=== PATIENT | female | born 1960 | race Caucasian/White ===

== ENCOUNTER 2017-03-22 09:00 | Outpatient (RCR) | payer OTHER, SELFPAY | END 2017-04-04 23:59 | LOC: NS 09:00 | DX: E66.9 Obesity, unspecified (principal); Z68.42 Body mass index [BMI] 45.0-49.9, adult; Z71.3 Dietary counseling and surveillance | CPT/HCPCS: 97802; 97803 ==

== ENCOUNTER → 2017-04-09 18:36 | Outpatient (CLI) | payer OTHER, SELFPAY ==
[2017-04-09 12:25] VITALS: BMI 48.2
[2017-04-09 12:28] VITALS: BP 122/79
[2017-04-09 18:39] LABS: Bacteria 0 SEEN /hpf (None Seen); Mucous, Urine 0 SEEN /hpf (<or=2+); Squamous Epithelial Cells - UA 0 SEEN /hpf (5-10)
[2017-04-09 18:51] LABS: Color, Urine Yellow (Yellow); Glucose, Dipstick Normal (Normal); Ketone-Dipstick Negative (Negative); Leukocyte Esterase-Dipstick 500 /ul (Negative); Nitrite-Dipstick Negative (Negative); Occult Blood-Urine 150 /ul (Negative); Protein-Dipstick 15 mg/dl (Negative); Urine Bilirubin Dipstick Negative (Negative); Urine Clarity Sl. Cloudy (Clear); Urine Urobilinogen Normal (Normal)
[2017-04-09 18:58] LABS: Red Blood Cells-Urine 5-10 SEEN /hpf (0-5); White Blood Cells 10-25 SEEN /hpf (0-5)
== END ==
PROVIDERS: Visit Provider Physician Assistant Surgical
DX: R30.0 Dysuria (principal)
CPT/HCPCS: 81001; 87086; 87088; 87186

== ENCOUNTER 2017-04-19 09:00 | Outpatient (RCR) | payer OTHER, SELFPAY ==
[2017-04-05 08:39] VITALS: BP 122/79
== END 2017-05-02 23:59 ==
LOC: NS 09:00
PROVIDERS: Family Provider Internal Medicine; PCP Internal Medicine; Visit Provider Internal Medicine
DX: E66.9 Obesity, unspecified (principal); Z68.42 Body mass index [BMI] 45.0-49.9, adult; Z71.3 Dietary counseling and surveillance
CPT/HCPCS: 97803

== ENCOUNTER 2017-04-23 13:50 | Outpatient (RCR) | payer OTHER, SELFPAY ==
[2017-04-23 14:16] VITALS: BP 156/81; PULSE 78; RESP 18; TEMP 37.2; BMI 48.2
== END 2017-05-02 23:59 ==
LOC: WC 13:50
PROVIDERS: Visit Provider Surgery
DX: Z09 Encounter for follow-up examination after completed treatment for conditions other than malignant neoplasm (principal)

== ENCOUNTER 2017-05-03 09:09 | Outpatient (RCR) | payer OTHER, SELFPAY ==
[2017-05-03 00:21] VITALS: BP 122/79
== END 2017-06-02 23:59 ==
LOC: NS 09:09
DX: E66.9 Obesity, unspecified (principal); Z68.42 Body mass index [BMI] 45.0-49.9, adult; Z71.3 Dietary counseling and surveillance
CPT/HCPCS: 97803

== ENCOUNTER 2017-06-27 09:00 | Outpatient (RCR) | payer OTHER, SELFPAY ==
[2017-06-03 00:24] VITALS: BP 122/79
== END 2017-07-02 23:59 ==
LOC: NS 09:00
PROVIDERS: Family Provider Internal Medicine; PCP Internal Medicine; Visit Provider Internal Medicine
DX: E66.9 Obesity, unspecified (principal); Z68.42 Body mass index [BMI] 45.0-49.9, adult; Z71.3 Dietary counseling and surveillance
CPT/HCPCS: 97803

== ENCOUNTER 2017-07-26 13:00 | Outpatient (RCR) | payer OTHER, SELFPAY ==
[2017-07-03 00:24] VITALS: BP 122/79
== END 2017-08-02 23:59 ==
LOC: NS 13:00
DX: E66.9 Obesity, unspecified (principal); Z68.42 Body mass index [BMI] 45.0-49.9, adult; Z71.3 Dietary counseling and surveillance
CPT/HCPCS: 97803

== ENCOUNTER 2017-08-22 09:30 | Outpatient (RCR) | payer OTHER, SELFPAY ==
[2017-08-03 00:26] VITALS: BP 122/79
== END 2017-08-22 09:31 ==
LOC: NS 09:30
DX: E66.9 Obesity, unspecified (principal); Z68.42 Body mass index [BMI] 45.0-49.9, adult; Z71.3 Dietary counseling and surveillance
CPT/HCPCS: 97803

== ENCOUNTER → 2017-09-21 17:43 | Outpatient (CLI) | payer OTHER, SELFPAY ==
[2017-09-21 17:44] LABS: Mucous, Urine 0 SEEN /hpf (<or=2+)
[2017-09-21 18:06] LABS: Color, Urine Yellow (Yellow); Glucose, Dipstick Normal (Normal); Ketone-Dipstick Negative (Negative); Leukocyte Esterase-Dipstick 500 /ul (Negative); Nitrite-Dipstick Negative (Negative); Occult Blood-Urine 150 /ul (Negative); Protein-Dipstick 15 mg/dl (Negative); Specific Gravity, Urine 1.015 (1.002-1.030); Urine Bilirubin Dipstick Negative (Negative); Urine Clarity Cloudy (Clear); Urine Urobilinogen Normal (Normal); Urine pH 6.5 (5.0 - 8.0)
[2017-09-21 18:19] LABS: White Blood Cells >100 SEEN /hpf (0-5)
[2017-09-21 18:20] LABS: Red Blood Cells-Urine 5-10 SEEN /hpf (0-5)
[2017-09-21 18:21] LABS: Bacteria 2+ /hpf (None Seen); Squamous Epithelial Cells - UA 0-5 SEEN /hpf (5-10)
== END ==
PROVIDERS: Visit Provider Physician Assistant Surgical
DX: N39.0 Urinary tract infection, site not specified (principal)
CPT/HCPCS: 81001; 87077; 87086; 87088; 87186

== ENCOUNTER → 2017-11-07 15:34 | Outpatient (CLI) | payer OTHER, SELFPAY | PROVIDERS: Family Provider Internal Medicine; PCP Internal Medicine; Visit Provider Internal Medicine | DX: M79.641 Pain in right hand (principal) | CPT/HCPCS: 73130 ==

== ENCOUNTER 2018-01-16 08:15 | Outpatient (RCR) | payer OTHER, SELFPAY ==
--- NOTE | 2017-12-04 10:50 | MASS.EVAL ---
Massage Therapy Evaluation: Initial Evaluation Date: 12/03/2017 SUBJECTIVE: Cristina is a 57 year old female who was referred to the [facility] for a massotherapy evaluation by Dr. Warren with the diagnosis of muscle pain. Cristina presents today with the symptoms of tension and pain in her neck and shoulder area, primarily her left side. She currently states she has moderate pain daily. She does pool exercising and it seems to help. OBJECTIVE: Upon observation Cristina has poor posture in sitting and standing. After examination and palpation I found Cristina to have very high muscle tension with tenderness and myofascial restrictions in her sub occipitals, levator scapulae, trapezius, rhomboids, scalenes, and thoracic paraspinals. Her QL?s, hips all were very tight with fascial restrictions, tender points and trigger points. The first treatment consisted of a one hour massage to her full body with myofascial release, muscle stripping, trigger point compression techniques, and cervical manual traction. ASSESSMENT: I feel that Cristina is a good candidate for massotherapy at this time. She had a favorable response to the first treatment with reduction in her muscle aches, pain and tension. PLAN: The plan of care was reviewed with the patient. The patient is to be seen on as needed basis for a total of ten sessions with the recommendation of once every two weeks for a one hour treatment. Jenny Moore LMT
--- NOTE | 2018-02-22 15:32 | MASS.DISCH ---
Massage Therapy Discharge Summary: Discharge Date: 02/22/2018 Cristina was seen for a massotherapy evaluation on 12/03/2017 with the diagnosis of muscle spasms. She was treated with three sessions of massage therapy consisting of moderate pressure soft tissue techniques, myofascial release and trigger point compression to her cervical, thoracic, lower back, upper extremities and lower extremities. Cristina responded well to the therapy by reporting decreased tension and pain throughout her neck, shoulders, and back. Her goals for therapy were not met as she was unable to schedule more appointments. At this time this patient is being discharged from our care at [facility] facility.
== END 2018-01-16 19:00 | disposition home or self-care (01) ==
LOC: MASS 08:15
PROVIDERS: Family Provider Internal Medicine; PCP Internal Medicine; Visit Provider Internal Medicine
DX: M62.838 Other muscle spasm (principal)
CPT/HCPCS: 97124

== ENCOUNTER → 2018-03-08 13:34 | Outpatient (CLI) | payer BC, SELFPAY ==
[2018-03-08 10:44] VITALS: BMI 48.2
--- NOTE | 2018-03-08 13:38 | RAD_ITS ---
STUDY: X-RAY - LEFT SHOULDER REASON FOR EXAM: Female, 58 years old. Left shoulder pain TECHNIQUE: 4 view(s) of the shoulder. COMPARISON: None. FINDINGS: There is mild degenerative arthrosis of the glenohumeral articulation. There is degenerative arthrosis of the acromioclavicular joint without inferior osseous spur formation. Normal acromion. Normal humeral head and visualized proximal humerus. The soft tissue structures are unremarkable. Normal visualized pulmonary apex. RAD/Shoulder min 2 Views IMPRESSION: Mild osteoarthrosis of the glenoid and acromioclavicular joints. Electronically Signed: Butch Doherty MD at 8:08 EST , Service support ,
== END ==
PROVIDERS: Family Provider Internal Medicine; PCP Internal Medicine; Referring Provider Internal Medicine; Visit Provider Internal Medicine
DX: M25.512 Pain in left shoulder (principal)
CPT/HCPCS: 73030

== ENCOUNTER → 2018-04-23 10:55 | Outpatient (REF) | payer BC, SELFPAY ==
[2018-03-08 10:44] VITALS: BMI 48.2
== END ==
LOC: CVS 10:55
PROVIDERS: Family Provider Internal Medicine; PCP Internal Medicine; Referring Provider Internal Medicine; Visit Provider Internal Medicine
DX: R00.2 Palpitations (principal)
CPT/HCPCS: 93270

== ENCOUNTER 2018-05-23 10:00 | Outpatient (RCR) | payer BC, SELFPAY ==
[2018-03-08 10:44] VITALS: BMI 48.2
--- NOTE | 2018-04-17 13:31 | HP.PTEVAL_ITS ---
Patient's Visit Information KIZZY NASH is a 58 year old F referred to Physical Therapy by Randall Warren MD with a diagnosis of L shoulder pain. Date of Evaluation: 04/17/18 Physical Therapist: Davis Cummins PT, ATC - Visit Plan Frequency: 3x /Week Duration: 4 Weeks Plan: L shoulder strengthening (rot cuff), scap stab ex's, UBE, and HEP - Subjective Findings: Pt reports her L shoulder has been sore for a couple of years. Pt reports she has been dealing with the pain, but the pain just never feels like it will go away. Pt reports she has difficulty with picking up her grandson secondary to the pain. Pt reports she doesnt have pain when she doesnt use her L UE. Pt is L hand dominant. Pt reports she exercises here in the pool, and that increases her pain as well. Pt has had an xray recently but has not heard the results at this time. Pt reports most of her pain is located on the anterior portion of her L shoulder. Pt reports she gets tingling and numbness in B UE's, but that is coming from her neck. Pt reports no sleep difficulty at this time. 0/10 pain at rest, 6/10 pain at worst - Pain L shoulder Pain Intensity (Out of 10): 0 Pain Intensity Range: 6 - Objective Neuro: B UE sensation is WNL to light touch. B becepital reflex 2/3. Palpation: Pt is tender along the distrivbution of the LHB tendon and supraspinatus tendon. ROM: R shoulder flex= 155, abd= 155, ER= 60, IR WNL; L shoulder flex= 140, abd= 130, ER= 65, IR WNL. MMT: R shoulder is grossly 5/5 throughout while L UE is 4+/5 throughout. Special testing: No positive finding this date - Goals Goal 1:: Decrease L shoulder pain x 50% to aid with IADL's Goal Time Frame: 4-6 Weeks Goal 2:: Increase L shoulder flex and abd ROM x 20 degrees to aid with overhead activity Goal Time Frame: 4-6 Weeks Goal 3:: Increase L shoulder strength x 1 grade to aid with return to exercise class without limitation Goal Time Frame: 4-6 Weeks Goal 4:: I with HEP Goal Time Frame: 4-6 Weeks - Rehabilitation Potential Physical Therapy Diagnosis: L shoulder pain, weakness, and limited ROM secondary to impingement syndrome of L shoulder Rehabilitation Potential: Good - Anticipated Interventions Patient/Client Instruction: Educate patient on: Condition, Plan of Care For the Purpose of:: To improve self management Therapeutic Exercise to Include: Strength training, Endurance training, Postural training, Active ROM, Scapular Strength/Stabilization For the Purpose of:: To decrease pain, To increase ROM, To improve muscle performance and motor function Cryotherapy (ice pack, ice massage): Yes For the Purpose of:: To decrease pain Thank you for the opportunity to evaluate your patient. For Medicare and Medicare HMO plans, please review the plan of care and approve it. It will need to be FAXED BACK to us at [phone] for Medicare purposes. For Medicare only, by signing this I certify the plan of care. Please let me know if there are questions or concerns regarding this plan of care. Physician Signature: Date:
--- NOTE | 2018-05-23 11:09 | HP.PTDCSUM ---
HP - PT D/C Summary It has been my pleasure to treat KIZZY NASH under orders from Randlal Warren MD, for the diagnosis of L shoulder pain for a total of 7 visit(s). Discharge Date: Please see the following information for a summary of their discharge status. - Subjective Subjective: Increased pain today from working at home - Pain L shoulder Pain Intensity (Out of 10): 2 - Overall Improvement % Improvement: 60 - Objective Objective/Function: L shoulder Pain ranges 2/10 to 4/10. L shoulder ROM: flex= 160, abd= 140, ER= 45, IR WNL. L shoulder MMT: 5/5 throughout. I with HEP. Rx goals achieved - Goals Goal 1:: Decrease L shoulder pain x 50% to aid with IADL's Goal Progress: Goal Met Goal 2:: Increase L shoulder flex and abd ROM x 20 degrees to aid with overhead activity Goal Progress: Goal Met Goal 3:: Increase L shoulder strength x 1 grade to aid with return to exercise class without limitation Goal Progress: Goal Met Goal 4:: I with HEP Goal Progress: Goal Met - Plan Plan: discharge - D/C Information If there are questions or concerns regarding this patient's physical therapy, please feel free to call me at [phone]. Thank you for the referral of this patient. Sincerely, Davis Cummins, PT, ATC
== END 2018-05-23 19:00 | disposition home or self-care (01) ==
LOC: PT 10:00
PROVIDERS: Family Provider Internal Medicine; PCP Internal Medicine; Referring Provider Internal Medicine; Visit Provider Internal Medicine
DX: M25.512 Pain in left shoulder (principal)
CPT/HCPCS: 97110; 97161; 97530

== ENCOUNTER → 2018-08-14 09:17 | Outpatient (CLI) | payer BC, SELFPAY ==
[2018-08-13 12:54] VITALS: BMI 48.2
--- NOTE | 2018-08-26 12:54 | CPS ---
Instruction done and explained purpose of device. Pt. understands how to use and will continue usage at home per order.
== END ==
PROVIDERS: Family Provider Internal Medicine; PCP Internal Medicine; Referring Provider Nurse Practitioner Acute Care; Visit Provider Nurse Practitioner Acute Care
DX: J01.90 Acute sinusitis, unspecified (principal)
CPT/HCPCS: 87070; 87077; 87106; 87186; 87205

== ENCOUNTER → 2018-08-26 12:30 | Outpatient (CLI) | payer BC, SELFPAY ==
[2018-08-26 11:37] VITALS: BMI 48.2
== END ==
PROVIDERS: Family Provider Internal Medicine; PCP Internal Medicine; Referring Provider Nurse Practitioner Acute Care; Visit Provider Nurse Practitioner Acute Care
DX: J47.1 Bronchiectasis with (acute) exacerbation (principal); J45.21 Mild intermittent asthma with (acute) exacerbation; G47.33 Obstructive sleep apnea (adult) (pediatric); I10 Essential (primary) hypertension; E78.5 Hyperlipidemia, unspecified; I87.2 Venous insufficiency (chronic) (peripheral); Z87.891 Personal history of nicotine dependence
CPT/HCPCS: 94667

== ENCOUNTER → 2018-09-12 08:31 | Outpatient (CLI) | payer BC, SELFPAY ==
[2018-09-11 08:25] VITALS: BMI 48.2
== END ==
PROVIDERS: Family Provider Internal Medicine; PCP Internal Medicine; Referring Provider Nurse Practitioner Acute Care; Visit Provider Nurse Practitioner Acute Care
DX: J47.9 Bronchiectasis, uncomplicated (principal)
CPT/HCPCS: 87070; 87205

== ENCOUNTER → 2018-12-04 11:50 | Outpatient (CLI) | payer BC, SELFPAY ==
[2018-10-15 06:13] VITALS: BMI 54.0
--- NOTE | 2018-12-04 11:54 | RAD_ITS ---
HISTORY:bronchiectasis without complication bronchiectasis without complication EXAM: XR Chest 2 Views: COMPARISON: None FINDINGS: # of images incl. paperwork: 2 LINES/DEVICES: None. LUNGS: Radiographically clear. No consolidation, edema or effusion. No pneumothorax. MEDIASTINUM AND CARDIOVASCULAR STRUCTURES: Cardiac silhouette not enlarged. BONES AND SOFT TISSUES: Unremarkable. RAD/Chest PA and Lateral IMPRESSION: No radiographic evidence of acute cardiopulmonary disease. at 2157 Reported and signed by: Ileana Gutierrez DO Electronically Signed: Ileana Gutierrez DO at 21:56 EDT Tel , Service support ,
== END ==
PROVIDERS: Family Provider Internal Medicine; PCP Internal Medicine; Referring Provider Internal Medicine; Visit Provider Internal Medicine
DX: J47.9 Bronchiectasis, uncomplicated (principal)
CPT/HCPCS: 71046

== ENCOUNTER → 2019-05-05 09:19 | Outpatient (CLI) | payer BC, SELFPAY ==
[2018-10-15 06:13] VITALS: BMI 54.0
== END ==
PROVIDERS: PCP Internal Medicine; Referring Provider Nurse Practitioner Acute Care; Visit Provider Nurse Practitioner Acute Care
DX: R05 Cough (principal)
CPT/HCPCS: 87070; 87205

== ENCOUNTER → 2019-05-08 10:25 | Outpatient (REF) | payer BC, SELFPAY ==
[2018-10-15 06:13] VITALS: BMI 54.0
== END ==
LOC: HPRAD 10:25
PROVIDERS: PCP Internal Medicine; Referring Provider Chiropractor; Visit Provider Chiropractor
DX: M99.03 Segmental and somatic dysfunction of lumbar region (principal)
CPT/HCPCS: 72110

== ENCOUNTER → 2019-10-08 13:48 | Outpatient (CLI) | payer BC, SELFPAY ==
[2019-10-08 13:05] VITALS: BMI 54.2
[2019-10-08 14:09] LABS: Absolute Neutrophil Count 5.7 X10^3/uL (2.0-7.7); Basophil# 0.03 X10^3/uL; Basophil% 0.4 % (0-1); Eosinophils% 1.2 % (0-5); Hematocrit 40.6 % (37-47); Hemoglobin 12.9 g/dL (12.0-15.0); Lymphocyte % 19.8 % (19-41); Mean Corp Hgb Conc 31.8 g/dL (32-36); Mean Corpuscular Hgb 27.5 pg (27.0-32.0); Mean Corpuscular Volume 86.6 fL (81-99); Mean Platelet Vol. 9.5 fl (6.2-12.0); Monocyte# 0.61 X10^3/uL; Monocyte% 7.6 % (0-10); NRBC Flagged by Analyzer 0 % (0-5); Neutrophil # 5.69 X10^3/uL (2.7-7.7); Neutrophil % 70.5 % (47-70); Platelet Count 229 K/mm3 (150-450); RBC Distribution Width CV 15.6 % (11.6-14.6); RBC Distribution Width SD 49.1 fl (35.1-43.9); Red Blood Count 4.69 M/mm3 (4.2-5.4); White Blood Count 8.1 K/mm3 (4.4-11.0)
[2019-10-11 03:06] LABS: Alternaria alternata <0.10 kU/L (Class 0); Bermuda Grass 0.13 kU/L (Class 0/I); Bluegrass, Kentucky 0.15 kU/L (Class 0/I); Cat Hair/Dander, Standard <0.10 kU/L (Class 0); D farinae Mite <0.10 kU/L (Class 0); D pteronyssinus <0.10 kU/L (Class 0); Dog Epithelia <0.10 kU/L (Class 0); Elm, American White 0.11 kU/L (Class 0/I); Oak, White 0.14 kU/L (Class 0/I); Plantain, English 0.12 kU/L (Class 0/I); Ragweed, Short/Common 0.11 kU/L (Class 0/I)
[2019-10-11 17:31] LABS: Mouse Urine <0.10 kU/L (Class 0)
[2019-10-11 20:07] LABS: Aspirgillus flavus Negative (Neg:<1:1); Aspirgillus fumigatus Negative (Neg:<1:1); Aspirgillus niger Negative (Neg:<1:1)
[2019-10-11 21:01] LABS: Immunoglobulin E 29 IU/mL (6-495)
== END ==
PROVIDERS: PCP Internal Medicine; Referring Provider Nurse Practitioner Acute Care; Visit Provider Nurse Practitioner Acute Care
DX: J45.909 Unspecified asthma, uncomplicated (principal)
CPT/HCPCS: 36415; 82785; 85025; 86003; 86606

== ENCOUNTER → 2019-10-10 09:12 | Outpatient (CLI) | payer BC, SELFPAY ==
[2019-10-08 13:05] VITALS: BMI 54.2
== END ==
PROVIDERS: PCP Internal Medicine; Referring Provider Nurse Practitioner Acute Care; Visit Provider Nurse Practitioner Acute Care
DX: J45.909 Unspecified asthma, uncomplicated (principal)
CPT/HCPCS: 87070; 87077; 87186; 87205

== ENCOUNTER → 2019-11-13 06:48 | Outpatient (CLI) | payer BC, SELFPAY ==
[2019-10-08 13:05] VITALS: BMI 54.2
[2019-10-29 05:43] VITALS: BMI 55.4
--- NOTE | 2019-11-13 13:08 | PFT ---
INTRODUCTION: The patient is a 59-year-old female that presents for pulmonary function studies secondary to a diagnosis of asthma. Respiratory therapy reports good patient effort. Bronchodilators were used during testing. INTERPRETATION: Forced expiration spirometry demonstrates the presence of a moderate large airways obstructive ventilatory defect. There was a significant response to aerosolized bronchodilators noted. Spirograms are of good quality and plateau gradually. Body plethysmography was performed and reveals lung volumes to be within normal limits. Diffusing capacity by single breath CO was mildly reduced at 70% of predicted. IMPRESSION: Fully reversible moderate large airways obstructive ventilatory defect with preserved lung volumes and mild reduction in diffusing capacity.
== END ==
PROVIDERS: PCP Internal Medicine; Referring Provider Nurse Practitioner Acute Care; Visit Provider Nurse Practitioner Acute Care
DX: J45.909 Unspecified asthma, uncomplicated (principal)
CPT/HCPCS: 94060; 94726; 94729

== ENCOUNTER → 2019-12-29 11:34 | Outpatient (CLI) | payer BC, SELFPAY ==
[2019-12-29 10:03] VITALS: BMI 56.3
== END ==
PROVIDERS: PCP Internal Medicine; Visit Provider Nurse Practitioner Acute Care
DX: J45.901 Unspecified asthma with (acute) exacerbation (principal)
CPT/HCPCS: 87070; 87205

== ENCOUNTER → 2020-06-25 06:59 | Outpatient (CLI) | payer BC, SELFPAY ==
[2020-06-22 10:07] VITALS: BMI 54.9
--- NOTE | 2020-06-25 07:05 | CT_ITS ---
STUDY: CT CHEST WITHOUT CONTRAST REASON FOR EXAM: Female, 60 years old. bronchiectasis -- please use HRCT RADIATION DOSAGE (If Supplied By Facility): CTDIvol = ( 20.15 ) mGy, DLP = ( 662.05 ) mGycm TECHNIQUE: Transaxial imaging was performed without the administration of intravenous contrast material. Multiplanar coronal and sagittal images were reformatted. Individualized dose optimization techniques were used for this CT. COMPARISON: Comparison is made with prior chest radiograph dated 12/04/2018 FINDINGS: The lungs are normal. There is no demonstrated pleural abnormality. There are calcifications of the coronary arteries. There are multiple small lymph nodes within the mediastinum, which are normal in size and morphology most compatible with reactive lymph hyperplasia. Normal hilar regions. Normal unenhanced pulmonary arteries. Normal aorta arch and descending thoracic aorta. There are multi-level degenerative changes of the thoracic spine. There is no demonstrated abnormality of the visualized upper abdomen. CT/Chest without Contrast IMPRESSION: No acute abnormalities seen. Electronically Signed: Mikal Amin MD at 8:38 EDT , Service support ,
== END ==
PROVIDERS: PCP Internal Medicine; Referring Provider Internal Medicine Critical Care Medicine; Visit Provider Internal Medicine Critical Care Medicine
DX: J47.9 Bronchiectasis, uncomplicated (principal)
CPT/HCPCS: 71250

== ENCOUNTER → 2020-09-08 06:04 | Outpatient (CLI) | payer BC, SELFPAY ==
[2020-08-26 11:17] VITALS: BMI 53.9
--- NOTE | 2020-09-08 06:06 | ECHOCS_ITS ---
Reason For Study: SOB/SPEARS Procedure This was a 2D Doppler, Color Flow transthoracic echocardiogram. The study was technically difficult. Contrast injection was performed. Exam performed in department. Left Ventricle Normal LV size. Left ventricular systolic function is normal. The estimated ejection fraction is 65 %. No evidence for diastolic dysfunction. No regional wall motion abnormalities noted. Right Ventricle Normal RV size. Normal systolic function. Atria Normal left atrium. Normal right atrium. No doppler evidence for ASD. Mitral Valve There is mild mitral annular calcification. Normal mitral valve. Trivial mitral valve insufficiency. Tricuspid Valve Normal tricuspid valve. Trivial tricuspid valve insufficiency. Right ventricular systolic pressure estimated to be 29 mmHg. Aortic Valve The aortic valve is not well visualized. Pulmonic Valve The pulmonic valve is not well visualized. Trivial pulmonic valve insufficiency. Great Vessels The aortic root is not well visualized. Pericardium/Pleural No pericardial effusion. Medication 22 gauge I.V. with prn adaptor inserted into right arm. Diluted definity 6ml given slow IV push to enhance endocardial definition. MMode/2D Measurements & Calculations LVIDd: 4.7 cm IVSd: 1.1 cm LA dimension: 3.8 cm LVIDs: 2.7 cm LVPWd: 1.3 cm FS: 41.8 % LAV(MOD-bp): 40.1 ml LA A4 area: 16.5 cm2 RA A4 area: 17.2 cm2 LAV(MOD-bp) Indexed: 17.2 ml/m2 LAV(MOD-sp2): 33.9 ml LAV(MOD-sp4): 43.7 ml Time Measurements MV dec time: 0.22 sec Doppler Measurements & Calculations MV E max bruce: 128.3 cm/sec Lat Peak E' Bruce: 9.6 cm/sec Med Peak E' Bruce: 9.7 cm/sec MV A max bruce: 93.2 cm/sec E/E' lat: 13.3 E/E' med: 13.2 MV E/A: 1.4 MV V2 max: 120.8 cm/sec MV P1/2t max bruce: 121.2 cm/sec Ao V2 max: 155.3 cm/sec MV max P.8 mmHg MV P1/2t: 90.1 msec Ao max P.6 mmHg MV V2 mean: 66.5 cm/sec MV dec slope: 393.9 cm/sec2 MV mean P.1 mmHg MV V2 VTI: 36.9 cm MVA(P1/2t): 2.4 cm2 LV V1 max: 138.1 cm/sec PA V2 max: 81.9 cm/sec TR max bruce: 254.3 cm/sec LV V1 max P.6 mmHg TR max P.9 mmHg ECHO/Echo Complete W/ Contrast Interpretation Summary The study was technically difficult. Contrast injection was performed. Left ventricular systolic function is normal. The estimated ejection fraction is 65 %. There is mild mitral annular calcification. Trivial mitral valve insufficiency. Trivial tricuspid valve insufficiency. Trivial pulmonic valve insufficiency. Right ventricular systolic pressure estimated to be 29 mmHg. No evidence for diastolic dysfunction. Ordering Physician: Judd Estrada Referring Physician: Randall Warren Performed By: Joel An RCS
--- NOTE | 2020-09-08 09:04 | STRESSREP_ITS ---
Stress Test Report Date: 09-08-2020 Procedure: Exercise tolerance test/imaging study Indications: Shortness of breath/dyspnea on exertion; coronary artery calcific ation Consent: Per the patient Procedure: The patient exercised on a Jan protocol for 3 minutes completing Stage I achieving a peak heart rate of 155 bpm (98% predicted maximal heart rate) with a peak blood pressure 210/70 mmHg and a peak MET capacity of 4 METs. The baseline ECG demonstrated normal sinus rhythm. The peak exercise ECG demonstrated no obvious ECG changes. There was a rare PVC during exercise and an occasional PVC during recovery and an isolated ventricular couplet during recovery. The functional capacity was considered decreased. There was no complaint of chest discomfort during exercise or recovery. The examination was discontinued secondary to dyspnea. Impression: 1. Technically adequate (percent predicted maximal heart rate greater than 85%) exercise tolerance test 2. Peak exercise ECG with no obvious ECG changes 3. There was a rare PVC during exercise and an occasional PVC during recovery and an isolated ventricular couplet during recovery 4. The resting blood pressure was considered elevated with a hypertensive response to exercise. 5. Nuclear images pending Myocardial perfusion imaging study: Technique: The patient was injected with 14.7 mCi of technetium 99m Cardiolite and subsequently rest SPECT Cardiolite nuclear imaging was obtained in the horizontal long, vertical long, and short axis views. The patient exercised on a Jan protocol for 3 minutes completing Stage I achieving a peak heart rate of 155 bpm (98% predicted maximal heart rate) with a peak blood pressure 210/70 mmHg and a peak MET capacity of 4 METs. The patient was injected with 44.8 mCi of technetium 99m Cardiolite and subsequently stress SPECT Cardiolite nuclear imaging was obtained in the horizontal long, vertical long, and short axis views. A gated Cardiolite study at peak stress was obtained. Interpretation: Rest and stress SPECT Cardiolite nuclear imaging status post realignment, normalization, and attenuation correction, demonstrates the appearance of relative uniform tracer uptake and myocardial perfusion appearing within normal limits. There were no myocardial perfusion deficits reported on the stress polar map images. There is end systolic thickening and brightening. The gated Cardiolite study demonstrates myocardial thickening and inward wall motion. The reported LVEF is 73%. Impression: 1. Rest and stress SPECT Cardiolite nuclear imaging demonstrate relative uniform tracer uptake and myocardial perfusion appearing within normal limits. 2. The gated Cardiolite study reports an LVEF of 73%. This note was generated with [employer] dictation software. It may contain incorrect words, spelling, and punctuation that were not noted in checking the note before signing.
== END ==
PROVIDERS: PCP Internal Medicine; Referring Provider Internal Medicine Cardiovascular Disease; Visit Provider Internal Medicine Cardiovascular Disease
DX: R06.02 Shortness of breath (principal); E78.00 Pure hypercholesterolemia, unspecified; I10 Essential (primary) hypertension; I25.10 Atherosclerotic heart disease of native coronary artery without angina pectoris; I25.84 Coronary atherosclerosis due to calcified coronary lesion
CPT/HCPCS: 78452; 93017; 93306; A9500; Q9957; A4216; C8929; J3490

== ENCOUNTER → 2020-11-26 10:22 | Outpatient (CLI) | payer BC, SELFPAY ==
--- NOTE | 2020-11-26 10:27 | RAD_ITS ---
STUDY: X-RAY - LUMBAR SPINE REASON FOR EXAM: Female, 60 years old. LUMBAR RAD TECHNIQUE: 5 view(s) of the lumbar spine were obtained. COMPARISON: 05/08/2019 FINDINGS: Normal lumbar lordosis. Mild levoscoliosis centered at L4. 2 mm of anterolisthesis of L4 on L5 which is unchanged. There is multilevel endplate spondylosis of the lumbar vertebrae. There is multi-level degenerative disc disease with multi-level disc space narrowing. Facet hypertrophy in the lower lumbar spine consistent with degenerative disc disease. The soft tissue structures are unremarkable. RAD/L/S Spine Min 4 Views IMPRESSION: Mild levoscoliosis with diffuse degenerative disc disease and 2 mm of anterolisthesis of L4 on L5, similar to the prior study. Electronically Signed: Jimbo Rios MD at 17:17 EDT Tel , Service support ,
[2020-11-26 12:33] LABS: AST(SGOT) 23 U/L (15-37); Alanine Aminotransfer ALT/SGPT 29 U/L (13-56); Alkaline Phosphatase 69 U/L (45-117); Anion Gap 4 (5-15); BUN 15 mg/dL (7-18); BUN/Creat Ratio 16.9 RATIO (10-20); Calcium,Total 9.4 mg/dL (8.5-10.1); Chloride 104 mmol/L (98-107); Cholesterol 166 mg/dL (200); Creatinine, Serum 0.89 mg/dL (0.55-1.02); EST Glomerular Filtration Rate 68 mL/min (>60); Est Glom Filt Rate - Afr Amer 83 mL/min (>60); Globulin 4.4 g/dL (2.2-4.2); Glucose 86 mg/dL (74-106); High Density Lipoprotein 67 mg/dL; Potassium 3.6 mmol/L (3.5-5.1); Protein, Total 8.4 g/dL (6.4-8.2); Sodium Level 137 mmol/L (136-145); Triglycerides 97 mg/dL; Very Low Density Lipoprotein 19 mg/dL (5-40)
[2020-11-26 12:35] LABS: Vitamin D,25 Hydroxy 53.2 ng/mL
== END ==
PROVIDERS: PCP Internal Medicine
DX: I10 Essential (primary) hypertension (principal); E78.00 Pure hypercholesterolemia, unspecified; E55.9 Vitamin D deficiency, unspecified; M54.16 Radiculopathy, lumbar region
CPT/HCPCS: 36415; 72110; 80048; 80061; 80076; 82306

== ENCOUNTER → 2020-12-27 08:01 | Outpatient (CLI) | payer BC, SELFPAY ==
--- NOTE | 2020-12-27 08:02 | MRI_ITS ---
STUDY: MRI LUMBAR SPINE WITHOUT CONTRAST REASON FOR EXAM: Female, 60 years old. Low back pain/parasthesia, right TECHNIQUE: Standardized fat and water weighted pulse sequences were obtained in the sagittal and axial planes. COMPARISON: X-ray 11/26/2020 FINDINGS: T12-L1: Normal endplates. Normal disc height, hydration and morphology. Normal bilateral facet joints. Normal central canal and bilateral lateral recesses. Normal bilateral intervertebral neural foramina. Normal lumbar lordosis. Mild levoscoliosis of the lower lumbar spine centered at L4. Normal conus medullaris that terminates at the L1. L1-2: Normal endplates. Normal disc height, hydration and morphology. Normal bilateral facet joints. Normal central canal and bilateral lateral recesses. Normal bilateral intervertebral neural foramina. L2-3: Mild bilateral facet hypertrophy and moderate ligament flavum hypertrophy. Moderate broad disc protrusion asymmetric to left produces moderate spinal stenosis with mild right lateral recess stenosis, moderate left lateral recess stenosis with abutment of the left L3 nerve root and mild bilateral neural foraminal stenosis. L3-4: Mild bilateral facet hypertrophy and moderate ligament flavum hypertrophy. Moderate broad disc protrusion produces moderate spinal stenosis with moderate bilateral lateral recess stenosis with abutment of the L4 nerve roots bilaterally and moderate bilateral neural foraminal stenosis with abutment of the exiting L3 nerve roots bilaterally. L4-5: Severe bilateral facet hypertrophy and ligament flavum hypertrophy. Large broad disc protrusion produces severe spinal stenosis with severe bilateral lateral recess stenosis with effacement of the L5 nerve roots bilaterally and moderate bilateral neural foraminal stenosis with abutment of the exiting L4 nerve roots bilaterally. L5-S1: Moderate amount of facet hypertrophy and ligament flavum hypertrophy. Mild broad disc protrusion produces moderate spinal stenosis with moderate bilateral lateral recess stenosis with abutment S1 nerve roots bilaterally and moderate lateral neural foraminal stenosis with abutment of the exiting L5 nerve roots bilaterally. Normal visualized sacral ala. Normal visualized paraspinous soft tissue structures. MRI/Spine Lumbar (Routine) IMPRESSION: Mild levoscoliosis with degenerative disc disease as described above Electronically Signed: Jimbo Rios MD at 10:15 EDT Tel , Service support ,
== END ==
PROVIDERS: PCP Internal Medicine; Referring Provider Chiropractor; Visit Provider Chiropractor
DX: M51.36 Other intervertebral disc degeneration, lumbar region (principal); M99.03 Segmental and somatic dysfunction of lumbar region
CPT/HCPCS: 72148

== ENCOUNTER 2020-12-31 10:00 | Outpatient (RCR) | payer BC, SELFPAY ==
--- NOTE | 2020-12-15 09:53 | HP.PTEVAL_ITS ---
Patient's Visit Information KIZZY NASH is a 60 year old F referred to Physical Therapy by Dr. Randall Warren MD with a diagnosis of LUMBAR RADICULOPATHY. Date of Evaluation: 12/15/20 Physical Therapist: Andreina Murphy PT, Cert MDT - Visit Plan Frequency: 2-3x /Week Duration: 4-6 Weeks Plan: AQUATIC THERAPY FOR PAIN RELIEF, POSTURE CORRECTION/STRENGTHENING, INSTRUCTION IN APPROPRIATE BODY MECHANICS AND ACTIVITY MODIFICATIONS. DLS STARTING WITH A NEUTRAL SPINE PROGRESSING ROM TOLERATED. THAO LE ROM, STRETCHING AND STRENGTHENING. HEP INSTRUCTION. 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 Disability: NO. Present symptoms: THAO LOW BACK PAIN. RIGHT > LEFT. RIGHT CALF PAIN. RIGHT FOOT TINGLING - THE WHOLE FOOT. LEFT BIG TOE TINGLING. LEFT LATERAL CALF TINGLING. Present since: YEARS AGO - FLARE UP AUGUST 2020. Pain Scale: WORST 6/10, LEAST 1/10. Currently: 3/10. Commenced as a result of: NO APPARENT REASON. Symptoms at onset: RIGHT LE TINGLING. Worse: SITTING IN A CHAIR, LYING DOWN AT FIRST - TINGLING, WAKING UP IN THE MORNING - TINGLING, LIFTING, WALKING - HIP PAIN, STANDING, GOING UP AND DOWN THE STEPS, DRIVING. Better: PUTTING FIST IN RIGHT LOW BACK MUSCLE, STRETCHING IT LIKE THE CHIROPRACTOR DOES, CHANGING POSITION. Disturbed sleep: NO. Previous history/Previous treatment: CHRONIC LBP FOR ABOUT 4-5 YEARS. CHIROPRACTIC TREATMENTS OFF AND ON NEEDED BUT NOT A LOT. NO BACK SURGERY. NO SUSAN'S. PRESCRIPTION MEDICATIONS AND CHIROPRACTOR PRIOR TO THIS EPISODE. APR 2019 WENT TO URGENT CARE AND HAD STEROIDS AND MUSCLE RELAXERS TOO - THAT EPISODE WAS WORSE THAN THIS ONE. NO PHYSICAL THERAPY. Treatment this episode: CHIROPRACTOR, STEROIDS A MONTH AGO, MUSCLE RELAXER. Coughing/sneezing/straining: POSITIVE. Gait: PATIENT REPORTS HER BACK PAIN IS LIMITING HER WALKING FOR EXERCISE. SHORT DISTANCES GAIT IS NORMAL. Difficulty initiating urination: NO. Accidents: NO. Unexplained weight loss: NO. Imaging: NO MRI. RECENT LUMBAR X-RAY WITH COMPARISON TO MAY 2019. IM PRESSION: Mild levoscoliosis with diffuse degenerative disc disease and 2 mm of. anterolisthesis of L4 on L5, similar to the prior study. PMH: ASTHMA. USES A MACHINE VEST TO RATTLE LUNGS AND STARTED THAT IN AUGUST AROUND THE SAME TIME THIS STARTED. USES THE VEST 30 MINUTES 2 TIMES A DAY. HTN. HIGH CHOLESTEROL. H/O COVID FEB 2020/MAR 2020. LYMPHADEMEA LE'S. Recent major surgery: THAO TKR. *CTR OCT 2020. EXERCISE: INDEP POOL EX 3-4 TIMES A WEEK DURING COVID BUT STARTING BACK TO CLASSES. OTHER: LEAVING FOR [place] JAN 04 2021. - Objective Sitting/Standing Posture: POOR. Relevant shift: NO. Active Correction of posture in standing: PRODUCES LEFT BIG TOE AND CALF TINGLING WHICH PATIENT HAS NOT NOTICED BEFORE. Active correction of posture in sitting: PRODUCES RIGHT CALF TINGLING. Other Observations: INDEP TRANSFERS. Motor deficit: THAO LE'S 5/5 WITH MMT'ING EXCEPT HIPS GRADED 4-/5. GENTLE THAO HIP STRENGTH TESTING PROVOKES LBP. Sensory deficit: THAO LE LIGHT TOUCH SENSATION IS GROSSLY INTACT AND SYMMETRICAL. ROM deficit: TIGHT THAO HS'S. Dural Signs: NEGATIVE THAO LE'S. Lumbar mvmt loss: flex - MIN TO MOD. ext - MOD TO MAISHA - PRODUCES LLE CALF AND FOREFOOT TINGLING.. R SG - MAISHA - PRODUCES RIGHT LBP. L SG - MAISHA - PRODUCES THAO LBP. Core strength: POOR. Palpation: TENDERNESS L45S1 REGION AND RIGHT LOW BACK MUSCLULATURE. TREATMENT: NEUROMUSCULAR REEDUCATION - RETRAINING OF MVMT AND POSTURE FOR SITTING, LYING AND STANDING ACTIVITIES. - Balance/Special Test Scores Oswestry Low Back Score: 16 - Goals Goal 1:: DECREASE C/O LOW BACK AND THAO LE SX'S. Goal Time Frame: 4-6 Weeks Goal 2:: IMPROVE PERSONAL CARE, LIFTING, WALKING, STANDING, SOCIAL LIFE, TRAVEL AND WORK/HOMEMAKING FUNCTION. Goal Time Frame: 4-6 Weeks Goal 3:: INSTRUCT IN PROPHYLAXIS Goal Time Frame: 4-6 Weeks - Anticipated Interventions Patient/Client Instruction: Educate patient on: Condition, Plan of Care, Risk Factors For the Purpose of:: To improve self management Therapeutic Exercise to Include: Strength training, Body mechanics, Postural training, Flexibilty training, Gait and locomotor training, Neuromotor development, In an aquatic setting, Dynamic Lumbar Stabilization For the Purpose of:: To decrease pain, To improve muscle performance and motor function, To increase tolerance to activity/condition/position, To improve ability of physical actions for home/community/work/leisure, To improve gait and locomotor functions Thank you for the opportunity to evaluate your patient. For Medicare and Medicare HMO plans, please review the plan of care and approve it. It will need to be FAXED BACK to us at [phone] for Medicare purposes. For Medicare only, by signing this I certify the plan of care. Please let me know if there are questions or concerns regarding this plan of care. Physician Sig nature: Date:
--- NOTE | 2020-12-31 10:51 | HP.PTDCSUM ---
It has been my pleasure to treat KIZZY NASH referred by Dr. Randall Warren MD, with the diagnosis of LUMBAR RADICULOPATHY for a total of 7 visit(s). Discharge Date: Please see the following information for a summary of their discharge status. Subjective: THE LOW BACK PAIN HAS DEFINATELY EASED UP BUT I STILL HAVE THE TINGLING IN MY LEGS WHEN I DO THINGS PATIENT REPORTS SHE KNOWS HER POOL EX'S NOW AND SHE PLANS TO CONTINUE THEM IN A POOL IN [place]. PATIENT REPROTS IT STILL FEELS LIKE SOMEONE HAS A FIST IN HER RIGHT BUTTOCK. HAS BEEN REFERRED TO DR. DIAS AT THE [facility]. LB Pain Intensity (Out of 10): 1 RLE Pain Intensity (Out of 10): 0 % Improvement: 75 Objective/Function: PATIENT WAS SEEN TODAY FOR RE-ASSESSMENT OF PROGRESS TOWARD THE SET PT GOALS AND THE NEED FOR FURTHER PHYSICAL THERAPY VS READINESS FOR DISCHARGE. PATIENT IS REPORTING LBP IMPROVEMENT BUT SHE STILL HAS SIGNIFICANT LE SX'S AND SIGNIFICANT MRI FINDINGS. SHE IS QUESTIONING WHAT SHE SHOULD DO ABOUT HER TRIP TO [place]. THIS PT DEFERRED TO DR. WARREN AND DR. DIAS TO ADVISE HER. AFTER DISCUSSION, SHE PLANS TO CALL THEM TODAY. DURING THIS EPISODE OF CARE WITH PT HER C/O BACK PAIN HAS DECREASED, HER LE FLEXABILITY HAS IMPROVED AND HER BACK AND LEG SX'S WITH LUMBAR ROM HAVE DECREASED BUT HER LUMBAR FLEXION ROM HAS ALSO DECREASED. LEFT HIP STRENGTH HAS IMPROVED BUT RIGHT HIP STRENGTH HAS NOT. SHE IS INDEP WITH A POOL EX PROGRAM THAT SHE CAN CONTINUE INDEP'LY TOLERATED. SHE HAS BEEN INSTRUCTED IN AVOIDANCE OF PERIPHERALIZATION OF SX'S WHEN POSSIBLE. UPON EXAM TODAY: Motor deficit: THAO LE'S 5/5 WITH MMT'ING EXCEPT RIGHT HIP 4-/5, LEFT HIP 4/5. GENTLE THAO HIP STRENGTH TESTING PROVOKES LBP. Sensory deficit: THAO LE LIGHT TOUCH SENSATION IS GROSSLY INTACT AND SYMMETRICAL. ROM deficit: LE'S WFL. Dural Signs: NEGATIVE THAO LE'S. Lumbar mvmt loss: flex - MOD. ext - MOD TO MAISHA - PRODUCES LEFT HIP PAIN. R SG - MAISHA. L SG - MAISHA - PRODUCES RIGHT LBP. Core strength: POOR. Palpation: TENDERNESS [id number] REGIONS AND RIGHT LOW BACK MUSCLULATURE BUT LESS TENDER THAN AT INITIAL EVAL. Goal 1:: DECREASE C/O LOW BACK AND THAO LE SX'S. Goal Progress: Not Progressing Goal 2:: IMPROVE PERSONAL CARE, LIFTING, WALKING, STANDING, SOCIAL LIFE, TRAVEL AND WORK/HOMEMAKING FUNCTION. Goal Progress: Not Progressing Goal 3:: INSTRUCT IN PROPHYLAXIS Goal Progress: Not Progressing Plan: AQUATIC THERAPY FOR PAIN RELIEF, POSTURE CORRECTION/STRENGTHENING, INSTRUCTION IN APPROPRIATE BODY MECHANICS AND ACTIVITY MODIFICATIONS. DLS STARTING WITH A NEUTRAL SPINE PROGRESSING ROM TOLERATED. THAO LE ROM, STRETCHING AND STRENGTHENING. HEP INSTRUCTION. If there are questions or concerns regarding this patient's physical therapy, please feel free to call me at [phone]. Thank you for the referral of this patient. Sincerely, Andreina Murphy, PT, Cert MDT Balance/Gait/Functional tests - Balance/Special Test Scores Oswestry Low Back Score: 16
== END 2020-12-31 19:00 | disposition home or self-care (01) ==
LOC: PT 10:00
PROVIDERS: PCP Internal Medicine; Referring Provider Internal Medicine; Visit Provider Internal Medicine
DX: M54.16 Radiculopathy, lumbar region (principal)
CPT/HCPCS: 87070; 87205; 97113; 97162; 97164

== ENCOUNTER → 2021-06-16 11:39 | Outpatient (CLI) | payer BC, SELFPAY ==
--- NOTE | 2021-06-16 11:42 | RAD_ITS ---
STUDY: X-RAY - LEFT ANKLE REASON FOR EXAM: Female, 61 years old. Pain. TECHNIQUE: 3 view(s) of the ankle. COMPARISON: None. FINDINGS: Osteopenia. Mild arthrosis of the tibiotalar joint. Mild arthrosis of the subtalar joint. Small inferior calcaneal spur. Moderate arthrosis of the midfoot most marked at the talonavicular joint. Diffuse soft tissue swelling. RAD/Ankle min 3 Views IMPRESSION: Osteopenia with osteoarthritic changes as described. Diffuse soft tissue swelling. No acute abnormality. Electronically Signed: Jamshid Alicea MD at 14:02 EDT ,
== END ==
PROVIDERS: PCP Internal Medicine
DX: M25.572 Pain in left ankle and joints of left foot (principal)
CPT/HCPCS: 73610

== ENCOUNTER 2021-07-19 06:46 | Day surgery (SDC) | payer BC, SELFPAY ==
[2021-07-19] VITALS (7 sets, daily range): BP systolic 113–136; BP diastolic 52–72; PULSE 64–77; RESP 16–18; TEMP 36.4–37.1; O2SAT 94–100; BMI 49.9
--- NOTE | 2021-07-19 | COLBX_PTH ---
PATIENT: KIZZY NASH LOC: EN U#:[id number] AGE/SX: 61/F ROOM: RE07/19/[address]: Dr. Tutu Moser MD : 1960 BED: DIS: 07/19/2021 SPEC #: [id number] RECD: 07/19/21 13:10 STATUS: NAZARIO JAMES #: [id number] WEI: 07/19/21 00:[address]: Tutu Moser DEPT: SURGICAL PATHOLOGY RECD BY: Ignacio Morales ENTERED: 07/19/21 13:10 SP TYPE: COLON BX OTHR DR: Dr. Randall Warren MD Tissues: Rectum, NOS Procedures: Surgery Specimen Level IV HEADER OPERATION: Colonoscopy (MAC) PRE-OP DIAGNOSIS: Rectal bleeding TISSUE SUBMITTED: Rectal polyp MICROSCOPIC DIAGNOSIS Rectal polyp, biopsy: Fragments of tubular adenoma. SJ:robson 07/20/2021 MICROSCOPIC DESCRIPTION Slides are reviewed. GROSS DESCRIPTION Received in fixative is one container labeled with the patient's name and designated rectal polyp. The specimen consists of multiple irregular fragments of light coulter soft tissue mixed with focal material that in aggregate measure 1.2 x 0.3 x 0.1 cm. The specimen is totally submitted in one cassette. / SJ:rg 07/19/2021 TC:4 CPT: 07299
--- NOTE | 2021-07-19 | COLBX_PTH ---
PATIENT: KIZZY NASH LOC: EN U#:[id number] AGE/SX: 61/F ROOM: RE07/19/[address]: Dr. Tutu Moser MD : 1960 BED: DIS: 07/19/2021 SPEC #: [id number] RECD: 07/19/21 13:10 STATUS: NAZARIO JAMES #: [id number] WEI: 07/19/21 00:[address]: Tutu Moser DEPT: SURGICAL PATHOLOGY RECD BY: Ignacio Morales ENTERED: 07/19/21 13:10 SP TYPE: COLON BX OTHR DR: Dr. Randall Warren MD Tissues: Rectum, NOS Procedures: Surgery Specimen Level IV HEADER OPERATION: Colonoscopy (MAC) PRE-OP DIAGNOSIS: Rectal bleeding TISSUE SUBMITTED: Rectal polyp MICROSCOPIC DIAGNOSIS Rectal polyp, biopsy: A fragment of colonic mucosa, no pathologic diagnosis. SJ:robson 07/20/2021 MICROSCOPIC DESCRIPTION Slides are reviewed. GROSS DESCRIPTION Received in fixative is one container labeled with the patient's name and designated rectal polyp. The specimen consists of multiple irregular fragments of light coulter soft tissue mixed with focal material that in aggregate measure 1.2 x 0.3 x 0.1 cm. The specimen is totally submitted in one cassette. / SJ:rg 07/19/2021 TC:4 CPT: 22940
--- NOTE | 2021-07-19 07:02 | PCM.HP.BLA ---
History and Physical Date of Admission: 07/19/21 Intake Visit Reasons: HERNIA & DISCUSS LOWER SCOPE Chief Complaint: hernia and c-scope [employer] Required: No Is patient in pain?: No Allergies lisinopril Allergy (Unknown, Verified 07/12/21 09:16) unknown clarithromycin [From Biaxin] Allergy (Verified 07/12/21 09:16) Other codeine Allergy (Verified 07/12/21 09:16) Other doxycycline Allergy (Verified 07/12/21 09:16) Upset Stomach erythromycin base Allergy (Verified 07/12/21 09:16) Other latex Adverse Reaction (Verified 07/12/21 09:16) Anaphylaxis Medications Lactobacillus acidophilus 1 ea PO DAILY 06/19/16 [History Confirmed 07/12/21] amlodipine 10 mg PO DAILY 06/19/16 [History Confirmed 07/12/21] ascorbic acid (vitamin C) 1,000 mg PO DAILY 06/19/16 [History Confirmed 07/12/21] evening primrose oil 500 mg PO DAILY 06/19/16 [History Confirmed 07/12/21] hydrochlorothiazide 25 mg PO DAILY 06/19/16 [History Confirmed 07/12/21] naproxen 500 mg PO DAILY 06/19/16 [History Confirmed 07/12/21] omeprazole 20 mg PO DAILY 06/19/16 [History Confirmed 07/12/21] PEP device #1 ea 08/26/18 [Rx Confirmed 07/12/21] benzonatate 200 mg capsule 200 mg PO TID PRN #90 cap 09/03/18 [Rx Confirmed 07/12/21] vitamin B complex 1 tab PO DAILY 10/15/18 [History Confirmed 07/12/21] albuterol sulfate 90 mcg/actuation aerosol inhaler 2 puff INHALATION Q4H PRN #8.5 g 06/22/20 [Rx Confirmed 07/12/21] fluticasone furoate 200 mcg-vilanterol 25 mcg/dose inhalation powder 1 inh INHALATION DAILY 06/22/20 [History Confirmed 07/12/21] cholecalciferol (vitamin D3) 50 mcg (2,000 unit) capsule 50 mcg PO DAILY 08/26/20 [History Confirmed 07/12/21] citalopram 10 mg tablet 10 mg PO DAILY 08/26/20 [History Confirmed 07/12/21] loratadine 10 mg tablet 10 mg PO DAILY 08/26/20 [History Confirmed 07/12/21] rosuvastatin 20 mg tablet 10 mg PO QHS tab 08/26/20 [History Confirmed 07/12/21] tolterodine 4 mg capsule,extended release 24 hr 4 mg PO DAILY 08/26/20 [History Confirmed 07/12/21] vitamin A 2,400 mcg capsule 2,400 mcg PO DAILY 08/26/20 [History Confirmed 07/12/21] losartan 50 mg tablet 50 mg PO DAILY 11/26/20 [History Confirmed 07/12/21] guaifenesin 1,200 mg tablet, extended release 12 hr 1,200 mg PO DAILY tab 06/23/21 [History Confirmed 07/12/21] sodium chloride 7 % for nebulization 4 ml INHALATION BID #240 ml 06/24/21 [Rx Confirmed 07/12/21] PFS Medical History Acute conjunctivitis Acute sinusitis Asthma, moderate persistent Chronic venous insufficiency Coronary artery calcification COVID-19 Edema of leg Essential hypertension GERD (gastroesophageal reflux disease) Hyperlipidemia Hypertension Leg swelling Obesity MALACHI (obstructive sleep apnea) MALACHI on CPAP Premature atrial contraction Preoperative cardiovascular examination Pure hypercholesterolemia Urinary tract infection Urine incontinence Surgical History History of bladder repair surgery History of carpal tunnel surgery History of carpal tunnel surgery History of cholecystectomy History of partial hysterectomy History of tonsillectomy History of total knee arthroplasty Status post trigger finger release Family History Father Hypertension CAD (coronary artery disease) History of coronary artery bypass surgery Myocardial infarction, Onset Age: 50 Mother Heart disease Social History Smoking Status: Former smoker pack-years: 16 second hand exposure: No alcohol intake: current alcohol intake frequency: a few times a week Alcohol type: wine substance use type: does not use caffeine: No what type of physical activity do you participate in: walking and swimming HPI HPI HPI: KIZZY NASH, is a 61 F who presents to the office today for surgical consultation regarding screening colonoscopy and umbilical hernia. The patient is referred by Garima Marie CNP from [facility] internal medicine [facility].A written copy of my surgical consult a written copy of my surgical consult recommendations will return to her. It is of note that she does have obstructive sleep apnea and uses CPAP nightly. She has had a previous cholecystectomy. She has had a previous bladder repair and a hysterectomy exclusive of ovaries and cervix apparently secondary to adhesions. This was performed December 21, 2016. BMI is noted to be 50.43 with a body weight of 287 pounds She notes that couple weeks ago her umbilical area was very tender. She noticed a mass there and some discoloration. Fortunately the discomfort improved. She also notes that at least for the past year or greater she has had intermittent rectal bleeding with defecation. Perhaps a couple times per month. Her previous colonoscopy was 8 months ago. She did have COVID-19 in March 2020. Significant pulmonary problems at that time was significant amount of coughing. She is not sure whether she has had previous polyps. She has had 3 previous colonoscopies. Family history is negative for colon cancer. When she had COVID-19 she was evaluated by Dr. Judd Estrada because of dyspnea on exertion. She had a stress echo which was negative for acute ischemia. The patient was recently seen by cardiology without acute finding. Because of her asthma she does utilize on a daily basis a chest percussion device. She also does routine saline irrigation. This does cause significant coughing. ROS General General: Yes weight change; No appetite, fatigue, colon cancer, breast cancer or weakness HEENT HEENT: No difficulty swallowing, eye injury, eye surgery, swollen glands or hoarseness Endo Endocrine: No thyroid disease, diabetes mellitus, thyroid cancer, Hair loss, heat intolerance or cold intolerance Skin Skin: No rash or changing moles Breast Breast: No left breast lump, right breast lump, nipple discharge, breast pain, abnormal mammogram, abnormal US or breast enlargement Musc Musculoskeletal: Yes back problems and arthritis; No rheumatoid arthritis, gout or joint pain Cardio Cardiovascular: Yes heart disease and high blood pressure; No murmur, pacemaker, atrial fibrillation, heart attack, heart stent, palpitations, shortness of breat with exertion or chest pain Psych Psychiatric: Yes anxiety; No depression or hearing voices Resp Respiratory: Yes shortness of breath, Yes sleep apnea, No cough, No COPD, Yes asthma, No emphysema and No wheezing Gastro Gastrointestinal: Yes abdominal pain, No nausea or vomiting, No diarrhea, Yes constipation, No blood in stool, Yes acid reflux, Yes hemorrhoids, No ulcers, No gallbladder problem and No black,tarry stools Raymundo Hematologic: No blood thinners, No blood disorders, No bleeding, No anemia and No blood clots Neuro Neurologic: No system reviewed and no additional complaints, except as documented, No as per HPI, No abnormal gait, No abnormal hearing, No abnormal movements, No abnormal speech, No behavioral changes, No burning sensations, No confusion, No convulsions, No disequilibrium, No dizziness, No localized weakness, No frequent falls, No headache(s), No lack of coordination, No loss of vision, No memory loss, Yes numbness, No other visual disturbances, No radicular pain, No restless legs, No sensory deficit, No syncope, Yes tingling, No tremor(s), No weakness and No other Exam Const General: cooperative, comfortable and no acute distress Nutritional Appearance: obese Orientation: alert and awake HENMT Head: normal to inspection Eyes General: appearance normal, both eyes and all related structures Neck Neck: normal visual inspection Resp Effort & Inspection: normal respiratory effort Auscultation: clear to auscultation bilaterally Cardio Rate: regular rate Rhythm: regular rhythm GI Other: Soft, nontender, healed incision at the umbilicus however with fixed fibrofatty tissue, thinning of the skin, no ulceration, not reducible. Minimal tenderness to deep palpation Musc Cervical Spine: normal cervical lordosis Skin Other: Hyperpigmentation bilateral lower extremities Neuro General: patient alert and patient awake Extrem Other: Nonpitting bilateral lower extremity enlargement. Nontender. No ulcerations. Psych Appearance: grossly normal Assessment and Plan Assessment and Plan (1) Rectal bleeding: Status: Acute (2) Ventral incisional hernia without obstruction or gangrene: Status: Acute Plan - Dr. Tutu Moser MD: Incarcerated ventral incisional hernia at at the umbilicus likely related to previous cholecystectomy and complicated by hysterectomy. Clinical findings consistent with incarcerated omentum. Thinning of the skin noted. Repair is recommended. I have discussed treatment options and would propose a curvilinear incision at that site with inspection of the fascial defect. Possibly a retrorectus Ventralex mesh 8 cm might be utilized perhaps with assistance from a partial laparoscopic approach. The patient has asthma and aggressive pulmonary percussion and saline irrigation techniques. It may require conversion to a full laparoscopic approach to allow for larger mesh placement. Prior to that I would recommend a colonoscopy with possible biopsy or polypectomy as indicated with careful inspection for potential source of rectal bleeding. Her clinical symptoms sound suspicious for internal hemorrhoids. She has had an opportunity to ask and have questions answered. We will schedule and proceed at her discretion. I appreciate the opportunity of assisting with her surgical care. Copy:Garima Marie, HAZEL Moser M.D., F.A.C.S I have re-examined the patient. There are no clinical changes since date of exam.
[2021-07-19] MEDS: Lactated Ringers 1,000 ML 15 ML IV (07:32)
--- NOTE | 2021-07-19 08:54 | OP.CCLET_ITS ---
07/19/2021 Randall Warren Re : Colonoscopy procedure for Cristina Ritter Dear Kelvin This procedure was performed on Monday, July 19, 2021. My impressions and recommendations are as follows: Impressions : - Non-thrombosed external hemorrhoids, non-thrombosed internal hemorrhoids and internal hemorrhoids that prolapse with straining, but require manual replacement into the anal canal (Grade III) found on digital rectal exam. - One 9 mm polyp in the rectum, removed with a cold biopsy forceps. Resected and retrieved. - The examination was otherwise normal. Recommendations : - Discharge patient to home. - Resume previous diet. - Continue present medications. - Repeat colonoscopy in 5 years for surveillance based on pathology results. - Telephone my office for pathology results in 1 week. No active bleeding. Suspect hemorrhoidal bleeding. My findings are described in the full procedure note, which is enclosed. If I can be of further assistance, please feel free to contact me at Doctor phone number(s): Work: . Sincerely, Tutu Moser MD 07/19/2021 8:54:02 AM This report has been signed electronically.
--- NOTE | 2021-07-19 08:54 | OP.COLON_ITS ---
Patient Name: Cristina Ritter Procedure Date: 07/19/2021 8:21 AM Date of : 1960 Age: 61 Procedure: Colonoscopy Indications: Rectal bleeding Providers: Tutu Moser MD Medicines: See the Anesthesia note for documentation of the administered medications Patient Profile: Last Colonoscopy: none. The patient's first colonoscopy is today. Complications: No immediate complications. Procedure: Pre-Anesthesia Assessment: - Prior to the procedure, a History and Physical was performed, and patient medications and allergies were reviewed. The patient's tolerance of previous anesthesia was also reviewed. The risks and benefits of the procedure and the sedation options and risks were discussed with the patient. All questions were answered, and informed consent was obtained. Prior Anticoagulants: The patient has taken no previous anticoagulant or antiplatelet agents. ASA Grade Assessment: II - A patient with mild systemic disease. After reviewing the risks and benefits, the patient was deemed in satisfactory condition to undergo the procedure. After I obtained informed consent, the scope was passed under direct vision. Throughout the procedure, the patient's blood pressure, pulse, and oxygen saturations were monitored continuously. The adult colonoscope was introduced through the anus and advanced to the cecum, identified by appendiceal orifice and ileocecal valve. The colonoscopy was performed without difficulty. The patient tolerated the procedure well. The quality of the bowel preparation was good. The ileocecal valve and the appendiceal orifice were photographed. Scope In: 8:31:44 AM Scope Withdrawal Time 0 hours 10 minutes 30 seconds Scope Out: 8:46:31 AM Total Procedure Duration Time 0 hours 14 minutes 47 seconds Findings: The digital rectal exam findings include non-thrombosed external hemorrhoids, non-thrombosed internal hemorrhoids and internal hemorrhoids that prolapse with straining, but require manual replacement into the anal canal (Grade III). A 9 mm polyp was found in the rectum. The polyp was sessile. The polyp was removed with a cold biopsy forceps. Resection and retrieval were complete. The exam was otherwise without abnormality. Impression: - Non-thrombosed external hemorrhoids, non-thrombosed internal hemorrhoids and internal hemorrhoids that prolapse with straining, but require manual replacement into the anal canal (Grade III) found on digital rectal exam. - One 9 mm polyp in the rectum, removed with a cold biopsy forceps. Resected and retrieved. - The examination was otherwise normal. Recommendation: - Discharge patient to home. - Resume previous diet. - Continue present medications. - Repeat colonoscopy in 5 years for surveillance based on pathology results. - Telephone my office for pathology results in 1 week. No active bleeding. Suspect hemorrhoidal bleeding. Procedure Code(s): --- Professional --- 07451, Colonoscopy, flexible; with biopsy, single or multiple Diagnosis Code(s): --- Professional --- K64.2, Third degree hemorrhoids K64.4, Residual hemorrhoidal skin tags K62.1, Rectal polyp K62.5, Hemorrhage of anus and rectum CPT copyright 2017 [employer]. All rights reserved. The codes documented in this report are preliminary and upon locomotive boilermaker review may be revised to meet current compliance requirements. Tutu Moser MD 07/19/2021 8:54:02 AM This report has been signed electronically. Number of Addenda: 0 Note Initiated On: 07/19/2021 8:21 AM
== END 2021-07-19 09:28 | disposition home or self-care (01) ==
LOC: EN 06:52 → AC 06:53
PROVIDERS: PCP Internal Medicine; Referring Provider Internal Medicine; Visit Provider Surgery
PROC: 0DJD8ZZ Inspection of Lower Intestinal Tract, Via Natural or Artificial Opening Endoscopic (ICD-10-PCS; CPT 45378; principal; 2021-07-19 07:55)
DX: K62.1 Rectal polyp (principal); K62.5 Hemorrhage of anus and rectum; E78.00 Pure hypercholesterolemia, unspecified; I10 Essential (primary) hypertension; J45.909 Unspecified asthma, uncomplicated; K43.2 Incisional hernia without obstruction or gangrene; G47.33 Obstructive sleep apnea (adult) (pediatric); E78.5 Hyperlipidemia, unspecified; Z87.891 Personal history of nicotine dependence; K64.4 Residual hemorrhoidal skin tags; I25.10 Atherosclerotic heart disease of native coronary artery without angina pectoris; Z90.49 Acquired absence of other specified parts of digestive tract; K64.8 Other hemorrhoids; Z86.16 Personal history of COVID-19; K64.2 Third degree hemorrhoids; J45.40 Moderate persistent asthma, uncomplicated
CPT/HCPCS: 45380; 88305; J7120; J2405

== ENCOUNTER 2021-08-08 08:09 | Day surgery (SDC) | payer BC, SELFPAY ==
[2021-08-02 17:51] LABS: Hematocrit 38.3 % (37-47); Hemoglobin 12.5 g/dL (12.0-15.0); Mean Corp Hgb Conc 32.6 g/dL (32-36); Mean Corpuscular Hgb 28.2 pg (27.0-32.0); Mean Corpuscular Volume 86.3 fL (81-99); Mean Platelet Vol. 10.2 fl (6.2-12.0); Platelet Count 203 K/mm3 (150-450); RBC Distribution Width CV 15.2 % (11.6-14.6); RBC Distribution Width SD 48.3 fl (35.1-43.9); Red Blood Count 4.44 M/mm3 (4.2-5.4); White Blood Count 7.1 K/mm3 (4.4-11.0)
[2021-08-02 17:55] LABS: International Normalized Ratio 0.9; Partial Thromboplast Time 29.4 Seconds (24.1-36.2); Prothrombin Time (Protime)PT. 12.2 SECONDS (11.7-14.9)
[2021-08-02 17:59] LABS: Anion Gap 7 (5-15); BUN 19 mg/dL (7-18); BUN/Creat Ratio 22.1 RATIO (10-20); Chloride 104 mmol/L (98-107); Creatinine, Serum 0.86 mg/dL (0.55-1.02); EST Glomerular Filtration Rate 71 mL/min (>60); Est Glom Filt Rate - Afr Amer 86 mL/min (>60); Glucose 107 mg/dL (74-106); Potassium 3.4 mmol/L (3.5-5.1); Sodium Level 138 mmol/L (136-145)
[2021-08-02 18:09] LABS: AST(SGOT) 20 U/L (15-37); Alanine Aminotransfer ALT/SGPT 25 U/L (13-56); Albumin, Serum 3.9 g/dL (3.2-5.0); Alkaline Phosphatase 61 U/L (45-117); Bilirubin, Direct 0.12 mg/dL (0.00-0.30); Globulin 3.5 g/dL (2.2-4.2); Protein, Total 7.4 g/dL (6.4-8.2)
[2021-08-08] VITALS (7 sets, daily range): BP systolic 131–157; BP diastolic 62–79; PULSE 50–85; RESP 16–20; TEMP 36.2–36.9; O2SAT 94–99; BMI 51.1
[2021-08-08] MEDS: Lactated Ringers 1,000 ML 15 ML IV ×2 (08:38→12:15)
[2021-08-08] MEDS: Ipratropium/Albuterol Sulfate 3 ML AMPUL.NEB INHALATION (09:03)
--- NOTE | 2021-08-08 09:33 | HP.PCM_ITS ---
History and Physical Date of Admission: 08/08/21 Visit Reasons: HERNIA & DISCUSS LOWER SCOPE Chief Complaint: hernia and c-scope Research Programmer Required: No Is patient in pain?: No Allergies lisinopril Allergy (Unknown, Verified 07/12/21 09:16) unknown clarithromycin [From Biaxin] Allergy (Verified 07/12/21 09:16) Other codeine Allergy (Verified 07/12/21 09:16) Other doxycycline Allergy (Verified 07/12/21 09:16) Upset Stomach erythromycin base Allergy (Verified 07/12/21 09:16) Other latex Adverse Reaction (Verified 07/12/21 09:16) Anaphylaxis Medications Lactobacillus acidophilus 1 ea PO DAILY 06/19/16 [History Confirmed 07/12/21] amlodipine 10 mg PO DAILY 06/19/16 [History Confirmed 07/12/21] ascorbic acid (vitamin C) 1,000 mg PO DAILY 06/19/16 [History Confirmed 07/12/21] evening primrose oil 500 mg PO DAILY 06/19/16 [History Confirmed 07/12/21] hydrochlorothiazide 25 mg PO DAILY 06/19/16 [History Confirmed 07/12/21] naproxen 500 mg PO DAILY 06/19/16 [History Confirmed 07/12/21] omeprazole 20 mg PO DAILY 06/19/16 [History Confirmed 07/12/21] PEP device #1 ea 08/26/18 [Rx Confirmed 07/12/21] benzonatate 200 mg capsule 200 mg PO TID PRN #90 cap 09/03/18 [Rx Confirmed 07/12/21] vitamin B complex 1 tab PO DAILY 10/15/18 [History Confirmed 07/12/21] albuterol sulfate 90 mcg/actuation aerosol inhaler 2 puff INHALATION Q4H PRN #8.5 g 06/22/20 [Rx Confirmed 07/12/21] fluticasone furoate 200 mcg-vilanterol 25 mcg/dose inhalation powder 1 inh INHALATION DAILY 06/22/20 [History Confirmed 07/12/21] cholecalciferol (vitamin D3) 50 mcg (2,000 unit) capsule 50 mcg PO DAILY 08/26/20 [History Confirmed 07/12/21] citalopram 10 mg tablet 10 mg PO DAILY 08/26/20 [History Confirmed 07/12/21] loratadine 10 mg tablet 10 mg PO DAILY 08/26/20 [History Confirmed 07/12/21] rosuvastatin 20 mg tablet 10 mg PO QHS tab 08/26/20 [History Confirmed 07/12/21] tolterodine 4 mg capsule,extended release 24 hr 4 mg PO DAILY 08/26/20 [History Confirmed 07/12/21] vitamin A 2,400 mcg capsule 2,400 mcg PO DAILY 08/26/20 [History Confirmed 07/12/21] losartan 50 mg tablet 50 mg PO DAILY 11/26/20 [History Confirmed 07/12/21] guaifenesin 1,200 mg tablet, extended release 12 hr 1,200 mg PO DAILY tab 06/23/21 [History Confirmed 07/12/21] sodium chloride 7 % for nebulization 4 ml INHALATION BID #240 ml 06/24/21 [Rx Confirmed 07/12/21] PFS Medical History Acute conjunctivitis Acute sinusitis Asthma, moderate persistent Chronic venous insufficiency Coronary artery calcification COVID-19 Edema of leg Essential hypertension GERD (gastroesophageal reflux disease) Hyperlipidemia Hypertension Leg swelling Obesity MALACHI (obstructive sleep apnea) MALACHI on CPAP Premature atrial contraction Preoperative cardiovascular examination Pure hypercholesterolemia Urinary tract infection Urine incontinence Surgical History History of bladder repair surgery History of carpal tunnel surgery History of carpal tunnel surgery History of cholecystectomy History of partial hysterectomy History of tonsillectomy History of total knee arthroplasty Status post trigger finger release Family History Father Hypertension CAD (coronary artery disease) History of coronary artery bypass surgery Myocardial infarction, Onset Age: 50 Mother Heart disease Social History Smoking Status: Former smoker pack-years: 16 second hand exposure: No alcohol intake: current alcohol intake frequency: a few times a week Alcohol type: wine substance use type: does not use caffeine: No what type of physical activity do you participate in: walking and swimming HPI HPI HPI: KIZZY NASH, is a 61 F who presents to the office today for surgical consultation regarding screening colonoscopy and umbilical hernia. The patient is referred by Garima Marie CNP from [facility] internal medicine [facility].A written copy of my surgical consult a written copy of my surgical consult recommendations will return to her. It is of note that she does have obstructive sleep apnea and uses CPAP nightly. She has had a previous cholecystectomy. She has had a previous bladder repair and a hysterectomy exclusive of ovaries and cervix apparently secondary to adhesions. This was performed December 21, 2016. BMI is noted to be 50.43 with a body weight of 287 pounds She notes that couple weeks ago her umbilical area was very tender. She noticed a mass there and some discoloration. Fortunately the discomfort improved. She also notes that at least for the past year or greater she has had intermittent rectal bleeding with defecation. Perhaps a couple times per month. Her previous colonoscopy was 8 months ago. She did have COVID-19 in March 2020. Significant pulmonary problems at that time was significant amount of coughing. She is not sure whether she has had previous polyps. She has had 3 previous colonoscopies. Family history is negative for colon cancer. When she had COVID-19 she was evaluated by Dr. Judd Estrada because of dyspnea on exertion. She had a stress echo which was negative for acute ischemia. The patient was recently seen by cardiology without acute finding. Because of her asthma she does utilize on a daily basis a chest percussion debbie ce. She also does routine saline irrigation. This does cause significant coughing. ROS General General: Yes weight change; No appetite, fatigue, colon cancer, breast cancer or weakness HEENT HEENT: No difficulty swallowing, eye injury, eye surgery, swollen glands or hoarseness Endo Endocrine: No thyroid disease, diabetes mellitus, thyroid cancer, Hair loss, heat intolerance or cold intolerance Skin Skin: No rash or changing moles Breast Breast: No left breast lump, right breast lump, nipple discharge, breast pain, abnormal mammogram, abnormal US or breast enlargement Musc Musculoskeletal: Yes back problems and arthritis; No rheumatoid arthritis, gout or joint pain Cardio Cardiovascular: Yes heart disease and high blood pressure; No murmur, pacemaker, atrial fibrillation, heart attack, heart stent, palpitations, shortness of breat with exertion or chest pain Psych Psychiatric: Yes anxiety; No depression or hearing voices Resp Respiratory: Yes shortness of breath, Yes sleep apnea, No cough, No COPD, Yes asthma, No emphysema and No wheezing Gastro Gastrointestinal: Yes abdominal pain, No nausea or vomiting, No diarrhea, Yes constipation, No blood in stool, Yes acid reflux, Yes hemorrhoids, No ulcers, No gallbladder problem and No black,tarry stools Raymundo Hematologic: No blood thinners, No blood disorders, No bleeding, No anemia and No blood clots Neuro Neurologic: No system reviewed and no additional complaints, except as documented, No as per HPI, No abnormal gait, No abnormal hearing, No abnormal movements, No abnormal speech, No behavioral changes, No burning sensations, No confusion, No convulsions, No disequilibrium, No dizziness, No localized weakness, No frequent falls, No headache(s), No lack of coordination, No loss of vision, No memory loss, Yes numbness, No other visual disturbances, No radicular pain, No restless legs, No sensory deficit, No syncope, Yes tingling, No tremor(s), No weakness and No other Exam Const General: cooperative, comfortable and no acute distress Nutritional Appearance: obese Orientation: alert and awake HENMT Head: normal to inspection Eyes General: appearance normal, both eyes and all related structures Neck Neck: normal visual inspection Resp Effort & Inspection: normal respiratory effort Auscultation: clear to auscultation bilaterally Cardio Rate: regular rate Rhythm: regular rhythm GI Other: Soft, nontender, healed incision at the umbilicus however with fixed fibrofatty tissue, thinning of the skin, no ulceration, not reducible. Minimal tenderness to deep palpation Musc Cervical Spine: normal cervical lordosis Skin Other: Hyperpigmentation bilateral lower extremities Neuro General: patient alert and patient awake Extrem Other: Nonpitting bilateral lower extremity enlargement. Nontender. No ulcerations. Psych Appearance: grossly normal Assessment and Plan Assessment and Plan (1) Rectal bleeding: Status: Acute (2) Ventral incisional hernia without obstruction or gangrene: Status: Acute Plan - Dr. Tutu Moser MD: Incarcerated ventral incisional hernia at at the umbilicus likely related to previous cholecystectomy and complicated by hysterectomy. Clinical findings consistent with incarcerated omentum. Thinning of the skin noted. Repair is recommended. I have discussed treatment options and would propose a curvilinear incision at that site with inspection of the fascial defect. Possibly a retrorectus Ventralex mesh 8 cm might be utilized perhaps with assistance from a partial laparoscopic approach. The patient has asthma and aggressive pulmonary percussion and saline irrigation techniques. It may require conversion to a full laparoscopic approach to allow for larger mesh placement. Prior to that I would recommend a colonoscopy with possible biopsy or polypectomy as indicated with careful inspection for potential source of rectal bleeding. Her clinical symptoms sound suspicious for internal hemorrhoids. She has had an opportunity to ask and have questions answered. We will schedule and proceed at her discretion. I appreciate the opportunity of assisting with her surgical care. Copy:Garima Marie, HAZEL Moser M.D., F.A.C.S. I have re-examined the patient. There are no clinical changes since date of exam.
--- NOTE | 2021-08-08 09:34 | EX.PCM.DISCH ---
Discharge Instructions Procedure General Surgery Diet Discharge Diet: Light diet - advance as tolerated (if you have questions about your diet instructions, please talk to you doctor.) Activity Discharge Activity: May Not Drive (for 3-5 days or while taking narcotic pain medicine.) May shower in (days): 1 Lifting Restrictions: 10 pounds Dressing / Incision Call your doctor if your incision/area has: Continuous Slow Oozing, Sudden Increased Bleeding, Increased Pain/ Swelling, Increased Redness and Foul Smelling Discharge Call your doctor if you observe: Fever of 101 or Higher Suture Line Care: Avoid Pulling/Pushing and Avoid Pinching/Bending Additional Dressing/Incision Instructions:: Change or remove dressing in 4 days. Leave steri-strips in place for 1 week. Follow Up Care Please Follow Up With: Tutu Moser MD When: Call [phone] to make an appointment to be seen in about 10 days. Test Results: Test results from this visit will be discussed in further detail at your follow-up appointment, if applicable. Discharge Plan Admission Attending Provider: Tutu Moser Primary Care Provider: Randall Warren Discharge Orders/Prescriptions Prescriptions: No Action vitamin B complex [B Complex-Vitamin B12] Tablet 1 tab PO DAILY RF: 0 (DME) PEP device 0 .ROUTE .MEDSUPPLY Qty: 1 RF: 0 Breo Ellipta 200-25 mcg/dose blister with device 1 inh INHALATION DAILY RF: 0 vitamin A 2,400 mcg capsule 2,400 mcg PO DAILY RF: 0 tolterodine [Detrol LA] 4 mg capsule,extended release 24hr 4 mg PO DAILY RF: 0 loratadine [Claritin] 10 mg tablet 10 mg PO DAILY RF: 0 cholecalciferol (vitamin D3) 50 mcg (2,000 unit) capsule 50 mcg PO DAILY RF: 0 citalopram 10 mg tablet 10 mg PO DAILY RF: 0 guaifenesin 1,200 mg tablet extended release 12hr 1,200 mg PO DAILY RF: 0 ascorbic acid (vitamin C) 1,000 MG tablet 1,000 mg PO DAILY RF: 0 evening primrose oil 500 MG capsule 500 mg PO DAILY RF: 0 amlodipine 10 MG tablet 10 mg PO QHS RF: 0 omeprazole 20 MG capsule 20 mg PO DAILY RF: 0 hydrochlorothiazide 25 MG tablet 25 mg PO DAILY RF: 0 Lactobacillus acidophilus 1 EACH capsule 1 ea PO DAILY RF: 0 naproxen 500 MG tablet 500 mg PO DAILY RF: 0 rosuvastatin 20 mg tablet 10 mg PO QHS RF: 0 albuterol sulfate [ProAir HFA] 90 mcg/actuation HFA aerosol inhaler 2 puff INHALATION Q4H PRN (Reason: shortness of breath or wheezing) RF: 0 benzonatate 200 mg capsule 200 mg PO TID PRN (Reason: cough) Qty: 90 RF: 0 losartan 50 mg tablet 50 mg PO QHS RF: 0 sodium chloride 7 % solution for nebulization 4 ml inhalation BID Qty: 240 RF: 11 Other Ambulatory Orders: 12 Lead EKG (Routine) Timeframe: [id number] Location: None Selected Ordered By: Dr. Tutu Moser
[2021-08-08] MEDS: Cefazolin 2 GM in 0.9% Normal Saline 100 ML IV (10:10)
--- NOTE | 2021-08-08 10:35 | HERN_PTH ---
PATIENT: KIZZY NASH [place] [facility] [id number] AGE/SX: 61/F ROOM: RE08/08/[address]: Dr. Tutu Moser MD : 1960 BED: DIS: 08/08/2021 SPEC #: [id number] RECD: 08/08/21 13:24 STATUS: NAZARIO RAMIREZ #: [id number] WEI: 08/08/21 10:[address]: Tutu Moser DEPT: SURGICAL PATHOLOGY RECD BY: Shelia Carrion ENTERED: 08/08/21 13:45 SP TYPE: Hernia OTHR DR: Dr. Randall Warren MD Tissues: HERNIA Procedures: Surgery Specimen Level II HEADER OPERATION: Lap ventral incisional hernia repair with mesh PRE-OP DIAGNOSIS: Ventral incisional hernia TISSUE SUBMITTED: Incarcerated omentum, umbilical hernia sac MICROSCOPIC DIAGNOSIS Omentum and hernia sac, herniorrhaphy: Mature adipose tissue with fibrosis consistent with hernia sac and contents. AM:robson 08/09/2021 MICROSCOPIC DESCRIPTION Slides are reviewed. GROSS DESCRIPTION Received in fixative is one container labeled with the patient's name and designated incarcerated omentum, umbilical hernia sac. The specimen consists of a piece of coulter-pink soft membranous tissue measuring 10 x 4.5 x 0.3 cm. Also present in the container is an attached piece of adipose tissue consistent with omentum measuring 12 x 8 x 2 cm. Sections do not reveal any mass lesion. Open Hearth Worker sections are submitted in one cassette. / SJ:robson 08/08/2021 TC:5 CPT: 02572
[2021-08-08] MEDS: 0.9% Normal Saline (Pres. free 10 ML Vial ×2 (11:00)
[2021-08-08] MEDS: Bupivacaine Mpf 0.5% 30 ML VIAL (11:00)
[2021-08-08] MEDS: BUPIVACAINE LIPOSOME/PF 20 ML VIAL OPERA.SITE (11:00)
--- NOTE | 2021-08-08 12:34 | PCM.OPRPT ---
Problems Associated Problem List Diagnoses (1) Ventral incisional hernia without obstruction or gangrene: Report of Operation Date of Procedure: 08/08/21 Pre-Operative Diagnosis: Incarcerated ventral umbilical incisional hernia Post-Operative Diagnosis: Same Surgery/Procedure Performed:: Hybrid open and laparoscopic ventral incisional herniorrhaphy with 17.8 x 22.[address] mesh. Reference [id number]. Expiry date 07/30/2022. Lot number [id number] Bilateral transabdominal plane block was performed Description of Surgical Findings:: Timeout informed consent was obtained. 61-year-old female was taken to the operating placed on table underwent general endotracheal intubation esthesia. 3 g of Ancef were given intravenously preoperatively the abdomen sterilely prepped and draped and Ioban draping was used at the umbilicus a curvilinear incision was made in the inferior portion of the umbilicus sharp dissection performed hernia sac was identified and opened there was a slight amount of noncloudy peritoneal fluid there was a significant amount of omentum densely incarcerated within the defect. I had a formal partial omentectomy using Tia clamps and 0 Vicryl suture ligature. The sac and the omental contents were submitted as specimen. The patient uses a vibratory pulmonary assist device. Her BMI is 51.2. I elected now to put in the son catheter and convert to a laparoscopic approach. I utilized a 17.8 x 22.[address] mesh. 4 corner sutures of 2-0 Prolene were secured the mesh was placed with the abdomen it was wetted 4 corner sutures were parachuted up to the abdominal wall and secured. Good positioning was achieved. Very slight portion of the falciform ligament was transected in order to get a flat lie. Then secure strap was used approximate 1 cm intervals completely around the periphery. Additional secure strap was used to help obliterate space with the mesh. Prior to placing the mesh I did a bilateral subcostal trance abdominal plane block. I used Exparel diluted with 0.25% Marcaine 200 cc. Under laparoscopic visualization bilateral block was performed. I now have the mesh in good position the tap block had been performed the greater omentum was placed overlying the small bowel. Hemostasis was nicely intact. Trochars were removed and the abdomen deflated the CO2. The final fascial defect at the umbilicus approximated with simple sutures of 0 Nurolon. Skin edges were approximated opted for Monocryl subdermal stitches. It is of note that two 5 mm ports were placed in the left and right lateral abdomen in order to perform a laparoscopic repair. Sponge and instrument and needle counts were reported to surgically correct. Specimen hernia sac and omental contents. Drains none. Blood loss minimal. The patient was taken to the recovery room in satisfactory addition without apparent complication Tutu Moser M.D., F.A.C.S. Surgeon: Tutu Moser Type of Anesthesia: General Special Medications: TATYANA Block
[2021-08-08] MEDS: oxyCODONE 5 MG Tablet PO (14:53)
--- NOTE | 2021-12-22 14:36 | CPS ---
Patient did not want instructions on pep or peak flow
== END 2021-08-08 16:39 | disposition home or self-care (01) ==
LOC: SDC 08:10 → AC 08:10
PROVIDERS: Anesthesiology; PCP Internal Medicine; Referring Provider Surgery; Visit Provider Surgery
PROC: 0WQF4ZZ Repair Abdominal Wall, Percutaneous Endoscopic Approach (ICD-10-PCS; CPT 49561; principal; 2021-08-08 10:15)
DX: K43.0 Incisional hernia with obstruction, without gangrene (principal); Z68.43 Body mass index [BMI] 50.0-59.9, adult; K62.5 Hemorrhage of anus and rectum; E78.00 Pure hypercholesterolemia, unspecified; I10 Essential (primary) hypertension; G47.33 Obstructive sleep apnea (adult) (pediatric); I25.10 Atherosclerotic heart disease of native coronary artery without angina pectoris; J45.40 Moderate persistent asthma, uncomplicated; K21.9 Gastro-esophageal reflux disease without esophagitis; Z79.899 Other long term (current) drug therapy; Z86.16 Personal history of COVID-19; Z87.891 Personal history of nicotine dependence; E66.9 Obesity, unspecified
CPT/HCPCS: 49561; 49568; 00832; 64488; 36415; 80048; 80076; 85027; 85610; 85730; 88302; 94640; J7120; C1781; J2405; J3490

== ENCOUNTER 2021-12-22 10:23 | Outpatient (CLI) | payer BC, SELFPAY | END 2021-12-22 23:59 | disposition home or self-care (01) | LOC: PSN 12-26 10:24 | PROVIDERS: PCP Internal Medicine; Referring Provider Internal Medicine Critical Care Medicine; Visit Provider Internal Medicine Critical Care Medicine | DX: J47.9 Bronchiectasis, uncomplicated (principal) | CPT/HCPCS: 94667 ==

== ENCOUNTER → 2022-02-23 | Outpatient (CLI) | payer BC, SELFPAY ==
--- NOTE | 2022-02-23 13:22 | RAD_ITS ---
INDICATION: COUGH/ ASTHMA EXAMINATION/TECHNIQUE: X-RAY - XR Chest 2 Views COMPARISON: None. FINDINGS: LINES/DEVICES: None. LUNGS: There is linear scarring or discoid atelectasis in left lower lobe. No focal consolidation, edema or effusion. No pneumothorax. MEDIASTINUM AND CARDIOVASCULAR STRUCTURES: Cardiac silhouette not enlarged. Central airways and mediastinal contour are unremarkable. BONES AND SOFT TISSUES: Dorsal spine and shoulders demonstrate degenerative change. RAD/Chest PA and Lateral IMPRESSION: Minor discoid atelectasis or linear scarring in the left lower lobe. No gross infiltration or pulmonary edema. Electronically Signed: Jose R Calabrese MD at 22:53 EST ,
== END | disposition home or self-care (01) ==
LOC: MTRAD 13:19
PROVIDERS: PCP Internal Medicine; Referring Provider Internal Medicine; Visit Provider Internal Medicine
DX: J45.41 Moderate persistent asthma with (acute) exacerbation (principal)
CPT/HCPCS: 71046

== ENCOUNTER → 2022-03-09 | Outpatient (CLI) | payer BC, SELFPAY ==
--- NOTE | 2022-03-09 09:24 | BD_ITS ---
STUDY: DUAL ENERGY X-RAY ABSORPTIOMETRY / DXA REASON FOR EXAM: Female, 62 years old. Z780 TECHNIQUE: Bone Mineral Density (BMD) measurements of lumbar spine and bilateral hips were obtained. COMPARISON: None. FINDINGS: Lumbar Spine (L1-L4): g/cm2 (1.246) / T-score (1.9) / Z-score (3.6) Findings are suggestive of normal bone density with a low fracture risk. Left Femur Total: g/cm2 (1.261) / T-score (2.6) / Z-score (3.8) Left Femoral Neck: g/cm2 (0.912) / T-score (0.6) / Z-score (2.0) Right Femur Total: g/cm2 (1.204) / T-score (2.1) / Z-score (3.3) Right Femoral Neck: g/cm2 (0.886) / T-score (0.3) / Z-score (1.8) BD/Dexa Bone Density Study IMPRESSION: The patient is considered normal as outlined below according to World Eugenio Organization (WHO) criteria with a low fracture risk. Reference Information: The T-score is the number of standard deviations above or below the standard which is normal for young adults at their peak bone mineral density. The World Health Organization (WHO) interprets the T-scores as follows: Above -1 Normal bone density Between -1 and -2.5 Osteopenia Equal to / or below -2.5 Osteoporosis As a practical clinical guideline, osteopenia may be graded as follows: Mild -1 through -1.5 Moderate -1.6 through -2.0 Severe -2.1 through -2.4 The Z-score is the number of standard deviations above or below age-matched controls. A Z-score of less than -1.5 would be considered abnormal. References: 1. NIH Osteoporosis and Related Bone Diseases www osteo.org 2. International Society for Clinical Densitometry www iscd.org 3. National Osteoporosis Foundation www nof.org Electronically Signed: Mikal Amin MD at 12:53 EST ,
== END | disposition home or self-care (01) ==
LOC: OPBD 09:18
PROVIDERS: PCP Internal Medicine
DX: M85.80 Other specified disorders of bone density and structure, unspecified site (principal); Z78.0 Asymptomatic menopausal state
CPT/HCPCS: 77080

== ENCOUNTER 2022-05-05 14:02 | Emergency (ER) | payer BC, SELFPAY ==
[2022-05-05 14:03] VITALS: BP 156/81; BP 185/83; PULSE 92; PULSE 97; RESP 18; RESP 21; TEMP 35.9; O2SAT 94; O2SAT 96; BMI 52.3
--- NOTE | 2022-05-05 14:09 | EKG12_ITS ---
Test Reason : PALP Blood Pressure : / mmHG Vent. Rate : 094 BPM Atrial Rate : 094 BPM P-R Int : 160 ms QRS Dur : 088 ms QT Int : 364 ms P-R-T Axes : 068 007 047 degrees QTc Int : 455 ms Sinus rhythm with Premature atrial complexes Low voltage QRS Cannot rule out Inferior infarct , age undetermined Abnormal ECG Confirmed by YELITZA BERMAN, RAJI ([id number]), editorial project manager BIANKA MORILLO ([id number]) on 05/08/2022 2:02:42 PM Referred By: JAVIER Confirmed By:RAJI TORRE MD
--- NOTE | 2022-05-05 14:45 | RAD_ITS ---
STUDY: X-RAY CHEST REASON FOR EXAM: Female, 62 years old. Chest pain TECHNIQUE: Single AP portable view of the chest. COMPARISON: Comparison is made with prior study dated February 23, 2022. FINDINGS: EKG electrodes are seen. The lungs are clear and expanded. There is no demonstrated pleural abnormality. Normal size heart. Normal mediastinum and james. Normal visualized pulmonary arteries. There is atherosclerotic tortuosity of the aortic arch and descending thoracic aorta. There are diffuse degenerative changes of the visualized thoracic spine. Normal visualized ribs, clavicles, and shoulders. There is no demonstrated abnormality of the visualized soft tissue structures of the upper abdomen. RAD/Chest 1 View (Portable) IMPRESSION: No acute abnormality is seen. Electronically Signed: Mikal Amin MD at 15:08 [facility] ,
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
[2022-05-05 14:50] LABS: Absolute Lymphocyte Count 1.71 X10^3/uL (0.83-4.51); Absolute Neutrophil Count 4.6 X10^3/uL (2.0-7.7); Basophil# 0.05 X10^3/uL; Basophil% 0.7 % (0-1); Eosinophil# 0.18 X10^3/uL; Eosinophils% 2.5 % (0-5); Lymphocyte # 1.71 X10^3/ul (0.83-4.51); Lymphocyte % 23.7 % (19-41); Mean Corp Hgb Conc 31.7 g/dL (32-36); Mean Corpuscular Hgb 28.2 pg (27.0-32.0); Mean Corpuscular Volume 88.9 fL (81-99); Mean Platelet Vol. 9.6 fl (6.2-12.0); Monocyte# 0.68 X10^3/uL; Monocyte% 9.4 % (0-10); NRBC Flagged by Analyzer 0 % (0-5); Neutrophil # 4.57 X10^3/uL (2.7-7.7); Neutrophil % 63.1 % (47-70); Platelet Count 226 K/mm3 (150-450); RBC Distribution Width CV 15.6 % (11.6-14.6); RBC Distribution Width SD 50.6 fl (35.1-43.9); Red Blood Count 4.61 M/mm3 (4.2-5.4); White Blood Count 7.2 K/mm3 (4.4-11.0)
[2022-05-05 15:04] LABS: Anion Gap 7 (5-15); BUN 19 mg/dL (7-18); BUN/Creat Ratio 21.4 RATIO (10-20); Calcium,Total 9.5 mg/dL (8.5-10.1); Chloride 103 mmol/L (98-107); Creatinine, Serum 0.89 mg/dL (0.55-1.02); EST Glomerular Filtration Rate 68 mL/min (>60); Est Glom Filt Rate - Afr Amer 83 mL/min (>60); Estimated Creatinine Clearance 55.14 ml/min; Glucose 114 mg/dL (74-106); Potassium 3.4 mmol/L (3.5-5.1); Sodium Level 140 mmol/L (136-145); Thyroid Stim Hormone (TSH) 1.49 uIU/mL (0.358-3.74); Troponin-I HS 5 pg/mL (3.0-54.0)
[2022-05-05 16:36] VITALS: BP 163/78; PULSE 87; RESP 18; O2SAT 94
[2022-05-05] MEDS: hydrOXYzine PAM 25 MG Capsule PO (16:36)
== END 2022-05-05 17:06 | disposition home or self-care (01) ==
PROVIDERS: Physician Assistant; Emergency Provider Emergency Medicine; PCP Internal Medicine; Visit Provider Emergency Medicine
DX: R00.2 Palpitations (principal); F41.9 Anxiety disorder, unspecified; I25.10 Atherosclerotic heart disease of native coronary artery without angina pectoris; E66.9 Obesity, unspecified; E78.00 Pure hypercholesterolemia, unspecified; I10 Essential (primary) hypertension; R07.89 Other chest pain; Z87.891 Personal history of nicotine dependence
CPT/HCPCS: 71045; 80048; 84443; 84484; 85025; 93005; 99283; A4216

== ENCOUNTER → 2022-06-09 | Outpatient (CLI) | payer BC, SELFPAY ==
[2022-06-09 16:09] LABS: Bacteria 0 SEEN /hpf (None Seen); Mucous, Urine 0 SEEN /hpf (<or=2+); Squamous Epithelial Cells - UA 0 SEEN /hpf (5-10)
[2022-06-09 16:34] LABS: Color, Urine Yellow (Yellow); Glucose, Dipstick Normal (Normal); Ketone-Dipstick Negative (Negative); Leukocyte Esterase-Dipstick 500 /ul (Negative); Nitrite-Dipstick Negative (Negative); Occult Blood-Urine 50 /ul (Negative); Protein-Dipstick Negative (Negative); Specific Gravity, Urine 1.005 (1.002-1.030); Urine Bilirubin Dipstick Negative (Negative); Urine Clarity Clear (Clear); Urine Urobilinogen Normal (Normal); Urine pH 6.5 (5.0 - 8.0)
[2022-06-09 16:51] LABS: Red Blood Cells-Urine 0-5 SEEN /hpf (0-5); White Blood Cells 10-25 SEEN /hpf (0-5)
== END | disposition home or self-care (01) ==
LOC: LABSPEC 15:32
PROVIDERS: PCP Internal Medicine; Referring Provider Physician Assistant; Visit Provider Physician Assistant
DX: N39.0 Urinary tract infection, site not specified (principal)
CPT/HCPCS: 81001; 87086

== ENCOUNTER → 2022-06-15 | Outpatient (CLI) | payer BC, SELFPAY ==
[2022-06-15 17:09] LABS: Anion Gap 4 (5-15); BUN 18 mg/dL (7-18); BUN/Creat Ratio 19.3 RATIO (10-20); Calcium,Total 9.2 mg/dL (8.5-10.1); Chloride 105 mmol/L (98-107); Creatinine, Serum 0.93 mg/dL (0.55-1.02); EST Glomerular Filtration Rate 64 mL/min (>60); Est Glom Filt Rate - Afr Amer 78 mL/min (>60); Glucose 96 mg/dL (74-106); Potassium 3.6 mmol/L (3.5-5.1); Sodium Level 139 mmol/L (136-145)
== END | disposition home or self-care (01) ==
LOC: LAB 16:33
PROVIDERS: PCP Internal Medicine; Referring Provider Nurse Practitioner Family; Visit Provider Nurse Practitioner Family
DX: E87.6 Hypokalemia (principal)
CPT/HCPCS: 36415; 80048

== ENCOUNTER → 2022-06-21 | Outpatient (CLI) | payer BC, SELFPAY | END | disposition home or self-care (01) | LOC: LABSPEC 09:33 | PROVIDERS: PCP Internal Medicine; Referring Provider Nurse Practitioner Acute Care; Visit Provider Nurse Practitioner Acute Care | DX: J45.40 Moderate persistent asthma, uncomplicated (principal) | CPT/HCPCS: 87070; 87205 ==

== ENCOUNTER → 2022-07-11 | Outpatient (CLI) | payer BC, SELFPAY | END | disposition home or self-care (01) | LOC: LABSPEC 12:18 | PROVIDERS: PCP Internal Medicine; Referring Provider Nurse Practitioner Acute Care; Visit Provider Nurse Practitioner Acute Care | DX: J47.9 Bronchiectasis, uncomplicated (principal) | CPT/HCPCS: 87070; 87205 ==

== ENCOUNTER → 2022-08-08 | Outpatient (CLI) | payer BC, SELFPAY ==
--- NOTE | 2022-08-10 13:28 | STRESSREP ---
Stress Test Report Date: 08/08/2022 Procedure: Pharmacologic stress nuclear imaging study Indications: Coronary artery disease Consent: Per the patient Procedure: The patient underwent pharmacologic (Regadenoson 0.4mg ) evaluation with a peak heart rate of 86 beats per minute (55%predicted maximal heart rate) and a peak blood pressure of 130/62 mmHg. The baseline ECG demonstrated normal sinus rhythm. The peak pharmacologic ECG demonstrated no ischemic changes. Frequent PVCs noted at baseline, with infusion and during recovery. There was no complaint of chest discomfort during pharmacologic infusion or recovery. The patient was injected with 14.5 millicuries of technetium 99m Cardiolite and subsequently rest SPECT Cardiolite nuclear imaging was obtained in the horizontal long, vertical long, and short axis views. The patient underwent pharmacologic (Regadenoson) evaluation. The patient was injected with 44.8 millicuries of technetium 99m Cardiolite and subsequently stress SPECT Cardiolite nuclear imaging was obtained in the horizontal long, vertical long, and short axis views. A gated Cardiolite study at peak stress was obtained. The examination was stopped secondary to completion of protocol. Rest and stress SPECT Cardiolite nuclear imaging status post realignment, normalization, and attenuation correction demonstrate no fixed or reversible perfusion defects. No gated images available. Impression: 1. Pharmacologic (Regadenoson) evaluation 2. Peak pharmacologic ECG with no ischemic changes. 3. Frequent PVCs pretest, during infusion and in recovery. 5. No fixed or reversible perfusion defects. 6. No gated images available. This note was generated with adsquareation software. It may contain incorrect words, spelling, and punctuation that were not noted in checking the note before signing.
== END | disposition home or self-care (01) ==
LOC: CVS 06:57
PROVIDERS: PCP Internal Medicine; Referring Provider Nurse Practitioner Family; Visit Provider Nurse Practitioner Family
DX: I25.10 Atherosclerotic heart disease of native coronary artery without angina pectoris (principal); I25.84 Coronary atherosclerosis due to calcified coronary lesion; R53.83 Other fatigue
CPT/HCPCS: 78452; 93017; A9500; A4216; J2785

== ENCOUNTER → 2022-12-22 | Outpatient (CLI) | payer BC, SELFPAY ==
--- NOTE | 2022-12-22 14:00 | RAD_ITS ---
EXAM: XR RIGHT HIP WITH PELVIS WHEN PERFORMED, 2 OR 3 VIEWS CLINICAL INDICATION: RIGHT HIP PAIN TECHNIQUE: Two or three views of the right hip with pelvis when performed. COMPARISON: No relevant prior studies available. FINDINGS: BONES/JOINTS: Unremarkable. No displaced fracture. No destructive or sclerotic lesions. Note that overlapping bowel shadows may however obscure fine detail. Sacroiliac joint is unremarkable. No widening of the pubic symphysis. The articular structures are unremarkable. SOFT TISSUES: Unremarkable. No soft tissue swelling or gas. RAD/HIP, UNI W/ Pelvis 2-3 Views IMPRESSION: No suspicious acute abnormality of the pelvis and right hip. Electronically Signed: Viktor aMyes MD at 14:51 EDT ,
--- NOTE | 2022-12-22 14:00 | RAD_ITS ---
INDICATION: LUMBAR PAIN EXAMINATION/TECHNIQUE: X-RAY - XR Spine Lumbar Min 4 Views COMPARISON: FINDINGS: Moderate spondylosis L1-L3, mild spondylosis L3-S1. Severe loss of disc space height L1-L5 moderate loss of disc space height L5-S1. Mild facet arthropathy bilaterally at L5-S1. INCLUDED ABDOMEN: There is a left lower pole calculus 1.7 cm transverse. Surgical clips right upper quadrant likely related to prior cholecystectomy. RAD/L/S Spine Min 4 Views IMPRESSION: Degenerative changes as above. Electronically Signed: Geovani Huang MD at 11:05 EDT ,
== END | disposition home or self-care (01) ==
LOC: MTRAD 13:57
PROVIDERS: PCP Internal Medicine
DX: M54.50 Low back pain, unspecified (principal)
CPT/HCPCS: 72110; 73502

== ENCOUNTER → 2022-12-25 | Outpatient (CLI) | payer BC, SELFPAY | END | disposition home or self-care (01) | LOC: SL 10:21 | PROVIDERS: PCP Internal Medicine; Visit Provider Internal Medicine Critical Care Medicine | DX: Z46.89 Encounter for fitting and adjustment of other specified devices (principal) ==

== ENCOUNTER 2023-01-02 08:15 | Outpatient (RCR) | payer BC, SELFPAY ==
[2022-12-26 08:08] VITALS: BP 181/69; PULSE 74; RESP 18; TEMP 36.3; BMI 51.5
[2022-12-26 09:54] VITALS: BP 142/80
--- NOTE | 2022-12-26 12:53 | HP.PCM_ITS ---
History of Present Illness Date of Service: 12/26/22 Chief Complaint: Non-healing, dehiscent laceration of the right medial calf History of Wound: This is a 62-year-old morbidly obese female who was in her normal state of health until December 09, 2022. On that date, she sustained a laceration to the right medial calf following impact with a car door. She is known to have chronic swelling and edema in her lower extremities, as well as chronic venous insufficiency. Upon sustaining the injury, patient presented to the emergency department at [facility], where suture repair of the laceration was performed. She was also treated with a prescription of Augmentin. Eight days later, her sutures were removed without incident. 2 days following suture removal, the patient re-traumatized the area, causing a dehiscence of the wound, prompting her to seek medical attention in the [facility] Emergency Department. According to the patient, a resident performed a suture closure, and the patient was discharged. However, the patient's traumatic wound has failed to heal. In fact, it appears to have become dehiscent, with evidence of nonviable and necrotic tissue present. The patient has chronic swelling and edema in her lower extremities. She sleeps on a flat mattress at night, and is active. She denies a history of thrombophlebitis. 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 [facility] Medical History Acute conjunctivitis Acute sinusitis Alcohol use Asthma Asthma, moderate persistent Back pain Bruising Cardiology follow-up encounter Chronic venous insufficiency Chronic venous insufficiency Coronary artery calcification COVID-19 CPAP (continuous positive airway pressure) dependence Dyspnea on exertion Easy bruising Edema of leg Essential hypertension Former smoker Gastric reflux GERD (gastroesophageal reflux disease) High cholesterol History of echocardiogram History of edema History of stress test History of trigger finger Hyperlipidemia Hypertension Left leg swelling Leg cramps Leg edema, left Leg edema, right Leg swelling Morbid obesity with BMI of 50.0-59.9, adult Obesity MALACHI (obstructive sleep apnea) MALACHI on CPAP PAC (premature atrial contraction) Premature atrial contraction Preoperative cardiovascular examination Pure hypercholesterolemia Right leg swelling Shortness of breath on exertion Surgical wound dehiscence Urinary incontinence Urinary tract infection Urine incontinence Ventral hernia Home Medications amlodipine 10 mg tablet 10 mg PO QHS 06/19/16 [History Last Taken Unknown] ascorbic acid (vitamin C) 1,000 mg tablet 1,000 mg PO DAILY 06/19/16 [History Last Taken Unknown] evening primrose oil 500 mg capsule 500 mg PO DAILY 06/19/16 [History Last Taken Unknown] hydrochlorothiazide 25 mg tablet 25 mg PO DAILY 06/19/16 [History Last Taken Unknown] omeprazole 20 mg capsule,delayed release 20 mg PO DAILY 06/19/16 [History Last Taken 08/08/21 06:30] PEP device #1 ea 08/26/18 [Rx Last Taken Unknown] benzonatate 200 mg capsule 200 mg PO TID PRN cough #90 caps 09/03/18 [Rx Last Taken Unknown] vitamin B complex (B Complex-Vitamin B12 tablet) 1 tab PO DAILY 10/15/18 [History Last Taken Unknown] cholecalciferol (vitamin D3) 50 mcg (2,000 unit) capsule 50 mcg PO DAILY 08/26/20 [History Last Taken Unknown] loratadine 10 mg tablet (Claritin) 10 mg PO DAILY 08/26/20 [History Last Taken Unknown] tolterodine 4 mg capsule,extended release 24 hr (Detrol LA) 4 mg PO DAILY 08/26/20 [History Last Taken Unknown] losartan 50 mg tablet 50 mg PO QHS 11/26/20 [History Last Taken Unknown] Acapella #1 ea 12/21/21 [Rx Last Taken Unknown] Peak Flow meter #1 ea 12/21/21 [Rx Last Taken Unknown] zinc sulfate 66 mg tablet 66 mg PO DAILY 12/22/21 [History Last Taken Unknown] naproxen 500 mg tablet 250 mg PO DAILY 05/29/22 [History Last Taken Unknown] phenazopyridine 100 mg tablet (Pyridium) 100 mg PO TID PRN pain 06/21/22 [History Last Taken Unknown] Lactobacillus acidophilus 1 cap PO DAILY 07/27/22 [History Last Taken Unknown] citalopram 20 mg tablet 20 mg PO DAILY 07/27/22 [History Last Taken Unknown] rosuvastatin 10 mg tablet 10 mg PO DAILY 07/27/22 [History Last Taken Unknown] carvedilol 6.25 mg tablet 6.25 mg PO BID #180 tabs 09/21/22 [Rx Last Taken Unknown] albuterol sulfate 90 mcg/actuation aerosol inhaler (ProAir HFA) 2 puff inhalation Q4H PRN shortness of breath or wheezing #8.5 grams 11/07/22 [Rx Last Taken Unknown] fluticasone furoate 200 mcg-vilanterol 25 mcg/dose inhalation powder (Breo Ellipta) 1 inh inhalation DAILY #60 ea 12/05/22 [Rx Last Taken Unknown] sodium chloride 7 % for nebulization 4 ml inhalation BID #240 mL 12/05/22 [Rx Last Taken Unknown] Allergy/AdvReac Type Severity Reaction Status Date / Time lisinopril Allergy Unknown Cough Verified 12/05/22 07:49 clarithromycin [From Biaxin] Allergy Other Verified 12/05/22 07:49 codeine Allergy Other Verified 12/05/22 07:49 doxycycline Allergy Upset Verified 12/05/22 07:49 Stomach erythromycin base Allergy Other Verified 12/05/22 07:49 latex AdvReac Anaphylaxis Verified 12/05/22 07:49 Family History Father Hypertension CAD (coronary artery disease) History of coronary artery bypass surgery Myocardial infarction, Onset Age: 50 Mother Heart disease Brother Melanoma Surgical History History of bladder repair surgery History of bladder repair surgery History of carpal tunnel release of both wrists History of carpal tunnel surgery History of carpal tunnel surgery History of cholecystectomy History of cholecystectomy History of partial hysterectomy History of partial hysterectomy History of tonsillectomy History of tonsillectomy History of total knee arthroplasty History of total knee replacement History of ventral hernia repair History of ventral hernia repair Status post trigger finger release Social History Smoking Status: Former smoker pack-years: 16 second hand exposure: No alcohol intake: current alcohol intake frequency: a few times a week Alcohol type: wine substance use type: does not use caffeine: No what type of physical activity do you participate in: walking and swimming Vital Signs Vital Signs Vital Signs: 12/26/22 08:08 12/26/22 09:54 Temperature 97.3 F L Temperature Source Temporal Pulse Rate 74 Respiratory Rate 18 Blood Pressure 181/69 H 142/80 H Blood Pressure Mean 106 100 Blood Pressure Source Monitor Manual Blood Pressure Position Supine Sitting Blood Pressure Location Right Forearm Right Arm Oxygen Delivery Method Room Air Weight Weight: 300 lb Body Mass Index (BMI) 51.5 Physical Exam Const alert, oriented x3, no apparent distress and well nourished Constitutional Narrative: The patient is morbidly obese. Her BMI is 51.5. General Appearance: cooperative, comfortable, well kempt and well developed Orientation / Consciousness: awake, oriented to person, oriented to place and oriented to time Exam Limitations: no limitations HEENT normocephalic, head/scalp atraumatic and hearing grossly normal bilaterally Head and Scalp: normal to inspection, normocephalic and atraumatic External Ear: external ears normal Eyes PERRL and EOMs intact bilaterally General Eye: normal appearance of both eyes Neck full ROM General: normal visual inspection Resp normal respiratory effort, normal air movement, no retractions and no use of accessory muscles Effort and Inspection: able to speak in complete sentences Extremity no calf tenderness General Extremity: Negative for clubbing or cyanosis Skin Wound Narrative: A traumatic wound is noted on the patient's right medial calf. This is the result of a laceration sustained after impacting a car door. The laceration was initially sutured, following which sutures were removed 8 days later. The patient re-traumatized the site, prompting dehiscence of her wound, at which time the laceration was re-sutured closed. The wound is now again dehisced, with a row of approximately 8-10 sutures remaining, but without any function of approximating the wound margins. The sutures appear to be nylon. There is a large amount of nonviable and necrotic tissue present. The wound is full- thickness, extending into the subcutaneous tissue. There is a moderate amount of surrounding erythema, suspected to be cellulitis. Wound dimensions are documented elsewhere. Neuro oriented x3, CN's II-XII intact bilaterally and moves all extremities Sensorium / Orientation: awake, alert, oriented to person, oriented to place and oriented to time Psych Appearance: grossly normal and appropriate Attitude: calm Activity / Motor Behavior: appropriate eye contact Speech: normal speech Mood & Affect: euthymic mood Thought Process: normal thought process Thought Content: normal thought content Attention / Concentration: attention grossly intact Debridement Note Debridement Note Wound debrided: Right medial calf laceration with dehiscence Laterality: Right Type of Debridement: Excisional debridement Anesthesia Used: 5% Lidocaine Gel and Cetacaine Depth: Down to and including healthy tissue and in the subcutaneous layer Percentage of wound debrided: 100 Instrument Used: 5mm curette, Forceps and - (Scissors) Tissue Removed: Bioburden, necrotic and nonviable tissue Severity: Fat Layer Exposed Amount of bleeding with debridement: Mild Bleeding Controlled with: Compression and gauze Patient tolerated procedure: Patient tolerated procedure well Debridement Free Text: Because of the surrounding erythema, suspected to be cellulitis, swab cultures were obtained of the wound, for both aerobic and anaerobic bacterial growth. Post-Debridement Measurements and Additional Note: Post-Debridement Measurements/Treatment WC - Nurse 1 - General Ulcer Assessment Start: 12/26/22 08:08 Freq: Status: Active Protocol: [email or web address] Activity Type Activity Date Activity User E-sign Co-sign Detail Recorded Client Recorded Date Recorded By Document 12/26/22 08:08 MW Desktop 12/26/22 08:32 MW 12/26/22 08:08 - Today's Visit Information Type of service Initial Visit Arrival Mode Ambulatory Transfer Assistance None Accompanied by self Patient Identification Verified (Name & Yes ) Patient Requires Transmission-Based No Precautions Height and Weight Height 5 ft 4 in Weight 300 lb Weight in Pounds 300.0 lbs Weight Measurement Method Stated by Patient Body Mass Index (BMI) 51.5 BMI Classification Obese BSA - Florencio 2.32 Vital Signs Temperature (97.8 F-99.1 F) 97.3 F L Temperature Source Temporal Pulse Rate (60-100) 74 Pulse Location Monitor Respiratory Rate (12-18) 18 Respiratory rate source Observation Oxygen Delivery Method Room Air Blood Pressure (90/60-120/80) 181/69 H Blood Pressure Mean 106 Source Monitor Position Supine Blood Pressure Location Right Forearm Pain Scale: 0-10 Numeric Is Patient Pain Free? Yes Lower Extremity Assessment/ Foot Assessment/ Toe Nail Assessment Right -Posterior Tibial Palpable No -Posterior Tibial Doppler Inaudible -Dorsalis Pedis Palpable Yes -Dorsalis Pedis Doppler Monophasic -Hair Growth on Legs Yes -Hair Growth on Toes Yes -Temperature of Extremity Warm -Capillary Refill Less than 3 Seconds -Dependent Rubor No -Lipodermatosclerosis No -Other Deformity No -Prior Foot Ulcer No -Charcot Joint No -Prior Amputation No -Thick No -Discolored No -Deformed No -Improper Length & Hygeine No Left -Posterior Tibial Palpable No -Posterior Tibial Doppler Inaudible -Dorsalis Pedis Palpable Yes -Dorsalis Pedis Doppler Multiphasic -Extremity Color Normal -Hair Growth on Legs Yes -Hair Growth on Toes Yes -Temperature of Extremity Warm -Capillary Refill Less than 3 Seconds -Dependent Rubor No -Lipodermatosclerosis No -Other Deformity No -Prior Foot Ulcer No -Charcot Joint No -Prior Amputation No -Thick No -Discolored No -Deformed No -Improper Length & Hygeine No Neuropathy Assessment Feet - Top Side and Bottom <Entered> (a) Communication Assessment Preferred language [employer] 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 [employer]elry Required No Able to Read Yes Able to Write Yes Communication Tools None Caregiver Communication Skills No Impairment Impairment Right Hearing Abillity Normal Left Hearing Abillity Normal Teaching Assessment Preferences Verbal,Written, Audio/Visual, Demonstration Barriers to Learning None Readiness To Learn Excellent Willingness to Engage in Self Management High Activies Readiness to Engage in Self Management High Activities Anxiety Level Calm Cooperation Cooperative Does Patient Smoke tobacco or other Yes substances Smoking Status Former smoker Is Patient Diabetic No Functional Assessment Recent Decline in Ability to Perform Denies Any Declines Assistive Device With Patient No Culture/Catholic/Counter Attendant Cultural/Catholic Needs that may affect No Treatment Plan Would you allow our hospital casing tester to No meet you for the purpose of spiritual/ emotional support? Counter Attendant to contact place of gnosticism No Teaching: Wound Center *Welcome to the Wound Center -Person Taught Patient -Response to teaching Verbalize understanding (a) 1 - + WC - Nurse 1 - General Ulcer Measurement Start: 12/26/22 08:08 Freq: Status: Active Protocol: Activity Type Activity Date Activity User E-sign Co-sign Detail Recorded Client Recorded Date Recorded By Document 12/26/22 08:08 MW Desktop 12/26/22 08:32 MW 12/26/22 08:08 Wound Center Nurse 1 #1 Right lateral LE -Combined with other wound No -Current Size (cm) - Length 2.0 -Current Size (cm) - Width 7.5 -Current Size (cm) - Depth 0.2 -Total Square Cm 15.00 -Date of Last Picture (Recall this 12/26/22 field) -Photo Taken Yes -Epithelialization None Present -Tunneling No -Undermining/Tunneling No -Circular Undermining No -Exudate Amt Medium -Exudate Type Serosanguineous -Wound Margin Flat & Intact -Granulation Amt Medium (34-66%) -Granulation Quality Mertens -Slough/Fibrin Yes -Necrosis Amt Medium (34-66%) -Necrotic Tissue Type Adherent Slough -Structure Exposed N/A -Texture ([place]-wound Skin Appearance) Assessed, Localized Edema -Moisture ([place]-wound Skin Appearance) Assessed,Dry/ Scaly -Color ([place]-wound Skin Appearance) Assessed -Temperature ([place]-wound Skin No Abnormality Appearance) (Pt Warm) -Tenderness on Palpation ([place]-wound No Skin Appearance) -Ulcer Cleansing Rinsed/ Irrigated with Saline -Foul Odor after Cleansing No -Anesthetic Used 5% Lidocaine Gel Lower Limb Edema Present Yes Right Calf (cm) 52.5 Right Ankle (cm) 31.5 Left Calf (cm) 54.5 Left Ankle (cm) 31.6 WC - Nurse 3 - General Ulcer D/C NN Start: 12/26/22 08:08 Freq: Status: Active Protocol: Activity Type Activity Date Activity User E-sign Co-sign Detail Recorded Client Recorded Date Recorded By Document 12/26/22 09:54 MW Desktop 12/26/22 09:55 MW 12/26/22 09:54 Wound Care Center Nurse 3 #1 Right lateral LE -Ulcer Cleansing Rinsed/ Irrigated with Saline -Foul Odor after Cleansing No -Negative Pressure Wound Therapy N/A -Primary Dressing Applied Hysept ($) -Primary Dressing Covered/Secured with Dry Gauze & Roll Gauze, Secured with Tape Right -Tubular Bandage Single Layer -Size of Tubigrip Used Size F -Size F ($) 1 -Other spandagrip Treatment Response Procedure Tolerated Well Vital Signs Blood Pressure (90/60-120/80) 142/80 H Blood Pressure Mean 100 Source Manual Position Sitting Blood Pressure Location Right Arm Pain Scale: 0-10 Numeric Is Patient Pain Free? Yes Teaching: Wound Center Dressing Your Wound -Person Taught Patient -Teaching Method Discussion, Demonstration -Response to teaching Verbalize understanding Compression Wraps & Stockings -Person Taught Patient -Teaching Method Discussion, Demonstration -Response to teaching Verbalize understanding WC - Visit Discharge Discharge Condition Stable Ambulatory Status Ambulatory Transportation Private Auto Accompanied by self Medication Reconcilliation completed & No provided to patient/care provider Clinical Summary of Care Provided Yes Assessment/Plan Assessment/Plan (1) Laceration of right leg excluding thigh: CODE(S): S81.811A - Laceration without foreign body, right lower leg, initial encounter QUALIFIERS: Encounter type: initial encounter Qualified Code(s): S81.811A - Laceration without foreign body, right lower leg, initial encounter (2) Surgical wound dehiscence: CODE(S): T81.31XA - Disruption of external operation (surgical) wound, not elsewhere classified, initial encounter QUALIFIERS: Encounter type: initial encounter Qualified Code(s): T81.31XA - Disruption of external operation (surgical) wound, not elsewhere classified, initial encounter (3) Right leg swelling: CODE(S): M79.89 - Other specified soft tissue disorders (4) Leg edema, right: CODE(S): R60.0 - Localized edema (5) DDD (degenerative disc disease), lumbar: CODE(S): M51.36 - Other intervertebral disc degeneration, lumbar region (6) Ventral incisional hernia without obstruction or gangrene: CODE(S): K43.2 - Incisional hernia without obstruction or gangrene (7) Coronary artery calcification: CODE(S): I25.10 - Atherosclerotic heart disease of [place] coronary artery without angina pectoris; I25.84 - Coronary atherosclerosis due to calcified coronary lesion (8) Chronic venous insufficiency: CODE(S): I87.2 - Venous insufficiency (chronic) (peripheral) (9) MALACHI on CPAP: CODE(S): G47.33 - Obstructive sleep apnea (adult) (pediatric); Z99.89 - Dependence on other enabling machines and devices (10) GERD (gastroesophageal reflux disease): CODE(S): K21.9 - Gastro-esophageal reflux disease without esophagitis (11) Pure hypercholesterolemia: CODE(S): E78.00 - Pure hypercholesterolemia, unspecified (12) Essential hypertension: CODE(S): I10 - Essential (primary) hypertension (13) MALACHI (obstructive sleep apnea): CODE(S): G47.33 - Obstructive sleep apnea (adult) (pediatric) (14) Asthma, moderate persistent: CODE(S): J45.40 - Moderate persistent asthma, uncomplicated QUALIFIERS: Asthma complication type: uncomplicated Qualified Code(s): J45.40 - Moderate persistent asthma, uncomplicated (15) Chronic venous insufficiency: (16) Morbid obesity with BMI of 50.0-59.9, adult: CODE(S): E66.01 - Morbid (severe) obesity due to excess calories; Z68.43 - Body mass index [BMI] 50.0-59.9, adult (17) Dyspnea on exertion: CODE(S): R06.09 - Other forms of dyspnea (18) PAC (premature atrial contraction): CODE(S): I49.1 - Atrial premature depolarization (19) Left leg swelling: CODE(S): M79.89 - Other specified soft tissue disorders (20) Leg edema, left: CODE(S): R60.0 - Localized edema (21) Urinary incontinence: CODE(S): R32 - Unspecified urinary incontinence (22) History of bladder repair surgery: CODE(S): Z98.890 - Other specified postprocedural states (23) History of carpal tunnel release of both wrists: CODE(S): Z98.890 - Other specified postprocedural states (24) History of cholecystectomy: CODE(S): Z90.49 - Acquired absence of other specified parts of digestive tract (25) History of tonsillectomy: CODE(S): Z90.89 - Acquired absence of other organs (26) History of partial hysterectomy: CODE(S): Z90.711 - Acquired absence of uterus with remaining cervical stump (27) History of total knee replacement: CODE(S): Z96.659 - Presence of unspecified artificial knee joint (28) History of ventral hernia repair: CODE(S): Z98.890 - Other specified postprocedural states; Z87.19 - Personal history of other diseases of the digestive system (29) History of trigger finger: CODE(S): Z87.39 - Personal history of other diseases of the musculoskeletal system and connective tissue PLAN: Plan This is a 62-year-old morbidly obese female with a traumatic injury to her right medial calf. Her recent medical history as documented above. The wound on the right medial calf is a dehiscent wound, following 2 recent attempts to suture closed. Nylon sutures have been removed today, and a standard excisional wound debridement has been performed. Wound cultures have been obtained for both aerobic and anaerobic bacterial growth. Results will be awaited. A lengthy discussion has been undertaken with the patient with regard to conservative treatment measures for control of the swelling and edema in her lower extremities. Leg elevation has been recommended. She has been encouraged to continue sleeping on a flat mattress at night. Leg elevation to heart level has been encouraged even during daytime hours. Prolonged idle sitting has been discouraged. Activity has been encouraged. Weight loss has also been recommended. We are to implement compression to the lower extremities by means of Spandagrips, in light of the patient's allergy to latex. We are to implement the use of Dakin's-moistened gauze as a [id number] dressing on a daily basis. The patient is to be allowed to shower daily. The patient is to return in 1 week for reassessment. Total time: 50 minutes
[2023-01-02 08:11] VITALS: BP 152/82; PULSE 82; RESP 18; TEMP 35.5; BMI 51.5
--- NOTE | 2023-01-02 11:10 | HP.PCM_ITS ---
History of Present Illness Date of Service: 01/02/23 Chief Complaint: Non-healing, dehiscent laceration of the right medial calf History of Wound: This is a 62-year-old morbidly obese female who was in her normal state of health until December 09, 2022. On that date, she sustained a laceration to the right medial calf following impact with a car door. She is known to have chronic swelling and edema in her lower extremities, as well as chronic venous insufficiency. Upon sustaining the injury, patient presented to the emergency department at [facility], where suture repair of the laceration was performed. She was also treated with a prescription of Augmentin. Eight days later, her sutures were removed without incident. 2 days following suture removal, the patient re-traumatized the area, causing a dehiscence of the wound, prompting her to seek medical attention in the [facility] Emergency Department. According to the patient, a resident performed a suture closure, and the patient was discharged. However, the patient's traumatic wound has failed to heal. In fact, it appears to have become dehiscent, with evidence of nonviable and necrotic tissue present. The patient has chronic swelling and edema in her lower extremities. She sleeps on a flat mattress at night, and is active. She denies a history of thrombophlebitis. 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 [facility] Medical History Acute conjunctivitis Acute sinusitis Alcohol use Asthma Asthma, moderate persistent Back pain Bruising Cardiology follow-up encounter Chronic venous insufficiency Chronic venous insufficiency Coronary artery calcification COVID-19 CPAP (continuous positive airway pressure) dependence Dyspnea on exertion Easy bruising Edema of leg Essential hypertension Former smoker Gastric reflux GERD (gastroesophageal reflux disease) High cholesterol History of echocardiogram History of edema History of stress test History of trigger finger Hyperlipidemia Hypertension Left leg swelling Leg cramps Leg edema, left Leg edema, right Leg swelling Morbid obesity with BMI of 50.0-59.9, adult Obesity MALACHI (obstructive sleep apnea) MALACHI on CPAP PAC (premature atrial contraction) Premature atrial contraction Preoperative cardiovascular examination Pure hypercholesterolemia Right leg swelling Shortness of breath on exertion Surgical wound dehiscence Urinary incontinence Urinary tract infection Urine incontinence Ventral hernia Home Medications amlodipine 10 mg tablet 10 mg PO QHS 06/19/16 [History Last Taken Unknown] ascorbic acid (vitamin C) 1,000 mg tablet 1,000 mg PO DAILY 06/19/16 [History Last Taken Unknown] evening primrose oil 500 mg capsule 500 mg PO DAILY 06/19/16 [History Last Taken Unknown] hydrochlorothiazide 25 mg tablet 25 mg PO DAILY 06/19/16 [History Last Taken Unknown] omeprazole 20 mg capsule,delayed release 20 mg PO DAILY 06/19/16 [History Last Taken 08/08/21 06:30] PEP device #1 ea 08/26/18 [Rx Last Taken Unknown] benzonatate 200 mg capsule 200 mg PO TID PRN cough #90 caps 09/03/18 [Rx Last Taken Unknown] vitamin B complex (B Complex-Vitamin B12 tablet) 1 tab PO DAILY 10/15/18 [History Last Taken Unknown] cholecalciferol (vitamin D3) 50 mcg (2,000 unit) capsule 50 mcg PO DAILY 08/26/20 [History Last Taken Unknown] loratadine 10 mg tablet (Claritin) 10 mg PO DAILY 08/26/20 [History Last Taken Unknown] tolterodine 4 mg capsule,extended release 24 hr (Detrol LA) 4 mg PO DAILY 08/26/20 [History Last Taken Unknown] losartan 50 mg tablet 50 mg PO QHS 11/26/20 [History Last Taken Unknown] Acapella #1 ea 12/21/21 [Rx Last Taken Unknown] Peak Flow meter #1 ea 12/21/21 [Rx Last Taken Unknown] zinc sulfate 66 mg tablet 66 mg PO DAILY 12/22/21 [History Last Taken Unknown] naproxen 500 mg tablet 250 mg PO DAILY 05/29/22 [History Last Taken Unknown] phenazopyridine 100 mg tablet (Pyridium) 100 mg PO TID PRN pain 06/21/22 [History Last Taken Unknown] Lactobacillus acidophilus 1 cap PO DAILY 07/27/22 [History Last Taken Unknown] citalopram 20 mg tablet 20 mg PO DAILY 07/27/22 [History Last Taken Unknown] rosuvastatin 10 mg tablet 10 mg PO DAILY 07/27/22 [History Last Taken Unknown] carvedilol 6.25 mg tablet 6.25 mg PO BID #180 tabs 09/21/22 [Rx Last Taken Unknown] albuterol sulfate 90 mcg/actuation aerosol inhaler (ProAir HFA) 2 puff inhalation Q4H PRN shortness of breath or wheezing #8.5 grams 11/07/22 [Rx Last Taken Unknown] fluticasone furoate 200 mcg-vilanterol 25 mcg/dose inhalation powder (Breo Ellipta) 1 inh inhalation DAILY #60 ea 12/05/22 [Rx Last Taken Unknown] sodium chloride 7 % for nebulization 4 ml inhalation BID #240 mL 12/05/22 [Rx Last Taken Unknown] amoxicillin 875 mg-potassium clavulanate 125 mg tablet 1 tab PO BID #20 tabs 12/29/22 [Rx Last Taken Unknown] prednisone 10 mg tablet 10 mg PO QDAY #30 tabs 12/29/22 [Rx Last Taken Unknown] Allergy/AdvReac Type Severity Reaction Status Date / Time lisinopril Allergy Unknown Cough Verified 12/05/22 07:49 clarithromycin [From Biaxin] Allergy Other Verified 12/05/22 07:49 codeine Allergy Other Verified 12/05/22 07:49 doxycycline Allergy Upset Verified 12/05/22 07:49 Stomach erythromycin base Allergy Other Verified 12/05/22 07:49 latex AdvReac Anaphylaxis Verified 12/05/22 07:49 Family History Father Hypertension CAD (coronary artery disease) History of coronary artery bypass surgery Myocardial infarction, Onset Age: 50 Mother Heart disease Brother Melanoma Surgical History History of bladder repair surgery History of bladder repair surgery History of carpal tunnel release of both wrists History of carpal tunnel surgery History of carpal tunnel surgery History of cholecystectomy History of cholecystectomy History of partial hysterectomy History of partial hysterectomy History of tonsillectomy History of tonsillectomy History of total knee arthroplasty History of total knee replacement History of ventral hernia repair History of ventral hernia repair Status post trigger finger release Social History Smoking Status: Former smoker pack-years: 16 second hand exposure: No alcohol intake: current alcohol intake frequency: a few times a week Alcohol type: wine substance use type: does not use caffeine: No what type of physical activity do you participate in: walking and swimming Vital Signs Vital Signs Vital Signs: 10/31/23 08:11 Temperature 95.9 F L Temperature Source Temporal Pulse Rate 82 Respiratory Rate 18 Blood Pressure 152/82 H Blood Pressure Mean 105 Blood Pressure Source Monitor Blood Pressure Position Semi-Fowlers Blood Pressure Location Left Arm Weight Weight: 300 lb Body Mass Index (BMI) 51.5 Physical Exam Const alert, oriented x3, no apparent distress and well nourished Constitutional Narrative: The patient is morbidly obese. Her BMI is 51.5. General Appearance: cooperative, comfortable, well kempt and well developed Orientation / Consciousness: awake, oriented to person, oriented to place and oriented to time Exam Limitations: no limitations HEENT normocephalic, head/scalp atraumatic and hearing grossly normal bilaterally Head and Scalp: normal to inspection, normocephalic and atraumatic External Ear: external ears normal Eyes PERRL and EOMs intact bilaterally General Eye: normal appearance of both eyes Neck full ROM General: normal visual inspection Resp normal respiratory effort, normal air movement, no retractions and no use of accessory muscles Effort and Inspection: able to speak in complete sentences Extremity no calf tenderness General Extremity: Negative for clubbing or cyanosis Skin Wound Narrative: A traumatic wound is noted on the patient's right medial calf. This is the result of a laceration sustained after impacting a car door. The laceration was initially sutured, following which sutures were removed 8 days later. The patient re-traumatized the site, prompting dehiscence of her wound, at which time the laceration was re-sutured closed. The wound again dehisced, with a row of approximately 8-10 sutures remaining, which were removed at the patient's initial visit at our facility, as they were providing no benefit to wound closure. A large traumatic wound persists. With the initiation of treatment at our facility, the amount of frankly necrotic and nonviable tissue has diminished significantly, and has now been diminished to a significant degree. The wound is full-thickness, extending into the subcutaneous tissue. It is generally pink and healthy in appearance, with a small amount of remaining nonviable tissue and bioburden. The cellulitis appears to have resolved. Wound dimensions are documented elsewhere. Neuro oriented x3, CN's II-XII intact bilaterally, moves all extremities and no focal motor deficits Sensorium / Orientation: awake, alert, oriented to person, oriented to place and oriented to time Psych Appearance: grossly normal and appropriate Attitude: calm Activity / Motor Behavior: appropriate eye contact Speech: normal speech Mood & Affect: euthymic mood Thought Process: normal thought process Thought Content: normal thought content Attention / Concentration: attention grossly intact Debridement Note Debridement Note Wound debrided: Right medial calf laceration with dehiscence Laterality: Right Type of Debridement: Excisional debridement Anesthesia Used: 5% Lidocaine Gel and Cetacaine Depth: Down to and including healthy tissue and in the subcutaneous layer Percentage of wound debrided: 100 Instrument Used: 5mm curette, Forceps and - (Scissors) Tissue Removed: Bioburden, necrotic and nonviable tissue Severity: Fat Layer Exposed Amount of bleeding with debridement: Mild Bleeding Controlled with: Compression and gauze Patient tolerated procedure: Patient tolerated procedure well Post-Debridement Measurements and Additional Note: Post-Debridement Measurements/Treatment - Nurse 1 - General Ulcer Assessment Start: 12/26/22 08:08 Freq: Status: Active Protocol: GERMEIAS Activity Type Activity Date Activity User E-sign Co-sign Detail Recorded Client Recorded Date Recorded By Document 12/26/22 08:08 MW [email or web address] 12/26/22 08:32 MW Document 01/02/23 08:11 RB Desktop 01/02/23 08:24 RB 12/26/22 01/02/23 08:08 08:11 - Today's Visit Information Type of service Initial Visit Follow-up Visit (Physician/TRANSMISSION SUPERINTENDENT ) Arrival Mode Ambulatory Ambulatory Transfer Assistance None None Accompanied by self Patient Identification Verified (Name & Yes Yes ) Patient Requires Transmission-Based No No Precautions Height and Weight Height 5 ft 4 in Weight 300 lb Weight in Pounds 300.0 lbs Weight Measurement Method Stated by Patient Body Mass Index (BMI) 51.5 51.5 BMI Classification Obese Obese BSA - [place] 2.32 Vital Signs Temperature (97.8 F-99.1 F) 97.3 F L 95.9 F L Temperature Source Temporal Temporal Pulse Rate (60-100) 74 82 Pulse Location Monitor Monitor Respiratory Rate (12-18) 18 18 Respiratory rate source Observation Observation Oxygen Delivery Method Room Air Blood Pressure (90/60-120/80) 181/69 H 152/82 H Blood Pressure Mean 106 105 Source Monitor Monitor Position Supine Semi-Fowlers Blood Pressure Location Right Forearm Left Arm History Since Last Visit- (Skip if this is Patient's initial visit) Have you changed medications since your No last visit? Any new allergies or adverse reactions No Had a fall/change in ADL's that may No increase risk of falls Signs or symptoms of abuse and/or No neglect since last visit Have you been in the hospital since your No last visit? Has dressing in place as prescribed Yes Has compression in place as prescribed Yes Has offloadiing in place as prescribed No Experienced any changes in pain level or No management Pain Scale: 0-10 Numeric Is Patient Pain Free? Yes Yes Lower Extremity Assessment/ Foot Assessment/ Toe Nail Assessment Right -Posterior Tibial Palpable No -Posterior Tibial Doppler Inaudible -Dorsalis Pedis Palpable Yes -Dorsalis Pedis Doppler Monophasic -Hair Growth on Legs Yes -Hair Growth on Toes Yes -Temperature of Extremity Warm -Capillary Refill Less than 3 Seconds -Dependent Rubor No -Lipodermatosclerosis No -Other Deformity No -Prior Foot Ulcer No -Charcot Joint No -Prior Amputation No -Thick No -Discolored No -Deformed No -Improper Length & Hygeine No Left -Posterior Tibial Palpable No -Posterior Tibial Doppler Inaudible -Dorsalis Pedis Palpable Yes -Dorsalis Pedis Doppler Multiphasic -Extremity Color Normal -Hair Growth on Legs Yes -Hair Growth on Toes Yes -Temperature of Extremity Warm -Capillary Refill Less than 3 Seconds -Dependent Rubor No -Lipodermatosclerosis No -Other Deformity No -Prior Foot Ulcer No -Charcot Joint No -Prior Amputation No -Thick No -Discolored No -Deformed No -Improper Length & Hygeine No Neuropathy Assessment Feet - Top Side and Bottom <Entered> (a) Communication Assessment Preferred language Korean Pulp Cooker Required No Able to Read Yes Able to Write Yes Communication Tools None Caregiver Communication Skills No Impairment Impairment Right Hearing Abillity Normal Left Hearing Abillity Normal Teaching Assessment Preferences Verbal,Written, Audio/Visual, Demonstration Barriers to Learning None Readiness To Learn Excellent Willingness to Engage in Self Management High Activies Readiness to Engage in Self Management High Activities Anxiety Level Calm Cooperation Cooperative Does Patient Smoke tobacco or other Yes substances Smoking Status Former smoker Is Patient Diabetic No Functional Assessment Recent Decline in Ability to Perform Denies Any Declines Assistive Device With Patient No Culture/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 Manager Retail Store to contact place of cheondoism No Teaching: Wound Center *Welcome to the Wound Center -Person Taught Patient -Response to teaching Verbalize understanding (a) 1 - + WC - Nurse 1 - General Ulcer Measurement Start: 12/26/22 08:08 Freq: Status: Active Protocol: Activity Type Activity Date Activity User E-sign Co-sign Detail Recorded Client Recorded Date Recorded By Document 12/26/22 08:08 MW Desktop 12/26/22 08:32 MW Document 01/02/23 08:11 RB Desktop 01/02/23 08:24 RB 12/26/22 01/02/23 08:08 08:11 Wound Center Nurse 1 #1 Right lateral LE -Combined with other wound No No -Current Size (cm) - Length 2.0 2.8 -Current Size (cm) - Width 7.5 7.3 -Current Size (cm) - Depth 0.2 0.5 -Total Square Cm 15.00 20.44 -Date of Last Picture (Recall this 12/26/22 field) -Photo Taken Yes -Epithelialization None Present -Tunneling No No -Undermining/Tunneling No No -Circular Undermining No No -Exudate Amt Medium Large -Exudate Type Serosanguineous Serosanguineous -Wound Margin Flat & Intact Distinct, Outline Attached -Granulation Amt Medium (34-66%) Medium (34-66%) -Granulation Quality [place] -Slough/Fibrin Yes Yes -Necrosis Amt Medium (34-66%) Medium (34-66%) -Necrotic Tissue Type Adherent Slough Adherent Slough -Structure Exposed N/A Fat Layer Exposed -Texture ([place]-wound Skin Appearance) Assessed, Assessed Localized Edema -Moisture ([place]-wound Skin Appearance) Assessed,Dry/ Assessed Scaly -Color ([place]-wound Skin Appearance) Assessed Assessed -Temperature ([place]-wound Skin No Abnormality No Abnormality Appearance) (Pt Warm) (Pt Warm) -Tenderness on Palpation ([place]-wound No No Skin Appearance) -Ulcer Cleansing Rinsed/ Wound Cleanser Irrigated with Saline -Foul Odor after Cleansing No No -Anesthetic Used 5% Lidocaine 5% Lidocaine Gel Gel Lower Limb Edema Present Yes Yes Right Calf (cm) 52.5 52.5 Right Ankle (cm) 31.5 29.2 Left Calf (cm) 54.5 Left Ankle (cm) 31.6 WC - Nurse 2 - General Ulcer CM Notes Start: 12/26/22 08:08 Freq: Status: Active Protocol: Activity Type Activity Date Activity User E-sign Co-sign Detail Recorded Client Recorded Date Recorded By Document 12/26/22 12:52 PL [id number] 12/26/22 12:55 PL 12/26/22 12:52 Wound Center Nurse 2 #1 Right lateral LE -Time 09:16 -Correct Patient Yes -Correct Side, Site, Position Yes -Correct Procedure Yes -Procedure Performed Yes -Type of Procedure Debridement -Clinical Debridement Subcutaneous -Tissue Removed Subcutaneous -Post Debridement (cm) - Length 2.0 -Post Debridement (cm) - Width 7.5 -Post Debridement (cm) - Depth 0.2 -Total Square (Post) (cm) 15.00 -Area of Debridement (cm) - Length 2.0 -Area of Debridement (cm) - Width 7.5 -Total Square (Area) (cm) 15.00 -Tunneling No -Undermining/Tunneling No -Circular Undermining No -Wound/Ulcer Outcome Not Healed -Ulcer Cleansing Rinsed/ Irrigated with Saline -Foul Odor after Cleansing No -Bioengineered Tissue No -Bleeding Controlled with Pressure -Treatment Response Procedure Tolerated Well -Debridement - Subq, 1st 20sq cm Yes Pain Scale: 0-10 Numeric Is Patient Pain Free? Yes - Nurse 3 - General Ulcer D/C NN Start: 12/26/22 08:08 Freq: Status: Active Protocol: Activity Type Activity Date Activity User E-sign Co-sign Detail Recorded Client Recorded Date Recorded By Document 12/26/22 09:54 MW Desktop 12/26/22 09:55 MW Document 01/02/23 09:12 RB Desktop 01/02/23 09:13 RB 12/26/22 01/02/23 09:54 09:12 Wound Care Center Nurse 3 #1 Right lateral LE -Ulcer Cleansing Rinsed/ Rinsed/ Irrigated with Irrigated with Saline Saline -Foul Odor after Cleansing No -Negative Pressure Wound Therapy N/A -Primary Dressing Applied Hysept ($) -Other Dressing dakins moisten gauze/ABD -Primary Dressing Covered/Secured with Dry Gauze & Dry Gauze & Roll Gauze, Roll Gauze, Secured with Secured with Tape Tape Right -Tubular Bandage Single Layer -Size of Tubigrip Used Size F -Size F ($) 1 -Other spandagrip spandagrip to RLE Treatment Response Procedure Procedure Tolerated Well Tolerated Well Vital Signs Blood Pressure (90/60-120/80) 142/80 H Blood Pressure Mean 100 Source Manual Position Sitting Blood Pressure Location Right Arm Pain Scale: 0-10 Numeric Is Patient Pain Free? Yes Yes Teaching: Wound Center Dressing Your Wound -Person Taught Patient Patient -Teaching Method Discussion, Discussion, Demonstration Demonstration -Response to teaching Verbalize Verbalize understanding understanding Compression Wraps & Stockings -Person Taught Patient -Teaching Method Discussion, Demonstration -Response to teaching Verbalize understanding WC - Visit Discharge Discharge Condition Stable Stable Ambulatory Status Ambulatory Ambulatory Transportation Private Auto Private Auto Accompanied by self Medication Reconcilliation completed & No No provided to patient/care provider Clinical Summary of Care Provided Yes Yes Assessment/Plan Assessment/Plan (1) Laceration of right leg excluding thigh: CODE(S): S81.811A - Laceration without foreign body, right lower leg, initial encounter QUALIFIERS: Encounter type: initial encounter Qualified Code(s): S81.811A - Laceration without foreign body, right lower leg, initial encounter (2) Surgical wound dehiscence: CODE(S): T81.31XA - Disruption of external operation (surgical) wound, not elsewhere classified, initial encounter QUALIFIERS: Encounter type: initial encounter Qualified Code(s): T81.31XA - Disruption of external operation (surgical) wound, not elsewhere classified, initial encounter (3) Right leg swelling: CODE(S): M79.89 - Other specified soft tissue disorders (4) Leg edema, right: CODE(S): R60.0 - Localized edema (5) DDD (degenerative disc disease), lumbar: CODE(S): M51.36 - Other intervertebral disc degeneration, lumbar region (6) Ventral incisional hernia without obstruction or gangrene: CODE(S): K43.2 - Incisional hernia without obstruction or gangrene (7) Coronary artery calcification: CODE(S): I25.10 - Atherosclerotic heart disease of [place] coronary artery without angina pectoris; I25.84 - Coronary atherosclerosis due to calcified coronary lesion (8) Chronic venous insufficiency: CODE(S): I87.2 - Venous insufficiency (chronic) (peripheral) (9) MALACHI on CPAP: CODE(S): G47.33 - Obstructive sleep apnea (adult) (pediatric); Z99.89 - Dependence on other enabling machines and devices (10) GERD (gastroesophageal reflux disease): CODE(S): K21.9 - Gastro-esophageal reflux disease without esophagitis (11) Pure hypercholesterolemia: CODE(S): E78.00 - Pure hypercholesterolemia, unspecified (12) Essential hypertension: CODE(S): I10 - Essential (primary) hypertension (13) MALACHI (obstructive sleep apnea): CODE(S): G47.33 - Obstructive sleep apnea (adult) (pediatric) (14) Asthma, moderate persistent: CODE(S): J45.40 - Moderate persistent asthma, uncomplicated QUALIFIERS: Asthma complication type: uncomplicated Qualified Code(s): J45.40 - Moderate persistent asthma, uncomplicated (15) Chronic venous insufficiency: (16) Morbid obesity with BMI of 50.0-59.9, adult: CODE(S): E66.01 - Morbid (severe) obesity due to excess calories; Z68.43 - Body mass index [BMI] 50.0-59.9, adult (17) Dyspnea on exertion: CODE(S): R06.09 - Other forms of dyspnea (18) PAC (premature atrial contraction): CODE(S): I49.1 - Atrial premature depolarization (19) Left leg swelling: CODE(S): M79.89 - Other specified soft tissue disorders (20) Leg edema, left: CODE(S): R60.0 - Localized edema (21) Urinary incontinence: CODE(S): R32 - Unspecified urinary incontinence (22) History of bladder repair surgery: CODE(S): Z98.890 - Other specified postprocedural states (23) History of carpal tunnel release of both wrists: CODE(S): Z98.890 - Other specified postprocedural states (24) History of cholecystectomy: CODE(S): Z90.49 - Acquired absence of other specified parts of digestive tract (25) History of tonsillectomy: CODE(S): Z90.89 - Acquired absence of other organs (26) History of partial hysterectomy: CODE(S): Z90.711 - Acquired absence of uterus with remaining cervical stump (27) History of total knee replacement: CODE(S): Z96.659 - Presence of unspecified artificial knee joint (28) History of ventral hernia repair: CODE(S): Z98.890 - Other specified postprocedural states; Z87.19 - Personal history of other diseases of the digestive system (29) History of trigger finger: CODE(S): Z87.39 - Personal history of other diseases of the musculoskeletal system and connective tissue PLAN: Plan This is a 62-year-old morbidly obese female with a traumatic injury to her right medial calf. Her recent medical history is as documented above. The wound on the right medial calf is a dehiscent wound, following 2 recent attempts to suture closed. A standard excisional debridement has been performed today. There has been significant improvement in the status of the patient's wound within the last week. Wound cultures were obtained for both aerobic and anaerobic bacterial growth. The results were positive for Escherichia coli and Pseudomonas aeruginosa. Based on sensitivity results, the patient was placed on Cipro 500 mg p.o. twice daily, which continues to the current time. A lengthy discussion has been undertaken with the patient with regard to conservative treatment measures for control of the swelling and edema in her lower extremities. Leg elevation has been recommended. She has been encouraged to continue sleeping on a flat mattress at night. Leg elevation to heart level has been encouraged even during daytime hours. Prolonged idle sitting has been discouraged. Activity has been encouraged. Weight loss has also been recommended. We are to continue compression to the lower extremities by means of Spandagrips, in light of the patient's allergy to latex. We are to continue the use of Dakin's-moistened gauze as a [id number] dressing on a daily basis. The patient is to be allowed to shower daily. The patient is to return in 1 week for reassessment. Total time: 25 minutes
== END 2023-01-02 23:59 | disposition home or self-care (01) ==
LOC: WC 08:15
PROVIDERS: PCP Internal Medicine; Referring Provider Physician Assistant; Visit Provider Surgery
DX: T81.31XA Disruption of external operation (surgical) wound, not elsewhere classified, initial encounter (principal); Z68.43 Body mass index [BMI] 50.0-59.9, adult; E66.01 Morbid (severe) obesity due to excess calories; G47.33 Obstructive sleep apnea (adult) (pediatric); G62.9 Polyneuropathy, unspecified; I10 Essential (primary) hypertension; Z87.891 Personal history of nicotine dependence; I49.1 Atrial premature depolarization; R32 Unspecified urinary incontinence; K21.9 Gastro-esophageal reflux disease without esophagitis; S81.811A Laceration without foreign body, right lower leg, initial encounter; K43.2 Incisional hernia without obstruction or gangrene; J45.40 Moderate persistent asthma, uncomplicated; E78.5 Hyperlipidemia, unspecified; Z79.2 Long term (current) use of antibiotics; R60.0 Localized edema; Z86.16 Personal history of COVID-19; Z90.710 Acquired absence of both cervix and uterus; I87.2 Venous insufficiency (chronic) (peripheral); I25.10 Atherosclerotic heart disease of native coronary artery without angina pectoris; M51.36 Other intervertebral disc degeneration, lumbar region; M79.89 Other specified soft tissue disorders; Z90.49 Acquired absence of other specified parts of digestive tract; Z96.659 Presence of unspecified artificial knee joint; Z90.89 Acquired absence of other organs; Z87.39 Personal history of other diseases of the musculoskeletal system and connective tissue
CPT/HCPCS: 11042; 11045; 87070; 87075; 87077; 87186; 87205; 99213; G0463

== ENCOUNTER 2023-01-30 09:30 | Outpatient (RCR) | payer BC, SELFPAY ==
[2023-01-03 00:26] VITALS: BP 152/82; PULSE 82; RESP 18; TEMP 35.5; BMI 51.5
[2023-01-09 10:50] VITALS: BP 125/60; PULSE 82; RESP 18; TEMP 35.5; BMI 51.5
--- NOTE | 2023-01-09 13:51 | PCM.WC.HP ---
History of Present Illness Date of Service: 01/09/23 Chief Complaint: Non-healing, dehiscent laceration of the right medial calf History of Wound: This is a 62-year-old morbidly obese female who was in her normal state of health until December 09, 2022. On that date, she sustained a laceration to the right medial calf following impact with a car door. She is known to have chronic swelling and edema in her lower extremities, as well as chronic venous insufficiency. Upon sustaining the injury, patient presented to the emergency department at [facility], where suture repair of the laceration was performed. She was also treated with a prescription of Augmentin. Eight days later, her sutures were removed without incident. 2 days following suture removal, the patient re-traumatized the area, causing a dehiscence of the wound, prompting her to seek medical attention in the [facility] Emergency Department. According to the patient, a resident performed a suture closure, and the patient was discharged. However, the patient's traumatic wound has failed to heal. In fact, it appears to have become dehiscent, with evidence of nonviable and necrotic tissue present. The patient has chronic swelling and edema in her lower extremities. She sleeps on a flat mattress at night, and is active. She denies a history of thrombophlebitis. 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 [facility] Medical History Acute conjunctivitis Acute sinusitis Alcohol use Asthma Asthma, moderate persistent Back pain Bruising Cardiology follow-up encounter Chronic venous insufficiency Chronic venous insufficiency Coronary artery calcification COVID-19 CPAP (continuous positive airway pressure) dependence Dyspnea on exertion Easy bruising Edema of leg Essential hypertension Former smoker Gastric reflux GERD (gastroesophageal reflux disease) High cholesterol History of echocardiogram History of edema History of stress test History of trigger finger Hyperlipidemia Hypertension Left leg swelling Leg cramps Leg edema, left Leg edema, right Leg swelling Morbid obesity with BMI of 50.0-59.9, adult Obesity MALACHI (obstructive sleep apnea) MALACHI on CPAP PAC (premature atrial contraction) Premature atrial contraction Preoperative cardiovascular examination Pure hypercholesterolemia Right leg swelling Shortness of breath on exertion Surgical wound dehiscence Urinary incontinence Urinary tract infection Urine incontinence Ventral hernia Home Medications amlodipine 10 mg tablet 10 mg PO QHS 06/19/16 [History Last Taken Unknown] ascorbic acid (vitamin C) 1,000 mg tablet 1,000 mg PO DAILY 06/19/16 [History Last Taken Unknown] evening primrose oil 500 mg capsule 500 mg PO DAILY 06/19/16 [History Last Taken Unknown] hydrochlorothiazide 25 mg tablet 25 mg PO DAILY 06/19/16 [History Last Taken Unknown] omeprazole 20 mg capsule,delayed release 20 mg PO DAILY 06/19/16 [History Last Taken 08/08/21 06:30] PEP device #1 ea 08/26/18 [Rx Last Taken Unknown] benzonatate 200 mg capsule 200 mg PO TID PRN cough #90 caps 09/03/18 [Rx Last Taken Unknown] vitamin B complex (B Complex-Vitamin B12 tablet) 1 tab PO DAILY 10/15/18 [History Last Taken Unknown] cholecalciferol (vitamin D3) 50 mcg (2,000 unit) capsule 50 mcg PO DAILY 08/26/20 [History Last Taken Unknown] loratadine 10 mg tablet (Claritin) 10 mg PO DAILY 08/26/20 [History Last Taken Unknown] tolterodine 4 mg capsule,extended release 24 hr (Detrol LA) 4 mg PO DAILY 08/26/20 [History Last Taken Unknown] losartan 50 mg tablet 50 mg PO QHS 11/26/20 [History Last Taken Unknown] Acapella #1 ea 12/21/21 [Rx Last Taken Unknown] Peak Flow meter #1 ea 12/21/21 [Rx Last Taken Unknown] zinc sulfate 66 mg tablet 66 mg PO DAILY 12/22/21 [History Last Taken Unknown] naproxen 500 mg tablet 250 mg PO DAILY 05/29/22 [History Last Taken Unknown] phenazopyridine 100 mg tablet (Pyridium) 100 mg PO TID PRN pain 06/21/22 [History Last Taken Unknown] Lactobacillus acidophilus 1 cap PO DAILY 07/27/22 [History Last Taken Unknown] citalopram 20 mg tablet 20 mg PO DAILY 07/27/22 [History Last Taken Unknown] rosuvastatin 10 mg tablet 10 mg PO DAILY 07/27/22 [History Last Taken Unknown] carvedilol 6.25 mg tablet 6.25 mg PO BID #180 tabs 09/21/22 [Rx Last Taken Unknown] albuterol sulfate 90 mcg/actuation aerosol inhaler (ProAir HFA) 2 puff inhalation Q4H PRN shortness of breath or wheezing #8.5 grams 11/07/22 [Rx Last Taken Unknown] fluticasone furoate 200 mcg-vilanterol 25 mcg/dose inhalation powder (Breo Ellipta) 1 inh inhalation DAILY #60 ea 12/05/22 [Rx Last Taken Unknown] sodium chloride 7 % for nebulization 4 ml inhalation BID #240 mL 12/05/22 [Rx Last Taken Unknown] amoxicillin 875 mg-potassium clavulanate 125 mg tablet 1 tab PO BID #20 tabs 12/29/22 [Rx Last Taken Unknown] prednisone 10 mg tablet 10 mg PO QDAY #30 tabs 12/29/22 [Rx Last Taken Unknown] Allergy/AdvReac Type Severity Reaction Status Date / Time lisinopril Allergy Unknown Cough Verified 12/05/22 07:49 clarithromycin [From Biaxin] Allergy Other Verified 12/05/22 07:49 codeine Allergy Other Verified 12/05/22 07:49 doxycycline Allergy Upset Verified 12/05/22 07:49 Stomach erythromycin base Allergy Other Verified 12/05/22 07:49 latex AdvReac Anaphylaxis Verified 12/05/22 07:49 Family History Father Hypertension CAD (coronary artery disease) History of coronary artery bypass surgery Myocardial infarction, Onset Age: 50 Mother Heart disease Brother Melanoma Surgical History History of bladder repair surgery History of bladder repair surgery History of carpal tunnel release of both wrists History of carpal tunnel surgery History of carpal tunnel surgery History of cholecystectomy History of cholecystectomy History of partial hysterectomy History of partial hysterectomy History of tonsillectomy History of tonsillectomy History of total knee arthroplasty History of total knee replacement History of ventral hernia repair History of ventral hernia repair Status post trigger finger release Social History Smoking Status: Former smoker pack-years: 16 second hand exposure: No alcohol intake: current alcohol intake frequency: a few times a week Alcohol type: wine substance use type: does not use caffeine: No what type of physical activity do you participate in: walking and swimming Vital Signs Vital Signs Vital Signs: 11/07/23 10:50 Temperature 95.9 F L Temperature Source Temporal Pulse Rate 82 Respiratory Rate 18 Blood Pressure 125/60 H Blood Pressure Mean 81 Blood Pressure Source Monitor Blood Pressure Position Semi-Fowlers Blood Pressure Location Left Arm Weight Weight: 300 lb Body Mass Index (BMI) 51.5 Physical Exam Const alert, oriented x3, no apparent distress and well nourished Constitutional Narrative: The patient is morbidly obese. Her BMI is 51.5. General Appearance: cooperative, comfortable, well kempt and well developed Orientation / Consciousness: awake, oriented to person, oriented to place and oriented to time Exam Limitations: no limitations HEENT normocephalic, head/scalp atraumatic and hearing grossly normal bilaterally Head and Scalp: normal to inspection, normocephalic and atraumatic External Ear: external ears normal Eyes PERRL and EOMs intact bilaterally General Eye: normal appearance of both eyes Neck full ROM General: normal visual inspection Resp normal respiratory effort, normal air movement, no retractions and no use of accessory muscles Effort and Inspection: able to speak in complete sentences Extremity no calf tenderness General Extremity: Negative for clubbing or cyanosis Skin Wound Narrative: A traumatic wound is noted on the patient's right medial calf. This is the result of a laceration sustained after impacting a car door. The laceration was initially sutured, following which sutures were removed 8 days later. The patient re-traumatized the site, prompting dehiscence of her wound, at which time the laceration was re-sutured closed. The wound again dehisced, with a row of approximately 8-10 sutures remaining, which were removed at the patient's initial visit at our facility, as they were providing no benefit to wound closure. A large traumatic wound persists. With the initiation of treatment at our facility, the amount of frankly necrotic and nonviable tissue has diminished significantly, and has now been diminished to a significant degree. Only a small amount of necrotic and nonviable tissue persists, primarily centrally. The wound is full-thickness, extending into the subcutaneous tissue. It is generally pink and healthy in appearance. The cellulitis appears to have resolved. Wound dimensions are documented elsewhere. Neuro oriented x3, CN's II-XII intact bilaterally, moves all extremities and no focal motor deficits Sensorium / Orientation: awake, alert, oriented to person, oriented to place and oriented to time Psych Appearance: grossly normal and appropriate Attitude: calm Activity / Motor Behavior: appropriate eye contact Speech: normal speech Mood & Affect: euthymic mood Thought Process: normal thought process Thought Content: normal thought content Attention / Concentration: attention grossly intact Debridement Note Debridement Note Wound debrided: Right medial calf laceration with dehiscence Laterality: Right Type of Debridement: Excisional debridement Anesthesia Used: 5% Lidocaine Gel and Cetacaine Depth: Down to and including healthy tissue and in the subcutaneous layer Percentage of wound debrided: 100 Instrument Used: 5mm curette, Forceps and - (Scissors) Tissue Removed: Bioburden, necrotic and nonviable tissue Severity: Fat Layer Exposed Amount of bleeding with debridement: Mild Bleeding Controlled with: Compression and gauze Patient tolerated procedure: Patient tolerated procedure well Post-Debridement Measurements and Additional Note: Post-Debridement Measurements/Treatment - Nurse 1 - General Ulcer Assessment Start: 01/09/23 10:50 Freq: Status: Active Protocol: .LOWRITIKA Activity Type Activity Date Activity User E-sign Co-sign Detail Recorded Client Recorded Date Recorded By Document 01/09/23 10:50 Desktop 01/09/23 10:55 01/09/23 10:50 - Today's Visit Information Type of service 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 ) Arrival Mode Ambulatory Transfer Assistance None Patient Identification Verified (Name & Yes ) Patient Requires Transmission-Based No Precautions Height and Weight Body Mass Index (BMI) 51.5 BMI Classification Obese Vital Signs Temperature (97.8 F-99.1 F) 95.9 F L Temperature Source Temporal Pulse Rate (60-100) 82 Pulse Location Monitor Respiratory Rate (12-18) 18 Respiratory rate source Observation Blood Pressure (90/60-120/80) 125/60 H Blood Pressure Mean 81 Source Monitor Position Semi-Fowlers Blood Pressure Location Left Arm History Since Last Visit- (Skip if this is Patient's initial visit) Have you changed medications since your No last visit? Any new allergies or adverse reactions No Had a fall/change in ADL's that may No increase risk of falls Signs or symptoms of abuse and/or No neglect since last visit Have you been in the hospital since your No last visit? Has dressing in place as prescribed Yes Has compression in place as prescribed Yes Has offloadiing in place as prescribed No Experienced any changes in pain level or No management Pain Scale: 0-10 Numeric Is Patient Pain Free? Yes WC - Nurse 1 - General Ulcer Measurement Start: 01/09/23 10:50 Freq: Status: Active Protocol: Activity Type Activity Date Activity User E-sign Co-sign Detail Recorded Client Recorded Date Recorded By Document 01/09/23 10:50 RB Desktop 01/09/23 10:55 RB 01/09/23 10:50 Wound Center Nurse 1 #1 Right lateral LE -Combined with other wound No -Current Size (cm) - Length 2.5 -Current Size (cm) - Width 5.8 -Current Size (cm) - Depth 1.1 -Total Square Cm 14.50 -Photo Taken Yes -Tunneling No -Undermining/Tunneling No -Circular Undermining No -Exudate Amt Large -Exudate Type Serosanguineous -Wound Margin Thickened & Rolled Under -Granulation Amt Large (67-100%) -Granulation Quality [place] -Slough/Fibrin Yes -Necrosis Amt Medium (34-66%) -Necrotic Tissue Type Adherent Slough -Structure Exposed N/A -Texture ([place]-wound Skin Appearance) Assessed -Moisture ([place]-wound Skin Appearance) Assessed -Color ([place]-wound Skin Appearance) Assessed, Erythema -Temperature ([place]-wound Skin No Abnormality Appearance) (Pt Warm) -Tenderness on Palpation ([place]-wound No Skin Appearance) -Ulcer Cleansing Wound Cleanser -Foul Odor after Cleansing No -Anesthetic Used 4% Lidocaine Solution Lower Limb Edema Present Yes Right Calf (cm) 53.2 Right Ankle (cm) 29.5 WC - Nurse 2 - General Ulcer CM Notes Start: 01/09/23 10:50 Freq: Status: Active Protocol: Activity Type Activity Date Activity User E-sign Co-sign Detail Recorded Client Recorded Date Recorded By Document 01/09/23 13:43 PL [id number] 01/09/23 13:44 PL 01/09/23 13:43 Wound Center Nurse 2 #1 Right lateral LE -Time 11:05 -Correct Patient Yes -Correct Side, Site, Position Yes -Correct Procedure Yes -Procedure Performed Yes -Type of Procedure Debridement -Clinical Debridement Subcutaneous -Tissue Removed Subcutaneous -Post Debridement (cm) - Length 2.5 -Post Debridement (cm) - Width 5.8 -Post Debridement (cm) - Depth 1.1 -Total Square (Post) (cm) 14.50 -Area of Debridement (cm) - Length 2.5 -Area of Debridement (cm) - Width 5.8 -Total Square (Area) (cm) 14.50 -Tunneling No -Undermining/Tunneling No -Circular Undermining No -Wound/Ulcer Outcome Not Healed -Ulcer Cleansing Rinsed/ Irrigated with Saline -Foul Odor after Cleansing No -Bioengineered Tissue No -Bleeding Controlled with Pressure -Treatment Response Procedure Tolerated Well -Debridement - Subq, 1st 20sq cm Yes Pain Scale: 0-10 Numeric Is Patient Pain Free? Yes - Nurse 3 - General Ulcer D/C NN Start: 01/09/23 10:50 Freq: Status: Active Protocol: Activity Type Activity Date Activity User E-sign Co-sign Detail Recorded Client Recorded Date Recorded By Document 01/09/23 11:14 Desktop 01/09/23 11:25 01/09/23 11:14 Wound Care Center Nurse 3 #1 Right lateral LE -Ulcer Cleansing Not Cleansed -Foul Odor after Cleansing No -Negative Pressure Wound Therapy N/A -Primary Dressing Covered/Secured with Dry Gauze & Roll Gauze Pain Scale: 0-10 Numeric Is Patient Pain Free? Yes Teaching: Wound Center Dressing Your Wound -Person Taught Patient -Teaching Method Discussion, Demonstration -Response to teaching Verbalize understanding WC - Visit Discharge Discharge Condition Stable Ambulatory Status Ambulatory Transportation Private Auto Medication Reconcilliation completed & Yes provided to patient/care provider Clinical Summary of Care Provided Yes Assessment/Plan Assessment/Plan (1) Laceration of right leg excluding thigh: CODE(S): S81.811A - Laceration without foreign body, right lower leg, initial encounter QUALIFIERS: Encounter type: initial encounter Qualified Code(s): S81.811A - Laceration without foreign body, right lower leg, initial encounter (2) Surgical wound dehiscence: CODE(S): T81.31XA - Disruption of external operation (surgical) wound, not elsewhere classified, initial encounter QUALIFIERS: Encounter type: initial encounter Qualified Code(s): T81.31XA - Disruption of external operation (surgical) wound, not elsewhere classified, initial encounter (3) Right leg swelling: CODE(S): M79.89 - Other specified soft tissue disorders (4) Leg edema, right: CODE(S): R60.0 - Localized edema (5) DDD (degenerative disc disease), lumbar: CODE(S): M51.36 - Other intervertebral disc degeneration, lumbar region (6) Ventral incisional hernia without obstruction or gangrene: CODE(S): K43.2 - Incisional hernia without obstruction or gangrene (7) Coronary artery calcification: CODE(S): I25.10 - Atherosclerotic heart disease of [place] coronary artery without angina pectoris; I25.84 - Coronary atherosclerosis due to calcified coronary lesion (8) Chronic venous insufficiency: CODE(S): I87.2 - Venous insufficiency (chronic) (peripheral) (9) MALACHI on CPAP: CODE(S): G47.33 - Obstructive sleep apnea (adult) (pediatric); Z99.89 - Dependence on other enabling machines and devices (10) GERD (gastroesophageal reflux disease): CODE(S): K21.9 - Gastro-esophageal reflux disease without esophagitis (11) Pure hypercholesterolemia: CODE(S): E78.00 - Pure hypercholesterolemia, unspecified (12) Essential hypertension: CODE(S): I10 - Essential (primary) hypertension (13) MALACHI (obstructive sleep apnea): CODE(S): G47.33 - Obstructive sleep apnea (adult) (pediatric) (14) Asthma, moderate persistent: CODE(S): J45.40 - Moderate persistent asthma, uncomplicated QUALIFIERS: Asthma complication type: uncomplicated Qualified Code(s): J45.40 - Moderate persistent asthma, uncomplicated (15) Chronic venous insufficiency: (16) Morbid obesity with BMI of 50.0-59.9, adult: CODE(S): E66.01 - Morbid (severe) obesity due to excess calories; Z68.43 - Body mass index [BMI] 50.0-59.9, adult (17) Dyspnea on exertion: CODE(S): R06.09 - Other forms of dyspnea (18) PAC (premature atrial contraction): CODE(S): I49.1 - Atrial premature depolarization (19) Left leg swelling: CODE(S): M79.89 - Other specified soft tissue disorders (20) Leg edema, left: CODE(S): R60.0 - Localized edema (21) Urinary incontinence: CODE(S): R32 - Unspecified urinary incontinence (22) History of bladder repair surgery: CODE(S): Z98.890 - Other specified postprocedural states (23) History of carpal tunnel release of both wrists: CODE(S): Z98.890 - Other specified postprocedural states (24) History of cholecystectomy: CODE(S): Z90.49 - Acquired absence of other specified parts of digestive tract (25) History of tonsillectomy: CODE(S): Z90.89 - Acquired absence of other organs (26) History of partial hysterectomy: CODE(S): Z90.711 - Acquired absence of uterus with remaining cervical stump (27) History of total knee replacement: CODE(S): Z96.659 - Presence of unspecified artificial knee joint (28) History of ventral hernia repair: CODE(S): Z98.890 - Other specified postprocedural states; Z87.19 - Personal history of other diseases of the digestive system (29) History of trigger finger: CODE(S): Z87.39 - Personal history of other diseases of the musculoskeletal system and connective tissue PLAN: Plan This is a 62-year-old morbidly obese female with a traumatic injury to her right medial calf. Her recent medical history is as documented above. The wound on the right medial calf is a dehiscent wound, following 2 recent attempts to suture closed. A standard excisional debridement has been performed today. There has been significant improvement in the status of the patient's wound within the last week. Wound cultures were obtained for both aerobic and anaerobic bacterial growth. The results were positive for Escherichia coli and Pseudomonas aeruginosa. Based on sensitivity results, the patient was placed on Cipro 500 mg p.o. twice daily, which has now been completed. A lengthy discussion has been undertaken with the patient with regard to conservative treatment measures for control of the swelling and edema in her lower extremities. Leg elevation has been recommended. She has been encouraged to continue sleeping on a flat mattress at night. Leg elevation to heart level has been encouraged even during daytime hours. Prolonged idle sitting has been discouraged. Activity has been encouraged. Weight loss has also been recommended. We are to continue compression to the lower extremities by means of Spandagrips, in light of the patient's allergy to latex. We are to continue the use of Dakin's-moistened gauze as a [id number] dressing on a daily basis. The patient is to be allowed to shower daily. We are to seek preauthorization for the use of negative pressure wound therapy, which is anticipated to be implemented at the patient's follow-up visit next week. The patient is to return in 1 week for reassessment. Total time: 24 minutes
[2023-01-16 08:22] VITALS: BP 152/60; PULSE 68; RESP 18; TEMP 35.7; BMI 51.5
--- NOTE | 2023-01-16 09:11 | HP.PCM_ITS ---
History of Present Illness Date of Service: 01/16/23 Chief Complaint: Non-healing, dehiscent laceration of the right medial calf History of Wound: This is a 62-year-old morbidly obese female who was in her normal state of health until December 09, 2022. On that date, she sustained a laceration to the right medial calf following impact with a car door. She is known to have chronic swelling and edema in her lower extremities, as well as chronic venous insufficiency. Upon sustaining the injury, patient presented to the emergency department at [facility], where suture repair of the laceration was performed. She was also treated with a prescription of Augmentin. Eight days later, her sutures were removed without incident. 2 days following suture removal, the patient re-traumatized the area, causing a dehiscence of the wound, prompting her to seek medical attention in the [facility] Emergency Department. According to the patient, a resident performed a suture closure, and the patient was discharged. However, the patient's traumatic wound has failed to heal. In fact, it appears to have become dehiscent, with evidence of nonviable and necrotic tissue present. The patient has chronic swelling and edema in her lower extremities. She sleeps on a flat mattress at night, and is active. She denies a history of thrombophlebitis. 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 [facility] Medical History (Updated 01/16/23 @ 09:[address] Terrell Mullins MD) Acute conjunctivitis Acute sinusitis Alcohol use Asthma Asthma, moderate persistent Back pain Bruising Cardiology follow-up encounter Chronic venous insufficiency Chronic venous insufficiency Coronary artery calcification COVID-19 CPAP (continuous positive airway pressure) dependence Dyspnea on exertion Easy bruising Edema of leg Essential hypertension Former smoker Gastric reflux GERD (gastroesophageal reflux disease) High cholesterol History of echocardiogram History of edema History of stress test History of trigger finger Hyperlipidemia Hypertension Left leg swelling Leg cramps Leg edema, left Leg edema, right Leg swelling Morbid obesity with BMI of 50.0-59.9, adult Non-pressure chronic ulcer of right calf with fat layer exposed Obesity MALACHI (obstructive sleep apnea) MALACHI on CPAP PAC (premature atrial contraction) Premature atrial contraction Preoperative cardiovascular examination Pure hypercholesterolemia Right leg swelling Shortness of breath on exertion Surgical wound dehiscence Urinary incontinence Urinary tract infection Urine incontinence Ventral hernia Home Medications amlodipine 10 mg tablet 10 mg PO QHS 06/19/16 [History Last Taken Unknown] ascorbic acid (vitamin C) 1,000 mg tablet 1,000 mg PO DAILY 06/19/16 [History Last Taken Unknown] evening primrose oil 500 mg capsule 500 mg PO DAILY 06/19/16 [History Last Taken Unknown] hydrochlorothiazide 25 mg tablet 25 mg PO DAILY 06/19/16 [History Last Taken Unknown] omeprazole 20 mg capsule,delayed release 20 mg PO DAILY 06/19/16 [History Last Taken 08/08/21 06:30] PEP device #1 ea 08/26/18 [Rx Last Taken Unknown] benzonatate 200 mg capsule 200 mg PO TID PRN cough #90 caps 09/03/18 [Rx Last Taken Unknown] vitamin B complex (B Complex-Vitamin B12 tablet) 1 tab PO DAILY 10/15/18 [History Last Taken Unknown] cholecalciferol (vitamin D3) 50 mcg (2,000 unit) capsule 50 mcg PO DAILY 08/26/20 [History Last Taken Unknown] loratadine 10 mg tablet (Claritin) 10 mg PO DAILY 08/26/20 [History Last Taken Unknown] tolterodine 4 mg capsule,extended release 24 hr (Detrol LA) 4 mg PO DAILY 08/26/20 [History Last Taken Unknown] losartan 50 mg tablet 50 mg PO QHS 11/26/20 [History Last Taken Unknown] Acapella #1 ea 12/21/21 [Rx Last Taken Unknown] Peak Flow meter #1 ea 12/21/21 [Rx Last Taken Unknown] zinc sulfate 66 mg tablet 66 mg PO DAILY 12/22/21 [History Last Taken Unknown] naproxen 500 mg tablet 250 mg PO DAILY 05/29/22 [History Last Taken Unknown] phenazopyridine 100 mg tablet (Pyridium) 100 mg PO TID PRN pain 06/21/22 [History Last Taken Unknown] Lactobacillus acidophilus 1 cap PO DAILY 07/27/22 [History Last Taken Unknown] citalopram 20 mg tablet 20 mg PO DAILY 07/27/22 [History Last Taken Unknown] rosuvastatin 10 mg tablet 10 mg PO DAILY 07/27/22 [History Last Taken Unknown] carvedilol 6.25 mg tablet 6.25 mg PO BID #180 tabs 09/21/22 [Rx Last Taken Unknown] albuterol sulfate 90 mcg/actuation aerosol inhaler (ProAir HFA) 2 puff inhalation Q4H PRN shortness of breath or wheezing #8.5 grams 11/07/22 [Rx Last Taken Unknown] fluticasone furoate 200 mcg-vilanterol 25 mcg/dose inhalation powder (Breo Ellipta) 1 inh inhalation DAILY #60 ea 12/05/22 [Rx Last Taken Unknown] sodium chloride 7 % for nebulization 4 ml inhalation BID #240 mL 12/05/22 [Rx Last Taken Unknown] amoxicillin 875 mg-potassium clavulanate 125 mg tablet 1 tab PO BID #20 tabs 12/29/22 [Rx Last Taken Unknown] prednisone 10 mg tablet 10 mg PO QDAY #30 tabs 12/29/22 [Rx Last Taken Unknown] Allergy/AdvReac Type Severity Reaction Status Date / Time lisinopril Allergy Unknown Cough Verified 12/05/22 07:49 clarithromycin [From Biaxin] Allergy Other Verified 12/05/22 07:49 codeine Allergy Other Verified 12/05/22 07:49 doxycycline Allergy Upset Verified 12/05/22 07:49 Stomach erythromycin base Allergy Other Verified 12/05/22 07:49 latex AdvReac Anaphylaxis Verified 12/05/22 07:49 Family History Father Hypertension CAD (coronary artery disease) History of coronary artery bypass surgery Myocardial infarction, Onset Age: 50 Mother Heart disease Brother Melanoma Surgical History History of bladder repair surgery History of bladder repair surgery History of carpal tunnel release of both wrists History of carpal tunnel surgery History of carpal tunnel surgery History of cholecystectomy History of cholecystectomy History of partial hysterectomy History of partial hysterectomy History of tonsillectomy History of tonsillectomy History of total knee arthroplasty History of total knee replacement History of ventral hernia repair History of ventral hernia repair Status post trigger finger release Social History Smoking Status: Former smoker pack-years: 16 second hand exposure: No alcohol intake: current alcohol intake frequency: a few times a week Alcohol type: wine substance use type: does not use caffeine: No what type of physical activity do you participate in: walking and swimming Vital Signs Vital Signs Vital Signs: 01/16/23 08:22 Temperature 96.2 F L Temperature Source Temporal Pulse Rate 68 Respiratory Rate 18 Blood Pressure 152/60 H Blood Pressure Mean 90 Blood Pressure Source Manual Blood Pressure Position Semi-Fowlers Blood Pressure Location Right Arm Weight Weight: 300 lb Body Mass Index (BMI) 51.5 Physical Exam Const alert, oriented x3, no apparent distress and well nourished Constitutional Narrative: The patient is morbidly obese. Her BMI is 51.5. General Appearance: cooperative, comfortable, well kempt and well developed Orientation / Consciousness: awake, oriented to person, oriented to place and oriented to time Exam Limitations: no limitations HEENT normocephalic, head/scalp atraumatic and hearing grossly normal bilaterally Head and Scalp: normal to inspection, normocephalic and atraumatic External Ear: external ears normal Eyes PERRL and EOMs intact bilaterally General Eye: normal appearance of both eyes Neck full ROM General: normal visual inspection Resp normal respiratory effort, normal air movement, no retractions and no use of accessory muscles Effort and Inspection: able to speak in complete sentences Extremity no calf tenderness General Extremity: Negative for clubbing or cyanosis Skin Wound Narrative: A traumatic wound is noted on the patient's right medial calf. This is the result of a laceration sustained after impacting a car door. The laceration was initially sutured, following which sutures were removed 8 days later. The toni ent re-traumatized the site, prompting dehiscence of her wound, at which time the laceration was re-sutured closed. The wound again dehisced, with a row of approximately 8-10 sutures remaining, which were removed at the patient's initial visit at our facility, as they were providing no benefit to wound closure. A large traumatic wound persists. With the initiation of treatment at our facility, the amount of frankly necrotic and nonviable tissue has diminished significantly, and has now been eliminated to a significant degree. Only a small amount of necrotic and nonviable tissue persists, primarily centrally. The wound is full-thickness, extending into the subcutaneous tissue. In fact, there is now a significant area of undermining and tunneling located centrally. This is a new finding as of today's visit. In general, however, the preponderance of the wound is pink and healthy in appearance. Cellulitis appears to have resolved. Wound dimensions are documented elsewhere. Neuro oriented x3, CN's II-XII intact bilaterally, moves all extremities and no focal motor deficits Sensorium / Orientation: awake, alert, oriented to person, oriented to place and oriented to time Psych Appearance: grossly normal and appropriate Attitude: calm Activity / Motor Behavior: appropriate eye contact Speech: normal speech Mood & Affect: euthymic mood Thought Process: normal thought process Thought Content: normal thought content Attention / Concentration: attention grossly intact Debridement Note Debridement Note Wound debrided: Right medial calf laceration with dehiscence Laterality: Right Type of Debridement: Excisional debridement Anesthesia Used: 5% Lidocaine Gel and Cetacaine Depth: Down to and including healthy tissue and in the subcutaneous layer Percentage of wound debrided: 100 Instrument Used: 5mm curette, Forceps and - (Scissors) Tissue Removed: Bioburden, necrotic and nonviable tissue Severity: Fat Layer Exposed Amount of bleeding with debridement: Mild Bleeding Controlled with: Compression and gauze Patient tolerated procedure: Patient tolerated procedure well Post-Debridement Measurements and Additional Note: Post-Debridement Measurements/Treatment - Nurse 1 - General Ulcer Assessment Start: 01/09/23 10:50 Freq: Status: Active Protocol: SOPHIA.LILIANA Activity Type Activity Date Activity User E-sign Co-sign Detail Recorded Client Recorded Date Recorded By Document 01/09/23 10:50 Desktop 01/09/23 10:55 RB Document 01/16/23 08:22 Laptop 01/16/23 08:24 01/09/23 01/16/23 10:50 08:22 - Today's Visit Information Type of service Follow-up Visit Follow-up Visit (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 (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 ) ) Arrival Mode Ambulatory Ambulatory Transfer Assistance None Patient Identification Verified (Name & Yes Yes ) Patient Requires Transmission-Based No No Precautions Height and Weight Body Mass Index (BMI) 51.5 51.5 BMI Classification Obese Obese Vital Signs Temperature (97.8 F-99.1 F) 95.9 F L 96.2 F L Temperature Source Temporal Temporal Pulse Rate (60-100) 82 68 Pulse Location Monitor Monitor Respiratory Rate (12-18) 18 18 Respiratory rate source Observation Observation Blood Pressure (90/60-120/80) 125/60 H 152/60 H Blood Pressure Mean 81 90 Source Monitor Manual Position Semi-Fowlers Semi-Fowlers Blood Pressure Location Left Arm Right Arm History Since Last Visit- (Skip if this is Patient's initial visit) Have you changed medications since your No No last visit? Any new allergies or adverse reactions No No Had a fall/change in ADL's that may No No increase risk of falls Signs or symptoms of abuse and/or No No neglect since last visit Have you been in the hospital since your No No last visit? Has dressing in place as prescribed Yes Yes Has compression in place as prescribed Yes Yes Has offloadiing in place as prescribed No N/A Experienced any changes in pain level or No No management Left Footwear Regular Shoe Right Footwear Regular Shoe Pain Scale: 0-10 Numeric Is Patient Pain Free? Yes Yes WC - Nurse 1 - General Ulcer Measurement Start: 01/09/23 10:50 Freq: Status: Active Protocol: Activity Type Activity Date Activity User E-sign Co-sign Detail Recorded Client Recorded Date Recorded By Document 01/09/23 10:50 RB Desktop 01/09/23 10:55 RB Document 01/16/23 08:22 Laptop 01/16/23 08:24 01/09/23 01/16/23 10:50 08:22 Wound Center Nurse 1 #1 Right lateral LE -Combined with other wound No No -Current Size (cm) - Length 2.5 2.2 -Current Size (cm) - Width 5.8 4.9 -Current Size (cm) - Depth 1.1 2.5 -Total Square Cm 14.50 10.78 -Photo Taken Yes Yes -Epithelialization Medium 34-66% -Tunneling No No -Undermining/Tunneling No No -Circular Undermining No No -Exudate Amt Large Medium -Exudate Type Serosanguineous Serosanguineous -Wound Margin Thickened & Flat & Intact Rolled Under -Granulation Amt Large (67-100%) Large (67-100%) -Granulation Quality [place] Red -Slough/Fibrin Yes Yes -Necrosis Amt Medium (34-66%) Small (1-33%) -Necrotic Tissue Type Adherent Slough Adherent Slough -Structure Exposed N/A N/A -Texture ([place]-wound Skin Appearance) Assessed Assessed, Localized Edema -Moisture ([place]-wound Skin Appearance) Assessed No Abnormality, Dry/Scaly -Color ([place]-wound Skin Appearance) Assessed, Assessed Erythema -Temperature ([place]-wound Skin No Abnormality No Abnormality Appearance) (Pt Warm) (Pt Warm) -Tenderness on Palpation ([place]-wound No No Skin Appearance) -Ulcer Cleansing Wound Cleanser Rinsed/ Irrigated with Saline -Foul Odor after Cleansing No No -Anesthetic Used 4% Lidocaine 5% Lidocaine Solution Gel Lower Limb Edema Present Yes Yes Right Calf (cm) 53.2 50.4 Right Ankle (cm) 29.5 28.5 WC - Nurse 2 - General Ulcer CM Notes Start: 01/09/23 10:50 Freq: Status: Active Protocol: Activity Type Activity Date Activity User E-sign Co-sign Detail Recorded Client Recorded Date Recorded By Document 01/09/23 13:43 PL [email or web address] 01/09/23 13:44 PL 01/09/23 13:43 Wound Center Nurse 2 #1 Right lateral LE -Time 11:05 -Correct Patient Yes -Correct Side, Site, Position Yes -Correct Procedure Yes -Procedure Performed Yes -Type of Procedure Debridement -Clinical Debridement Subcutaneous -Tissue Removed Subcutaneous -Post Debridement (cm) - Length 2.5 -Post Debridement (cm) - Width 5.8 -Post Debridement (cm) - Depth 1.1 -Total Square (Post) (cm) 14.50 -Area of Debridement (cm) - Length 2.5 -Area of Debridement (cm) - Width 5.8 -Total Square (Area) (cm) 14.50 -Tunneling No -Undermining/Tunneling No -Circular Undermining No -Wound/Ulcer Outcome Not Healed -Ulcer Cleansing Rinsed/ Irrigated with Saline -Foul Odor after Cleansing No -Bioengineered Tissue No -Bleeding Controlled with Pressure -Treatment Response Procedure Tolerated Well -Debridement - Subq, 1st 20sq cm Yes Pain Scale: 0-10 Numeric Is Patient Pain Free? Yes - Nurse 3 - General Ulcer D/C NN Start: 01/09/23 10:50 Freq: Status: Active Protocol: Activity Type Activity Date Activity User E-sign Co-sign Detail Recorded Client Recorded Date Recorded By Document 01/09/23 11:14 Desktop 01/09/23 11:25 Document 01/16/23 09:00 Laptop 01/16/23 09:01 01/09/23 01/16/23 11:14 09:00 Wound Care Center Nurse 3 #1 Right lateral LE -Ulcer Cleansing Not Cleansed Rinsed/ Irrigated with Saline -Foul Odor after Cleansing No No -Negative Pressure Wound Therapy N/A -Primary Dressing Applied Nugauze, Plain 1/2in -Other Dressing dadkin's -Primary Dressing Covered/Secured with Dry Gauze & Dry Gauze & Roll Gauze Roll Gauze, Secured with Tape -Nugauze, Plain 1/2in 1 Right -Other used own spandagrip Pain Scale: 0-10 Numeric Is Patient Pain Free? Yes Yes Teaching: Wound Center Dressing Your Wound -Person Taught Patient -Teaching Method Discussion, Demonstration -Response to teaching Verbalize understanding WC - Visit Discharge Discharge Condition Stable Stable Ambulatory Status Ambulatory Ambulatory Transportation Private Auto Private Auto Medication Reconcilliation completed & Yes Yes provided to patient/care provider Clinical Summary of Care Provided Yes Yes Assessment/Plan Assessment/Plan (1) Non-pressure chronic ulcer of right calf with fat layer exposed: CODE(S): L97.212 - Non-pressure chronic ulcer of right calf with fat layer exposed (2) Chronic venous insufficiency: (3) Laceration of right leg excluding thigh: CODE(S): S81.811A - Laceration without foreign body, right lower leg, initial encounter QUALIFIERS: Encounter type: subsequent encounter Qualified Code(s): S81.811D - Laceration without foreign body, right lower leg, subsequent encounter (4) Surgical wound dehiscence: CODE(S): T81.31XA - Disruption of external operation (surgical) wound, not elsewhere classified, initial encounter QUALIFIERS: Encounter type: subsequent encounter Qualified Code(s): T81.31XD - Disruption of external operation (surgical) wound, not elsewhere classified, subsequent encounter (5) Right leg swelling: CODE(S): M79.89 - Other specified soft tissue disorders (6) Leg edema, right: CODE(S): R60.0 - Localized edema (7) DDD (degenerative disc disease), lumbar: CODE(S): M51.36 - Other intervertebral disc degeneration, lumbar region (8) Ventral incisional hernia without obstruction or gangrene: CODE(S): K43.2 - Incisional hernia without obstruction or gangrene (9) Coronary artery calcification: CODE(S): I25.10 - Atherosclerotic heart disease of [place] coronary artery without angina pectoris; I25.84 - Coronary atherosclerosis due to calcified coronary lesion (10) Chronic venous insufficiency: CODE(S): I87.2 - Venous insufficiency (chronic) (peripheral) (11) MALACHI on CPAP: CODE(S): G47.33 - Obstructive sleep apnea (adult) (pediatric); Z99.89 - Dependence on other enabling machines and devices (12) GERD (gastroesophageal reflux disease): CODE(S): K21.9 - Gastro-esophageal reflux disease without esophagitis (13) Pure hypercholesterolemia: CODE(S): E78.00 - Pure hypercholesterolemia, unspecified (14) Essential hypertension: CODE(S): I10 - Essential (primary) hypertension (15) MALACHI (obstructive sleep apnea): CODE(S): G47.33 - Obstructive sleep apnea (adult) (pediatric) (16) Asthma, moderate persistent: CODE(S): J45.40 - Moderate persistent asthma, uncomplicated QUALIFIERS: Asthma complication type: uncomplicated Qualified Code(s): J45.40 - Moderate persistent asthma, uncomplicated (17) Morbid obesity with BMI of 50.0-59.9, adult: CODE(S): E66.01 - Morbid (severe) obesity due to excess calories; Z68.43 - Body mass index [BMI] 50.0-59.9, adult (18) Dyspnea on exertion: CODE(S): R06.09 - Other forms of dyspnea (19) PAC (premature atrial contraction): CODE(S): I49.1 - Atrial premature depolarization (20) Left leg swelling: CODE(S): M79.89 - Other specified soft tissue disorders (21) Leg edema, left: CODE(S): R60.0 - Localized edema (22) Urinary incontinence: CODE(S): R32 - Unspecified urinary incontinence (23) History of bladder repair surgery: CODE(S): Z98.890 - Other specified postprocedural states (24) History of carpal tunnel release of both wrists: CODE(S): Z98.890 - Other specified postprocedural states (25) History of cholecystectomy: CODE(S): Z90.49 - Acquired absence of other specified parts of digestive tract (26) History of tonsillectomy: CODE(S): Z90.89 - Acquired absence of other organs (27) History of partial hysterectomy: CODE(S): Z90.711 - Acquired absence of uterus with remaining cervical stump (28) History of total knee replacement: CODE(S): Z96.659 - Presence of unspecified artificial knee joint (29) History of ventral hernia repair: CODE(S): Z98.890 - Other specified postprocedural states; Z87.19 - Personal history of other diseases of the digestive system (30) History of trigger finger: CODE(S): Z87.39 - Personal history of other diseases of the musculoskeletal system and connective tissue PLAN: Plan This is a 62-year-old morbidly obese female with a traumatic injury to her right medial calf. Her recent medical history is as documented above. The wound on the right medial calf is a dehiscent wound, following 2 recent attempts to suture closed. A standard excisional debridement has been performed today. There has been significant deterioration in the status of the patient's wound within the last week. There is now a significant area of undermining and tunneling noted centrally, which had not been present in prior weeks. Recent culture results were positive for Escherichia coli and Pseudomonas aeruginosa. Based on sensitivity results, the patient was placed on Cipro 500 mg p.o. twice daily, which has now been completed. A lengthy discussion has been undertaken with the patient with regard to conservative treatment measures for control of the swelling, edema, and chronic venous insufficiency in her lower extremities. Leg elevation has been recommended. She has been encouraged to continue sleeping on a flat mattress at night. Leg elevation to heart level has been encouraged even during daytime hours. Prolonged idle sitting has been discouraged. Activity has been encouraged. Weight loss has also been recommended. We are to continue compression to the lower extremities by means of Spandagrips, in light of the patient's allergy to latex. We are to continue the use of Dakin's-moistened gauze as a [id number] dressing on a daily basis. Relative to the area of tunneling and undermining, we are to implement the use of Dakin's?moistened Nu Gauze, which is to be packed into the area of undermining on a daily basis. The patient has been instructed in the appropriate means of application. The patient is to be allowed to shower daily. We are to seek preauthorization for the use of negative pressure wound therapy. From a medical standpoint, it is anticipated that negative pressure wound therapy will be of significant benefit in enhancing the healing of the patient's wound. We are to request approval for the use of the Snap VAC, or other negative pressure device. Once approved, negative pressure wound therapy will be implemented and anticipated that wound healing will be augmented to a significant degree. Given the recent appearance of undermining and tunneling, have discussed with the patient the possible need for surgical unroofing and debridement of the site if conservative measures fail to result in improvement. The patient is to return in 1 week for reassessment. Total time: 28 minutes
[2023-01-23 09:23] VITALS: BP 135/62; TEMP 36; BMI 51.5
--- NOTE | 2023-01-23 13:04 | PCM.WC.HP ---
History of Present Illness Date of Service: 01/23/23 Chief Complaint: Non-healing, dehiscent laceration of the right medial calf History of Wound: This is a 62-year-old morbidly obese female who was in her normal state of health until December 09, 2022. On that date, she sustained a laceration to the right medial calf following impact with a car door. She is known to have chronic swelling and edema in her lower extremities, as well as chronic venous insufficiency. Upon sustaining the injury, patient presented to the emergency department at [facility], where suture repair of the laceration was performed. She was also treated with a prescription of Augmentin. Eight days later, her sutures were removed without incident. 2 days following suture removal, the patient re-traumatized the area, causing a dehiscence of the wound, prompting her to seek medical attention in the [facility] Emergency Department. According to the patient, a resident performed a suture closure, and the patient was discharged. However, the patient's traumatic wound has failed to heal. In fact, it appears to have become dehiscent, with evidence of nonviable and necrotic tissue present. The patient has chronic swelling and edema in her lower extremities. She sleeps on a flat mattress at night, and is active. She denies a history of thrombophlebitis. 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 [facility] Medical History Acute conjunctivitis Acute sinusitis Alcohol use Asthma Asthma, moderate persistent Back pain Bruising Cardiology follow-up encounter Chronic venous insufficiency Chronic venous insufficiency Coronary artery calcification COVID-19 CPAP (continuous positive airway pressure) dependence Dyspnea on exertion Easy bruising Edema of leg Essential hypertension Former smoker Gastric reflux GERD (gastroesophageal reflux disease) High cholesterol History of echocardiogram History of edema History of stress test History of trigger finger Hyperlipidemia Hypertension Left leg swelling Leg cramps Leg edema, left Leg edema, right Leg swelling Morbid obesity with BMI of 50.0-59.9, adult Non-pressure chronic ulcer of right calf with fat layer exposed Obesity MALACHI (obstructive sleep apnea) MALACHI on CPAP PAC (premature atrial contraction) Premature atrial contraction Preoperative cardiovascular examination Pure hypercholesterolemia Right leg swelling Shortness of breath on exertion Surgical wound dehiscence Urinary incontinence Urinary tract infection Urine incontinence Ventral hernia Home Medications amlodipine 10 mg tablet 10 mg PO QHS 06/19/16 [History Last Taken Unknown] ascorbic acid (vitamin C) 1,000 mg tablet 1,000 mg PO DAILY 06/19/16 [History Last Taken Unknown] evening primrose oil 500 mg capsule 500 mg PO DAILY 06/19/16 [History Last Taken Unknown] hydrochlorothiazide 25 mg tablet 25 mg PO DAILY 06/19/16 [History Last Taken Unknown] omeprazole 20 mg capsule,delayed release 20 mg PO DAILY 06/19/16 [History Last Taken 08/08/21 06:30] PEP device #1 ea 08/26/18 [Rx Last Taken Unknown] benzonatate 200 mg capsule 200 mg PO TID PRN cough #90 caps 09/03/18 [Rx Last Taken Unknown] vitamin B complex (B Complex-Vitamin B12 tablet) 1 tab PO DAILY 10/15/18 [History Last Taken Unknown] cholecalciferol (vitamin D3) 50 mcg (2,000 unit) capsule 50 mcg PO DAILY 08/26/20 [History Last Taken Unknown] loratadine 10 mg tablet (Claritin) 10 mg PO DAILY 08/26/20 [History Last Taken Unknown] tolterodine 4 mg capsule,extended release 24 hr (Detrol LA) 4 mg PO DAILY 08/26/20 [History Last Taken Unknown] losartan 50 mg tablet 50 mg PO QHS 11/26/20 [History Last Taken Unknown] Acapella #1 ea 12/21/21 [Rx Last Taken Unknown] Peak Flow meter #1 ea 12/21/21 [Rx Last Taken Unknown] zinc sulfate 66 mg tablet 66 mg PO DAILY 12/22/21 [History Last Taken Unknown] naproxen 500 mg tablet 250 mg PO DAILY 05/29/22 [History Last Taken Unknown] phenazopyridine 100 mg tablet (Pyridium) 100 mg PO TID PRN pain 06/21/22 [History Last Taken Unknown] Lactobacillus acidophilus 1 cap PO DAILY 07/27/22 [History Last Taken Unknown] citalopram 20 mg tablet 20 mg PO DAILY 07/27/22 [History Last Taken Unknown] rosuvastatin 10 mg tablet 10 mg PO DAILY 07/27/22 [History Last Taken Unknown] carvedilol 6.25 mg tablet 6.25 mg PO BID #180 tabs 09/21/22 [Rx Last Taken Unknown] albuterol sulfate 90 mcg/actuation aerosol inhaler (ProAir HFA) 2 puff inhalation Q4H PRN shortness of breath or wheezing #8.5 grams 11/07/22 [Rx Last Taken Unknown] fluticasone furoate 200 mcg-vilanterol 25 mcg/dose inhalation powder (Breo Ellipta) 1 inh inhalation DAILY #60 ea 12/05/22 [Rx Last Taken Unknown] sodium chloride 7 % for nebulization 4 ml inhalation BID #240 mL 12/05/22 [Rx Last Taken Unknown] amoxicillin 875 mg-potassium clavulanate 125 mg tablet 1 tab PO BID #20 tabs 12/29/22 [Rx Last Taken Unknown] prednisone 10 mg tablet 10 mg PO QDAY #30 tabs 12/29/22 [Rx Last Taken Unknown] Allergy/AdvReac Type Severity Reaction Status Date / Time lisinopril Allergy Unknown Cough Verified 12/05/22 07:49 clarithromycin [From Biaxin] Allergy Other Verified 12/05/22 07:49 codeine Allergy Other Verified 12/05/22 07:49 doxycycline Allergy Upset Verified 12/05/22 07:49 Stomach erythromycin base Allergy Other Verified 12/05/22 07:49 latex AdvReac Anaphylaxis Verified 12/05/22 07:49 Family History Father Hypertension CAD (coronary artery disease) History of coronary artery bypass surgery Myocardial infarction, Onset Age: 50 Mother Heart disease Brother Melanoma Surgical History History of bladder repair surgery History of bladder repair surgery History of carpal tunnel release of both wrists History of carpal tunnel surgery History of carpal tunnel surgery History of cholecystectomy History of cholecystectomy History of partial hysterectomy History of partial hysterectomy History of tonsillectomy History of tonsillectomy History of total knee arthroplasty History of total knee replacement History of ventral hernia repair History of ventral hernia repair Status post trigger finger release Social History Smoking Status: Former smoker pack-years: 16 second hand exposure: No alcohol intake: current alcohol intake frequency: a few times a week Alcohol type: wine substance use type: does not use caffeine: No what type of physical activity do you participate in: walking and swimming Vital Signs Vital Signs Vital Signs: 01/23/23 09:23 Temperature 96.8 F L Temperature Source Temporal Blood Pressure 135/62 H Blood Pressure Mean 86 Blood Pressure Source Manual Blood Pressure Position Sitting Blood Pressure Location Right Arm Oxygen Delivery Method Room Air Weight Weight: 300 lb Body Mass Index (BMI) 51.5 Physical Exam Const alert, oriented x3, no apparent distress and well nourished Constitutional Narrative: The patient is morbidly obese. Her BMI is 51.5. General Appearance: cooperative, comfortable, well kempt and well developed Orientation / Consciousness: awake, oriented to person, oriented to place and oriented to time Exam Limitations: no limitations HEENT normocephalic, head/scalp atraumatic and hearing grossly normal bilaterally Head and Scalp: normal to inspection, normocephalic and atraumatic External Ear: external ears normal Eyes PERRL and EOMs intact bilaterally General Eye: normal appearance of both eyes Neck full ROM General: normal visual inspection Resp normal respiratory effort, normal air movement, no retractions and no use of accessory muscles Effort and Inspection: able to speak in complete sentences Extremity no calf tenderness General Extremity: Negative for clubbing or cyanosis Skin Wound Narrative: A traumatic wound is noted on the patient's right medial calf. This is the result of a laceration sustained after impacting a car door. The laceration was initially sutured, following which sutures were removed 8 days later. The patient re-traumatized the site, prompting dehiscence of her wound, at which time the laceration was re-sutured closed. The wound again dehisced, with a row of approximately 8-10 sutures remaining, which were removed at the patient's initial visit at our facility, as they were providing no benefit to wound closure. A large traumatic wound persists. With the initiation of treatment at our facility, the amount of frankly necrotic and nonviable tissue has diminished significantly, and has now been eliminated. The wound is full-thickness, extending into the subcutaneous tissue. In fact, there is now a significant area of undermining and tunneling located centrally. This is a recent finding. In general, however, the wound is pink and healthy in appearance. Cellulitis has resolved. There is a moderate amount of bioburden. Wound dimensions are documented elsewhere. Neuro oriented x3, CN's II-XII intact bilaterally, moves all extremities and no focal motor deficits Sensorium / Orientation: awake, alert, oriented to person, oriented to place and oriented to time Psych Appearance: grossly normal and appropriate Attitude: calm Activity / Motor Behavior: appropriate eye contact Speech: normal speech Mood & Affect: euthymic mood Thought Process: normal thought process Thought Content: normal thought content Attention / Concentration: attention grossly intact Debridement Note Debridement Note Wound debrided: Right medial calf laceration with dehiscence Laterality: Right Type of Debridement: Excisional debridement Anesthesia Used: 5% Lidocaine Gel and Cetacaine Depth: Down to and including healthy tissue and in the subcutaneous layer Percentage of wound debrided: 100 Instrument Used: 5mm curette, Forceps and - (Scissors) Tissue Removed: Bioburden, necrotic and nonviable tissue Severity: Fat Layer Exposed Amount of bleeding with debridement: Mild Bleeding Controlled with: Compression and gauze Patient tolerated procedure: Patient tolerated procedure well Post-Debridement Measurements and Additional Note: Post-Debridement Measurements/Treatment - Nurse 1 - General Ulcer Assessment Start: 01/09/23 10:50 Freq: Status: Active Protocol: GEREMIAS Activity Type Activity Date Activity User E-sign Co-sign Detail Recorded Client Recorded Date Recorded By Document 01/09/23 10:50 Desktop 01/09/23 10:55 Document 01/16/23 08:22 Laptop 01/16/23 08:24 Document 01/23/23 09:23 Desktop 01/23/23 09:38 01/09/23 01/16/23 01/23/23 10:50 08:22 09:23 - Today's Visit Information Type of service Follow-up Visit Follow-up Visit Follow-up Visit (Physician/RISK CONTROL PRODUCT LIABILITY DIRECTOR (Physician/RISK CONTROL PRODUCT LIABILITY DIRECTOR (Physician/RISK CONTROL PRODUCT LIABILITY DIRECTOR ) ) ) Arrival Mode Ambulatory Ambulatory Ambulatory Transfer Assistance None None Patient Identification Verified (Name & Yes Yes Yes ) Patient Requires Transmission-Based No No No Precautions Safety Precautions NA Height and Weight Body Mass Index (BMI) 51.5 51.5 51.5 BMI Classification Obese Obese Obese Vital Signs Temperature (97.8 F-99.1 F) 95.9 F L 96.2 F L 96.8 F L Temperature Source Temporal Temporal Temporal Pulse Rate (60-100) 82 68 Pulse Location Monitor Monitor Monitor Respiratory Rate (12-18) 18 18 Respiratory rate source Observation Observation Observation Oxygen Delivery Method Room Air Blood Pressure (90/60-120/80) 125/60 H 152/60 H 135/62 H Blood Pressure Mean (mm Hg) 81 90 86 Source Monitor Manual Manual Position Semi-Fowlers Semi-Fowlers Sitting Blood Pressure Location Left Arm Right Arm Right Arm History Since Last Visit- (Skip if this is Patient's initial visit) Have you changed medications since your No No No last visit? Any new allergies or adverse reactions No No No Had a fall/change in ADL's that may No No No increase risk of falls Signs or symptoms of abuse and/or No No No neglect since last visit Have you been in the hospital since your No No No last visit? Has dressing in place as prescribed Yes Yes Yes Has compression in place as prescribed Yes Yes Yes Has offloadiing in place as prescribed No N/A No Experienced any changes in pain level or No No No management Left Footwear Regular Shoe Regular Shoe Right Footwear Regular Shoe Regular Shoe Pain Scale: 0-10 Numeric Is Patient Pain Free? Yes Yes Yes WC - Nurse 1 - General Ulcer Measurement Start: 01/09/23 10:50 Freq: Status: Active Protocol: Activity Type Activity Date Activity User E-sign Co-sign Detail Recorded Client Recorded Date Recorded By Document 01/09/23 10:50 RB Desktop 01/09/23 10:55 RB Document 01/16/23 08:22 Laptop 01/16/23 08:24 Document 01/23/23 09:23 Desktop 01/23/23 09:38 01/09/23 01/16/23 01/23/23 10:50 08:22 09:23 Wound Center Nurse 1 #1 Right lateral LE -Combined with other wound No No -Current Size (cm) - Length 2.5 2.2 1.4 -Current Size (cm) - Width 5.8 4.9 4.5 -Current Size (cm) - Depth 1.1 2.5 0.4 -Total Square Cm 14.50 10.78 6.30 -Photo Taken Yes Yes No -Epithelialization Medium 34-66% Medium 34-66% -Tunneling No No Yes -Tunneling Position (O'clock) 9 -Tunneling Distance (cm) 1.6 -Undermining/Tunneling No No No -Circular Undermining No No No -Exudate Amt Large Medium Medium -Exudate Type Serosanguineous Serosanguineous Yellow/Green -Wound Margin Thickened & Flat & Intact Distinct, Rolled Under Outline Attached -Granulation Amt Large (67-100%) Large (67-100%) Large (67-100%) -Granulation Quality [place] Red Red -Slough/Fibrin Yes Yes Yes -Necrosis Amt Medium (34-66%) Small (1-33%) Small (1-33%) -Necrotic Tissue Type Adherent Slough Adherent Slough -Structure Exposed N/A N/A N/A -Texture ([place]-wound Skin Appearance) Assessed Assessed, Assessed Localized Edema -Moisture ([place]-wound Skin Appearance) Assessed No Abnormality, Assessed Dry/Scaly -Color ([place]-wound Skin Appearance) Assessed, Assessed Assessed Erythema -Temperature ([place]-wound Skin No Abnormality No Abnormality No Abnormality Appearance) (Pt Warm) (Pt Warm) (Pt Warm) -Tenderness on Palpation ([place]-wound No No No Skin Appearance) -Ulcer Cleansing Wound Cleanser Rinsed/ Soap and Water Irrigated with Saline -Foul Odor after Cleansing No No -Anesthetic Used 4% Lidocaine 5% Lidocaine 5% Lidocaine Solution Gel Gel Lower Limb Edema Present Yes Yes Right Calf (cm) 53.2 50.4 51.9 Right Ankle (cm) 29.5 28.5 32.3 WC - Nurse 2 - General Ulcer CM Notes Start: 01/09/23 10:50 Freq: Status: Active Protocol: Activity Type Activity Date Activity User E-sign Co-sign Detail Recorded Client Recorded Date Recorded By Document 01/09/23 13:43 PL [id number] 01/09/23 13:44 PL Document 01/16/23 11:54 PL [id number] 01/16/23 11:55 PL Document 01/23/23 11:45 PL [id number] 01/23/23 11:47 PL 01/09/23 01/16/23 01/23/23 13:43 11:54 11:45 Wound Center Nurse 2 #1 Right lateral LE -Time 11:05 08:39 09:57 -Correct Patient Yes Yes Yes -Correct Side, Site, Position Yes Yes Yes -Correct Procedure Yes Yes Yes -Procedure Performed Yes Yes Yes -Type of Procedure Debridement Debridement Debridement -Clinical Debridement Subcutaneous Subcutaneous Muscle / Fascia -Tissue Removed Subcutaneous Subcutaneous Muscle -Post Debridement (cm) - Length 2.5 2.2 1.4 -Post Debridement (cm) - Width 5.8 4.9 4.5 -Post Debridement (cm) - Depth 1.1 2.5 2.5 -Total Square (Post) (cm) 14.50 10.78 6.30 -Area of Debridement (cm) - Length 2.5 2.2 1.4 -Area of Debridement (cm) - Width 5.8 4.9 4.5 -Total Square (Area) (cm) 14.50 10.78 6.30 -Tunneling No No No -Undermining/Tunneling No No No -Circular Undermining No No No -Wound/Ulcer Outcome Not Healed Not Healed Not Healed -Ulcer Cleansing Rinsed/ Rinsed/ Rinsed/ Irrigated with Irrigated with Irrigated with Saline Saline Saline -Foul Odor after Cleansing No No No -Bioengineered Tissue No No No -Bleeding Controlled with Pressure Pressure Pressure -Treatment Response Procedure Procedure Procedure Tolerated Well Tolerated Well Tolerated Well -Debridement - Subq, 1st 20sq cm Yes Yes -Debridement - Muscle / Fascia, 1st Yes 20sq cm Pain Scale: 0-10 Numeric Is Patient Pain Free? Yes Yes Yes - Nurse 3 - General Ulcer D/C NN Start: 01/09/23 10:50 Freq: Status: Active Protocol: Activity Type Activity Date Activity User E-sign Co-sign Detail Recorded Client Recorded Date Recorded By Document 01/09/23 11:14 Desktop 01/09/23 11:25 Document 01/16/23 09:00 Laptop 01/16/23 09:01 Document 01/23/23 10:20 Desktop 01/23/23 10:22 01/09/23 01/16/23 01/23/23 11:14 09:00 10:20 Wound Care Center Nurse 3 #1 Right lateral LE -Ulcer Cleansing Not Cleansed Rinsed/ Wound Cleanser Irrigated with Saline -Foul Odor after Cleansing No No -Negative Pressure Wound Therapy N/A -Primary Dressing Applied Nugauze, Plain Nugauze, 1/2in Iodoform 1/2in -Other Dressing dadkin's dakins moistened gauze & , nugauze -Primary Dressing Covered/Secured with Dry Gauze & Dry Gauze & Dry Gauze,Dry Roll Gauze Roll Gauze, Gauze & Roll Secured with Gauze,Secured Tape with Tape -Other Covering abd pad -Nugauze, Iodoform 1/2in 1 -Nugauze, Plain 1/2in 1 Right -Other used own spandigrip pt spandagrip own Treatment Response Procedure Tolerated Well Pain Scale: 0-10 Numeric Is Patient Pain Free? Yes Yes Yes Teaching: Wound Center Dressing Your Wound -Person Taught Patient -Teaching Method Discussion, Demonstration -Response to teaching Verbalize understanding WC - Visit Discharge Discharge Condition Stable Stable Stable Ambulatory Status Ambulatory Ambulatory Ambulatory Transportation Private Auto Private Auto Private Auto Medication Reconcilliation completed & Yes Yes No provided to patient/care provider Clinical Summary of Care Provided Yes Yes Yes Assessment/Plan Assessment/Plan (1) Non-pressure chronic ulcer of right calf with fat layer exposed: CODE(S): L97.212 - Non-pressure chronic ulcer of right calf with fat layer exposed (2) Chronic venous insufficiency: (3) Laceration of right leg excluding thigh: CODE(S): S81.811A - Laceration without foreign body, right lower leg, initial encounter QUALIFIERS: Encounter type: subsequent encounter Qualified Code(s): S81.811D - Laceration without foreign body, right lower leg, subsequent encounter (4) Surgical wound dehiscence: CODE(S): T81.31XA - Disruption of external operation (surgical) wound, not elsewhere classified, initial encounter QUALIFIERS: Encounter type: subsequent encounter Qualified Code(s): T81.31XD - Disruption of external operation (surgical) wound, not elsewhere classified, subsequent encounter (5) Right leg swelling: CODE(S): M79.89 - Other specified soft tissue disorders (6) Leg edema, right: CODE(S): R60.0 - Localized edema (7) DDD (degenerative disc disease), lumbar: CODE(S): M51.36 - Other intervertebral disc degeneration, lumbar region (8) Ventral incisional hernia without obstruction or gangrene: CODE(S): K43.2 - Incisional hernia without obstruction or gangrene (9) Coronary artery calcification: CODE(S): I25.10 - Atherosclerotic heart disease of [place] coronary artery without angina pectoris; I25.84 - Coronary atherosclerosis due to calcified coronary lesion (10) Chronic venous insufficiency: CODE(S): I87.2 - Venous insufficiency (chronic) (peripheral) (11) MALACHI on CPAP: CODE(S): G47.33 - Obstructive sleep apnea (adult) (pediatric); Z99.89 - Dependence on other enabling machines and devices (12) GERD (gastroesophageal reflux disease): CODE(S): K21.9 - Gastro-esophageal reflux disease without esophagitis (13) Pure hypercholesterolemia: CODE(S): E78.00 - Pure hypercholesterolemia, unspecified (14) Essential hypertension: CODE(S): I10 - Essential (primary) hypertension (15) MALACHI (obstructive sleep apnea): CODE(S): G47.33 - Obstructive sleep apnea (adult) (pediatric) (16) Asthma, moderate persistent: CODE(S): J45.40 - Moderate persistent asthma, uncomplicated QUALIFIERS: Asthma complication type: uncomplicated Qualified Code(s): J45.40 - Moderate persistent asthma, uncomplicated (17) Morbid obesity with BMI of 50.0-59.9, adult: CODE(S): E66.01 - Morbid (severe) obesity due to excess calories; Z68.43 - Body mass index [BMI] 50.0-59.9, adult (18) Dyspnea on exertion: CODE(S): R06.09 - Other forms of dyspnea (19) PAC (premature atrial contraction): CODE(S): I49.1 - Atrial premature depolarization (20) Left leg swelling: CODE(S): M79.89 - Other specified soft tissue disorders (21) Leg edema, left: CODE(S): R60.0 - Localized edema (22) Urinary incontinence: CODE(S): R32 - Unspecified urinary incontinence (23) History of bladder repair surgery: CODE(S): Z98.890 - Other specified postprocedural states (24) History of carpal tunnel release of both wrists: CODE(S): Z98.890 - Other specified postprocedural states (25) History of cholecystectomy: CODE(S): Z90.49 - Acquired absence of other specified parts of digestive tract (26) History of tonsillectomy: CODE(S): Z90.89 - Acquired absence of other organs (27) History of partial hysterectomy: CODE(S): Z90.711 - Acquired absence of uterus with remaining cervical stump (28) History of total knee replacement: CODE(S): Z96.659 - Presence of unspecified artificial knee joint (29) History of ventral hernia repair: CODE(S): Z98.890 - Other specified postprocedural states; Z87.19 - Personal history of other diseases of the digestive system (30) History of trigger finger: CODE(S): Z87.39 - Personal history of other diseases of the musculoskeletal system and connective tissue PLAN: Plan This is a 62-year-old morbidly obese female with a traumatic injury to her right medial calf. Her recent medical history is as documented above. The wound on the right medial calf is a dehiscent wound, following 2 recent attempts to suture closed. A standard excisional debridement has been performed today. There has been significant deterioration in the status of the patient's wound within the last week. There is now a significant area of undermining and tunneling noted centrally, which had not been present in prior weeks. Recent culture results were positive for Escherichia coli and Pseudomonas aeruginosa. Based on sensitivity results, the patient was placed on Cipro 500 mg p.o. twice daily, which has now been completed. A lengthy discussion has been undertaken with the patient with regard to conservative treatment measures for control of the swelling, edema, and chronic venous insufficiency in her lower extremities. Leg elevation has been recommended. She has been encouraged to continue sleeping on a flat mattress at night. Leg elevation to heart level has been encouraged even during daytime hours. Prolonged idle sitting has been discouraged. Activity has been encouraged. Weight loss has also been recommended. We are to continue compression to the lower extremities by means of Spandagrips, in light of the patient's allergy to latex. We are to continue the use of Dakin's-moistened gauze as a [id number] dressing on a daily basis. Relative to the area of tunneling and undermining, we are to implement the use of Dakin's?moistened Nu Gauze, which is to be packed into the area of undermining on a daily basis. The patient has been instructed in the appropriate means of application. The patient is to be allowed to shower daily. We are to seek preauthorization for the use of negative pressure wound therapy. From a medical standpoint, it is anticipated that negative pressure wound therapy will be of significant benefit in enhancing the healing of the patient's wound. We are to request approval for the use of the Snap VAC, or other negative pressure device. Once approved, negative pressure wound therapy will be implemented in anticipation that wound healing will be augmented to a significant degree. Given the recent appearance of undermining and tunneling, have discussed with the patient the possible need for surgical unroofing and debridement of the site if conservative measures fail to result in improvement. The patient is to return in 1 week for reassessment. Total time: 26 minutes
[2023-01-30 09:28] VITALS: BP 140/63; PULSE 70; RESP 18; TEMP 35.7; BMI 51.5
--- NOTE | 2023-01-30 09:57 | HP.PCM_ITS ---
History of Present Illness Date of Service: 01/30/23 Chief Complaint: Non-healing, dehiscent laceration of the right medial calf History of Wound: This is a 62-year-old morbidly obese female who was in her normal state of health until December 09, 2022. On that date, she sustained a laceration to the right medial calf following impact with a car door. She is known to have chronic swelling and edema in her lower extremities, as well as chronic venous insufficiency. Upon sustaining the injury, patient presented to the emergency department at [facility], where suture repair of the laceration was performed. She was also treated with a prescription of Augmentin. Eight days later, her sutures were removed without incident. 2 days following suture removal, the patient re-traumatized the area, causing a dehiscence of the wound, prompting her to seek medical attention in the [facility] Emergency Department. According to the patient, a resident performed a suture closure, and the patient was discharged. However, the patient's traumatic wound has failed to heal. In fact, it appears to have become dehiscent, with evidence of nonviable and necrotic tissue present. The patient has chronic swelling and edema in her lower extremities. She sleeps on a flat mattress at night, and is active. She denies a history of thrombophlebitis. 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 [facility] Medical History Acute conjunctivitis Acute sinusitis Alcohol use Asthma Asthma, moderate persistent Back pain Bruising Cardiology follow-up encounter Chronic venous insufficiency Chronic venous insufficiency Coronary artery calcification COVID-19 CPAP (continuous positive airway pressure) dependence Dyspnea on exertion Easy bruising Edema of leg Essential hypertension Former smoker Gastric reflux GERD (gastroesophageal reflux disease) High cholesterol History of echocardiogram History of edema History of stress test History of trigger finger Hyperlipidemia Hypertension Left leg swelling Leg cramps Leg edema, left Leg edema, right Leg swelling Morbid obesity with BMI of 50.0-59.9, adult Non-pressure chronic ulcer of right calf with fat layer exposed Obesity MALACHI (obstructive sleep apnea) MALACHI on CPAP PAC (premature atrial contraction) Premature atrial contraction Preoperative cardiovascular examination Pure hypercholesterolemia Right leg swelling Shortness of breath on exertion Surgical wound dehiscence Urinary incontinence Urinary tract infection Urine incontinence Ventral hernia Home Medications amlodipine 10 mg tablet 10 mg PO QHS 06/19/16 [History Last Taken Unknown] ascorbic acid (vitamin C) 1,000 mg tablet 1,000 mg PO DAILY 06/19/16 [History Last Taken Unknown] evening primrose oil 500 mg capsule 500 mg PO DAILY 06/19/16 [History Last Taken Unknown] hydrochlorothiazide 25 mg tablet 25 mg PO DAILY 06/19/16 [History Last Taken Unknown] omeprazole 20 mg capsule,delayed release 20 mg PO DAILY 06/19/16 [History Last Taken 08/08/21 06:30] PEP device #1 ea 08/26/18 [Rx Last Taken Unknown] benzonatate 200 mg capsule 200 mg PO TID PRN cough #90 caps 09/03/18 [Rx Last Taken Unknown] vitamin B complex (B Complex-Vitamin B12 tablet) 1 tab PO DAILY 10/15/18 [History Last Taken Unknown] cholecalciferol (vitamin D3) 50 mcg (2,000 unit) capsule 50 mcg PO DAILY 08/26/20 [History Last Taken Unknown] loratadine 10 mg tablet (Claritin) 10 mg PO DAILY 08/26/20 [History Last Taken Unknown] tolterodine 4 mg capsule,extended release 24 hr (Detrol LA) 4 mg PO DAILY 08/26/20 [History Last Taken Unknown] losartan 50 mg tablet 50 mg PO QHS 11/26/20 [History Last Taken Unknown] Acapella #1 ea 12/21/21 [Rx Last Taken Unknown] Peak Flow meter #1 ea 12/21/21 [Rx Last Taken Unknown] zinc sulfate 66 mg tablet 66 mg PO DAILY 12/22/21 [History Last Taken Unknown] naproxen 500 mg tablet 250 mg PO DAILY 05/29/22 [History Last Taken Unknown] phenazopyridine 100 mg tablet (Pyridium) 100 mg PO TID PRN pain 06/21/22 [History Last Taken Unknown] Lactobacillus acidophilus 1 cap PO DAILY 07/27/22 [History Last Taken Unknown] citalopram 20 mg tablet 20 mg PO DAILY 07/27/22 [History Last Taken Unknown] rosuvastatin 10 mg tablet 10 mg PO DAILY 07/27/22 [History Last Taken Unknown] carvedilol 6.25 mg tablet 6.25 mg PO BID #180 tabs 09/21/22 [Rx Last Taken Unknown] albuterol sulfate 90 mcg/actuation aerosol inhaler (ProAir HFA) 2 puff inhalation Q4H PRN shortness of breath or wheezing #8.5 grams 11/07/22 [Rx Last Taken Unknown] fluticasone furoate 200 mcg-vilanterol 25 mcg/dose inhalation powder (Breo Ellipta) 1 inh inhalation DAILY #60 ea 12/05/22 [Rx Last Taken Unknown] sodium chloride 7 % for nebulization 4 ml inhalation BID #240 mL 12/05/22 [Rx Last Taken Unknown] amoxicillin 875 mg-potassium clavulanate 125 mg tablet 1 tab PO BID #20 tabs 12/29/22 [Rx Last Taken Unknown] prednisone 10 mg tablet 10 mg PO QDAY #30 tabs 12/29/22 [Rx Last Taken Unknown] Allergy/AdvReac Type Severity Reaction Status Date / Time lisinopril Allergy Unknown Cough Verified 12/05/22 07:49 clarithromycin [From Biaxin] Allergy Other Verified 12/05/22 07:49 codeine Allergy Other Verified 12/05/22 07:49 doxycycline Allergy Upset Verified 12/05/22 07:49 Stomach erythromycin base Allergy Other Verified 12/05/22 07:49 latex AdvReac Anaphylaxis Verified 12/05/22 07:49 Family History Father Hypertension CAD (coronary artery disease) History of coronary artery bypass surgery Myocardial infarction, Onset Age: 50 Mother Heart disease Brother Melanoma Surgical History History of bladder repair surgery History of bladder repair surgery History of carpal tunnel release of both wrists History of carpal tunnel surgery History of carpal tunnel surgery History of cholecystectomy History of cholecystectomy History of partial hysterectomy History of partial hysterectomy History of tonsillectomy History of tonsillectomy History of total knee arthroplasty History of total knee replacement History of ventral hernia repair History of ventral hernia repair Status post trigger finger release Social History Smoking Status: Former smoker pack-years: 16 second hand exposure: No alcohol intake: current alcohol intake frequency: a few times a week Alcohol type: wine substance use type: does not use caffeine: No what type of physical activity do you participate in: walking and swimming Vital Signs Vital Signs Vital Signs: 01/30/23 09:28 Temperature 96.2 F L Temperature Source Temporal Pulse Rate 70 Respiratory Rate 18 Blood Pressure 140/63 H Blood Pressure Mean 88 Blood Pressure Source Manual Blood Pressure Position Sitting Blood Pressure Location Right Arm Weight Weight: 300 lb Body Mass Index (BMI) 51.5 Physical Exam Const alert, oriented x3, no apparent distress and well nourished Constitutional Narrative: The patient is morbidly obese. Her BMI is 51.5. General Appearance: cooperative, comfortable, well kempt and well developed Orientation / Consciousness: awake, oriented to person, oriented to place and oriented to time Exam Limitations: no limitations HEENT normocephalic, head/scalp atraumatic and hearing grossly normal bilaterally Head and Scalp: normal to inspection, normocephalic and atraumatic External Ear: external ears normal Eyes PERRL and EOMs intact bilaterally General Eye: normal appearance of both eyes Neck full ROM General: normal visual inspection Resp normal respiratory effort, normal air movement, no retractions and no use of accessory muscles Effort and Inspection: able to speak in complete sentences Extremity no calf tenderness General Extremity: Negative for clubbing or cyanosis Skin Wound Narrative: A traumatic wound is noted on the patient's right viviane-medial calf. This is the result of a laceration sustained after impacting a car door. The laceration was initially sutured, following which sutures were removed 8 days later. The p atient re-traumatized the site, prompting dehiscence of her wound, at which time the laceration was re-sutured closed. The wound again dehisced, with a row of approximately 8-10 sutures remaining, which were removed at the patient's initial visit at our facility, as they were providing no benefit to wound closure. A traumatic wound persists. With the initiation of treatment at our facility, the amount of frankly necrotic and nonviable tissue has now been eliminated. The wound is full-thickness, extending into the subcutaneous tissue. In fact, there remains a significant area of undermining and tunneling located centrally. This is a recent finding. In general, however, the wound is pink and healthy in appearance, and continues to diminish in size. Cellulitis has resolved. There is a moderate amount of bioburden. Wound dimensions are documented elsewhere. Neuro oriented x3, CN's II-XII intact bilaterally, moves all extremities and no focal motor deficits Sensorium / Orientation: awake, alert, oriented to person, oriented to place and oriented to time Psych Appearance: grossly normal and appropriate Attitude: calm Activity / Motor Behavior: appropriate eye contact Speech: normal speech Mood & Affect: euthymic mood Thought Process: normal thought process Thought Content: normal thought content Attention / Concentration: attention grossly intact Debridement Note Debridement Note Wound debrided: Right viviane-medial calf laceration with dehiscence Laterality: Right Type of Debridement: Excisional debridement Anesthesia Used: 5% Lidocaine Gel and Cetacaine Depth: Down to and including healthy tissue and in the subcutaneous layer Percentage of wound debrided: 100 Instrument Used: 3mm curette, Forceps and - (Scissors) Tissue Removed: Bioburden, necrotic and nonviable tissue Severity: Fat Layer Exposed Amount of bleeding with debridement: Mild Bleeding Controlled with: Compression and gauze Patient tolerated procedure: Patient tolerated procedure well Post-Debridement Measurements and Additional Note: Post-Debridement Measurements/Treatment - Nurse 1 - General Ulcer Assessment Start: 01/09/23 10:50 Freq: Status: Active Protocol: GEREMIAS Activity Type Activity Date Activity User E-sign Co-sign Detail Recorded Client Recorded Date Recorded By Document 01/09/23 10:50 Desktop 01/09/23 10:55 RB Document 01/16/23 08:22 Laptop 01/16/23 08:24 Document 01/23/23 09:23 Desktop 01/23/23 09:38 Document 01/30/23 09:28 MN Desktop 01/30/23 09:33 MN 01/09/23 01/16/23 01/23/23 10:50 08:22 09:23 - Today's Visit Information Type of service Follow-up Visit Follow-up Visit Follow-up Visit (Physician/PROCESS PUMPER (Physician/PROCESS PUMPER (Physician/PROCESS PUMPER ) ) ) Arrival Mode Ambulatory Ambulatory Ambulatory Transfer Assistance None None Accompanied by Patient Identification Verified (Name & Yes Yes Yes ) Patient Requires Transmission-Based No No No Precautions Safety Precautions NA Height and Weight Body Mass Index (BMI) 51.5 51.5 51.5 BMI Classification Obese Obese Obese Vital Signs Temperature (97.8 F-99.1 F) 95.9 F L 96.2 F L 96.8 F L Temperature Source Temporal Temporal Temporal Pulse Rate (60-100) 82 68 Pulse Location Monitor Monitor Monitor Respiratory Rate (12-18) 18 18 Respiratory rate source Observation Observation Observation Oxygen Delivery Method Room Air Blood Pressure (90/60-120/80) 125/60 H 152/60 H 135/62 H Blood Pressure Mean 81 90 86 Source Monitor Manual Manual Position Semi-Fowlers Semi-Fowlers Sitting Blood Pressure Location Left Arm Right Arm Right Arm History Since Last Visit- (Skip if this is Patient's initial visit) Have you changed medications since your No No No last visit? Any new allergies or adverse reactions No No No Had a fall/change in ADL's that may No No No increase risk of falls Signs or symptoms of abuse and/or No No No neglect since last visit Have you been in the hospital since your No No No last visit? Has dressing in place as prescribed Yes Yes Yes Has compression in place as prescribed Yes Yes Yes Has offloadiing in place as prescribed No N/A No Experienced any changes in pain level or No No No management Left Footwear Regular Shoe Regular Shoe Right Footwear Regular Shoe Regular Shoe Pain Scale: 0-10 Numeric Is Patient Pain Free? Yes Yes Yes 01/30/23 09:28 WC - Today's Visit Information Type of service Follow-up Visit (Physician/PROCESS PUMPER ) Arrival Mode Ambulatory Transfer Assistance Accompanied by self Patient Identification Verified (Name & Yes ) Patient Requires Transmission-Based Precautions Safety Precautions Fall Prevention Height and Weight Body Mass Index (BMI) 51.5 BMI Classification Obese Vital Signs Temperature (97.8 F-99.1 F) 96.2 F L Temperature Source Temporal Pulse Rate (60-100) 70 Pulse Location Monitor Respiratory Rate (12-18) 18 Respiratory rate source Observation Oxygen Delivery Method Blood Pressure (90/60-120/80) 140/63 H Blood Pressure Mean 88 Source Manual Position Sitting Blood Pressure Location Right Arm History Since Last Visit- (Skip if this is Patient's initial visit) Have you changed medications since your last visit? Any new allergies or adverse reactions Had a fall/change in ADL's that may increase risk of falls Signs or symptoms of abuse and/or neglect since last visit Have you been in the hospital since your last visit? Has dressing in place as prescribed Yes Has compression in place as prescribed Yes Has offloadiing in place as prescribed N/A Experienced any changes in pain level or No management Left Footwear Regular Shoe Right Footwear Regular Shoe Pain Scale: 0-10 Numeric Is Patient Pain Free? Yes WC - Nurse 1 - General Ulcer Measurement Start: 01/09/23 10:50 Freq: Status: Active Protocol: Activity Type Activity Date Activity User E-sign Co-sign Detail Recorded Client Recorded Date Recorded By Document 01/09/23 10:50 RB Desktop 01/09/23 10:55 RB Document 01/16/23 08:22 JF Laptop 01/16/23 08:24 JF Document 01/23/23 09:23 GM Desktop 01/23/23 09:38 GM Document 01/30/23 09:28 MT Desktop 01/30/23 09:33 MT 01/09/23 01/16/23 01/23/23 10:50 08:22 09:23 Wound Center Nurse 1 #1 Right lateral LE -Combined with other wound No No -Current Size (cm) - Length 2.5 2.2 1.4 -Current Size (cm) - Width 5.8 4.9 4.5 -Current Size (cm) - Depth 1.1 2.5 0.4 -Total Square Cm 14.50 10.78 6.30 -Photo Taken Yes Yes No -Epithelialization Medium 34-66% Medium 34-66% -Tunneling No No Yes -Tunneling Position (O'clock) 9 -Tunneling Distance (cm) 1.6 -Undermining/Tunneling No No No -Circular Undermining No No No -Exudate Amt Large Medium Medium -Exudate Type Serosanguineous Serosanguineous Yellow/Green -Wound Margin Thickened & Flat & Intact Distinct, Rolled Under Outline Attached -Granulation Amt Large (67-100%) Large (67-100%) Large (67-100%) -Granulation Quality [place] Red Red -Slough/Fibrin Yes Yes Yes -Necrosis Amt Medium (34-66%) Small (1-33%) Small (1-33%) -Necrotic Tissue Type Adherent Slough Adherent Slough -Structure Exposed N/A N/A N/A -Texture ([place]-wound Skin Appearance) Assessed Assessed, Assessed Localized Edema -Moisture ([place]-wound Skin Appearance) Assessed No Abnormality, Assessed Dry/Scaly -Color ([place]-wound Skin Appearance) Assessed, Assessed Assessed Erythema -Temperature ([place]-wound Skin No Abnormality No Abnormality No Abnormality Appearance) (Pt Warm) (Pt Warm) (Pt Warm) -Tenderness on Palpation ([place]-wound No No No Skin Appearance) -Ulcer Cleansing Wound Cleanser Rinsed/ Soap and Water Irrigated with Saline -Foul Odor after Cleansing No No -Anesthetic Used 4% Lidocaine 5% Lidocaine 5% Lidocaine Solution Gel Gel Lower Limb Edema Present Yes Yes Right Calf (cm) 53.2 50.4 51.9 Right Ankle (cm) 29.5 28.5 32.3 01/30/23 09:28 Wound Center Nurse 1 #1 Right lateral LE -Combined with other wound -Current Size (cm) - Length 1 -Current Size (cm) - Width 3.2 -Current Size (cm) - Depth 0.1 -Total Square Cm 3.2 -Photo Taken -Epithelialization -Tunneling Yes -Tunneling Position (O'clock) 9 -Tunneling Distance (cm) 2.8 -Undermining/Tunneling No -Circular Undermining No -Exudate Amt Medium -Exudate Type Serosanguineous -Wound Margin Flat & Intact -Granulation Amt Large (67-100%) -Granulation Quality Pale,[place] -Slough/Fibrin -Necrosis Amt -Necrotic Tissue Type -Structure Exposed -Texture ([place]-wound Skin Appearance) Assessed -Moisture ([place]-wound Skin Appearance) Assessed -Color ([place]-wound Skin Appearance) Assessed -Temperature ([place]-wound Skin No Abnormality Appearance) (Pt Warm) -Tenderness on Palpation ([place]-wound No Skin Appearance) -Ulcer Cleansing Rinsed/ Irrigated with Saline -Foul Odor after Cleansing No -Anesthetic Used 5% Lidocaine Gel Lower Limb Edema Present Right Calf (cm) 51 Right Ankle (cm) 29.5 WC - Nurse 2 - General Ulcer CM Notes Start: 01/09/23 10:50 Freq: Status: Active Protocol: Activity Type Activity Date Activity User E-sign Co-sign Detail Recorded Client Recorded Date Recorded By Document 01/09/23 13:43 PL [id number] 01/09/23 13:44 PL Document 01/16/23 11:54 PL [id number] 01/16/23 11:55 PL Document 01/23/23 11:45 PL [id number] 01/23/23 11:47 PL 11/07/23 11/14/23 11/21/23 13:43 11:54 11:45 Wound Center Nurse 2 #1 Right lateral LE -Time 11:05 08:39 09:57 -Correct Patient Yes Yes Yes -Correct Side, Site, Position Yes Yes Yes -Correct Procedure Yes Yes Yes -Procedure Performed Yes Yes Yes -Type of Procedure Debridement Debridement Debridement -Clinical Debridement Subcutaneous Subcutaneous Muscle / Fascia -Tissue Removed Subcutaneous Subcutaneous Muscle -Post Debridement (cm) - Length 2.5 2.2 1.4 -Post Debridement (cm) - Width 5.8 4.9 4.5 -Post Debridement (cm) - Depth 1.1 2.5 2.5 -Total Square (Post) (cm) 14.50 10.78 6.30 -Area of Debridement (cm) - Length 2.5 2.2 1.4 -Area of Debridement (cm) - Width 5.8 4.9 4.5 -Total Square (Area) (cm) 14.50 10.78 6.30 -Tunneling No No No -Undermining/Tunneling No No No -Circular Undermining No No No -Wound/Ulcer Outcome Not Healed Not Healed Not Healed -Ulcer Cleansing Rinsed/ Rinsed/ Rinsed/ Irrigated with Irrigated with Irrigated with Saline Saline Saline -Foul Odor after Cleansing No No No -Bioengineered Tissue No No No -Bleeding Controlled with Pressure Pressure Pressure -Treatment Response Procedure Procedure Procedure Tolerated Well Tolerated Well Tolerated Well -Debridement - Subq, 1st 20sq cm Yes Yes -Debridement - Muscle / Fascia, 1st Yes 20sq cm Pain Scale: 0-10 Numeric Is Patient Pain Free? Yes Yes Yes WC - Nurse 3 - General Ulcer D/C NN Start: 01/09/23 10:50 Freq: Status: Active Protocol: Activity Type Activity Date Activity User E-sign Co-sign Detail Recorded Client Recorded Date Recorded By Document 01/09/23 11:14 Desktop 01/09/23 11:25 Document 01/16/23 09:00 JF Laptop 01/16/23 09:01 JF Document 01/23/23 10:20 RB Desktop 01/23/23 10:22 RB 01/09/23 01/16/23 01/23/23 11:14 09:00 10:20 Wound Care Center Nurse 3 #1 Right lateral LE -Ulcer Cleansing Not Cleansed Rinsed/ Wound Cleanser Irrigated with Saline -Foul Odor after Cleansing No No -Negative Pressure Wound Therapy N/A -Primary Dressing Applied Nugauze, Plain Nugauze, 1/2in Iodoform 1/2in -Other Dressing dadkin's dakins moistened gauze & , nugauze -Primary Dressing Covered/Secured with Dry Gauze & Dry Gauze & Dry Gauze,Dry Roll Gauze Roll Gauze, Gauze & Roll Secured with Gauze,Secured Tape with Tape -Other Covering abd pad -Nugauze, Iodoform 1/2in 1 -Nugauze, Plain 1/2in 1 Right -Other used own spandigrip pt spandagrip own Treatment Response Procedure Tolerated Well Pain Scale: 0-10 Numeric Is Patient Pain Free? Yes Yes Yes Teaching: Wound Center Dressing Your Wound -Person Taught Patient -Teaching Method Discussion, Demonstration -Response to teaching Verbalize understanding WC - Visit Discharge Discharge Condition Stable Stable Stable Ambulatory Status Ambulatory Ambulatory Ambulatory Transportation Private Auto Private Auto Private Auto Medication Reconcilliation completed & Yes Yes No provided to patient/care provider Clinical Summary of Care Provided Yes Yes Yes Assessment/Plan Assessment/Plan (1) Non-pressure chronic ulcer of right calf with fat layer exposed: CODE(S): L97.212 - Non-pressure chronic ulcer of right calf with fat layer exposed (2) Chronic venous insufficiency: (3) Laceration of right leg excluding thigh: CODE(S): S81.811A - Laceration without foreign body, right lower leg, i nitial encounter QUALIFIERS: Encounter type: subsequent encounter Qualified Code(s): S81.811D - Laceration without foreign body, right lower leg, subsequent encounter (4) Surgical wound dehiscence: CODE(S): T81.31XA - Disruption of external operation (surgical) wound, not elsewhere classified, initial encounter QUALIFIERS: Encounter type: subsequent encounter Qualified Code(s): T81.31XD - Disruption of external operation (surgical) wound, not elsewhere classified, subsequent encounter (5) Right leg swelling: CODE(S): M79.89 - Other specified soft tissue disorders (6) Leg edema, right: CODE(S): R60.0 - Localized edema (7) DDD (degenerative disc disease), lumbar: CODE(S): M51.36 - Other intervertebral disc degeneration, lumbar region (8) Ventral incisional hernia without obstruction or gangrene: CODE(S): K43.2 - Incisional hernia without obstruction or gangrene (9) Coronary artery calcification: CODE(S): I25.10 - Atherosclerotic heart disease of [place] coronary artery without angina pectoris; I25.84 - Coronary atherosclerosis due to calcified coronary lesion (10) Chronic venous insufficiency: CODE(S): I87.2 - Venous insufficiency (chronic) (peripheral) (11) MALACHI on CPAP: CODE(S): G47.33 - Obstructive sleep apnea (adult) (pediatric); Z99.89 - Dependence on other enabling machines and devices (12) GERD (gastroesophageal reflux disease): CODE(S): K21.9 - Gastro-esophageal reflux disease without esophagitis (13) Pure hypercholesterolemia: CODE(S): E78.00 - Pure hypercholesterolemia, unspecified (14) Essential hypertension: CODE(S): I10 - Essential (primary) hypertension (15) MALACHI (obstructive sleep apnea): CODE(S): G47.33 - Obstructive sleep apnea (adult) (pediatric) (16) Asthma, moderate persistent: CODE(S): J45.40 - Moderate persistent asthma, uncomplicated QUALIFIERS: Asthma complication type: uncomplicated Qualified Code(s): J45.40 - Moderate persistent asthma, uncomplicated (17) Morbid obesity with BMI of 50.0-59.9, adult: CODE(S): E66.01 - Morbid (severe) obesity due to excess calories; Z68.43 - Body mass index [BMI] 50.0-59.9, adult (18) Dyspnea on exertion: CODE(S): R06.09 - Other forms of dyspnea (19) PAC (premature atrial contraction): CODE(S): I49.1 - Atrial premature depolarization (20) Left leg swelling: CODE(S): M79.89 - Other specified soft tissue disorders (21) Leg edema, left: CODE(S): R60.0 - Localized edema (22) Urinary incontinence: CODE(S): R32 - Unspecified urinary incontinence (23) History of bladder repair surgery: CODE(S): Z98.890 - Other specified postprocedural states (24) History of carpal tunnel release of both wrists: CODE(S): Z98.890 - Other specified postprocedural states (25) History of cholecystectomy: CODE(S): Z90.49 - Acquired absence of other specified parts of digestive tract (26) History of tonsillectomy: CODE(S): Z90.89 - Acquired absence of other organs (27) History of partial hysterectomy: CODE(S): Z90.711 - Acquired absence of uterus with remaining cervical stump (28) History of total knee replacement: CODE(S): Z96.659 - Presence of unspecified artificial knee joint (29) History of ventral hernia repair: CODE(S): Z98.890 - Other specified postprocedural states; Z87.19 - Personal history of other diseases of the digestive system (30) History of trigger finger: CODE(S): Z87.39 - Personal history of other diseases of the musculoskeletal system and connective tissue PLAN: Plan This is a 62-year-old morbidly obese female with a traumatic injury to her right viviane-medial calf. Her recent medical history is as documented above. The wound on the right medial calf is a dehiscent wound, following 2 recent attempts to suture closed. A standard excisional debridement has been performed today. There has been deterioration in the status of the patient's wound within the last several weeks. There is now a significant area of undermining and tunneling noted centrally, which had not been present in prior weeks. Recent culture results were positive for Escherichia coli and Pseudomonas aeruginosa. Based on sensitivity results, the patient was placed on Cipro 500 mg p.o. twice daily, which has now been completed. A lengthy discussion has been undertaken with the patient with regard to conservative treatment measures for control of the swelling, edema, and chronic venous insufficiency in her lower extremities. Leg elevation has been recommended. She has been encouraged to continue sleeping on a flat mattress at night. Leg elevation to heart level has been encouraged even during daytime hours. Prolonged idle sitting has been discouraged. Activity has been encouraged. Weight loss has also been recommended. We are to continue compression to the lower extremities by means of Spandagrips, in light of the patient's allergy to latex. We are to implement the use of Promogran topically, which we applied by the patient on a daily basis. This is to be applied both on the visible portion of the wound, as well as within the tunneled and undermined portion. The patient has been instructed in the appropriate means of application. The patient is to be allowed to shower daily. We have sought insurance preauthorization for the use of negative pressure wound therapy. Two such attempts have been made, and both efforts have been denied by the patient's insurance. Unfortunately, it is anticipated that negative pressure wound therapy will be of significant benefit in enhancing the healing of the patient's wound. Denial by the patient's insurance company is perceived as somewhat of a setback and impediment to the patient's potential healing process. Given the recent appearance of undermining and tunneling, we have discussed with the patient the possible need for surgical unroofing and debridement of the site if conservative measures fail to result in improvement. The patient is to return in 1 week for reassessment. Total time: 25 minutes
== END 2023-02-01 23:59 | disposition home or self-care (01) ==
LOC: WC 09:30
PROVIDERS: PCP Internal Medicine; Referring Provider Physician Assistant; Visit Provider Surgery
DX: L97.212 Non-pressure chronic ulcer of right calf with fat layer exposed (principal); E66.01 Morbid (severe) obesity due to excess calories; Z68.43 Body mass index [BMI] 50.0-59.9, adult; G47.33 Obstructive sleep apnea (adult) (pediatric); Z86.16 Personal history of COVID-19; K21.9 Gastro-esophageal reflux disease without esophagitis; Z87.891 Personal history of nicotine dependence; Z90.710 Acquired absence of both cervix and uterus; E78.00 Pure hypercholesterolemia, unspecified; I87.2 Venous insufficiency (chronic) (peripheral); I25.10 Atherosclerotic heart disease of native coronary artery without angina pectoris; J45.40 Moderate persistent asthma, uncomplicated; K43.2 Incisional hernia without obstruction or gangrene; R32 Unspecified urinary incontinence; I10 Essential (primary) hypertension; R60.0 Localized edema; M51.36 Other intervertebral disc degeneration, lumbar region; I49.1 Atrial premature depolarization; E78.5 Hyperlipidemia, unspecified; T81.31XA Disruption of external operation (surgical) wound, not elsewhere classified, initial encounter; M79.89 Other specified soft tissue disorders; Z90.49 Acquired absence of other specified parts of digestive tract; Z90.89 Acquired absence of other organs; Z96.659 Presence of unspecified artificial knee joint
CPT/HCPCS: 11042; 11043

== ENCOUNTER → 2023-01-30 | Outpatient (CLI) | payer BC, SELFPAY ==
--- NOTE | 2023-01-30 17:38 | PFTCOMP ---
COMPLETE PULMONARY FUNCTION TEST INTERPRETATION Brief HPI: Patient is a 62-year-old [female male], currently under the care of [myself Dr. Ritter], who presents to [facility] for complete pulmonary function tests secondary to diagnosis of bronchiectasis. Respiratory therapist reports good effort and reproducible results. Interpretation: Forced expiration spirometry shows [no a mild moderate moderately-severe severe very severe] large airways obstructive ventilatory defect with an FEV1 of 76% predicted. There is no significant bronchodilator response []by strict ATS criteria. Spirograms are of good quality and plateau [slowly, indicating slowly emptying areas of the lungs]. The respiratory flow volume loop shows [decreased expiratory flow rates at high lung volumes consistent with small airways obstruction]. Lung volumes by body plethysmography show [a normal an elevated, a decreased] total lung capacity at 4 L, 81% predicted. [All other lung volumes are within normal limits.] Diffusion capacity by carbon monoxide is [normal elevated,decreased] at 88% predicted. The airway resistance is elevated. [Compared to previous pulmonary function tests from] 11/13/2019, [there has been no significant change a significant change in]. Impression: Grossly normal pulmonary function test with no significant change compared to 2019
== END | disposition home or self-care (01) ==
PROVIDERS: PCP Internal Medicine; Referring Provider Internal Medicine Critical Care Medicine; Visit Provider Internal Medicine Critical Care Medicine
DX: J47.9 Bronchiectasis, uncomplicated (principal)
CPT/HCPCS: 94060; 94726; 94729

== ENCOUNTER → 2023-02-14 | Outpatient (CLI) | payer BC, SELFPAY ==
[2023-02-14 13:27] LABS: Anion Gap 7 (5-15); BUN 17 mg/dL (7-18); BUN/Creat Ratio 21.1 RATIO (10-20); Calcium,Total 9.2 mg/dL (8.5-10.1); Chloride 104 mmol/L (98-107); EST Glomerular Filtration Rate 76 mL/min (>60); Est Glom Filt Rate - Afr Amer 92 mL/min (>60); Glucose 103 mg/dL (74-106); Potassium 3.9 mmol/L (3.5-5.1); Sodium Level 138 mmol/L (136-145)
[2023-02-14 13:28] LABS: BNP,B-Type NATRIURETIC PEPTIDE 41.8 pg/mL (0-100)
== END | disposition home or self-care (01) ==
PROVIDERS: Nurse Practitioner Acute Care; PCP Internal Medicine; Referring Provider Internal Medicine Critical Care Medicine; Visit Provider Internal Medicine Critical Care Medicine
DX: R06.09 Other forms of dyspnea (principal)
CPT/HCPCS: 36415; 80048; 83880; 87070; 87077; 87205

== ENCOUNTER → 2023-02-21 | Outpatient (CLI) | payer BC, SELFPAY ==
[2023-02-21 12:30] VITALS: PULSE 100; PULSE 102; PULSE 65; PULSE 77; PULSE 91; PULSE 94; O2SAT 91; O2SAT 92; O2SAT 93; O2SAT 94; O2SAT 95
--- NOTE | 2023-02-21 12:53 | CPS ---
2 minutes into walk pt needed a 30 second rest for feeling S.O.B. Pt was feeling tired and C/O hip pain at 4 minutes and took another 30 second break.
--- NOTE | 2023-02-21 15:25 | WT_ITS ---
PSN 6 Minute Walk Test 6 Minute Walk Test 6 Minute Walk Test: 6 Minute Walk Test PSN:6-Minute Walk Test Start: 02/21/23 12:46 Freq: Status: Active Protocol: [id number] Document 02/21/23 12:30 AE (Rec: 02/21/23 12:[address] [facility] Desktop) 6 Minute Walk Test Date Performed 02/21/23 Time Performed 12:30 Height 5 ft 4 in Weight: 307 kg Weight in Pounds 676.[address]: Dr. Kaur Assistive device used: None Pre-test Oxygen Delivery Method Room Air Pulse Ox 95 Pulse Rate (60-100) 65 Dyspnea Kirby Scale (0-10) 0 Exertion Kirby Scale (6-20) 6 1st minute Oxygen Delivery Method Room Air Pulse Ox 93 Pulse Rate (60-100) 77 2nd minute Oxygen Delivery Method Room Air Pulse Rate (60-100) 91 Dyspnea Kirby Scale (0-10) 107 Number of Rests Taken 1 Reported Symptoms Increased Work of Breathing 3rd minute Oxygen Delivery Method Room Air Pulse Ox 91 Pulse Rate (60-100) 102 H 4th minute Oxygen Delivery Method Room Air Pulse Ox 92 Pulse Rate (60-100) 100 Number of Rests Taken 1 5th minute Pulse Ox 93 Pulse Rate (60-100) 91 6th minute Oxygen Delivery Method Venturi Mask Pulse Rate (60-100) 94 Dyspnea Kirby Scale (0-10) 90 Number of Rests Taken 1 Post-test Oxygen Delivery Method Room Air Pulse Ox 94 Pulse Rate (60-100) 77 Full Laps Walked 11 Partial Lap, Number of Tiles Walked 0 Total Distance Walked (ft) 649 02/21/23 12:53 Cardiopulmonary Services by Jeanna Hickey 2 minutes into walk pt needed a 30 second rest for feeling S.O.B. Pt was feeling tired and C/O hip pain at 4 minutes and took another 30 second break. Initialized on 02/21/23 12:53 - END OF NOTE Interpretation Interpretation: The patient was able to ambulate only 649 feet over the course of 6 minutes on room air with no assistive devices and 2 breaks. The patient did experience significant desaturation from a baseline of 95% to as low as 91%. Patient did have an element of reflexive tachycardia with a peak heart rate of 102 bpm. These findings are consistent with a respiratory limitation exercise tolerance. Recommendations Recommendations: The patient requires no supplemental oxygen at this time, but will need to be followed closely given desaturations and marginal distance traveled.
== END | disposition home or self-care (01) ==
PROVIDERS: PCP Internal Medicine; Referring Provider Internal Medicine Critical Care Medicine; Visit Provider Internal Medicine Critical Care Medicine
DX: J47.9 Bronchiectasis, uncomplicated (principal)
CPT/HCPCS: 94618

== ENCOUNTER 2023-02-24 20:19 | Emergency (ER) | payer BC, SELFPAY ==
[2023-02-24 20:20] VITALS: BP 182/68; PULSE 62; RESP 16; TEMP 36.6; O2SAT 97; BMI 53.4
--- NOTE | 2023-02-24 20:43 | EKG12_ITS ---
Test Reason : CP Blood Pressure : / mmHG Vent. Rate : 088 BPM Atrial Rate : 088 BPM P-R Int : 174 ms QRS Dur : 086 ms QT Int : 396 ms P-R-T Axes : 066 024 063 degrees QTc Int : 479 ms Sinus rhythm with Premature atrial complexes with Aberrant conduction Low voltage QRS Borderline ECG Confirmed by ELIOT BERMAN, JANNY ([id number]), editor & co founder JOLENE NICOLE ([id number]) on 03/06/2023 9:04:24 AM Referred By: DARYL Confirmed By:JANNY MCCABE MD
--- NOTE | 2023-02-24 21:00 | RAD_ITS ---
STUDY: X-RAY CHEST REASON FOR EXAM: Female, 63 years old. chest pain TECHNIQUE: AP COMPARISON: 05/05/2022 FINDINGS: The lungs are clear and expanded. There is no demonstrated pleural abnormality. Normal size heart. Normal mediastinum and james. Normal visualized pulmonary arteries. Normal visualized aortic arch and descending thoracic aorta. Normal visualized thoracic spine. Normal visualized ribs, clavicles, and shoulders. There is no demonstrated abnormality of the visualized soft tissue structures of the upper abdomen. RAD/Chest 1 View (Portable) IMPRESSION: Nonacute portable x-ray examination of the chest. Electronically Signed: Butch Doherty MD ([place]) at 21:24 EST ,
[2023-02-24 21:02] LABS: Absolute Lymphocyte Count 2.04 X10^3/uL (0.83-4.51); Absolute Neutrophil Count 6.5 X10^3/uL (2.0-7.7); Basophil# 0.07 X10^3/uL; Basophil% 0.7 % (0-1); Eosinophil# 0.18 X10^3/uL; Eosinophils% 1.8 % (0-5); Hematocrit 40.1 % (37-47); Hemoglobin 12.5 g/dL (12.0-15.0); Lymphocyte # 2.04 X10^3/ul (0.83-4.51); Lymphocyte % 20.9 % (19-41); Mean Corp Hgb Conc 31.2 g/dL (32-36); Mean Corpuscular Hgb 27.7 pg (27.0-32.0); Mean Corpuscular Volume 88.7 fL (81-99); Mean Platelet Vol. 9.3 fl (6.2-12.0); Monocyte# 0.91 X10^3/uL; Monocyte% 9.3 % (0-10); NRBC Flagged by Analyzer 0 % (0-5); Neutrophil # 6.49 X10^3/uL (2.7-7.7); Neutrophil % 66.6 % (47-70); Platelet Count 275 K/mm3 (150-450); RBC Distribution Width CV 15.8 % (11.6-14.6); RBC Distribution Width SD 50.8 fl (35.1-43.9); Red Blood Count 4.52 M/mm3 (4.2-5.4); White Blood Count 9.8 K/mm3 (4.4-11.0)
[2023-02-24 21:18] LABS: Anion Gap 4 (5-15); BUN 16 mg/dL (7-18); BUN/Creat Ratio 17.3 RATIO (10-20); Calcium,Total 9.7 mg/dL (8.5-10.1); Chloride 107 mmol/L (98-107); Creatinine, Serum 0.93 mg/dL (0.55-1.02); EST Glomerular Filtration Rate 65 mL/min (>60); Est Glom Filt Rate - Afr Amer 78 mL/min (>60); Estimated Creatinine Clearance 52.08 ml/min; Glucose 113 mg/dL (74-106); Potassium 3.6 mmol/L (3.5-5.1); Sodium Level 140 mmol/L (136-145); Troponin-I HS (w/2H Reflex) 5 pg/mL (3.0-54.0)
[2023-02-24 21:20] VITALS: RESP 16
[2023-02-24 22:20] VITALS: BP 136/55; PULSE 74; RESP 19; O2SAT 94
[2023-02-24] MEDS: Mag Hydrox/Al Hydrox/Simeth 30 ML UDC PO (22:32)
[2023-02-24 22:57] LABS: Reflex Troponin-HS? (from REC) Y
[2023-02-24 23:22] LABS: Troponin-I HS 5 pg/mL (3.0-54.0)
[2023-02-24 23:46] VITALS: BP 135/66; PULSE 74; RESP 20; O2SAT 94
--- NOTE | 2023-02-25 00:12 | EDS_ITS ---
HPI History of Present Illness Chief Complaint: Chest Pain Narrative Narrative: 63-year-old female presenting with chest pain. She states this feels like dyspepsia and she has had a lot of belching and is retrosternal. It does radiate up into her jaws she has a history of this which is believed to do due to acid reflux. She admits she does have some CAD but no cardiac stents, NE. She also states that she had COVID after Thanksgiving with the rest of her family and she has a history of bronchiectasis so after seeing her correctional agency director she was placed on Augmentin and has been on this for 20 days. She also states she has a new prescription for cefdinir which she just filled today to continue to take for her mild cough. Patient does not have any fevers. She is eating and drinking normal. She is making normal urine and stool. [facility] Medical History Acute conjunctivitis Acute sinusitis Alcohol use Asthma Asthma, moderate persistent Back pain Bruising Cardiology follow-up encounter Chronic venous insufficiency Chronic venous insufficiency Coronary artery calcification COVID-19 CPAP (continuous positive airway pressure) dependence Dyspnea on exertion Easy bruising Edema of leg Essential hypertension Former smoker Gastric reflux GERD (gastroesophageal reflux disease) High cholesterol History of echocardiogram History of edema History of stress test History of trigger finger Hyperlipidemia Hypertension Left leg swelling Leg cramps Leg edema, left Leg edema, right Leg swelling Morbid obesity with BMI of 50.0-59.9, adult Non-pressure chronic ulcer of right calf with fat layer exposed Obesity MALACHI (obstructive sleep apnea) MALACHI on CPAP PAC (premature atrial contraction) Premature atrial contraction Preoperative cardiovascular examination Pure hypercholesterolemia Right leg swelling Shortness of breath on exertion Surgical wound dehiscence Urinary incontinence Urinary tract infection Urine incontinence Ventral hernia Home Medications amlodipine 10 mg tablet 10 mg PO QHS 06/19/16 [History Last Taken Unknown] ascorbic acid (vitamin C) 1,000 mg tablet 1,000 mg PO DAILY 06/19/16 [History Last Taken Unknown] evening primrose oil 500 mg capsule 500 mg PO DAILY 06/19/16 [History Last Taken Unknown] hydrochlorothiazide 25 mg tablet 25 mg PO DAILY 06/19/16 [History Last Taken Un known] omeprazole 20 mg capsule,delayed release 20 mg PO DAILY 06/19/16 [History Last Taken 08/08/21 06:30] PEP device #1 ea 08/26/18 [Rx Last Taken Unknown] benzonatate 200 mg capsule 200 mg PO TID PRN cough #90 caps 09/03/18 [Rx Last Taken Unknown] vitamin B complex (B Complex-Vitamin B12 tablet) 1 tab PO DAILY 10/15/18 [History Last Taken Unknown] cholecalciferol (vitamin D3) 50 mcg (2,000 unit) capsule 50 mcg PO DAILY 08/26/20 [History Last Taken Unknown] loratadine 10 mg tablet (Claritin) 10 mg PO DAILY 08/26/20 [History Last Taken Unknown] tolterodine 4 mg capsule,extended release 24 hr (Detrol LA) 4 mg PO DAILY 08/26/20 [History Last Taken Unknown] losartan 50 mg tablet 50 mg PO QHS 11/26/20 [History Last Taken Unknown] Acapella #1 ea 12/21/21 [Rx Last Taken Unknown] Peak Flow meter #1 ea 12/21/21 [Rx Last Taken Unknown] zinc sulfate 66 mg tablet 66 mg PO DAILY 12/22/21 [History Last Taken Unknown] naproxen 500 mg tablet 250 mg PO DAILY 05/29/22 [History Last Taken Unknown] phenazopyridine 100 mg tablet (Pyridium) 100 mg PO TID PRN pain 06/21/22 [History Last Taken Unknown] Lactobacillus acidophilus 1 cap PO DAILY 07/27/22 [History Last Taken Unknown] citalopram 20 mg tablet 20 mg PO DAILY 07/27/22 [History Last Taken Unknown] rosuvastatin 10 mg tablet 10 mg PO DAILY 07/27/22 [History Last Taken Unknown] carvedilol 6.25 mg tablet 6.25 mg PO BID #180 tabs 09/21/22 [Rx Last Taken Unknown] albuterol sulfate 90 mcg/actuation aerosol inhaler (ProAir HFA) 2 puff inhalation Q4H PRN shortness of breath or wheezing #8.5 grams 11/07/22 [Rx Last Taken Unknown] sodium chloride 7 % for nebulization 4 ml inhalation BID #240 mL 12/05/22 [Rx Last Taken Unknown] fluticasone fur. 200 mcg-umeclid 62.5 mcg-vilant 25 mcg inhalat.powder (Trelegy Ellipta) 1 inh inhalation DAILY #60 ea 02/08/23 [Rx Last Taken Unknown] fluticasone furoate 200 mcg-vilanterol 25 mcg/dose inhalation powder (Breo Ellipta) 1 inh inhalation DAILY #60 ea 02/08/23 [Rx Last Taken Unknown] prednisone 10 mg tablet 10 mg PO QDAY #30 tabs 02/16/23 [Rx Last Taken Unknown] cefdinir 300 mg capsule 300 mg PO Q12H 14 days #28 caps 02/19/23 [Rx Last Taken Unknown] Allergy/AdvReac Type Severity Reaction Status Date / Time lisinopril Allergy Unknown Cough Verified 02/24/23 20:22 clarithromycin [From Biaxin] Allergy Other Verified 02/24/23 20:22 codeine Allergy Other Verified 02/24/23 20:22 doxycycline Allergy Upset Verified 02/24/23 20:22 Stomach erythromycin base Allergy Other Verified 02/24/23 20:22 latex AdvReac Anaphylaxis Verified 02/24/23 20:22 Family History Father Hypertension CAD (coronary artery disease) History of coronary artery bypass surgery Myocardial infarction, Onset Age: 50 Mother Heart disease Brother Melanoma Surgical History History of bladder repair surgery History of bladder repair surgery History of carpal tunnel release of both wrists History of carpal tunnel surgery History of carpal tunnel surgery History of cholecystectomy History of cholecystectomy History of partial hysterectomy History of partial hysterectomy History of tonsillectomy History of tonsillectomy History of total knee arthroplasty History of total knee replacement History of ventral hernia repair History of ventral hernia repair Status post trigger finger release Social History Smoking Status: Former smoker pack-years: 16 second hand exposure: No alcohol intake: current alcohol intake frequency: a few times a week Alcohol type: wine substance use type: does not use caffeine: No what type of physical activity do you participate in: walking and swimming ROS ROS ED Constitutional Constitutional ED: Denies chills, fever(s) or sweats Eyes Eyes: Denies blurry vision or change in vision ENT ENT ED: Denies ear pain or sore throat Cardiovascular Cardiovascular: Reports as per HPI and chest pain; Denies palpitations or racing heartbeat Respiratory/Chest Respiratory/Chest: Reports cough; Denies dyspnea or sputum Gastrointestinal Gastrointestinal: Denies abdominal pain, constipation, diarrhea, nausea or vomiting Genitourinary Genitourinary ED: Denies dysuria, hematuria or urinary frequency Musculoskeletal Musculoskeletal: Denies arthralgias, myalgias or neck pain Integumentary Denies abscess, Abrasions or rash Neurologic Neurologic: Denies headache(s), paresthesias or weakness Psychiatric Psychiatric: Denies anxiety, depression, suicidal ideation or suicidal thoughts Endocrine Endocrinology: Denies polydipsia or polyuria EXAM Physical Exam Const Vital Signs: 02/24/23 20:20 02/24/23 20:20 02/24/23 20:43 Temperature 97.8 F Temperature Source Temporal Pulse Rate 62 Respiratory Rate 16 Respiratory Effort Normal Non-Labored Blood Pressure 182/68 H Blood Pressure Mean 106 Pulse Ox 97 Oxygen Delivery Method Room Air Room Air 02/24/23 21:20 02/24/23 22:20 02/24/23 23:46 Temperature Temperature Source Pulse Rate 74 74 Respiratory Rate 16 19 H 20 H Respiratory Effort Blood Pressure 136/55 H 135/66 H Blood Pressure Mean 82 89 Pulse Ox 94 94 Oxygen Delivery Method Room Air Positive well nourished General Appearance ED: NAD; Negative for pallor HEENT Reports moist mucous membranes normocephalic and atraumatic Eyes PERRL Chest Wall inspection of chest normal Resp normal respiratory effort and clear to auscultation bilaterally Auscultation: Negative for rales, rhonchi or wheezes Cardio regular rate and regular rhythm Extremity normal to inspection Neuro oriented x3 and CN's II-XII intact bilaterally Sensorium / Orientation: awake and alert Motor Exam: strength 5/5 throughout Psych mental status grossly normal Skin no rashes or lesions noted General Skin Exam: Negative for jaundice or pallor Heart Score History: Slightly/Non-Suspicious ECG: Normal Age: >/= 65 years Risk Factors: >/= 3 Risk Factors or History of CAD Troponin: </= Normal Limit Score: 4 MDM MDM MDM Narrative Medical decision making narrative: 63-year-old female presenting with chest pain. It is retrosternal and she describes dyspepsia symptoms with this. No history of cardiac disease. HEART score 4. Differential includes ACS, pneumonia, CHF, asthma. CBC was obtained to assess white blood cell count, hemoglobin, platelets. BMP to assess renal function electrolytes. High-sensitivity troponin EKG to assess for ischemia/dysrhythmia. EKG on my interpretation shows sinus rhythm without ischemic changes. Chest x-ray my interpretation is no acute process. Radiologist services and agrees. Both high-sensitivity troponins are 5. Patient requested a GI cocktail which did help her symptoms and at this point with a negative workup I feel she stable for discharge home. Return precautions were discussed. Impression: 1. Chest pain 2. Dyspepsia Lab Data Attestation: I reviewed the patient's lab results. Labs: Laboratory Results - last 24 hr 02/24/23 02/24/23 20:50 22:53 WBC 9.8 RBC 4.52 Hgb 12.5 Hct 40.1 MCV 88.7 MCH 27.7 MCHC 31.2 L RDW Std Deviation 50.8 H RDW Coeff of Kathryn 15.8 H Plt Count 275 MPV 9.3 Immature Gran % (Auto) 0.700 Neut % (Auto) 66.6 Lymph % (Auto) 20.9 [place] % (Auto) 9.3 Eos % (Auto) 1.8 Baso % (Auto) 0.7 Absolute Neuts (auto) 6.5 Absolute Lymphs (auto) 2.04 Nucleated RBC % 0 Sodium 140 Potassium 3.6 Chloride 107 Carbon Dioxide 29.0 Anion Gap 4 L BUN 16 Creatinine 0.93 Estim Creat Clear Calc 52.08 Est GFR (MDRD) Af Amer 78 Est GFR (MDRD) Non-Af 65 BUN/Creatinine Ratio 17.3 Glucose 113 H Calcium 9.7 Troponin I High Sens 5 5 Radiography Diagnostic Testing: Clinical Impression(s) from Imaging Studies Chest X-Ray 02/24/23 21:00 IMPRESSION: Nonacute portable x-ray examination of the chest. Electronically Signed: Butch Doherty MD ([place]) at 21:24 EST , Discharge Plan Triage Chief Complaint: Chest Pain ED Provider: Akhil Prado Dx/Rx/DC Orders Instructions: ED Chest Pain, Uncertain Cause Prescriptions: No Action vitamin B complex [B Complex-Vitamin B12] Tablet 1 tab PO DAILY (DME) PEP device 0 .ROUTE .MEDSUPPLY Qty: 1 0RF Rx Instructions: with training tolterodine [Detrol LA] 4 mg capsule,extended release 24hr 4 mg PO DAILY loratadine [Claritin] 10 mg tablet 10 mg PO DAILY cholecalciferol (vitamin D3) 50 mcg (2,000 unit) capsule 50 mcg PO DAILY (DME) Peak Flow meter See Rx Instructions .ROUTE .MEDSUPPLY Qty: 1 0RF Rx Instructions: As directed (DME) Acapella See Rx Instructions .ROUTE .MEDSUPPLY Qty: 1 0RF Rx Instructions: As directed zinc sulfate 66 mg tablet 66 mg PO DAILY phenazopyridine [Pyridium] 100 mg tablet 100 mg PO TID PRN (Reason: pain) rosuvastatin 10 mg tablet 10 mg PO DAILY citalopram 20 mg tablet 20 mg PO DAILY Patient Comments: TAKE 1 TABLET BY MOUTH EVERY DAY FOR 90 DAYS carvedilol 6.25 mg tablet 6.25 mg PO BID Qty: 180 3RF Rx Instructions: must administer with a meal/food sodium chloride 7 % solution for nebulization 4 ml inhalation BID Qty: 240 11RF fluticasone furoate-vilanterol [Breo Ellipta] 200-25 mcg/dose blister with device 1 inh INHALATION DAILY Qty: 60 11RF Trelegy Ellipta 200-62.5-25 mcg blister with device 1 inh inhalation DAILY Qty: 60 6RF ascorbic acid (vitamin C) 1,000 MG tablet 1,000 mg PO DAILY evening primrose oil 500 MG capsule 500 mg PO DAILY amlodipine 10 MG tablet 10 mg PO QHS omeprazole 20 MG capsule 20 mg PO DAILY hydrochlorothiazide 25 MG tablet 25 mg PO DAILY naproxen 500 mg tablet 250 mg PO DAILY Lactobacillus acidophilus Capsule 1 cap PO DAILY benzonatate 200 mg capsule 200 mg PO TID PRN (Reason: cough) Qty: 90 0RF losartan 50 mg tablet 50 mg PO QHS albuterol sulfate [ProAir HFA] 90 mcg/actuation HFA aerosol inhaler 2 puff INHALATION Q4H PRN (Reason: shortness of breath or wheezing) Qty: 8.5 6RF Rx Instructions: administer with spacer prednisone 10 mg tablet 10 mg PO QDAY Qty: 30 0RF Rx Instructions: take 4 tabs for three days, then 3 tabs for three days, then 2 tabs for three days, then 1 tab for 3 days cefdinir 300 mg capsule 300 mg PO Q12H 14 Days Qty: 28 0RF Primary Care Provider: Randall Warren Referrals: Randall Warren MD [Primary Care Provider] - Disposition Disposition: Home, Self Care Discharge Date/Time: 02/24/23 23:47
== END 2023-02-24 23:47 | disposition home or self-care (01) ==
PROVIDERS: Emergency Provider Student in an Organized Health Care Education/Training Program; PCP Internal Medicine; Visit Provider Student in an Organized Health Care Education/Training Program
DX: R07.9 Chest pain, unspecified (principal); E78.5 Hyperlipidemia, unspecified; Z87.891 Personal history of nicotine dependence; I25.10 Atherosclerotic heart disease of native coronary artery without angina pectoris; I10 Essential (primary) hypertension; R10.13 Epigastric pain; Z86.16 Personal history of COVID-19
CPT/HCPCS: 71045; 80048; 84484; 85025; 93005; 99284; A4216

== ENCOUNTER 2023-02-27 08:00 | Outpatient (RCR) | payer BC, SELFPAY ==
[2023-02-02 00:14] VITALS: BP 140/63; PULSE 70; RESP 18; TEMP 35.7; BMI 51.5
[2023-02-06 08:05] VITALS: BP 142/80; RESP 20; TEMP 36.4; BMI 51.5
--- NOTE | 2023-02-06 08:49 | PCM.WC.HP ---
History of Present Illness Date of Service: 02/06/23 Chief Complaint: Non-healing, dehiscent laceration of the right medial calf History of Wound: This is a 62-year-old morbidly obese female who was in her normal state of health until December 09, 2022. On that date, she sustained a laceration to the right medial calf following impact with a car door. She is known to have chronic swelling and edema in her lower extremities, as well as chronic venous insufficiency. Upon sustaining the injury, patient presented to the emergency department at [facility], where suture repair of the laceration was performed. She was also treated with a prescription of Augmentin. Eight days later, her sutures were removed without incident. 2 days following suture removal, the patient re-traumatized the area, causing a dehiscence of the wound, prompting her to seek medical attention in the [facility] Emergency Department. According to the patient, a resident performed a suture closure, and the patient was discharged. However, the patient's traumatic wound has failed to heal. In fact, it appears to have become dehiscent, with evidence of nonviable and necrotic tissue present. The patient has chronic swelling and edema in her lower extremities. She sleeps on a flat mattress at night, and is active. She denies a history of thrombophlebitis. 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 FOR[facility], [facility] Medical History Acute conjunctivitis Acute sinusitis Alcohol use Asthma Asthma, moderate persistent Back pain Bruising Cardiology follow-up encounter Chronic venous insufficiency Chronic venous insufficiency Coronary artery calcification COVID-19 CPAP (continuous positive airway pressure) dependence Dyspnea on exertion Easy bruising Edema of leg Essential hypertension Former smoker Gastric reflux GERD (gastroesophageal reflux disease) High cholesterol History of echocardiogram History of edema History of stress test History of trigger finger Hyperlipidemia Hypertension Left leg swelling Leg cramps Leg edema, left Leg edema, right Leg swelling Morbid obesity with BMI of 50.0-59.9, adult Non-pressure chronic ulcer of right calf with fat layer exposed Obesity MALACHI (obstructive sleep apnea) MALACHI on CPAP PAC (premature atrial contraction) Premature atrial contraction Preoperative cardiovascular examination Pure hypercholesterolemia Right leg swelling Shortness of breath on exertion Surgical wound dehiscence Urinary incontinence Urinary tract infection Urine incontinence Ventral hernia Home Medications amlodipine 10 mg tablet 10 mg PO QHS 06/19/16 [History Last Taken Unknown] ascorbic acid (vitamin C) 1,000 mg tablet 1,000 mg PO DAILY 06/19/16 [History Last Taken Unknown] evening primrose oil 500 mg capsule 500 mg PO DAILY 06/19/16 [History Last Taken Unknown] hydrochlorothiazide 25 mg tablet 25 mg PO DAILY 06/19/16 [History Last Taken Unknown] omeprazole 20 mg capsule,delayed release 20 mg PO DAILY 06/19/16 [History Last Taken 08/08/21 06:30] PEP device #1 ea 08/26/18 [Rx Last Taken Unknown] benzonatate 200 mg capsule 200 mg PO TID PRN cough #90 caps 09/03/18 [Rx Last Taken Unknown] vitamin B complex (B Complex-Vitamin B12 tablet) 1 tab PO DAILY 10/15/18 [History Last Taken Unknown] cholecalciferol (vitamin D3) 50 mcg (2,000 unit) capsule 50 mcg PO DAILY 08/26/20 [History Last Taken Unknown] loratadine 10 mg tablet (Claritin) 10 mg PO DAILY 08/26/20 [History Last Taken Unknown] tolterodine 4 mg capsule,extended release 24 hr (Detrol LA) 4 mg PO DAILY 08/26/20 [History Last Taken Unknown] losartan 50 mg tablet 50 mg PO QHS 11/26/20 [History Last Taken Unknown] Acapella #1 ea 12/21/21 [Rx Last Taken Unknown] Peak Flow meter #1 ea 12/21/21 [Rx Last Taken Unknown] zinc sulfate 66 mg tablet 66 mg PO DAILY 12/22/21 [History Last Taken Unknown] naproxen 500 mg tablet 250 mg PO DAILY 05/29/22 [History Last Taken Unknown] phenazopyridine 100 mg tablet (Pyridium) 100 mg PO TID PRN pain 06/21/22 [History Last Taken Unknown] Lactobacillus acidophilus 1 cap PO DAILY 07/27/22 [History Last Taken Unknown] citalopram 20 mg tablet 20 mg PO DAILY 07/27/22 [History Last Taken Unknown] rosuvastatin 10 mg tablet 10 mg PO DAILY 07/27/22 [History Last Taken Unknown] carvedilol 6.25 mg tablet 6.25 mg PO BID #180 tabs 09/21/22 [Rx Last Taken Unknown] albuterol sulfate 90 mcg/actuation aerosol inhaler (ProAir HFA) 2 puff inhalation Q4H PRN shortness of breath or wheezing #8.5 grams 11/07/22 [Rx Last Taken Unknown] fluticasone furoate 200 mcg-vilanterol 25 mcg/dose inhalation powder (Breo Ellipta) 1 inh inhalation DAILY #60 ea 12/05/22 [Rx Last Taken Unknown] sodium chloride 7 % for nebulization 4 ml inhalation BID #240 mL 12/05/22 [Rx Last Taken Unknown] amoxicillin 875 mg-potassium clavulanate 125 mg tablet 1 tab PO BID #20 tabs 12/29/22 [Rx Last Taken Unknown] prednisone 10 mg tablet 10 mg PO QDAY #30 tabs 12/29/22 [Rx Last Taken Unknown] Allergy/AdvReac Type Severity Reaction Status Date / Time lisinopril Allergy Unknown Cough Verified 12/05/22 07:49 clarithromycin [From Biaxin] Allergy Other Verified 12/05/22 07:49 codeine Allergy Other Verified 12/05/22 07:49 doxycycline Allergy Upset Verified 12/05/22 07:49 Stomach erythromycin base Allergy Other Verified 12/05/22 07:49 latex AdvReac Anaphylaxis Verified 12/05/22 07:49 Family History Father Hypertension CAD (coronary artery disease) History of coronary artery bypass surgery Myocardial infarction, Onset Age: 50 Mother Heart disease Brother Melanoma Surgical History History of bladder repair surgery History of bladder repair surgery History of carpal tunnel release of both wrists History of carpal tunnel surgery History of carpal tunnel surgery History of cholecystectomy History of cholecystectomy History of partial hysterectomy History of partial hysterectomy History of tonsillectomy History of tonsillectomy History of total knee arthroplasty History of total knee replacement History of ventral hernia repair History of ventral hernia repair Status post trigger finger release Social History Smoking Status: Former smoker pack-years: 16 second hand exposure: No alcohol intake: current alcohol intake frequency: a few times a week Alcohol type: wine substance use type: does not use caffeine: No what type of physical activity do you participate in: walking and swimming Vital Signs Vital Signs Vital Signs: 02/06/23 08:05 Temperature 97.5 F L Temperature Source Temporal Respiratory Rate 20 H Blood Pressure 142/80 H Blood Pressure Mean 100 Blood Pressure Source Monitor Weight Weight: 300 lb Body Mass Index (BMI) 51.5 Physical Exam Const alert, oriented x3, no apparent distress and well nourished Constitutional Narrative: The patient is morbidly obese. Her BMI is 51.5. General Appearance: cooperative, comfortable, well kempt and well developed Orientation / Consciousness: awake, oriented to person, oriented to place and oriented to time Exam Limitations: no limitations HEENT normocephalic, head/scalp atraumatic and hearing grossly normal bilaterally Head and Scalp: normal to inspection, normocephalic and atraumatic External Ear: external ears normal Eyes PERRL and EOMs intact bilaterally General Eye: normal appearance of both eyes Neck full ROM General: normal visual inspection Resp normal respiratory effort, normal air movement, no retractions and no use of accessory muscles Effort and Inspection: able to speak in complete sentences Extremity no calf tenderness General Extremity: Negative for clubbing or cyanosis Skin Wound Narrative: A traumatic wound is noted on the patient's right viviane-lateral calf. This is the result of a laceration sustained after impacting a car door. The laceration was initially sutured, following which sutures were removed 8 days later. The patient re-traumatized the site, prompting dehiscence of her wound, at which time the laceration was re-sutured closed. The wound again dehisced, with a row of approximately 8-10 sutures remaining, which were removed at the patient's initial visit at our facility, as they were providing no benefit to wound closure. A traumatic wound persists. With the initiation of treatment at our facility, the amount of frankly necrotic and nonviable tissue has now been eliminated. The wound is full-thickness, extending into the subcutaneous tissue. In fact, there remains a significant area of undermining and tunneling located centrally. This is a recent finding. In general, however, the wound is pink and healthy in appearance, and the external portion continues to diminish in size. The undermined portion of the wound persists, however. Cellulitis has resolved. There is a moderate amount of bioburden. Wound dimensions are documented elsewhere. Neuro oriented x3, CN's II-XII intact bilaterally, moves all extremities and no focal motor deficits Sensorium / Orientation: awake, alert, oriented to person, oriented to place and oriented to time Psych Appearance: grossly normal and appropriate Attitude: calm Activity / Motor Behavior: appropriate eye contact Speech: normal speech Mood & Affect: euthymic mood Thought Process: normal thought process Thought Content: normal thought content Attention / Concentration: attention grossly intact Debridement Note Debridement Note Wound debrided: Right viviane-medial calf laceration with dehiscence Laterality: Right Type of Debridement: Excisional debridement Anesthesia Used: 5% Lidocaine Gel and Cetacaine Depth: Down to and including healthy tissue and in the subcutaneous layer Percentage of wound debrided: 100 Instrument Used: 3mm curette, Forceps and - (Scissors) Tissue Removed: Bioburden, necrotic and nonviable tissue Severity: Fat Layer Exposed Amount of bleeding with debridement: Mild Bleeding Controlled with: Compression and gauze Patient tolerated procedure: Patient tolerated procedure well Post-Debridement Measurements and Additional Note: Post-Debridement Measurements/Treatment SOPHIA - Nurse 1 - General Ulcer Assessment Start: 02/06/23 08:05 Freq: Status: Active Protocol: GEREMIAS Activity Type Activity Date Activity User E-sign Co-sign Detail Recorded Client Recorded Date Recorded By Document 02/06/23 08:05 DL Desktop 02/06/23 08:10 DL 02/06/23 08:05 - Today's Visit Information Type of service Follow-up Visit (Physician/CUTTING AND SPLICING SUPERVISOR ) Arrival Mode Ambulatory Transfer Assistance None Patient Identification Verified (Name & Yes ) Patient Requires Transmission-Based No Precautions Height and Weight Body Mass Index (BMI) 51.5 BMI Classification Obese Vital Signs Temperature (97.8 F-99.1 F) 97.5 F L Temperature Source Temporal Respiratory Rate (12-18) 20 H Respiratory rate source Observation Blood Pressure (90/60-120/80) 142/80 H Blood Pressure Mean 100 Source Monitor History Since Last Visit- (Skip if this is Patient's initial visit) Have you changed medications since your No last visit? Any new allergies or adverse reactions No Had a fall/change in ADL's that may No increase risk of falls Signs or symptoms of abuse and/or No neglect since last visit Have you been in the hospital since your No last visit? Has dressing in place as prescribed Yes Has compression in place as prescribed Yes Has offloadiing in place as prescribed N/A Experienced any changes in pain level or No management Pain Scale: 0-10 Numeric Is Patient Pain Free? Yes - Nurse 1 - General Ulcer Measurement Start: 02/06/23 08:05 Freq: Status: Active Protocol: Activity Type Activity Date Activity User E-sign Co-sign Detail Recorded Client Recorded Date Recorded By Document 02/06/23 08:05 DL Desktop 02/06/23 08:10 DL 02/06/23 08:05 Wound Center Nurse 1 #1 Right lateral LE -Current Size (cm) - Length 0.7 -Current Size (cm) - Width 2.3 -Current Size (cm) - Depth 1.5 -Total Square Cm 1.61 -Photo Taken No -Tunneling Position (O'clock) 3 -Tunneling Distance (cm) 1.7 -Exudate Amt Medium -Exudate Type Serosanguineous -Wound Margin Distinct, Outline Attached -Granulation Amt Large (67-100%) -Granulation Quality [place] -Necrosis Amt Medium (34-66%) -Necrotic Tissue Type Adherent Slough -Structure Exposed N/A -Texture ([place]-wound Skin Appearance) Scarring -Moisture ([place]-wound Skin Appearance) No Abnormality -Color ([place]-wound Skin Appearance) No Abnormality -Temperature ([place]-wound Skin No Abnormality Appearance) (Pt Warm) -Tenderness on Palpation ([place]-wound No Skin Appearance) -Ulcer Cleansing Soap and Water -Foul Odor after Cleansing No -Anesthetic Used 5% Lidocaine Gel Right Calf (cm) 51.2 Right Ankle (cm) 30 - Nurse 3 - General Ulcer D/C NN Start: 02/06/23 08:05 Freq: Status: Active Protocol: Activity Type Activity Date Activity User E-sign Co-sign Detail Recorded Client Recorded Date Recorded By Document 02/06/23 08:38 MW Desktop 02/06/23 08:38 MW 02/06/23 08:38 Wound Care Center Nurse 3 #1 Right lateral LE -Ulcer Cleansing Rinsed/ Irrigated with Saline -Foul Odor after Cleansing No -Negative Pressure Wound Therapy N/A -Primary Dressing Applied Mepilex Border, Promogran -Primary Dressing Covered/Secured with Dry Gauze, Secured with Tape -Mepilex Border 1 -Promogran 3 Treatment Response Procedure Tolerated Well Pain Scale: 0-10 Numeric Is Patient Pain Free? Yes Teaching: Wound Center Dressing Your Wound -Person Taught Patient -Teaching Method Discussion, Demonstration -Response to teaching Verbalize understanding WC - Visit Discharge Discharge Condition Stable Ambulatory Status Ambulatory Transportation Private Auto Accompanied by self Medication Reconcilliation completed & No provided to patient/care provider Clinical Summary of Care Provided Yes Assessment/Plan Assessment/Plan (1) Non-pressure chronic ulcer of right calf with fat layer exposed: CODE(S): L97.212 - Non-pressure chronic ulcer of right calf with fat layer exposed (2) Chronic venous insufficiency: (3) Laceration of right leg excluding thigh: CODE(S): S81.811A - Laceration without foreign body, right lower leg, initial encounter QUALIFIERS: Encounter type: subsequent encounter Qualified Code(s): S81.811D - Laceration without foreign body, right lower leg, subsequent encounter (4) Surgical wound dehiscence: CODE(S): T81.31XA - Disruption of external operation (surgical) wound, not elsewhere classified, initial encounter QUALIFIERS: Encounter type: subsequent encounter Qualified Code(s): T81.31XD - Disruption of external operation (surgical) wound, not elsewhere classified, subsequent encounter (5) Right leg swelling: CODE(S): M79.89 - Other specified soft tissue disorders (6) Leg edema, right: CODE(S): R60.0 - Localized edema (7) DDD (degenerative disc disease), lumbar: CODE(S): M51.36 - Other intervertebral disc degeneration, lumbar region (8) Ventral incisional hernia without obstruction or gangrene: CODE(S): K43.2 - Incisional hernia without obstruction or gangrene (9) Coronary artery calcification: CODE(S): I25.10 - Atherosclerotic heart disease of [place] coronary artery without angina pectoris; I25.84 - Coronary atherosclerosis due to calcified coronary lesion (10) Chronic venous insufficiency: CODE(S): I87.2 - Venous insufficiency (chronic) (peripheral) (11) MALACHI on CPAP: CODE(S): G47.33 - Obstructive sleep apnea (adult) (pediatric); Z99.89 - Dependence on other enabling machines and devices (12) GERD (gastroesophageal reflux disease): CODE(S): K21.9 - Gastro-esophageal reflux disease without esophagitis (13) Pure hypercholesterolemia: CODE(S): E78.00 - Pure hypercholesterolemia, unspecified (14) Essential hypertension: CODE(S): I10 - Essential (primary) hypertension (15) MALACHI (obstructive sleep apnea): CODE(S): G47.33 - Obstructive sleep apnea (adult) (pediatric) (16) Asthma, moderate persistent: CODE(S): J45.40 - Moderate persistent asthma, uncomplicated QUALIFIERS: Asthma complication type: uncomplicated Qualified Code(s): J45.40 - Moderate persistent asthma, uncomplicated (17) Morbid obesity with BMI of 50.0-59.9, adult: CODE(S): E66.01 - Morbid (severe) obesity due to excess calories; Z68.43 - Body mass index [BMI] 50.0-59.9, adult (18) Dyspnea on exertion: CODE(S): R06.09 - Other forms of dyspnea (19) PAC (premature atrial contraction): CODE(S): I49.1 - Atrial premature depolarization (20) Left leg swelling: CODE(S): M79.89 - Other specified soft tissue disorders (21) Leg edema, left: CODE(S): R60.0 - Localized edema (22) Urinary incontinence: CODE(S): R32 - Unspecified urinary incontinence (23) History of bladder repair surgery: CODE(S): Z98.890 - Other specified postprocedural states (24) History of carpal tunnel release of both wrists: CODE(S): Z98.890 - Other specified postprocedural states (25) History of cholecystectomy: CODE(S): Z90.49 - Acquired absence of other specified parts of digestive tract (26) History of tonsillectomy: CODE(S): Z90.89 - Acquired absence of other organs (27) History of partial hysterectomy: CODE(S): Z90.711 - Acquired absence of uterus with remaining cervical stump (28) History of total knee replacement: CODE(S): Z96.659 - Presence of unspecified artificial knee joint (29) History of ventral hernia repair: CODE(S): Z98.890 - Other specified postprocedural states; Z87.19 - Personal history of other diseases of the digestive system (30) History of trigger finger: CODE(S): Z87.39 - Personal history of other diseases of the musculoskeletal system and connective tissue PLAN: Plan This is a 62-year-old morbidly obese female with a traumatic injury to her right viviane-medial calf. Her recent medical history is as documented above. The wound on the right medial calf is a dehiscent wound, following 2 recent attempts to suture closed. A standard excisional debridement has been performed today. There has been deterioration in the status of the patient's wound within the last several weeks. There is now a significant area of undermining and tunneling noted centrally, which had not been present in prior weeks. Recent culture results were positive for Escherichia coli and Pseudomonas aeruginosa. Based on sensitivity results, the patient was placed on Cipro 500 mg p.o. twice daily, which has now been completed. A lengthy discussion has been undertaken with the patient with regard to conservative treatment measures for control of the swelling, edema, and chronic venous insufficiency in her lower extremities. Leg elevation has been recommended. She has been encouraged to continue sleeping on a flat mattress at night. Leg elevation to heart level has been encouraged even during daytime hours. Prolonged idle sitting has been discouraged. Activity has been encouraged. Weight loss has also been recommended. We are to continue compression to the lower extremities by means of Spandagrips, in light of the patient's allergy to latex. We are to continue the use of Promogran topically, which we applied by the patient on a daily basis. This is to be applied both on the external and visible portion of the wound, as well as within the tunneled and undermined portion. The patient has been instructed in the appropriate means of application. The patient is to be allowed to shower daily. We have sought insurance preauthorization for the use of negative pressure wound therapy. Two such attempts have been made, and both efforts have been denied by the patient's insurance. Unfortunately, it is felt that negative pressure wound therapy will be of significant benefit in enhancing the healing of the patient's wound. Denial by the patient's insurance company is perceived as somewhat of a setback and impediment to the patient's potential healing process. Given the recent appearance of undermining and tunneling, we have discussed with the patient the possible need for surgical unroofing and debridement of the site if conservative measures fail to result in improvement. We will plan to continue current therapy using Promogran, and continue to appeal to the patient's insurance company for the use of negative pressure wound therapy. It appears as though the external portion of the wound continues to heal in progressive fashion, with persistence of the tunneled and undermined portion of the wound. Within the next several weeks, if the undermined area fails to improve, surgical intervention will be required for the purpose of surgical unroofing and debridement. The patient is to return in 1 week for reassessment. Total time: 26 minutes
[2023-02-13 10:03] VITALS: BP 134/82; PULSE 82; RESP 18; TEMP 36.1; BMI 51.5
--- NOTE | 2023-02-13 11:11 | PCM.WC.HP ---
History of Present Illness Date of Service: 02/13/23 Chief Complaint: Non-healing, dehiscent laceration of the right medial calf History of Wound: This is a 62-year-old morbidly obese female who was in her normal state of health until December 09, 2022. On that date, she sustained a laceration to the right medial calf following impact with a car door. She is known to have chronic swelling and edema in her lower extremities, as well as chronic venous insufficiency. Upon sustaining the injury, patient presented to the emergency department at [facility], where suture repair of the laceration was performed. She was also treated with a prescription of Augmentin. Eight days later, her sutures were removed without incident. 2 days following suture removal, the patient re-traumatized the area, causing a dehiscence of the wound, prompting her to seek medical attention in the [facility] Emergency Department. According to the patient, a resident performed a suture closure, and the patient was discharged. However, the patient's traumatic wound has failed to heal. In fact, it appears to have become dehiscent, with evidence of nonviable and necrotic tissue present. The patient has chronic swelling and edema in her lower extremities. She sleeps on a flat mattress at night, and is active. She denies a history of thrombophlebitis. 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 [facility] Medical History Acute conjunctivitis Acute sinusitis Alcohol use Asthma Asthma, moderate persistent Back pain Bruising Cardiology follow-up encounter Chronic venous insufficiency Chronic venous insufficiency Coronary artery calcification COVID-19 CPAP (continuous positive airway pressure) dependence Dyspnea on exertion Easy bruising Edema of leg Essential hypertension Former smoker Gastric reflux GERD (gastroesophageal reflux disease) High cholesterol History of echocardiogram History of edema History of stress test History of trigger finger Hyperlipidemia Hypertension Left leg swelling Leg cramps Leg edema, left Leg edema, right Leg swelling Morbid obesity with BMI of 50.0-59.9, adult Non-pressure chronic ulcer of right calf with fat layer exposed Obesity MALACHI (obstructive sleep apnea) MALACHI on CPAP PAC (premature atrial contraction) Premature atrial contraction Preoperative cardiovascular examination Pure hypercholesterolemia Right leg swelling Shortness of breath on exertion Surgical wound dehiscence Urinary incontinence Urinary tract infection Urine incontinence Ventral hernia Home Medications amlodipine 10 mg tablet 10 mg PO QHS 06/19/16 [History Last Taken Unknown] ascorbic acid (vitamin C) 1,000 mg tablet 1,000 mg PO DAILY 06/19/16 [History Last Taken Unknown] evening primrose oil 500 mg capsule 500 mg PO DAILY 06/19/16 [History Last Taken Unknown] hydrochlorothiazide 25 mg tablet 25 mg PO DAILY 06/19/16 [History Last Taken Unknown] omeprazole 20 mg capsule,delayed release 20 mg PO DAILY 06/19/16 [History Last Taken 08/08/21 06:30] PEP device #1 ea 08/26/18 [Rx Last Taken Unknown] benzonatate 200 mg capsule 200 mg PO TID PRN cough #90 caps 09/03/18 [Rx Last Taken Unknown] vitamin B complex (B Complex-Vitamin B12 tablet) 1 tab PO DAILY 10/15/18 [History Last Taken Unknown] cholecalciferol (vitamin D3) 50 mcg (2,000 unit) capsule 50 mcg PO DAILY 08/26/20 [History Last Taken Unknown] loratadine 10 mg tablet (Claritin) 10 mg PO DAILY 08/26/20 [History Last Taken Unknown] tolterodine 4 mg capsule,extended release 24 hr (Detrol LA) 4 mg PO DAILY 08/26/20 [History Last Taken Unknown] losartan 50 mg tablet 50 mg PO QHS 11/26/20 [History Last Taken Unknown] Acapella #1 ea 12/21/21 [Rx Last Taken Unknown] Peak Flow meter #1 ea 12/21/21 [Rx Last Taken Unknown] zinc sulfate 66 mg tablet 66 mg PO DAILY 12/22/21 [History Last Taken Unknown] naproxen 500 mg tablet 250 mg PO DAILY 05/29/22 [History Last Taken Unknown] phenazopyridine 100 mg tablet (Pyridium) 100 mg PO TID PRN pain 06/21/22 [History Last Taken Unknown] Lactobacillus acidophilus 1 cap PO DAILY 07/27/22 [History Last Taken Unknown] citalopram 20 mg tablet 20 mg PO DAILY 07/27/22 [History Last Taken Unknown] rosuvastatin 10 mg tablet 10 mg PO DAILY 07/27/22 [History Last Taken Unknown] carvedilol 6.25 mg tablet 6.25 mg PO BID #180 tabs 09/21/22 [Rx Last Taken Unknown] albuterol sulfate 90 mcg/actuation aerosol inhaler (ProAir HFA) 2 puff inhalation Q4H PRN shortness of breath or wheezing #8.5 grams 11/07/22 [Rx Last Taken Unknown] sodium chloride 7 % for nebulization 4 ml inhalation BID #240 mL 12/05/22 [Rx Last Taken Unknown] amoxicillin 875 mg-potassium clavulanate 125 mg tablet 1 tab PO BID #20 tabs 02/08/23 [Rx Last Taken Unknown] fluticasone fur. 200 mcg-umeclid 62.5 mcg-vilant 25 mcg inhalat.powder (Trelegy Ellipta) 1 inh inhalation DAILY #60 ea 02/08/23 [Rx Last Taken Unknown] fluticasone furoate 200 mcg-vilanterol 25 mcg/dose inhalation powder (Breo Ellipta) 1 inh inhalation DAILY #60 ea 02/08/23 [Rx Last Taken Unknown] Allergy/AdvReac Type Severity Reaction Status Date / Time lisinopril Allergy Unknown Cough Verified 02/08/23 12:36 clarithromycin [From Biaxin] Allergy Other Verified 02/08/23 12:36 codeine Allergy Other Verified 02/08/23 12:36 doxycycline Allergy Upset Verified 02/08/23 12:36 Stomach erythromycin base Allergy Other Verified 02/08/23 12:36 latex AdvReac Anaphylaxis Verified 02/08/23 12:36 Family History Father Hypertension CAD (coronary artery disease) History of coronary artery bypass surgery Myocardial infarction, Onset Age: 50 Mother Heart disease Brother Melanoma Surgical History History of bladder repair surgery History of bladder repair surgery History of carpal tunnel release of both wrists History of carpal tunnel surgery History of carpal tunnel surgery History of cholecystectomy History of cholecystectomy History of partial hysterectomy History of partial hysterectomy History of tonsillectomy History of tonsillectomy History of total knee arthroplasty History of total knee replacement History of ventral hernia repair History of ventral hernia repair Status post trigger finger release Social History Smoking Status: Former smoker pack-years: 16 second hand exposure: No alcohol intake: current alcohol intake frequency: a few times a week Alcohol type: wine substance use type: does not use caffeine: No what type of physical activity do you participate in: walking and swimming Vital Signs Vital Signs Vital Signs: 02/13/23 10:03 Temperature 97 F L Temperature Source Temporal Pulse Rate 82 Respiratory Rate 18 Blood Pressure 134/82 H Blood Pressure Mean 99 Blood Pressure Source Monitor Blood Pressure Position Semi-Fowlers Blood Pressure Location Left Arm Weight Weight: 300 lb Body Mass Index (BMI) 51.5 Physical Exam Const alert, oriented x3, no apparent distress and well nourished Constitutional Narrative: The patient is morbidly obese. Her BMI is 51.5. General Appearance: cooperative, comfortable, well kempt and well developed Orientation / Consciousness: awake, oriented to person, oriented to place and oriented to time Exam Limitations: no limitations HEENT normocephalic, head/scalp atraumatic and hearing grossly normal bilaterally Head and Scalp: normal to inspection, normocephalic and atraumatic External Ear: external ears normal Eyes PERRL and EOMs intact bilaterally General Eye: normal appearance of both eyes Neck full ROM General: normal visual inspection Resp normal respiratory effort, normal air movement, no retractions and no use of accessory muscles Effort and Inspection: able to speak in complete sentences Extremity no calf tenderness General Extremity: Negative for clubbing or cyanosis Skin Wound Narrative: A traumatic wound is noted on the patient's right anterior calf. This is the result of a laceration sustained after impacting a car door. The laceration was initially sutured, following which sutures were removed 8 days later. The patient re-traumatized the site, prompting dehiscence of her wound, at which time the laceration was re-sutured closed. The wound again dehisced, with a row of approximately 8-10 sutures remaining, which were removed at the patient's initial visit at our facility, as they were providing no benefit to wound closure. A traumatic wound persists. With the initiation of treatment at our facility, the amount of frankly necrotic and nonviable tissue has now been eliminated. The external portion of the wound is now nearly completely healed. There has been significant improvement just within the last week. However, there persists an area of undermining and tunneling extending into the subcutaneous tissue. The depth of the undermined area appears to be approximately 1.8 cm. Although the undermined portion of the wound persists, it does appear to be diminishing in size. In general, the external wound is pink and healthy in appearance. There is no visible evidence of infection or cellulitis. Wound dimensions are documented elsewhere. Neuro oriented x3, CN's II-XII intact bilaterally, moves all extremities and no focal motor deficits Sensorium / Orientation: awake, alert, oriented to person, oriented to place and oriented to time Psych Appearance: grossly normal and appropriate Attitude: calm Activity / Motor Behavior: appropriate eye contact Speech: normal speech Mood & Affect: euthymic mood Thought Process: normal thought process Thought Content: normal thought content Attention / Concentration: attention grossly intact Debridement Note Debridement Note No debridement was completed: No debridement was completed today Post-Debridement Measurements and Additional Note: Post-Debridement Measurements/Treatment WC - Nurse 1 - General Ulcer Assessment Start: 02/06/23 08:05 Freq: Status: Active Protocol: GEREMIAS Activity Type Activity Date Activity User E-sign Co-sign Detail Recorded Client Recorded Date Recorded By Document 02/06/23 08:05 DL Desktop 02/06/23 08:10 DL Document 02/13/23 10:03 RB Desktop 02/13/23 10:06 RB 02/06/23 02/13/23 08:05 10:03 - Today's Visit Information Type of service Follow-up Visit Follow-up Visit (Physician/[employer] (Physician/[employer]CE [employer]ER ) ) Arrival Mode Ambulatory Ambulatory Transfer Assistance None None Patient Identification Verified (Name & Yes Yes ) Patient Requires Transmission-Based No No Precautions Height and Weight Body Mass Index (BMI) 51.5 51.5 BMI Classification Obese Obese Vital Signs Temperature (97.8 F-99.1 F) 97.5 F L 97 F L Temperature Source Temporal Temporal Pulse Rate (60-100) 82 Pulse Location Monitor Respiratory Rate (12-18) 20 H 18 Respiratory rate source Observation Observation Blood Pressure (90/60-120/80) 142/80 H 134/82 H Blood Pressure Mean 100 99 Source Monitor Monitor Position Semi-Fowlers Blood Pressure Location Left Arm History Since Last Visit- (Skip if this is Patient's initial visit) Have you changed medications since your No No last visit? Any new allergies or adverse reactions No No Had a fall/change in ADL's that may No No increase risk of falls Signs or symptoms of abuse and/or No No neglect since last visit Have you been in the hospital since your No No last visit? Has dressing in place as prescribed Yes Yes Has compression in place as prescribed Yes Yes Has offloadiing in place as prescribed N/A No Experienced any changes in pain level or No No management Pain Scale: 0-10 Numeric Is Patient Pain Free? Yes Yes SOPHIA - Nurse 1 - General Ulcer Measurement Start: 02/06/23 08:05 Freq: Status: Active Protocol: Activity Type Activity Date Activity User E-sign Co-sign Detail Recorded Client Recorded Date Recorded By Document 02/06/23 08:05 DL Desktop 02/06/23 08:10 DL Document 02/13/23 10:03 RB Desktop 02/13/23 10:06 RB 02/06/23 02/13/23 08:05 10:03 Wound Center Nurse 1 #1 Right lateral LE -Combined with other wound No -Current Size (cm) - Length 0.7 0.3 -Current Size (cm) - Width 2.3 1 -Current Size (cm) - Depth 1.5 0.4 -Total Square Cm 1.61 0.3 -Photo Taken No -Tunneling No -Tunneling Position (O'clock) 3 -Tunneling Distance (cm) 1.7 -Undermining/Tunneling No -Circular Undermining No -Exudate Amt Medium Medium -Exudate Type Serosanguineous Serosanguineous -Wound Margin Distinct, Distinct, Outline Outline Attached Attached -Granulation Amt Large (67-100%) Medium (34-66%) -Granulation Quality [place] -Slough/Fibrin Yes -Necrosis Amt Medium (34-66%) Medium (34-66%) -Necrotic Tissue Type Adherent Slough Adherent Slough -Structure Exposed N/A N/A -Texture ([place]-wound Skin Appearance) Scarring Assessed, Scarring -Moisture ([place]-wound Skin Appearance) No Abnormality Assessed -Color ([place]-wound Skin Appearance) No Abnormality Assessed -Temperature ([place]-wound Skin No Abnormality No Abnormality Appearance) (Pt Warm) (Pt Warm) -Tenderness on Palpation ([place]-wound No No Skin Appearance) -Ulcer Cleansing Soap and Water Wound Cleanser -Foul Odor after Cleansing No No -Anesthetic Used 5% Lidocaine 5% Lidocaine Gel Gel Lower Limb Edema Present Yes Right Calf (cm) 51.2 51.5 Right Ankle (cm) 30 27.5 WC - Nurse 2 - General Ulcer CM Notes Start: 02/06/23 08:05 Freq: Status: Active Protocol: Activity Type Activity Date Activity User E-sign Co-sign Detail Recorded Client Recorded Date Recorded By Document 02/06/23 12:39 PL [id number] 02/06/23 12:40 PL 02/06/23 12:39 Wound Center Nurse 2 #1 Right lateral LE -Time 08:18 -Correct Patient Yes -Correct Side, Site, Position Yes -Correct Procedure Yes -Procedure Performed Yes -Type of Procedure Debridement -Clinical Debridement Subcutaneous -Tissue Removed Subcutaneous -Post Debridement (cm) - Length 0.7 -Post Debridement (cm) - Width 2.3 -Post Debridement (cm) - Depth 1.5 -Total Square (Post) (cm) 1.61 -Area of Debridement (cm) - Length 0.7 -Area of Debridement (cm) - Width 2.3 -Total Square (Area) (cm) 1.61 -Tunneling No -Undermining/Tunneling No -Circular Undermining No -Wound/Ulcer Outcome Not Healed -Ulcer Cleansing Rinsed/ Irrigated with Saline -Foul Odor after Cleansing No -Bioengineered Tissue No -Bleeding Controlled with Pressure -Treatment Response Procedure Tolerated Well -Debridement - Subq, 1st 20sq cm Yes Pain Scale: 0-10 Numeric Is Patient Pain Free? Yes - Nurse 3 - General Ulcer D/C NN Start: 02/06/23 08:05 Freq: Status: Active Protocol: Activity Type Activity Date Activity User E-sign Co-sign Detail Recorded Client Recorded Date Recorded By Document 02/06/23 08:38 MW Desktop 02/06/23 08:38 MW Document 02/13/23 10:37 RB Desktop 02/13/23 10:38 RB 02/06/23 02/13/23 08:38 10:37 Wound Care Center Nurse 3 #1 Right lateral LE -Ulcer Cleansing Rinsed/ Rinsed/ Irrigated with Irrigated with Saline Saline -Foul Odor after Cleansing No -Negative Pressure Wound Therapy N/A -Primary Dressing Applied Mepilex Border, Mepilex Border, Promogran Promogran -Primary Dressing Covered/Secured with Dry Gauze, Secured with Tape -Mepilex Border 1 1 -Promogran 3 1 Right -Other pt own single layer tubigrip Treatment Response Procedure Procedure Tolerated Well Tolerated Well Pain Scale: 0-10 Numeric Is Patient Pain Free? Yes Yes Teaching: Wound Center Dressing Your Wound -Person Taught Patient Patient -Teaching Method Discussion, Discussion, Demonstration Demonstration -Response to teaching Verbalize Verbalize understanding understanding WC - Visit Discharge Discharge Condition Stable Stable Ambulatory Status Ambulatory Ambulatory Transportation Private Auto Private Auto Accompanied by self Medication Reconcilliation completed & No No provided to patient/care provider Clinical Summary of Care Provided Yes Yes Assessment/Plan Assessment/Plan (1) Non-pressure chronic ulcer of right calf with fat layer exposed: CODE(S): L97.212 - Non-pressure chronic ulcer of right calf with fat layer exposed (2) Chronic venous insufficiency: (3) Laceration of right leg excluding thigh: CODE(S): S81.811A - Laceration without foreign body, right lower leg, initial encounter QUALIFIERS: Encounter type: subsequent encounter Qualified Code(s): S81.811D - Laceration without foreign body, right lower leg, subsequent encounter (4) Surgical wound dehiscence: CODE(S): T81.31XA - Disruption of external operation (surgical) wound, not elsewhere classified, initial encounter QUALIFIERS: Encounter type: subsequent encounter Qualified Code(s): T81.31XD - Disruption of external operation (surgical) wound, not elsewhere classified, subsequent encounter (5) Right leg swelling: CODE(S): M79.89 - Other specified soft tissue disorders (6) Leg edema, right: CODE(S): R60.0 - Localized edema (7) DDD (degenerative disc disease), lumbar: CODE(S): M51.36 - Other intervertebral disc degeneration, lumbar region (8) Ventral incisional hernia without obstruction or gangrene: CODE(S): K43.2 - Incisional hernia without obstruction or gangrene (9) Coronary artery calcification: CODE(S): I25.10 - Atherosclerotic heart disease of [place] coronary artery without angina pectoris; I25.84 - Coronary atherosclerosis due to calcified coronary lesion (10) Chronic venous insufficiency: CODE(S): I87.2 - Venous insufficiency (chronic) (peripheral) (11) MALACHI on CPAP: CODE(S): G47.33 - Obstructive sleep apnea (adult) (pediatric); Z99.89 - Dependence on other enabling machines and devices (12) GERD (gastroesophageal reflux disease): CODE(S): K21.9 - Gastro-esophageal reflux disease without esophagitis (13) Pure hypercholesterolemia: CODE(S): E78.00 - Pure hypercholesterolemia, unspecified (14) Essential hypertension: CODE(S): I10 - Essential (primary) hypertension (15) MALACHI (obstructive sleep apnea): CODE(S): G47.33 - Obstructive sleep apnea (adult) (pediatric) (16) Asthma, moderate persistent: CODE(S): J45.40 - Moderate persistent asthma, uncomplicated QUALIFIERS: Asthma complication type: uncomplicated Qualified Code(s): J45.40 - Moderate persistent asthma, uncomplicated (17) Morbid obesity with BMI of 50.0-59.9, adult: CODE(S): E66.01 - Morbid (severe) obesity due to excess calories; Z68.43 - Body mass index [BMI] 50.0-59.9, adult (18) Dyspnea on exertion: CODE(S): R06.09 - Other forms of dyspnea (19) PAC (premature atrial contraction): CODE(S): I49.1 - Atrial premature depolarization (20) Left leg swelling: CODE(S): M79.89 - Other specified soft tissue disorders (21) Leg edema, left: CODE(S): R60.0 - Localized edema (22) Urinary incontinence: CODE(S): R32 - Unspecified urinary incontinence (23) History of bladder repair surgery: CODE(S): Z98.890 - Other specified postprocedural states (24) History of carpal tunnel release of both wrists: CODE(S): Z98.890 - Other specified postprocedural states (25) History of cholecystectomy: CODE(S): Z90.49 - Acquired absence of other specified parts of digestive tract (26) History of tonsillectomy: CODE(S): Z90.89 - Acquired absence of other organs (27) History of partial hysterectomy: CODE(S): Z90.711 - Acquired absence of uterus with remaining cervical stump (28) History of total knee replacement: CODE(S): Z96.659 - Presence of unspecified artificial knee joint (29) History of ventral hernia repair: CODE(S): Z98.890 - Other specified postprocedural states; Z87.19 - Personal history of other diseases of the digestive system (30) History of trigger finger: CODE(S): Z87.39 - Personal history of other diseases of the musculoskeletal system and connective tissue PLAN: Plan This is a 62-year-old morbidly obese female with a traumatic injury to her right viviane-medial calf. Her recent medical history is as documented above. The wound on the right viviane-medial calf is a dehiscent wound, following 2 recent attempts to suture closed. There is now an area of undermining and tunneling noted centrally, which had not been present in prior weeks. The external portion of the wound has healed well, and is now nearly completely healed. Recent culture results were positive for Escherichia coli and Pseudomonas aeruginosa. Based on sensitivity results, the patient was placed on Cipro 500 mg p.o. twice daily, which has now been completed. The patient is currently on a course of Augmentin orally for a respiratory infection. A lengthy discussion has been undertaken with the patient with regard to conservative treatment measures for control of the swelling, edema, and chronic venous insufficiency in her lower extremities. Leg elevation has been recommended. She has been encouraged to continue sleeping on a flat mattress at night. Leg elevation to heart level has been encouraged even during daytime hours. Prolonged idle sitting has been discouraged. Activity has been encouraged. Weight loss has also been recommended. We are to continue compression to the lower extremities by means of Spandagrips, in light of the patient's allergy to latex. We are to continue the use of Promogran topically, which we applied by the patient on a daily basis. This is to be applied both on the external and visible portion of the wound, as well as within the tunneled and undermined portion. The patient has been instructed in the appropriate means of application. The patient is to be allowed to shower daily. We have sought insurance preauthorization for the use of negative pressure wound therapy. Two such attempts have been made, and both efforts have been denied by the patient's insurance. Unfortunately, it is felt that negative pressure wound therapy will be of significant benefit in enhancing the healing of the patient's wound. Denial by the patient's insurance company is perceived as somewhat of a setback and impediment to the patient's potential healing process. However, the use of negative pressure wound therapy at this juncture may be a moot point, as the external portion of the wound is now nearly healed. Given the recent appearance of undermining and tunneling, we have discussed with the patient the possible need for surgical unroofing and debridement of the site if conservative measures fail to result in improvement. We will plan to continue current therapy using Promogran. It appears as though the external portion of the wound continues to heal in progressive fashion, with persistence of the tunneled and undermined portion of the wound. Within the next several weeks, if the undermined area fails to improve, surgical intervention will be required for the purpose of surgical unroofing and debridement. The patient is to return in 1 week for reassessment. Total time: 25 minutes
[2023-02-20 08:11] VITALS: BP 146/78; PULSE 82; RESP 18; TEMP 36.1; BMI 51.5
--- NOTE | 2023-02-20 08:53 | PCM.WC.HP ---
History of Present Illness Date of Service: 02/20/23 Chief Complaint: Non-healing, dehiscent laceration of the right medial calf History of Wound: This is a 62-year-old morbidly obese female who was in her normal state of health until December 09, 2022. On that date, she sustained a laceration to the right medial calf following impact with a car door. She is known to have chronic swelling and edema in her lower extremities, as well as chronic venous insufficiency. Upon sustaining the injury, patient presented to the emergency department at [facility], where suture repair of the laceration was performed. She was also treated with a prescription of Augmentin. Eight days later, her sutures were removed without incident. 2 days following suture removal, the patient re-traumatized the area, causing a dehiscence of the wound, prompting her to seek medical attention in the [facility] Emergency Department. According to the patient, a resident performed a suture closure, and the patient was discharged. However, the patient's traumatic wound has failed to heal. In fact, it appears to have become dehiscent, with evidence of nonviable and necrotic tissue present. The patient has chronic swelling and edema in her lower extremities. She sleeps on a flat mattress at night, and is active. She denies a history of thrombophlebitis. 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 FORMERLY [facility], [facility] Medical History Acute conjunctivitis Acute sinusitis Alcohol use Asthma Asthma, moderate persistent Back pain Bruising Cardiology follow-up encounter Chronic venous insufficiency Chronic venous insufficiency Coronary artery calcification COVID-19 CPAP (continuous positive airway pressure) dependence Dyspnea on exertion Easy bruising Edema of leg Essential hypertension Former smoker Gastric reflux GERD (gastroesophageal reflux disease) High cholesterol History of echocardiogram History of edema History of stress test History of trigger finger Hyperlipidemia Hypertension Left leg swelling Leg cramps Leg edema, left Leg edema, right Leg swelling Morbid obesity with BMI of 50.0-59.9, adult Non-pressure chronic ulcer of right calf with fat layer exposed Obesity MALACHI (obstructive sleep apnea) MALACHI on CPAP PAC (premature atrial contraction) Premature atrial contraction Preoperative cardiovascular examination Pure hypercholesterolemia Right leg swelling Shortness of breath on exertion Surgical wound dehiscence Urinary incontinence Urinary tract infection Urine incontinence Ventral hernia Home Medications amlodipine 10 mg tablet 10 mg PO QHS 06/19/16 [History Last Taken Unknown] ascorbic acid (vitamin C) 1,000 mg tablet 1,000 mg PO DAILY 06/19/16 [History Last Taken Unknown] evening primrose oil 500 mg capsule 500 mg PO DAILY 06/19/16 [History Last Taken Unknown] hydrochlorothiazide 25 mg tablet 25 mg PO DAILY 06/19/16 [History Last Taken Unknown] omeprazole 20 mg capsule,delayed release 20 mg PO DAILY 06/19/16 [History Last Taken 08/08/21 06:30] PEP device #1 ea 08/26/18 [Rx Last Taken Unknown] benzonatate 200 mg capsule 200 mg PO TID PRN cough #90 caps 09/03/18 [Rx Last Taken Unknown] vitamin B complex (B Complex-Vitamin B12 tablet) 1 tab PO DAILY 10/15/18 [History Last Taken Unknown] cholecalciferol (vitamin D3) 50 mcg (2,000 unit) capsule 50 mcg PO DAILY 08/26/20 [History Last Taken Unknown] loratadine 10 mg tablet (Claritin) 10 mg PO DAILY 08/26/20 [History Last Taken Unknown] tolterodine 4 mg capsule,extended release 24 hr (Detrol LA) 4 mg PO DAILY 08/26/20 [History Last Taken Unknown] losartan 50 mg tablet 50 mg PO QHS 11/26/20 [History Last Taken Unknown] Acapella #1 ea 12/21/21 [Rx Last Taken Unknown] Peak Flow meter #1 ea 12/21/21 [Rx Last Taken Unknown] zinc sulfate 66 mg tablet 66 mg PO DAILY 12/22/21 [History Last Taken Unknown] naproxen 500 mg tablet 250 mg PO DAILY 05/29/22 [History Last Taken Unknown] phenazopyridine 100 mg tablet (Pyridium) 100 mg PO TID PRN pain 06/21/22 [History Last Taken Unknown] Lactobacillus acidophilus 1 cap PO DAILY 07/27/22 [History Last Taken Unknown] citalopram 20 mg tablet 20 mg PO DAILY 07/27/22 [History Last Taken Unknown] rosuvastatin 10 mg tablet 10 mg PO DAILY 07/27/22 [History Last Taken Unknown] carvedilol 6.25 mg tablet 6.25 mg PO BID #180 tabs 09/21/22 [Rx Last Taken Unknown] albuterol sulfate 90 mcg/actuation aerosol inhaler (ProAir HFA) 2 puff inhalation Q4H PRN shortness of breath or wheezing #8.5 grams 11/07/22 [Rx Last Taken Unknown] sodium chloride 7 % for nebulization 4 ml inhalation BID #240 mL 12/05/22 [Rx Last Taken Unknown] fluticasone fur. 200 mcg-umeclid 62.5 mcg-vilant 25 mcg inhalat.powder (Trelegy Ellipta) 1 inh inhalation DAILY #60 ea 02/08/23 [Rx Last Taken Unknown] fluticasone furoate 200 mcg-vilanterol 25 mcg/dose inhalation powder (Breo Ellipta) 1 inh inhalation DAILY #60 ea 02/08/23 [Rx Last Taken Unknown] prednisone 10 mg tablet 10 mg PO QDAY #30 tabs 02/16/23 [Rx Last Taken Unknown] cefdinir 300 mg capsule 300 mg PO Q12H 14 days #28 caps 02/19/23 [Rx Last Taken Unknown] Allergy/AdvReac Type Severity Reaction Status Date / Time lisinopril Allergy Unknown Cough Verified 02/08/23 12:36 clarithromycin [From Biaxin] Allergy Other Verified 02/08/23 12:36 codeine Allergy Other Verified 02/08/23 12:36 doxycycline Allergy Upset Verified 02/08/23 12:36 Stomach erythromycin base Allergy Other Verified 02/08/23 12:36 latex AdvReac Anaphylaxis Verified 02/08/23 12:36 Family History Father Hypertension CAD (coronary artery disease) History of coronary artery bypass surgery Myocardial infarction, Onset Age: 50 Mother Heart disease Brother Melanoma Surgical History History of bladder repair surgery History of bladder repair surgery History of carpal tunnel release of both wrists History of carpal tunnel surgery History of carpal tunnel surgery History of cholecystectomy History of cholecystectomy History of partial hysterectomy History of partial hysterectomy History of tonsillectomy History of tonsillectomy History of total knee arthroplasty History of total knee replacement History of ventral hernia repair History of ventral hernia repair Status post trigger finger release Social History Smoking Status: Former smoker pack-years: 16 second hand exposure: No alcohol intake: current alcohol intake frequency: a few times a week Alcohol type: wine substance use type: does not use caffeine: No what type of physical activity do you participate in: walking and swimming Vital Signs Vital Signs Vital Signs: 02/20/23 08:11 Temperature 97 F L Temperature Source Temporal Pulse Rate 82 Respiratory Rate 18 Blood Pressure 146/78 H Blood Pressure Mean 100 Blood Pressure Source Monitor Blood Pressure Position Semi-Fowlers Blood Pressure Location Left Arm Weight Weight: 300 lb Body Mass Index (BMI) 51.5 Physical Exam Const alert, oriented x3, no apparent distress and well nourished Constitutional Narrative: The patient is morbidly obese. Her BMI is 51.5. General Appearance: cooperative, comfortable, well kempt and well developed Orientation / Consciousness: awake, oriented to person, oriented to place and oriented to time Exam Limitations: no limitations HEENT normocephalic, head/scalp atraumatic and hearing grossly normal bilaterally Head and Scalp: normal to inspection, normocephalic and atraumatic External Ear: external ears normal Eyes PERRL and EOMs intact bilaterally General Eye: normal appearance of both eyes Neck full ROM General: normal visual inspection Resp normal respiratory effort, normal air movement, no retractions and no use of accessory muscles Effort and Inspection: able to speak in complete sentences Extremity no calf tenderness General Extremity: Negative for clubbing or cyanosis Skin Wound Narrative: A traumatic wound is noted on the patient's right anterior calf. This is the result of a laceration sustained after impacting a car door. The laceration was initially sutured, following which sutures were removed 8 days later. The patient re-traumatized the site, prompting dehiscence of her wound, at which time the laceration was re-sutured closed. The wound again dehisced, with a row of approximately 8-10 sutures remaining, which were removed at the patient's initial visit at our facility, as they were providing no benefit to wound closure. A traumatic wound persists. With the initiation of treatment at our facility, the amount of frankly necrotic and nonviable tissue has now been eliminated. The external portion of the wound is now nearly completely healed. There has been additional improvement just within the last week. A small area of undermining and tunneling persists extending into the subcutaneous tissue. The depth of the undermined area appears to be approximately 0.4 cm. Although the undermined portion of the wound persists, it does appear to be diminishing in size. In general, the external wound is pink and healthy in appearance. There is no visible evidence of infection or cellulitis. Wound dimensions are documented elsewhere. Both the external and internal portions of the wound appear to be diminishing in size progressively. Neuro oriented x3, CN's II-XII intact bilaterally, moves all extremities and no focal motor deficits Sensorium / Orientation: awake, alert, oriented to person, oriented to place and oriented to time Psych Appearance: grossly normal and appropriate Attitude: calm Activity / Motor Behavior: appropriate eye contact Speech: normal speech Mood & Affect: euthymic mood Thought Process: normal thought process Thought Content: normal thought content Attention / Concentration: attention grossly intact Debridement Note Debridement Note Wound debrided: Right pretibial surface wound Laterality: Right Type of Debridement: Excisional debridement Anesthesia Used: 5% Lidocaine Gel Depth: Down to and including healthy tissue and in the subcutaneous layer Percentage of wound debrided: 100 Instrument Used: 3mm curette Tissue Removed: Bioburden and nonviable tissue Severity: Fat Layer Exposed Amount of bleeding with debridement: Mild Bleeding Controlled with: Compression and gauze Patient tolerated procedure: Patient tolerated procedure well Debridement Free Text: A probe was used to determine the depth of the persisting undermined portion of the wound. The undermined area continues to decrease in size, and now appears to have a depth of only 0.4 cm, which represents an improvement over the depth noted previously. Post-Debridement Measurements and Additional Note: Post-Debridement Measurements/Treatment SOPHIA - Nurse 1 - General Ulcer Assessment Start: 02/06/23 08:05 Freq: Status: Active Protocol: GEREMIAS Activity Type Activity Date Activity User E-sign Co-sign Detail Recorded Client Recorded Date Recorded By Document 02/06/23 08:05 DL Desktop 02/06/23 08:10 DL Document 02/13/23 10:03 RB Desktop 02/13/23 10:06 RB Document 02/20/23 08:11 RB Desktop 02/20/23 08:13 RB 02/06/23 02/13/23 02/20/23 08:05 10:03 08:11 - Today's Visit Information Type of service Follow-up Visit Follow-up Visit Follow-up Visit (Physician/LOW VISION THERAPIST (Physician/LOW VISION THERAPIST (Physician/LOW VISION THERAPIST ) ) ) Arrival Mode Ambulatory Ambulatory Ambulatory Transfer Assistance None None None Patient Identification Verified (Name & Yes Yes Yes ) Patient Requires Transmission-Based No No No Precautions Height and Weight Body Mass Index (BMI) 51.5 51.5 51.5 BMI Classification Obese Obese Obese Vital Signs Temperature (97.8 F-99.1 F) 97.5 F L 97 F L 97 F L Temperature Source Temporal Temporal Temporal Pulse Rate (60-100) 82 82 Pulse Location Monitor Monitor Respiratory Rate (12-18) 20 H 18 18 Respiratory rate source Observation Observation Observation Blood Pressure (90/60-120/80) 142/80 H 134/82 H 146/78 H Blood Pressure Mean 100 99 100 Source Monitor Monitor Monitor Position Semi-Fowlers Semi-Fowlers Blood Pressure Location Left Arm Left Arm History Since Last Visit- (Skip if this is Patient's initial visit) Have you changed medications since your No No No last visit? Any new allergies or adverse reactions No No No Had a fall/change in ADL's that may No No No increase risk of falls Signs or symptoms of abuse and/or No No No neglect since last visit Have you been in the hospital since your No No No last visit? Has dressing in place as prescribed Yes Yes Yes Has compression in place as prescribed Yes Yes Yes Has offloadiing in place as prescribed N/A No No Experienced any changes in pain level or No No No management Pain Scale: 0-10 Numeric Is Patient Pain Free? Yes Yes Yes WC - Nurse 1 - General Ulcer Measurement Start: 02/06/23 08:05 Freq: Status: Active Protocol: Activity Type Activity Date Activity User E-sign Co-sign Detail Recorded Client Recorded Date Recorded By Document 02/06/23 08:05 DL Desktop 02/06/23 08:10 DL Document 02/13/23 10:03 RB Desktop 02/13/23 10:06 RB Document 02/20/23 08:11 RB Desktop 02/20/23 08:13 RB 02/06/23 02/13/23 02/20/23 08:05 10:03 08:11 Wound Center Nurse 1 #1 Right lateral LE -Combined with other wound No No -Current Size (cm) - Length 0.7 0.3 0.3 -Current Size (cm) - Width 2.3 1 2 -Current Size (cm) - Depth 1.5 0.4 0.4 -Total Square Cm 1.61 0.3 0.6 -Photo Taken No -Tunneling No No -Tunneling Position (O'clock) 3 -Tunneling Distance (cm) 1.7 -Undermining/Tunneling No Yes -Undermining/Tunneling Starts (O'clock 3 ) -Undermining/Tunneling Ends (O'clock) 3 -Maximum Distance (cm) 0.4 -Circular Undermining No No -Exudate Amt Medium Medium Medium -Exudate Type Serosanguineous Serosanguineous Serosanguineous -Wound Margin Distinct, Distinct, Distinct, Outline Outline Outline Attached Attached Attached -Granulation Amt Large (67-100%) Medium (34-66%) Medium (34-66%) -Granulation Quality [place] -Slough/Fibrin Yes Yes -Necrosis Amt Medium (34-66%) Medium (34-66%) Medium (34-66%) -Necrotic Tissue Type Adherent Slough Adherent Slough Adherent Slough -Structure Exposed N/A N/A N/A -Texture ([place]-wound Skin Appearance) Scarring Assessed, Assessed Scarring -Moisture ([place]-wound Skin Appearance) No Abnormality Assessed Assessed -Color ([place]-wound Skin Appearance) No Abnormality Assessed Assessed -Temperature ([place]-wound Skin No Abnormality No Abnormality No Abnormality Appearance) (Pt Warm) (Pt Warm) (Pt Warm) -Tenderness on Palpation ([place]-wound No No No Skin Appearance) -Ulcer Cleansing Soap and Water Wound Cleanser Wound Cleanser -Foul Odor after Cleansing No No No -Anesthetic Used 5% Lidocaine 5% Lidocaine 5% Lidocaine Gel Gel Gel Lower Limb Edema Present Yes Yes Right Calf (cm) 51.2 51.5 51 Right Ankle (cm) 30 27.5 29.2 WC - Nurse 2 - General Ulcer CM Notes Start: 02/06/23 08:05 Freq: Status: Active Protocol: Activity Type Activity Date Activity User E-sign Co-sign Detail Recorded Client Recorded Date Recorded By Document 02/06/23 12:39 PL [id number] 02/06/23 12:40 PL Document 02/13/23 12:15 PL [id number] 02/13/23 12:16 PL 02/06/23 02/13/23 12:39 12:15 Wound Center Nurse 2 #1 Right lateral LE -Time 08:18 10:17 -Correct Patient Yes Yes -Correct Side, Site, Position Yes Yes -Correct Procedure Yes Yes -Procedure Performed Yes No -Type of Procedure Debridement -Clinical Debridement Subcutaneous -Tissue Removed Subcutaneous -Post Debridement (cm) - Length 0.7 0.3 -Post Debridement (cm) - Width 2.3 2.0 -Post Debridement (cm) - Depth 1.5 1.8 -Total Square (Post) (cm) 1.61 0.60 -Area of Debridement (cm) - Length 0.7 -Area of Debridement (cm) - Width 2.3 -Total Square (Area) (cm) 1.61 -Tunneling No Yes -Tunneling Position (O'clock) 9 -Tunneling Distance (cm) 1.8 -Undermining/Tunneling No -Circular Undermining No -Wound/Ulcer Outcome Not Healed Not Healed -Ulcer Cleansing Rinsed/ Rinsed/ Irrigated with Irrigated with Saline Saline -Foul Odor after Cleansing No No -Bioengineered Tissue No No -Bleeding Controlled with Pressure Pressure -Treatment Response Procedure Procedure Tolerated Well Tolerated Well -Debridement - Subq, 1st 20sq cm Yes Pain Scale: 0-10 Numeric Is Patient Pain Free? Yes Yes WC - Nurse 3 - General Ulcer D/C NN Start: 02/06/23 08:05 Freq: Status: Active Protocol: Activity Type Activity Date Activity User E-sign Co-sign Detail Recorded Client Recorded Date Recorded By Document 02/06/23 08:38 MW Desktop 02/06/23 08:38 MW Document 02/13/23 10:37 RB Desktop 02/13/23 10:38 RB Document 02/20/23 08:36 KW Desktop 02/20/23 08:41 KW 02/06/23 02/13/23 02/20/23 08:38 10:37 08:36 Wound Care Center Nurse 3 #1 Right lateral LE -Ulcer Cleansing Rinsed/ Rinsed/ Rinsed/ Irrigated with Irrigated with Irrigated with Saline Saline Saline -Foul Odor after Cleansing No -Negative Pressure Wound Therapy N/A -Primary Dressing Applied Mepilex Border, Mepilex Border, Promogran Promogran -Primary Dressing Covered/Secured with Dry Gauze, Secured with Tape -Mepilex Border 1 1 -Promogran 3 1 Right -Other pt own single layer tubigrip Treatment Response Procedure Procedure Tolerated Well Tolerated Well Pain Scale: 0-10 Numeric Is Patient Pain Free? Yes Yes Yes Teaching: Wound Center Dressing Your Wound -Person Taught Patient Patient -Teaching Method Discussion, Discussion, Demonstration Demonstration -Response to teaching Verbalize Verbalize understanding understanding WC - Visit Discharge Discharge Condition Stable Stable Stable Ambulatory Status Ambulatory Ambulatory Ambulatory Transportation Private Auto Private Auto Private Auto Accompanied by self Medication Reconcilliation completed & No No No provided to patient/care provider Clinical Summary of Care Provided Yes Yes Yes Assessment/Plan Assessment/Plan (1) Non-pressure chronic ulcer of right calf with fat layer exposed: CODE(S): L97.212 - Non-pressure chronic ulcer of right calf with fat layer exposed (2) Chronic venous insufficiency: (3) Laceration of right leg excluding thigh: CODE(S): S81.811A - Laceration without foreign body, right lower leg, initial encounter QUALIFIERS: Encounter type: subsequent encounter Qualified Code(s): S81.811D - Laceration without foreign body, right lower leg, subsequent encounter (4) Surgical wound dehiscence: CODE(S): T81.31XA - Disruption of external operation (surgical) wound, not elsewhere classified, initial encounter QUALIFIERS: Encounter type: subsequent encounter Qualified Code(s): T81.31XD - Disruption of external operation (surgical) wound, not elsewhere classified, subsequent encounter (5) Right leg swelling: CODE(S): M79.89 - Other specified soft tissue disorders (6) Leg edema, right: CODE(S): R60.0 - Localized edema (7) DDD (degenerative disc disease), lumbar: CODE(S): M51.36 - Other intervertebral disc degeneration, lumbar region (8) Ventral incisional hernia without obstruction or gangrene: CODE(S): K43.2 - Incisional hernia without obstruction or gangrene (9) Coronary artery calcification: CODE(S): I25.10 - Atherosclerotic heart disease of [place] coronary artery without angina pectoris; I25.84 - Coronary atherosclerosis due to calcified coronary lesion (10) Chronic venous insufficiency: CODE(S): I87.2 - Venous insufficiency (chronic) (peripheral) (11) MALACHI on CPAP: CODE(S): G47.33 - Obstructive sleep apnea (adult) (pediatric); Z99.89 - Dependence on other enabling machines and devices (12) GERD (gastroesophageal reflux disease): CODE(S): K21.9 - Gastro-esophageal reflux disease without esophagitis (13) Pure hypercholesterolemia: CODE(S): E78.00 - Pure hypercholesterolemia, unspecified (14) Essential hypertension: CODE(S): I10 - Essential (primary) hypertension (15) MALACHI (obstructive sleep apnea): CODE(S): G47.33 - Obstructive sleep apnea (adult) (pediatric) (16) Asthma, moderate persistent: CODE(S): J45.40 - Moderate persistent asthma, uncomplicated QUALIFIERS: Asthma complication type: uncomplicated Qualified Code(s): J45.40 - Moderate persistent asthma, uncomplicated (17) Morbid obesity with BMI of 50.0-59.9, adult: CODE(S): E66.01 - Morbid (severe) obesity due to excess calories; Z68.43 - Body mass index [BMI] 50.0-59.9, adult (18) Dyspnea on exertion: CODE(S): R06.09 - Other forms of dyspnea (19) PAC (premature atrial contraction): CODE(S): I49.1 - Atrial premature depolarization (20) Left leg swelling: CODE(S): M79.89 - Other specified soft tissue disorders (21) Leg edema, left: CODE(S): R60.0 - Localized edema (22) Urinary incontinence: CODE(S): R32 - Unspecified urinary incontinence (23) History of bladder repair surgery: CODE(S): Z98.890 - Other specified postprocedural states (24) History of carpal tunnel release of both wrists: CODE(S): Z98.890 - Other specified postprocedural states (25) History of cholecystectomy: CODE(S): Z90.49 - Acquired absence of other specified parts of digestive tract (26) History of tonsillectomy: CODE(S): Z90.89 - Acquired absence of other organs (27) History of partial hysterectomy: CODE(S): Z90.711 - Acquired absence of uterus with remaining cervical stump (28) History of total knee replacement: CODE(S): Z96.659 - Presence of unspecified artificial knee joint (29) History of ventral hernia repair: CODE(S): Z98.890 - Other specified postprocedural states; Z87.19 - Personal history of other diseases of the digestive system (30) History of trigger finger: CODE(S): Z87.39 - Personal history of other diseases of the musculoskeletal system and connective tissue PLAN: Plan This is a 62-year-old morbidly obese female with a traumatic injury to her right viviane-medial calf. Her recent medical history is as documented above. The wound on the right viviane-medial calf is a dehiscent wound, following 2 recent attempts to suture closed. There is now an area of undermining and tunneling noted centrally, which had not been present in prior weeks. The external portion of the wound has healed well, and is now nearly completely healed. Recent culture results were positive for Escherichia coli and Pseudomonas aeruginosa. Based on sensitivity results, the patient was placed on Cipro 500 mg p.o. twice daily, which has now been completed. The patient was recently on a course of Augmentin orally for a respiratory infection. A lengthy discussion has been undertaken with the patient with regard to conservative treatment measures for control of the swelling, edema, and chronic venous insufficiency in her lower extremities. Leg elevation has been recommended. She has been encouraged to continue sleeping on a flat mattress at night. Leg elevation to heart level has been encouraged even during daytime hours. Prolonged idle sitting has been discouraged. Activity has been encouraged. Weight loss has also been recommended. We are to continue compression to the lower extremities by means of Spandagrips, in light of the patient's allergy to latex. We are to continue the use of Promogran topically, which we applied by the patient on a daily basis. This is to be applied both on the external and visible portion of the wound, as well as within the tunneled and undermined portion. The patient has been instructed in the appropriate means of application. The patient is to be allowed to shower daily. We have sought insurance preauthorization for the use of negative pressure wound therapy. Two such attempts have been made, and both efforts have been denied by the patient's insurance. Unfortunately, it is felt that negative pressure wound therapy would have been of significant benefit in enhancing the healing of the patient's wound. Denial by the patient's insurance company was perceived as somewhat of a setback and impediment to the patient's potential healing process. However, the use of negative pressure wound therapy at this juncture may be a moot point, as the external portion of the wound is now nearly healed. Given the recent appearance of undermining and tunneling, we have discussed with the patient the possible need for surgical unroofing and debridement of the site if conservative measures fail to result in improvement and satisfactory healing. We will plan to continue current therapy using Promogran. It appears as though the external portion of the wound continues to heal in progressive fashion, with persistence of the tunneled and undermined portion of the wound. Within the next several weeks, if the undermined area fails to improve, surgical intervention may be considered for the purpose of surgical unroofing and debridement. The patient is to return in 1 week for reassessment. Total time: 24 minutes
[2023-02-27 07:57] VITALS: BP 158/86; PULSE 62; RESP 20; TEMP 36; BMI 51.5
--- NOTE | 2023-02-27 08:35 | PCM.WC.HP ---
History of Present Illness Date of Service: 02/27/23 Chief Complaint: Non-healing, dehiscent laceration of the right anterior calf History of Wound: This is a 62-year-old morbidly obese female who was in her normal state of health until December 09, 2022. On that date, she sustained a laceration to the right anterior calf following impact with a car door. She is known to have chronic swelling and edema in her lower extremities, as well as chronic venous insufficiency. Upon sustaining the injury, patient presented to the emergency department at [facility], where suture repair of the laceration was performed. She was also treated with a prescription of Augmentin. Eight days later, her sutures were removed without incident. 2 days following suture removal, the patient re-traumatized the area, causing a dehiscence of the wound, prompting her to seek medical attention in the [facility] Emergency Department. According to the patient, a resident performed a suture closure, and the patient was discharged. However, the patient's traumatic wound has failed to heal. In fact, it appears to have become dehiscent, with evidence of nonviable and necrotic tissue present. The patient has chronic swelling and edema in her lower extremities. She sleeps on a flat mattress at night, and is active. She denies a history of thrombophlebitis. 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 [facility] Medical History Acute conjunctivitis Acute sinusitis Alcohol use Asthma Asthma, moderate persistent Back pain Bruising Cardiology follow-up encounter Chronic venous insufficiency Chronic venous insufficiency Coronary artery calcification COVID-19 CPAP (continuous positive airway pressure) dependence Dyspnea on exertion Easy bruising Edema of leg Essential hypertension Former smoker Gastric reflux GERD (gastroesophageal reflux disease) High cholesterol History of echocardiogram History of edema History of stress test History of trigger finger Hyperlipidemia Hypertension Left leg swelling Leg cramps Leg edema, left Leg edema, right Leg swelling Morbid obesity with BMI of 50.0-59.9, adult Non-pressure chronic ulcer of right calf with fat layer exposed Obesity MALACHI (obstructive sleep apnea) MALACHI on CPAP PAC (premature atrial contraction) Premature atrial contraction Preoperative cardiovascular examination Pure hypercholesterolemia Right leg swelling Shortness of breath on exertion Surgical wound dehiscence Urinary incontinence Urinary tract infection Urine incontinence Ventral hernia Home Medications amlodipine 10 mg tablet 10 mg PO QHS 06/19/16 [History Last Taken Unknown] ascorbic acid (vitamin C) 1,000 mg tablet 1,000 mg PO DAILY 06/19/16 [History Last Taken Unknown] evening primrose oil 500 mg capsule 500 mg PO DAILY 06/19/16 [History Last Taken Unknown] hydrochlorothiazide 25 mg tablet 25 mg PO DAILY 06/19/16 [History Last Taken Unknown] omeprazole 20 mg capsule,delayed release 20 mg PO DAILY 06/19/16 [History Last Taken 08/08/21 06:30] PEP device #1 ea 08/26/18 [Rx Last Taken Unknown] benzonatate 200 mg capsule 200 mg PO TID PRN cough #90 caps 09/03/18 [Rx Last Taken Unknown] vitamin B complex (B Complex-Vitamin B12 tablet) 1 tab PO DAILY 10/15/18 [History Last Taken Unknown] cholecalciferol (vitamin D3) 50 mcg (2,000 unit) capsule 50 mcg PO DAILY 08/26/20 [History Last Taken Unknown] loratadine 10 mg tablet (Claritin) 10 mg PO DAILY 08/26/20 [History Last Taken Unknown] tolterodine 4 mg capsule,extended release 24 hr (Detrol LA) 4 mg PO DAILY 08/26/20 [History Last Taken Unknown] losartan 50 mg tablet 50 mg PO QHS 11/26/20 [History Last Taken Unknown] Acapella #1 ea 12/21/21 [Rx Last Taken Unknown] Peak Flow meter #1 ea 12/21/21 [Rx Last Taken Unknown] zinc sulfate 66 mg tablet 66 mg PO DAILY 12/22/21 [History Last Taken Unknown] naproxen 500 mg tablet 250 mg PO DAILY 05/29/22 [History Last Taken Unknown] phenazopyridine 100 mg tablet (Pyridium) 100 mg PO TID PRN pain 06/21/22 [History Last Taken Unknown] Lactobacillus acidophilus 1 cap PO DAILY 07/27/22 [History Last Taken Unknown] citalopram 20 mg tablet 20 mg PO DAILY 07/27/22 [History Last Taken Unknown] rosuvastatin 10 mg tablet 10 mg PO DAILY 07/27/22 [History Last Taken Unknown] carvedilol 6.25 mg tablet 6.25 mg PO BID #180 tabs 09/21/22 [Rx Last Taken Unknown] albuterol sulfate 90 mcg/actuation aerosol inhaler (ProAir HFA) 2 puff inhalation Q4H PRN shortness of breath or wheezing #8.5 grams 11/07/22 [Rx Last Taken Unknown] sodium chloride 7 % for nebulization 4 ml inhalation BID #240 mL 12/05/22 [Rx Last Taken Unknown] fluticasone fur. 200 mcg-umeclid 62.5 mcg-vilant 25 mcg inhalat.powder (Trelegy Ellipta) 1 inh inhalation DAILY #60 ea 02/08/23 [Rx Last Taken Unknown] fluticasone furoate 200 mcg-vilanterol 25 mcg/dose inhalation powder (Breo Ellipta) 1 inh inhalation DAILY #60 ea 02/08/23 [Rx Last Taken Unknown] prednisone 10 mg tablet 10 mg PO QDAY #30 tabs 02/16/23 [Rx Last Taken Unknown] cefdinir 300 mg capsule 300 mg PO Q12H 14 days #28 caps 02/19/23 [Rx Last Taken Unknown] Allergy/AdvReac Type Severity Reaction Status Date / Time lisinopril Allergy Unknown Cough Verified 02/24/23 20:22 clarithromycin [From Biaxin] Allergy Other Verified 02/24/23 20:22 codeine Allergy Other Verified 02/24/23 20:22 doxycycline Allergy Upset Verified 02/24/23 20:22 Stomach erythromycin base Allergy Other Verified 02/24/23 20:22 latex AdvReac Anaphylaxis Verified 02/24/23 20:22 Family History Father Hypertension CAD (coronary artery disease) History of coronary artery bypass surgery Myocardial infarction, Onset Age: 50 Mother Heart disease Brother Melanoma Surgical History History of bladder repair surgery History of bladder repair surgery History of carpal tunnel release of both wrists History of carpal tunnel surgery History of carpal tunnel surgery History of cholecystectomy History of cholecystectomy History of partial hysterectomy History of partial hysterectomy History of tonsillectomy History of tonsillectomy History of total knee arthroplasty History of total knee replacement History of ventral hernia repair History of ventral hernia repair Status post trigger finger release Social History Smoking Status: Former smoker pack-years: 16 second hand exposure: No alcohol intake: current alcohol intake frequency: a few times a week Alcohol type: wine substance use type: does not use caffeine: No what type of physical activity do you participate in: walking and swimming Vital Signs Vital Signs Vital Signs: 02/27/23 07:57 Temperature 96.8 F L Temperature Source Temporal Pulse Rate 62 Respiratory Rate 20 H Blood Pressure 158/86 H Blood Pressure Mean 110 Blood Pressure Source Manual Blood Pressure Position Sitting Blood Pressure Location Right Arm Oxygen Delivery Method Room Air Weight Weight: 300 lb Body Mass Index (BMI) 51.5 Physical Exam Const alert, oriented x3, no apparent distress and well nourished Constitutional Narrative: The patient is morbidly obese. Her BMI is 51.5. General Appearance: cooperative, comfortable, well kempt and well developed Orientation / Consciousness: awake, oriented to person, oriented to place and oriented to time Exam Limitations: no limitations HEENT normocephalic, head/scalp atraumatic and hearing grossly normal bilaterally Head and Scalp: normal to inspection, normocephalic and atraumatic External Ear: external ears normal Eyes PERRL and EOMs intact bilaterally General Eye: normal appearance of both eyes Neck full ROM General: normal visual inspection Resp normal respiratory effort, normal air movement, no retractions and no use of accessory muscles Effort and Inspection: able to speak in complete sentences Extremity no calf tenderness General Extremity: Negative for clubbing or cyanosis Skin Wound Narrative: A traumatic wound is noted on the patient's right anterior calf. This is the result of a laceration sustained after impacting a car door. The laceration was initially sutured, following which sutures were removed 8 days later. The patient re-traumatized the site, prompting dehiscence of her wound, at which time the laceration was re-sutured closed. The wound again dehisced, with a row of approximately 8-10 sutures remaining, which were removed at the patient's initial visit at our facility, as they were providing no benefit to wound closure. A traumatic wound persists. With the initiation of treatment at our facility, the amount of frankly necrotic and nonviable tissue has been eliminated. The external portion of the wound is now nearly completely healed. There has been additional improvement just within the last week. A very small area of undermining and tunneling persists extending into the subcutaneous tissue, but extending only several millimeters. Both the external and subcutaneous portions of the wound are now minimal in size. The external wound is pink and healthy in appearance. There is no visible evidence of infection or cellulitis. Wound dimensions are documented elsewhere. Both the external and internal portions of the wound have diminished in size progressively, and the prognosis for total healing now appears to be relatively promising. Neuro oriented x3, CN's II-XII intact bilaterally, moves all extremities and no focal motor deficits Sensorium / Orientation: awake, alert, oriented to person, oriented to place and oriented to time Psych Appearance: grossly normal and appropriate Attitude: calm Activity / Motor Behavior: appropriate eye contact Speech: normal speech Mood & Affect: euthymic mood Thought Process: normal thought process Thought Content: normal thought content Attention / Concentration: attention grossly intact Debridement Note Debridement Note Debridement Free Text: No debridement was performed today, as the wound is now nearly completely healed, both the external and subcutaneous portion. The external portion of the wound is extremely small, only several millimeters in diameter. The tract has been gently probed, and also appears to be only about 2 mm in depth. Continued healing of both the external and subcutaneous portions of the wound are anticipated. No debridement was completed: No debridement was completed today Post-Debridement Measurements and Additional Note: Post-Debridement Measurements/Treatment - Nurse 1 - General Ulcer Assessment Start: 02/06/23 08:05 Freq: Status: Active Protocol: GEREMIAS Activity Type Activity Date Activity User E-sign Co-sign Detail Recorded Client Recorded Date Recorded By Document 02/06/23 08:05 DL Desktop 02/06/23 08:10 DL Document 02/13/23 10:03 RB Desktop 02/13/23 10:06 RB Document 02/20/23 08:11 RB Desktop 02/20/23 08:13 RB Document 02/27/23 07:57 GM Desktop 02/27/23 08:14 02/06/23 02/13/23 02/20/23 08:05 10:03 08:11 - Today's Visit Information Type of service Follow-up Visit Follow-up Visit Follow-up Visit (Physician/SUPERVISOR WRAPPING ROOM (Physician/SUPERVISOR WRAPPING ROOM (Physician/SUPERVISOR WRAPPING ROOM ) ) ) Arrival Mode Ambulatory Ambulatory Ambulatory Transfer Assistance None None None Patient Identification Verified (Name & Yes Yes Yes ) Patient Requires Transmission-Based No No No Precautions Height and Weight Body Mass Index (BMI) 51.5 51.5 51.5 BMI Classification Obese Obese Obese Vital Signs Temperature (97.8 F-99.1 F) 97.5 F L 97 F L 97 F L Temperature Source Temporal Temporal Temporal Pulse Rate (60-100) 82 82 Pulse Location Monitor Monitor Respiratory Rate (12-18) 20 H 18 18 Respiratory rate source Observation Observation Observation Oxygen Delivery Method Blood Pressure (90/60-120/80) 142/80 H 134/82 H 146/78 H Blood Pressure Mean 100 99 100 Source Monitor Monitor Monitor Position Semi-Fowlers Semi-Fowlers Blood Pressure Location Left Arm Left Arm History Since Last Visit- (Skip if this is Patient's initial visit) Have you changed medications since your No No No last visit? Any new allergies or adverse reactions No No No Had a fall/change in ADL's that may No No No increase risk of falls Signs or symptoms of abuse and/or No No No neglect since last visit Have you been in the hospital since your No No No last visit? Has dressing in place as prescribed Yes Yes Yes Has compression in place as prescribed Yes Yes Yes Has offloadiing in place as prescribed N/A No No Experienced any changes in pain level or No No No management Pain Scale: 0-10 Numeric Is Patient Pain Free? Yes Yes Yes 02/27/23 07:57 WC - Today's Visit Information Type of service Follow-up Visit (Physician/SUPERVISOR WRAPPING ROOM ) Arrival Mode Ambulatory Transfer Assistance Patient Identification Verified (Name & Yes ) Patient Requires Transmission-Based No Precautions Height and Weight Body Mass Index (BMI) 51.5 BMI Classification Obese Vital Signs Temperature (97.8 F-99.1 F) 96.8 F L Temperature Source Temporal Pulse Rate (60-100) 62 Pulse Location Monitor Respiratory Rate (12-18) 20 H Respiratory rate source Observation Oxygen Delivery Method Room Air Blood Pressure (90/60-120/80) 158/86 H Blood Pressure Mean 110 Source Manual Position Sitting Blood Pressure Location Right Arm History Since Last Visit- (Skip if this is Patient's initial visit) Have you changed medications since your Yes last visit? Any new allergies or adverse reactions No Had a fall/change in ADL's that may No increase risk of falls Signs or symptoms of abuse and/or No neglect since last visit Have you been in the hospital since your No last visit? Has dressing in place as prescribed Yes Has compression in place as prescribed Yes Has offloadiing in place as prescribed No Experienced any changes in pain level or No management Pain Scale: 0-10 Numeric Is Patient Pain Free? Yes WC - Nurse 1 - General Ulcer Measurement Start: 02/06/23 08:05 Freq: Status: Active Protocol: Activity Type Activity Date Activity User E-sign Co-sign Detail Recorded Client Recorded Date Recorded By Document 02/06/23 08:05 DL Desktop 02/06/23 08:10 DL Document 02/13/23 10:03 RB Desktop 02/13/23 10:06 RB Document 02/20/23 08:11 RB Desktop 02/20/23 08:13 RB Document 02/27/23 07:57 GM Desktop 02/27/23 08:14 GM 02/06/23 02/13/23 02/20/23 08:05 10:03 08:11 Wound Center Nurse 1 #1 Right lateral LE -Combined with other wound No No -Current Size (cm) - Length 0.7 0.3 0.3 -Current Size (cm) - Width 2.3 1 2 -Current Size (cm) - Depth 1.5 0.4 0.4 -Total Square Cm 1.61 0.3 0.6 -Date of Last Picture (Recall this field) -Photo Taken No -Tunneling No No -Tunneling Position (O'clock) 3 -Tunneling Distance (cm) 1.7 -Undermining/Tunneling No Yes -Undermining/Tunneling Starts (O'clock 3 ) -Undermining/Tunneling Ends (O'clock) 3 -Maximum Distance (cm) 0.4 -Circular Undermining No No -Exudate Amt Medium Medium Medium -Exudate Type Serosanguineous Serosanguineous Serosanguineous -Wound Margin Distinct, Distinct, Distinct, Outline Outline Outline Attached Attached Attached -Granulation Amt Large (67-100%) Medium (34-66%) Medium (34-66%) -Granulation Quality Sayre Sayre Sayre -Slough/Fibrin Yes Yes -Necrosis Amt Medium (34-66%) Medium (34-66%) Medium (34-66%) -Necrotic Tissue Type Adherent Slough Adherent Slough Adherent Slough -Structure Exposed N/A N/A N/A -Texture ([place]-wound Skin Appearance) Scarring Assessed, Assessed Scarring -Moisture ([place]-wound Skin Appearance) No Abnormality Assessed Assessed -Color ([place]-wound Skin Appearance) No Abnormality Assessed Assessed -Temperature ([place]-wound Skin No Abnormality No Abnormality No Abnormality Appearance) (Pt Warm) (Pt Warm) (Pt Warm) -Tenderness on Palpation ([place]-wound No No No Skin Appearance) -Ulcer Cleansing Soap and Water Wound Cleanser Wound Cleanser -Foul Odor after Cleansing No No No -Anesthetic Used 5% Lidocaine 5% Lidocaine 5% Lidocaine Gel Gel Gel Lower Limb Edema Present Yes Yes Right Calf (cm) 51.2 51.5 51 Right Ankle (cm) 30 27.5 29.2 02/27/23 07:57 Wound Center Nurse 1 #1 Right lateral LE -Combined with other wound No -Current Size (cm) - Length 0 -Current Size (cm) - Width 0 -Current Size (cm) - Depth 0 -Total Square Cm 0 -Date of Last Picture (Recall this 02/27/23 field) -Photo Taken Yes -Tunneling -Tunneling Position (O'clock) -Tunneling Distance (cm) -Undermining/Tunneling -Undermining/Tunneling Starts (O'clock ) -Undermining/Tunneling Ends (O'clock) -Maximum Distance (cm) -Circular Undermining -Exudate Amt -Exudate Type -Wound Margin -Granulation Amt -Granulation Quality -Slough/Fibrin -Necrosis Amt -Necrotic Tissue Type -Structure Exposed -Texture ([place]-wound Skin Appearance) -Moisture ([place]-wound Skin Appearance) -Color ([place]-wound Skin Appearance) -Temperature ([place]-wound Skin Appearance) -Tenderness on Palpation ([place]-wound Skin Appearance) -Ulcer Cleansing -Foul Odor after Cleansing -Anesthetic Used Lower Limb Edema Present Right Calf (cm) 54 Right Ankle (cm) 29.5 WC - Nurse 2 - General Ulcer CM Notes Start: 02/06/23 08:05 Freq: Status: Active Protocol: Activity Type Activity Date Activity User E-sign Co-sign Detail Recorded Client Recorded Date Recorded By Document 02/06/23 12:39 PL [id number] 02/06/23 12:40 PL Document 02/13/23 12:15 PL [id number] 02/13/23 12:16 PL Document 02/20/23 08:54 PL [id number] 02/20/23 08:55 PL 02/06/23 02/13/23 02/20/23 12:39 12:15 08:54 Wound Center Nurse 2 #1 Right lateral LE -Time 08:18 10:17 08:17 -Correct Patient Yes Yes Yes -Correct Side, Site, Position Yes Yes Yes -Correct Procedure Yes Yes Yes -Procedure Performed Yes No Yes -Type of Procedure Debridement Debridement -Clinical Debridement Subcutaneous Subcutaneous -Tissue Removed Subcutaneous Subcutaneous -Post Debridement (cm) - Length 0.7 0.3 0.3 -Post Debridement (cm) - Width 2.3 2.0 2.0 -Post Debridement (cm) - Depth 1.5 1.8 0.4 -Total Square (Post) (cm) 1.61 0.60 0.60 -Area of Debridement (cm) - Length 0.7 0.3 -Area of Debridement (cm) - Width 2.3 2.0 -Total Square (Area) (cm) 1.61 0.60 -Tunneling No Yes No -Tunneling Position (O'clock) 9 -Tunneling Distance (cm) 1.8 -Undermining/Tunneling No No -Circular Undermining No No -Wound/Ulcer Outcome Not Healed Not Healed Not Healed -Ulcer Cleansing Rinsed/ Rinsed/ Rinsed/ Irrigated with Irrigated with Irrigated with Saline Saline Saline -Foul Odor after Cleansing No No No -Bioengineered Tissue No No No -Bleeding Controlled with Pressure Pressure NA -Treatment Response Procedure Procedure Procedure Tolerated Well Tolerated Well Tolerated Well -Debridement - Subq, 1st 20sq cm Yes Yes Pain Scale: 0-10 Numeric Is Patient Pain Free? Yes Yes Yes WC - Nurse 3 - General Ulcer D/C NN Start: 02/06/23 08:05 Freq: Status: Active Protocol: Activity Type Activity Date Activity User E-sign Co-sign Detail Recorded Client Recorded Date Recorded By Document 02/06/23 08:38 MW Desktop 02/06/23 08:38 MW Document 02/13/23 10:37 RB Desktop 02/13/23 10:38 RB Document 02/20/23 08:36 KW Desktop 02/20/23 08:41 KW 02/06/23 02/13/23 02/20/23 08:38 10:37 08:36 Wound Care Center Nurse 3 #1 Right lateral LE -Ulcer Cleansing Rinsed/ Rinsed/ Rinsed/ Irrigated with Irrigated with Irrigated with Saline Saline Saline -Foul Odor after Cleansing No -Negative Pressure Wound Therapy N/A -Primary Dressing Applied Mepilex Border, Mepilex Border, Promogran Promogran -Primary Dressing Covered/Secured with Dry Gauze, Secured with Tape -Mepilex Border 1 1 -Promogran 3 1 Right -Other pt own single layer tubigrip Treatment Response Procedure Procedure Tolerated Well Tolerated Well Pain Scale: 0-10 Numeric Is Patient Pain Free? Yes Yes Yes Teaching: Wound Center Dressing Your Wound -Person Taught Patient Patient -Teaching Method Discussion, Discussion, Demonstration Demonstration -Response to teaching Verbalize Verbalize understanding understanding WC - Visit Discharge Discharge Condition Stable Stable Stable Ambulatory Status Ambulatory Ambulatory Ambulatory Transportation Private Auto Private Auto Private Auto Accompanied by self Medication Reconcilliation completed & No No No provided to patient/care provider Clinical Summary of Care Provided Yes Yes Yes Assessment/Plan Assessment/Plan (1) Non-pressure chronic ulcer of right calf with fat layer exposed: CODE(S): L97.212 - Non-pressure chronic ulcer of right calf with fat layer exposed (2) Chronic venous insufficiency: (3) Laceration of right leg excluding thigh: CODE(S): S81.811A - Laceration without foreign body, right lower leg, initial encounter QUALIFIERS: Encounter type: subsequent encounter Qualified Code(s): S81.811D - Laceration without foreign body, right lower leg, subsequent encounter (4) Surgical wound dehiscence: CODE(S): T81.31XA - Disruption of external operation (surgical) wound, not elsewhere classified, initial encounter QUALIFIERS: Encounter type: subsequent encounter Qualified Code(s): T81.31XD - Disruption of external operation (surgical) wound, not elsewhere classified, subsequent encounter (5) Right leg swelling: CODE(S): M79.89 - Other specified soft tissue disorders (6) Leg edema, right: CODE(S): R60.0 - Localized edema (7) DDD (degenerative disc disease), lumbar: CODE(S): M51.36 - Other intervertebral disc degeneration, lumbar region (8) Ventral incisional hernia without obstruction or gangrene: CODE(S): K43.2 - Incisional hernia without obstruction or gangrene (9) Coronary artery calcification: CODE(S): I25.10 - Atherosclerotic heart disease of [place] coronary artery without angina pectoris; I25.84 - Coronary atherosclerosis due to calcified coronary lesion (10) Chronic venous insufficiency: CODE(S): I87.2 - Venous insufficiency (chronic) (peripheral) (11) MALACHI on CPAP: CODE(S): G47.33 - Obstructive sleep apnea (adult) (pediatric); Z99.89 - Dependence on other enabling machines and devices (12) GERD (gastroesophageal reflux disease): CODE(S): K21.9 - Gastro-esophageal reflux disease without esophagitis (13) Pure hypercholesterolemia: CODE(S): E78.00 - Pure hypercholesterolemia, unspecified (14) Essential hypertension: CODE(S): I10 - Essential (primary) hypertension (15) MALACHI (obstructive sleep apnea): CODE(S): G47.33 - Obstructive sleep apnea (adult) (pediatric) (16) Asthma, moderate persistent: CODE(S): J45.40 - Moderate persistent asthma, uncomplicated QUALIFIERS: Asthma complication type: uncomplicated Qualified Code(s): J45.40 - Moderate persistent asthma, uncomplicated (17) Morbid obesity with BMI of 50.0-59.9, adult: CODE(S): E66.01 - Morbid (severe) obesity due to excess calories; Z68.43 - Body mass index [BMI] 50.0-59.9, adult (18) Dyspnea on exertion: CODE(S): R06.09 - Other forms of dyspnea (19) PAC (premature atrial contraction): CODE(S): I49.1 - Atrial premature depolarization (20) Left leg swelling: CODE(S): M79.89 - Other specified soft tissue disorders (21) Leg edema, left: CODE(S): R60.0 - Localized edema (22) Urinary incontinence: CODE(S): R32 - Unspecified urinary incontinence (23) History of bladder repair surgery: CODE(S): Z98.890 - Other specified postprocedural states (24) History of carpal tunnel release of both wrists: CODE(S): Z98.890 - Other specified postprocedural states (25) History of cholecystectomy: CODE(S): Z90.49 - Acquired absence of other specified parts of digestive tract (26) History of tonsillectomy: CODE(S): Z90.89 - Acquired absence of other organs (27) History of partial hysterectomy: CODE(S): Z90.711 - Acquired absence of uterus with remaining cervical stump (28) History of total knee replacement: CODE(S): Z96.659 - Presence of unspecified artificial knee joint (29) History of ventral hernia repair: CODE(S): Z98.890 - Other specified postprocedural states; Z87.19 - Personal history of other diseases of the digestive system (30) History of trigger finger: CODE(S): Z87.39 - Personal history of other diseases of the musculoskeletal system and connective tissue PLAN: Plan This is a 62-year-old morbidly obese female with a traumatic injury to her right viviane-medial calf. Her recent medical history is as documented above. The wound on the right viviane-medial calf is a dehiscent wound, following 2 recent attempts to suture closed. There is now an area of undermining and tunneling noted centrally, which had not been present in prior weeks. The external portion of the wound has healed well, and is now nearly completely healed. A very small tract persists subcutaneously, which is quite small in size, measuring only approximately 2 mm in depth. A lengthy discussion has been undertaken with the patient with regard to conservative treatment measures for control of the swelling, edema, and chronic venous insufficiency in her lower extremities. Leg elevation has been recommended. She has been encouraged to continue sleeping on a flat mattress at night. Leg elevation to heart level has been encouraged even during daytime hours. Prolonged idle sitting has been discouraged. Activity has been encouraged. Weight loss has also been recommended. We are to continue compression to the lower extremities by means of Spandagrips, in light of the patient's allergy to latex. We are to continue the use of Promogran topically, which we applied by the patient on a daily basis. This is to be applied both on the external and visible portion of the wound, as well as within the small subcutaneous tract. The patient has been instructed in the appropriate means of application. The patient is to be allowed to shower daily. We have sought insurance preauthorization for the use of negative pressure wound therapy. Two such attempts have been made, and both efforts have been denied by the patient's insurance. Unfortunately, it is felt that negative pressure wound therapy would have been of significant benefit in enhancing the healing of the patient's wound. Denial by the patient's insurance company was perceived as somewhat of a setback and impediment to the patient's potential healing process. However, the use of negative pressure wound therapy at this juncture may be a moot point, as the wound is now nearly healed. Given the recent appearance of undermining and tunneling, we have discussed with the patient the possible need for surgical unroofing and debridement of the site if conservative measures fail to result in improvement and satisfactory healing. We will plan to continue current therapy using Promogran. To date, current measures have been quite effective in diminishing the external and subcutaneous portions of the patient's wound. The patient is to return in 1 week for reassessment. Total time: 22 minutes
== END 2023-03-04 23:59 | disposition home or self-care (01) ==
LOC: WC 08:00
PROVIDERS: PCP Internal Medicine; Referring Provider Physician Assistant; Visit Provider Surgery
DX: L97.212 Non-pressure chronic ulcer of right calf with fat layer exposed (principal); E66.01 Morbid (severe) obesity due to excess calories; Z68.43 Body mass index [BMI] 50.0-59.9, adult; G47.33 Obstructive sleep apnea (adult) (pediatric); I25.10 Atherosclerotic heart disease of native coronary artery without angina pectoris; R32 Unspecified urinary incontinence; Z87.891 Personal history of nicotine dependence; J45.40 Moderate persistent asthma, uncomplicated; I10 Essential (primary) hypertension; I49.1 Atrial premature depolarization; K21.9 Gastro-esophageal reflux disease without esophagitis; K43.2 Incisional hernia without obstruction or gangrene; R60.0 Localized edema; Z90.711 Acquired absence of uterus with remaining cervical stump; Z86.16 Personal history of COVID-19; Z79.51 Long term (current) use of inhaled steroids; E78.5 Hyperlipidemia, unspecified; M51.36 Other intervertebral disc degeneration, lumbar region; I87.2 Venous insufficiency (chronic) (peripheral); S81.811D Laceration without foreign body, right lower leg, subsequent encounter; T81.31XD Disruption of external operation (surgical) wound, not elsewhere classified, subsequent encounter; Z87.39 Personal history of other diseases of the musculoskeletal system and connective tissue; Z96.659 Presence of unspecified artificial knee joint; Z90.49 Acquired absence of other specified parts of digestive tract
CPT/HCPCS: 11042; 99213; G0463

== ENCOUNTER 2023-03-01 10:30 | Outpatient (RCR) | payer BC, SELFPAY ==
--- NOTE | 2023-01-11 13:16 | HP.PTEVAL ---
Patient's Visit Information Visit Information Visit Information: KIZZY NASH is a 62 year old F referred to Physical Therapy by Dr. Randall Warren MD with a diagnosis of BACK PAIN ,RIGHT HIP PAIN. Date of Evaluation: 01/11/23 Physical Therapist: Yfn Mendenhall PT, Cert MDT, OCS Visit Plan Frequency: 2x /Week Duration: 4 Weeks Plan: PRECUATION: LATEX ALLERGEY PT INTERVTIONS DLS ,PSOTURALE X'S ,ACTIVITY MODIFICATION ,LUMBAR ROM AND MODALITEIS Subjective Subjective: This 62 y/o female presents to physical therapy with back pain and right hip pain. Patient fell Sept on slippery floor ,and most recently fell `3weeks on steps .Patient had car door slam on lower leg causing laceration ,which patient is under care of wound patient. Patient developed infection which is cleared which was on antibiotics. Patient seen family DR and recommended PT . Patient had x-rays back and hip showed mod/sever DDD . Patient was described muscle relaxer. Patient location of pain described as constant ache . Aggravating factors walking ,standing extended periods ,supine ,bending /lifting. Alleviating factors pain cream ,rest. Denies paresthesia/tingling -.Bowel /bladder-. Coughing/sneezing+ . Patient sleeping okay at night. Patient and MRI ~ 2 years ago. Patient pain affects QOL and function . Patient goals to decrease pain. SOCIAL: VOCATION: retired Pain Right Back: Pain Intensity (Out of 10): 2 Pain Intensity Range: 10 Objective Objective: POSTURE: mild forward posture GAIT: reciprocal pattern mild forward posture SYMMTRIES: align PALAPTION: tender SI/LS right side LUMBAR ROM: flexion min loss ,extension min loss ,side glides min loss MMT: quads/hams 4/5 ,hip flexion/abduction 4-/5,ankle 5/5 FLEXABLITY: hamstrings min loss Special Tests L/S Slump test left side: Negative L/S Slump test right side: Negative L/S Left Straight Leg Raise: Negative L/S Right Straight Leg Raise: Negative Lumbar Standing: Flexion - Mechanical Response: No effect Lumbar Standing: Flexion - Symptoms During Testing: Increases Lumbar Standing: Flexion - Symptoms After Testing: No worse Lumbar Standing: Extension - Mechanical Response: No effect Lumbar Standing: Extension - Symptoms During Testing: Increases Lumbar Standing: Extension - Symptoms After Testing: No worse Lumbar Standing: Right Side Glides - Mechanical Response: No effect Lumbar Standing: Right Side [place] - Symptoms During Testing: No effect Lumbar Standing: Right Side [place] - Symptoms After Testing: No effect Lumbar Standing: Left Side [place] - Mechanical Response: No effect Lumbar Standing: Left Side [place] - Symptoms During Testing: No effect Lumbar Standing: Left Side [place] - Symptoms After Testing: No effect Balance/Special Test Scores Oswestry Low Back Score: 25 Goals Goal 1:: Patient to be I with HEP Goal Time Frame: 4-6 Weeks Goal 2:: Patient to improve lumbar ROM for function of recovery to tie shoes Goal Time Frame: 4-6 Weeks Goal 3:: Patient to improve back oswestry score by 5 points to improve QOL and function Goal Time Frame: 4-6 Weeks Goal 4:: Patient to demonstrate 50% improvement with less pain and improved function Goal Time Frame: 4-6 Weeks Rehabilitation Potential Physical Therapy Diagnosis: This patient has right foraminal stenosis and h/o protruding discs with pain right side with pain with motion testing and positioning affects ADLS and housework tasks thus benefit from skilled PT Rehabilitation Potential: Good Anticipated Interventions Patient/Client Instruction: Educate patient on: Condition and Plan of Care For the Purpose of:: To decrease pain, To increase ROM, To improve muscle performance and motor function, To improve ability to perform ADL's, To increase tolerance to activity/condition/position, To improve ability of physical actions for home/community/work/leisure, To improve gait and locomotor functions, To improve health of tissue, To decrease soft tissue restriction and To increase flexibility/ROM Therapeutic Exercise to Include: Strength training, Balance training, Body mechanics, Postural training, Flexibilty training and Dynamic Lumbar Stabilization For the Purpose of:: To decrease pain, To increase ROM, To improve ability to perform ADL's, To increase tolerance to activity/condition/position, To improve ability of physical actions for home/community/work/leisure, To improve gait and locomotor functions, To improve health of tissue, To decrease soft tissue restriction, To increase flexibility/ROM and To improve tolerance to ADL's TENS: Yes IF ES: Yes Cryotherapy (ice pack, ice massage): Yes Thermo therapy (hot pack): Yes Ultrasound (thermal/non thermal): Yes For the Purpose of:: To decrease pain, To increase ROM, To improve nutrient delivery to tissue, To increase oxygenation perfusion, To improve health of tissue and To decrease soft tissue restriction Text: Thank you for the opportunity to evaluate your patient. For Medicare and Medicare HMO plans, please review the plan of care and approve it. It will need to be FAXED BACK to us at [phone] for Medicare purposes. For Medicare only, by signing this I certify the plan of care. Please let me know if there are questions or concerns regarding this plan of care. Physician Signature: Date:
--- NOTE | 2023-06-15 12:58 | HP.PT.NRP ---
Patient Information Patient Information: KIZZY NASH was seen in my office for initial evaluation on 01/11/23. The following Plan of Care was established for this patient: POC Established Initial Frequency: 2x /Week Initial Duration: 4 Weeks Anticipated Interventions Patient/Client Instruction: Educate patient on: Condition and Plan of Care For the Purpose of:: To decrease pain, To increase ROM, To improve muscle performance and motor function, To improve ability to perform ADL's, To increase tolerance to activity/condition/position, To improve ability of physical actions for home/community/work/leisure, To improve gait and locomotor functions, To improve health of tissue, To decrease soft tissue restriction and To increase flexibility/ROM Therapeutic Exercise to Include: Strength training, Balance training, Body mechanics, Postural training, Flexibilty training and Dynamic Lumbar Stabilization For the Purpose of:: To decrease pain, To increase ROM, To improve ability to perform ADL's, To increase tolerance to activity/condition/position, To improve ability of physical actions for home/community/work/leisure, To improve gait and locomotor functions, To improve health of tissue, To decrease soft tissue restriction, To increase flexibility/ROM and To improve tolerance to ADL's TENS: Yes IF ES: Yes Cryotherapy (ice pack, ice massage): Yes Thermo therapy (hot pack): Yes Ultrasound (thermal/non thermal): Yes For the Purpose of:: To decrease pain, To increase ROM, To improve nutrient delivery to tissue, To increase oxygenation perfusion, To improve health of tissue and To decrease soft tissue restriction Last Seen Last Seen: This patient was last seen in our office . Pertinent comments regarding their Physical therapy will appear below: Patient was seen for PT for Back pain .Doing better with exercises and HEP At this point I will be discontinuing this patient from physical therapy. I would be happy to see this patient again in the future if found appropriate by the physician. Thank you! Yfn Mendenhall, PT, Cert MDT, OCS Balance/Gait/Functional tests Balance/Special Test Scores Oswestry Low Back Score: 25
== END 2023-03-01 19:00 | disposition home or self-care (01) ==
LOC: PT 10:30
PROVIDERS: PCP Internal Medicine; Referring Provider Internal Medicine; Visit Provider Internal Medicine
DX: M25.551 Pain in right hip (principal); M54.9 Dorsalgia, unspecified
CPT/HCPCS: 97110; 97162

== ENCOUNTER 2023-04-03 08:00 | Outpatient (RCR) | payer BC, SELFPAY ==
[2023-03-05 00:12] VITALS: BP 158/86; PULSE 62; RESP 20; TEMP 36; BMI 51.5
[2023-03-06 08:10] VITALS: BP 128/70; PULSE 82; RESP 18; TEMP 35.8; BMI 51.5
--- NOTE | 2023-03-06 08:32 | PCM.WC.HP ---
History of Present Illness Date of Service: 03/06/23 Chief Complaint: Non-healing, dehiscent laceration of the right anterior calf History of Wound: This is a 62-year-old morbidly obese female who was in her normal state of health until December 09, 2022. On that date, she sustained a laceration to the right anterior calf following impact with a car door. She is known to have chronic swelling and edema in her lower extremities, as well as chronic venous insufficiency. Upon sustaining the injury, patient presented to the emergency department at [facility], where suture repair of the laceration was performed. She was also treated with a prescription of Augmentin. Eight days later, her sutures were removed without incident. 2 days following suture removal, the patient re-traumatized the area, causing a dehiscence of the wound, prompting her to seek medical attention in the [facility] Emergency Department. According to the patient, a resident performed a suture closure, and the patient was discharged. However, the patient's traumatic wound has failed to heal. In fact, it appears to have become dehiscent, with evidence of nonviable and necrotic tissue present. The patient has chronic swelling and edema in her lower extremities. She sleeps on a flat mattress at night, and is active. She denies a history of thrombophlebitis. 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 [facility] Medical History Acute conjunctivitis Acute sinusitis Alcohol use Asthma Asthma, moderate persistent Back pain Bruising Cardiology follow-up encounter Chronic venous insufficiency Chronic venous insufficiency Coronary artery calcification COVID-19 CPAP (continuous positive airway pressure) dependence Dyspnea on exertion Easy bruising Edema of leg Essential hypertension Former smoker Gastric reflux GERD (gastroesophageal reflux disease) High cholesterol History of echocardiogram History of edema History of stress test History of trigger finger Hyperlipidemia Hypertension Left leg swelling Leg cramps Leg edema, left Leg edema, right Leg swelling Morbid obesity with BMI of 50.0-59.9, adult Non-pressure chronic ulcer of right calf with fat layer exposed Obesity MALACHI (obstructive sleep apnea) MALACHI on CPAP PAC (premature atrial contraction) Premature atrial contraction Preoperative cardiovascular examination Pure hypercholesterolemia Right leg swelling Shortness of breath on exertion Surgical wound dehiscence Urinary incontinence Urinary tract infection Urine incontinence Ventral hernia Home Medications amlodipine 10 mg tablet 10 mg PO QHS 06/19/16 [History Last Taken Unknown] ascorbic acid (vitamin C) 1,000 mg tablet 1,000 mg PO DAILY 06/19/16 [History Last Taken Unknown] evening primrose oil 500 mg capsule 500 mg PO DAILY 06/19/16 [History Last Taken Unknown] hydrochlorothiazide 25 mg tablet 25 mg PO DAILY 06/19/16 [History Last Taken Unknown] omeprazole 20 mg capsule,delayed release 20 mg PO DAILY 06/19/16 [History Last Taken 08/08/21 06:30] PEP device #1 ea 08/26/18 [Rx Last Taken Unknown] benzonatate 200 mg capsule 200 mg PO TID PRN cough #90 caps 09/03/18 [Rx Last Taken Unknown] vitamin B complex (B Complex-Vitamin B12 tablet) 1 tab PO DAILY 10/15/18 [History Last Taken Unknown] cholecalciferol (vitamin D3) 50 mcg (2,000 unit) capsule 50 mcg PO DAILY 08/26/20 [History Last Taken Unknown] loratadine 10 mg tablet (Claritin) 10 mg PO DAILY 08/26/20 [History Last Taken Unknown] tolterodine 4 mg capsule,extended release 24 hr (Detrol LA) 4 mg PO DAILY 08/26/20 [History Last Taken Unknown] losartan 50 mg tablet 50 mg PO QHS 11/26/20 [History Last Taken Unknown] Acapella #1 ea 12/21/21 [Rx Last Taken Unknown] Peak Flow meter #1 ea 12/21/21 [Rx Last Taken Unknown] zinc sulfate 66 mg tablet 66 mg PO DAILY 12/22/21 [History Last Taken Unknown] naproxen 500 mg tablet 250 mg PO DAILY 05/29/22 [History Last Taken Unknown] phenazopyridine 100 mg tablet (Pyridium) 100 mg PO TID PRN pain 06/21/22 [History Last Taken Unknown] Lactobacillus acidophilus 1 cap PO DAILY 07/27/22 [History Last Taken Unknown] citalopram 20 mg tablet 20 mg PO DAILY 07/27/22 [History Last Taken Unknown] rosuvastatin 10 mg tablet 10 mg PO DAILY 07/27/22 [History Last Taken Unknown] carvedilol 6.25 mg tablet 6.25 mg PO BID #180 tabs 09/21/22 [Rx Last Taken Unknown] albuterol sulfate 90 mcg/actuation aerosol inhaler (ProAir HFA) 2 puff inhalation Q4H PRN shortness of breath or wheezing #8.5 grams 11/07/22 [Rx Last Taken Unknown] sodium chloride 7 % for nebulization 4 ml inhalation BID #240 mL 12/05/22 [Rx Last Taken Unknown] fluticasone fur. 200 mcg-umeclid 62.5 mcg-vilant 25 mcg inhalat.powder (Trelegy Ellipta) 1 inh inhalation DAILY #60 ea 02/08/23 [Rx Last Taken Unknown] fluticasone furoate 200 mcg-vilanterol 25 mcg/dose inhalation powder (Breo Ellipta) 1 inh inhalation DAILY #60 ea 02/08/23 [Rx Last Taken Unknown] prednisone 10 mg tablet 10 mg PO QDAY #30 tabs 02/16/23 [Rx Last Taken Unknown] Allergy/AdvReac Type Severity Reaction Status Date / Time lisinopril Allergy Unknown Cough Verified 02/24/23 20:22 clarithromycin [From Biaxin] Allergy Other Verified 02/24/23 20:22 codeine Allergy Other Verified 02/24/23 20:22 doxycycline Allergy Upset Verified 02/24/23 20:22 Stomach erythromycin base Allergy Other Verified 02/24/23 20:22 latex AdvReac Anaphylaxis Verified 02/24/23 20:22 Family History Father Hypertension CAD (coronary artery disease) History of coronary artery bypass surgery Myocardial infarction, Onset Age: 50 Mother Heart disease Brother Melanoma Surgical History History of bladder repair surgery History of bladder repair surgery History of carpal tunnel release of both wrists History of carpal tunnel surgery History of carpal tunnel surgery History of cholecystectomy History of cholecystectomy History of partial hysterectomy History of partial hysterectomy History of tonsillectomy History of tonsillectomy History of total knee arthroplasty History of total knee replacement History of ventral hernia repair History of ventral hernia repair Status post trigger finger release Social History Smoking Status: Former smoker pack-years: 16 second hand exposure: No alcohol intake: current alcohol intake frequency: a few times a week Alcohol type: wine substance use type: does not use caffeine: No what type of physical activity do you participate in: walking and swimming Vital Signs Vital Signs Vital Signs: 03/06/23 08:10 Temperature 96.5 F L Temperature Source Temporal Pulse Rate 82 Respiratory Rate 18 Blood Pressure 128/70 H Blood Pressure Mean 89 Blood Pressure Source Monitor Blood Pressure Position Semi-Fowlers Blood Pressure Location Left Arm Weight Weight: 300 lb Body Mass Index (BMI) 51.5 Physical Exam Const alert, oriented x3, no apparent distress and well nourished Constitutional Narrative: The patient is morbidly obese. Her BMI is 51.5. General Appearance: cooperative, comfortable, well kempt and well developed Orientation / Consciousness: awake, oriented to person, oriented to place and oriented to time Exam Limitations: no limitations HEENT normocephalic, head/scalp atraumatic and hearing grossly normal bilaterally Head and Scalp: normal to inspection, normocephalic and atraumatic External Ear: external ears normal Eyes PERRL and EOMs intact bilaterally General Eye: normal appearance of both eyes Neck full ROM General: normal visual inspection Resp normal respiratory effort, normal air movement, no retractions and no use of accessory muscles Effort and Inspection: able to speak in complete sentences Extremity no calf tenderness General Extremity: Negative for clubbing or cyanosis Skin Wound Narrative: A traumatic wound is noted on the patient's right anterior calf. This is the result of a laceration sustained after impacting a car door. The laceration was initially sutured, following which sutures were removed 8 days later. The patient re-traumatized the site, prompting dehiscence of her wound, at which time the laceration was re-sutured closed. The wound again dehisced, with a row of approximately 8-10 sutures remaining, which were removed at the patient's initial visit at our facility, as they were providing no benefit to wound closure. A traumatic wound persists. With the initiation of treatment at our facility, the amount of frankly necrotic and nonviable tissue has been eliminated. The external portion of the wound is now completely healed. There has been additional improvement just within the last week. A very small area of undermining and tunneling persists extending into the subcutaneous tissue, but extending only several millimeters. There is only a punctate opening at the surface. There is no visible evidence of infection or cellulitis. No drainage is noted. Wound dimensions are documented elsewhere. The wound has diminished in size progressively, and the prognosis for total healing now appears to be relatively promising. Neuro oriented x3, CN's II-XII intact bilaterally, moves all extremities and no focal motor deficits Sensorium / Orientation: awake, alert, oriented to person, oriented to place and oriented to time Psych Appearance: grossly normal and appropriate Attitude: calm Activity / Motor Behavior: appropriate eye contact Speech: normal speech Mood & Affect: euthymic mood Thought Process: normal thought process Thought Content: normal thought content Attention / Concentration: attention grossly intact Debridement Note Debridement Note Wound debrided: Right viviane-lateral calf Laterality: Right Type of Debridement: Excisional debridement Anesthesia Used: 5% Lidocaine Gel Depth: Down to and including healthy tissue and in the subcutaneous layer Percentage of wound debrided: 100 Instrument Used: 3mm curette Tissue Removed: Bioburden Severity: Fat Layer Exposed Amount of bleeding with debridement: Mild Bleeding Controlled with: Compression and gauze Patient tolerated procedure: Patient tolerated procedure well Post-Debridement Measurements and Additional Note: Post-Debridement Measurements/Treatment - Nurse 1 - General Ulcer Assessment Start: 03/06/23 08:10 Freq: Status: Active Protocol: .[employer] Activity Type Activity Date Activity User E-sign Co-sign Detail Recorded Client Recorded Date Recorded By Document 03/06/23 08:10 Desktop 03/06/23 08:12 03/06/23 08:10 - Today's Visit Information Type of service Follow-up Visit (Physician/[employer] ) Arrival Mode Ambulatory Transfer Assistance None Patient Identification Verified (Name & Yes ) Patient Requires Transmission-Based No Precautions Height and Weight Body Mass Index (BMI) 51.5 BMI Classification Obese Vital Signs Temperature (97.8 F-99.1 F) 96.5 F L Temperature Source Temporal Pulse Rate (60-100) 82 Pulse Location Monitor Respiratory Rate (12-18) 18 Respiratory rate source Observation Blood Pressure (90/60-120/80) 128/70 H Blood Pressure Mean 89 Source Monitor Position Semi-Fowlers Blood Pressure Location Left Arm History Since Last Visit- (Skip if this is Patient's initial visit) Have you changed medications since your No last visit? Any new allergies or adverse reactions No Had a fall/change in ADL's that may No increase risk of falls Signs or symptoms of abuse and/or No neglect since last visit Have you been in the hospital since your No last visit? Has dressing in place as prescribed Yes Has compression in place as prescribed No Has offloadiing in place as prescribed No Experienced any changes in pain level or No management Pain Scale: 0-10 Numeric Is Patient Pain Free? Yes - Nurse 1 - General Ulcer Measurement Start: 03/06/23 08:10 Freq: Status: Active Protocol: Activity Type Activity Date Activity User E-sign Co-sign Detail Recorded Client Recorded Date Recorded By Document 03/06/23 08:10 RB Desktop 03/06/23 08:12 RB 03/06/23 08:10 Wound Center Nurse 1 #1 Right lateral LE -Combined with other wound No -Current Size (cm) - Length 0.2 -Current Size (cm) - Width 0.3 -Current Size (cm) - Depth 0.3 -Total Square Cm 0.06 -Tunneling No -Undermining/Tunneling No -Circular Undermining No -Exudate Amt Medium -Exudate Type Serosanguineous -Wound Margin Distinct, Outline Attached -Granulation Amt Medium (34-66%) -Granulation Quality [place] -Slough/Fibrin Yes -Necrosis Amt Medium (34-66%) -Necrotic Tissue Type Adherent Slough -Structure Exposed N/A -Texture ([place]-wound Skin Appearance) Assessed, Scarring -Moisture ([place]-wound Skin Appearance) Assessed -Color ([place]-wound Skin Appearance) Assessed -Temperature ([place]-wound Skin No Abnormality Appearance) (Pt Warm) -Tenderness on Palpation ([place]-wound No Skin Appearance) -Ulcer Cleansing Wound Cleanser -Foul Odor after Cleansing No -Anesthetic Used 5% Lidocaine Gel Lower Limb Edema Present Yes Right Calf (cm) 50.5 Right Ankle (cm) 27.5 - Nurse 3 - General Ulcer D/C NN Start: 03/06/23 08:10 Freq: Status: Active Protocol: Activity Type Activity Date Activity User E-sign Co-sign Detail Recorded Client Recorded Date Recorded By Document 03/06/23 08:27 KW Desktop 03/06/23 08:28 KW 03/06/23 08:27 Wound Care Center Nurse 3 #1 Right lateral LE -Ulcer Cleansing Rinsed/ Irrigated with Saline Pain Scale: 0-10 Numeric Is Patient Pain Free? Yes WC - Visit Discharge Discharge Condition Stable Ambulatory Status Ambulatory Transportation Private Auto Medication Reconcilliation completed & No provided to patient/care provider Clinical Summary of Care Provided Yes Assessment/Plan Assessment/Plan (1) Non-pressure chronic ulcer of right calf with fat layer exposed: CODE(S): L97.212 - Non-pressure chronic ulcer of right calf with fat layer exposed (2) Chronic venous insufficiency: (3) Laceration of right leg excluding thigh: CODE(S): S81.811A - Laceration without foreign body, right lower leg, initial encounter QUALIFIERS: Encounter type: subsequent encounter Qualified Code(s): S81.811D - Laceration without foreign body, right lower leg, subsequent encounter (4) Surgical wound dehiscence: CODE(S): T81.31XA - Disruption of external operation (surgical) wound, not elsewhere classified, initial encounter QUALIFIERS: Encounter type: subsequent encounter Qualified Code(s): T81.31XD - Disruption of external operation (surgical) wound, not elsewhere classified, subsequent encounter (5) Right leg swelling: CODE(S): M79.89 - Other specified soft tissue disorders (6) Leg edema, right: CODE(S): R60.0 - Localized edema (7) DDD (degenerative disc disease), lumbar: CODE(S): M51.36 - Other intervertebral disc degeneration, lumbar region (8) Ventral incisional hernia without obstruction or gangrene: CODE(S): K43.2 - Incisional hernia without obstruction or gangrene (9) Coronary artery calcification: CODE(S): I25.10 - Atherosclerotic heart disease of false pass coronary artery without angina pectoris; I25.84 - Coronary atherosclerosis due to calcified coronary lesion (10) Chronic venous insufficiency: CODE(S): I87.2 - Venous insufficiency (chronic) (peripheral) (11) MALACHI on CPAP: CODE(S): G47.33 - Obstructive sleep apnea (adult) (pediatric); Z99.89 - Dependence on other enabling machines and devices (12) GERD (gastroesophageal reflux disease): CODE(S): K21.9 - Gastro-esophageal reflux disease without esophagitis (13) Pure hypercholesterolemia: CODE(S): E78.00 - Pure hypercholesterolemia, unspecified (14) Essential hypertension: CODE(S): I10 - Essential (primary) hypertension (15) MALACHI (obstructive sleep apnea): CODE(S): G47.33 - Obstructive sleep apnea (adult) (pediatric) (16) Asthma, moderate persistent: CODE(S): J45.40 - Moderate persistent asthma, uncomplicated QUALIFIERS: Asthma complication type: uncomplicated Qualified Code(s): J45.40 - Moderate persistent asthma, uncomplicated (17) Morbid obesity with BMI of 50.0-59.9, adult: CODE(S): E66.01 - Morbid (severe) obesity due to excess calories; Z68.43 - Body mass index [BMI] 50.0-59.9, adult (18) Dyspnea on exertion: CODE(S): R06.09 - Other forms of dyspnea (19) PAC (premature atrial contraction): CODE(S): I49.1 - Atrial premature depolarization (20) Left leg swelling: CODE(S): M79.89 - Other specified soft tissue disorders (21) Leg edema, left: CODE(S): R60.0 - Localized edema (22) Urinary incontinence: CODE(S): R32 - Unspecified urinary incontinence (23) History of bladder repair surgery: CODE(S): Z98.890 - Other specified postprocedural states (24) History of carpal tunnel release of both wrists: CODE(S): Z98.890 - Other specified postprocedural states (25) History of cholecystectomy: CODE(S): Z90.49 - Acquired absence of other specified parts of digestive tract (26) History of tonsillectomy: CODE(S): Z90.89 - Acquired absence of other organs (27) History of partial hysterectomy: CODE(S): Z90.711 - Acquired absence of uterus with remaining cervical stump (28) History of total knee replacement: CODE(S): Z96.659 - Presence of unspecified artificial knee joint (29) History of ventral hernia repair: CODE(S): Z98.890 - Other specified postprocedural states; Z87.19 - Personal history of other diseases of the digestive system (30) History of trigger finger: CODE(S): Z87.39 - Personal history of other diseases of the musculoskeletal system and connective tissue PLAN: Plan This is a 62-year-old morbidly obese female with a traumatic injury to her right viviane-medial calf. Her recent medical history is as documented above. The wound on the right viviane-medial calf is a dehiscent wound, following 2 recent attempts to suture closed. There is now an area of undermining and tunneling noted centrally, which had not been present in prior weeks. The external portion of the wound has healed well, and is now nearly completely healed. A very small tract persists subcutaneously, which is quite small in size, measuring only approximately 2 mm in depth. A lengthy discussion has been undertaken with the patient with regard to conservative treatment measures for control of the swelling, edema, and chronic venous insufficiency in her lower extremities. Leg elevation has been recommended. She has been encouraged to continue sleeping on a flat mattress at night. Leg elevation to heart level has been encouraged even during daytime hours. Prolonged idle sitting has been discouraged. Activity has been encouraged. Weight loss has also been recommended. We are to continue compression to the lower extremities by means of Spandagrips, in light of the patient's allergy to latex. We are to continue the use of Promogran topically, which we applied by the patient on a daily basis. This is to be applied within the small subcutaneous tract. The patient has been instructed in the appropriate means of application. The patient is to be allowed to shower daily. We have sought insurance preauthorization for the use of negative pressure wound therapy. Two such attempts have been made, and both efforts have been denied by the patient's insurance. Unfortunately, it is felt that negative pressure wound therapy would have been of significant benefit in enhancing the healing of the patient's wound. Denial by the patient's insurance company was perceived as somewhat of a setback and impediment to the patient's potential healing process. However, the use of negative pressure wound therapy at this juncture may be a moot point, as the wound is now nearly healed. Given the recent appearance of undermining and tunneling, we have discussed with the patient the possible need for surgical unroofing and debridement of the site if conservative measures fail to result in improvement and satisfactory healing. We will plan to continue current therapy using Promogran, which will be gently instilled into the undermined portion of the wound. To date, current measures have been quite effective in diminishing the external and subcutaneous portions of the patient's wound. The patient is to return in 2 weeks for reassessment. Total time: 24 minutes
[2023-03-20 08:08] VITALS: BMI 51.5
--- NOTE | 2023-03-20 08:42 | HP.PCM_ITS ---
History of Present Illness Date of Service: 03/20/23 Chief Complaint: Non-healing, dehiscent laceration of the right anterior calf History of Wound: This is a 63-year-old morbidly obese female who was in her normal state of health until December 09, 2022. On that date, she sustained a laceration to the right anterior calf following impact with a car door. She is known to have chronic swelling and edema in her lower extremities, as well as chronic venous insufficiency. Upon sustaining the injury, patient presented to the emergency department at [facility], where suture repair of the laceration was performed. She was also treated with a prescription of Augmentin. Eight days later, her sutures were removed without incident. 2 days following suture removal, the patient re-traumatized the area, causing a dehiscence of the wound, prompting her to seek medical attention in the [facility] Emergency Department. According to the patient, a resident performed a suture closure, and the patient was discharged. However, the patient's traumatic wound has failed to heal. In fact, it appears to have become dehiscent, with evidence of nonviable and necrotic tissue present. The patient has chronic swelling and edema in her lower extremities. She sleeps on a flat mattress at night, and is active. She denies a history of thrombophlebitis. 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 [facility] Medical History Acute conjunctivitis Acute sinusitis Alcohol use Asthma Asthma, moderate persistent Back pain Bruising Cardiology follow-up encounter Chronic venous insufficiency Chronic venous insufficiency Coronary artery calcification COVID-19 CPAP (continuous positive airway pressure) dependence Dyspnea on exertion Easy bruising Edema of leg Essential hypertension Former smoker Gastric reflux GERD (gastroesophageal reflux disease) High cholesterol History of echocardiogram History of edema History of stress test History of trigger finger Hyperlipidemia Hypertension Left leg swelling Leg cramps Leg edema, left Leg edema, right Leg swelling Morbid obesity with BMI of 50.0-59.9, adult Non-pressure chronic ulcer of right calf with fat layer exposed Obesity MALACHI (obstructive sleep apnea) MALACHI on CPAP PAC (premature atrial contraction) Premature atrial contraction Preoperative cardiovascular examination Pure hypercholesterolemia Right leg swelling Shortness of breath on exertion Surgical wound dehiscence Urinary incontinence Urinary tract infection Urine incontinence Ventral hernia Home Medications amlodipine 10 mg tablet 10 mg PO QHS 06/19/16 [History Last Taken Unknown] ascorbic acid (vitamin C) 1,000 mg tablet 1,000 mg PO DAILY 06/19/16 [History Last Taken Unknown] evening primrose oil 500 mg capsule 500 mg PO DAILY 06/19/16 [History Last Taken Unknown] hydrochlorothiazide 25 mg tablet 25 mg PO DAILY 06/19/16 [History Last Taken Unknown] omeprazole 20 mg capsule,delayed release 20 mg PO DAILY 06/19/16 [History Last Taken 08/08/21 06:30] PEP device #1 ea 08/26/18 [Rx Last Taken Unknown] benzonatate 200 mg capsule 200 mg PO TID PRN cough #90 caps 09/03/18 [Rx Last Taken Unknown] vitamin B complex (B Complex-Vitamin B12 tablet) 1 tab PO DAILY 10/15/18 [History Last Taken Unknown] cholecalciferol (vitamin D3) 50 mcg (2,000 unit) capsule 50 mcg PO DAILY 08/26/20 [History Last Taken Unknown] loratadine 10 mg tablet (Claritin) 10 mg PO DAILY 08/26/20 [History Last Taken Unknown] tolterodine 4 mg capsule,extended release 24 hr (Detrol LA) 4 mg PO DAILY 08/26/20 [History Last Taken Unknown] losartan 50 mg tablet 50 mg PO QHS 11/26/20 [History Last Taken Unknown] Acapella #1 ea 12/21/21 [Rx Last Taken Unknown] Peak Flow meter #1 ea 12/21/21 [Rx Last Taken Unknown] zinc sulfate 66 mg tablet 66 mg PO DAILY 12/22/21 [History Last Taken Unknown] naproxen 500 mg tablet 250 mg PO DAILY 05/29/22 [History Last Taken Unknown] phenazopyridine 100 mg tablet (Pyridium) 100 mg PO TID PRN pain 06/21/22 [History Last Taken Unknown] Lactobacillus acidophilus 1 cap PO DAILY 07/27/22 [History Last Taken Unknown] citalopram 20 mg tablet 20 mg PO DAILY 07/27/22 [History Last Taken Unknown] rosuvastatin 10 mg tablet 10 mg PO DAILY 07/27/22 [History Last Taken Unknown] carvedilol 6.25 mg tablet 6.25 mg PO BID #180 tabs 09/21/22 [Rx Last Taken Unknown] albuterol sulfate 90 mcg/actuation aerosol inhaler (ProAir HFA) 2 puff inhalation Q4H PRN shortness of breath or wheezing #8.5 grams 11/07/22 [Rx Last Taken Unknown] sodium chloride 7 % for nebulization 4 ml inhalation BID #240 mL 12/05/22 [Rx Last Taken Unknown] fluticasone fur. 200 mcg-umeclid 62.5 mcg-vilant 25 mcg inhalat.powder (Trelegy Ellipta) 1 inh inhalation DAILY #60 ea 02/08/23 [Rx Last Taken Unknown] fluticasone furoate 200 mcg-vilanterol 25 mcg/dose inhalation powder (Breo Ellipta) 1 inh inhalation DAILY #60 ea 02/08/23 [Rx Last Taken Unknown] prednisone 10 mg tablet 10 mg PO QDAY #30 tabs 02/16/23 [Rx Last Taken Unknown] Allergy/AdvReac Type Severity Reaction Status Date / Time lisinopril Allergy Unknown Cough Verified 02/24/23 20:22 clarithromycin [From Biaxin] Allergy Other Verified 02/24/23 20:22 codeine Allergy Other Verified 02/24/23 20:22 doxycycline Allergy Upset Verified 02/24/23 20:22 Stomach erythromycin base Allergy Other Verified 02/24/23 20:22 latex AdvReac Anaphylaxis Verified 02/24/23 20:22 Family History Father Hypertension CAD (coronary artery disease) History of coronary artery bypass surgery Myocardial infarction, Onset Age: 50 Mother Heart disease Brother Melanoma Surgical History History of bladder repair surgery History of bladder repair surgery History of carpal tunnel release of both wrists History of carpal tunnel surgery History of carpal tunnel surgery History of cholecystectomy History of cholecystectomy History of partial hysterectomy History of partial hysterectomy History of tonsillectomy History of tonsillectomy History of total knee arthroplasty History of total knee replacement History of ventral hernia repair History of ventral hernia repair Status post trigger finger release Social History Smoking Status: Former smoker pack-years: 16 second hand exposure: No alcohol intake: current alcohol intake frequency: a few times a week Alcohol type: wine substance use type: does not use caffeine: No what type of physical activity do you participate in: walking and swimming Vital Signs Vital Signs Vital Signs: Weight Weight: 300 lb Body Mass Index (BMI) 51.5 Physical Exam Const alert, oriented x3, no apparent distress and well nourished Constitutional Narrative: The patient is morbidly obese. Her BMI is 51.5. General Appearance: cooperative, comfortable, well kempt and well developed Orientation / Consciousness: awake, oriented to person, oriented to place and oriented to time Exam Limitations: no limitations HEENT normocephalic, head/scalp atraumatic and hearing grossly normal bilaterally Head and Scalp: normal to inspection, normocephalic and atraumatic External Ear: external ears normal Eyes PERRL and EOMs intact bilaterally General Eye: normal appearance of both eyes Neck full ROM General: normal visual inspection Resp normal respiratory effort, normal air movement, no retractions and no use of a ccessory muscles Effort and Inspection: able to speak in complete sentences Extremity no calf tenderness General Extremity: Negative for clubbing or cyanosis Skin Wound Narrative: A traumatic wound is noted on the patient's right anterior calf. This is the result of a laceration sustained after impacting a car door. The laceration was initially sutured, following which sutures were removed 8 days later. The patient re-traumatized the site, prompting dehiscence of her wound, at which time the laceration was re-sutured closed. The wound again dehisced, with a row of approximately 8-10 sutures remaining, which were removed at the patient's initial visit at our facility, as they were providing no benefit to wound closure. A traumatic wound persists. With the initiation of treatment at our facility, the amount of frankly necrotic and nonviable tissue has been eliminated. The patient has demonstrated significant improvement. The preponderance of the wound has completely healed. There is now only a small punctate opening measuring approximately 3 mm in diameter. The tunneling and undermining has largely resolved. The wound is only approximately 2 mm in depth. There is no visible evidence of infection or cellulitis. No drainage is noted. Wound dimensions are documented elsewhere. The wound has diminished in size progressively. Neuro oriented x3, CN's II-XII intact bilaterally, moves all extremities and no focal motor deficits Sensorium / Orientation: awake, alert, oriented to person, oriented to place and oriented to time Psych Appearance: grossly normal and appropriate Attitude: calm Activity / Motor Behavior: appropriate eye contact Speech: normal speech Mood & Affect: euthymic mood Thought Process: normal thought process Thought Content: normal thought content Attention / Concentration: attention grossly intact Debridement Note Debridement Note Wound debrided: Right viviane-lateral calf Laterality: Right Type of Debridement: Excisional debridement Anesthesia Used: 5% Lidocaine Gel Depth: Down to and including healthy tissue and in the subcutaneous layer Percentage of wound debrided: 100 Instrument Used: 3mm curette Tissue Removed: Bioburden Severity: Fat Layer Exposed Amount of bleeding with debridement: Mild Bleeding Controlled with: Compression and gauze Patient tolerated procedure: Patient tolerated procedure well Post-Debridement Measurements and Additional Note: Post-Debridement Measurements/Treatment - Nurse 1 - General Ulcer Assessment Start: 03/06/23 08:10 Freq: Status: Active Protocol: SOPHIA.[email or web address] Activity Type Activity Date Activity User E-sign Co-sign Detail Recorded Client Recorded Date Recorded By Document 03/06/23 08:10 RB [employer] 03/06/23 08:12 RB Document 03/20/23 08:08 KW Desktop 03/20/23 08:15 KW 03/06/23 03/20/23 08:10 08:08 - Today's Visit Information Type of service 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 ) Arrival Mode Ambulatory Transfer Assistance None Patient Identification Verified (Name & Yes ) Patient Requires Transmission-Based No Precautions Height and Weight Body Mass Index (BMI) 51.5 51.5 BMI Classification Obese Obese Vital Signs Temperature (97.8 F-99.1 F) 96.5 F L Temperature Source Temporal Pulse Rate (60-100) 82 Pulse Location Monitor Respiratory Rate (12-18) 18 Respiratory rate source Observation Blood Pressure (90/60-120/80) 128/70 H Blood Pressure Mean 89 Source Monitor Position Semi-Fowlers Blood Pressure Location Left Arm History Since Last Visit- (Skip if this is Patient's initial visit) Have you changed medications since your No last visit? Any new allergies or adverse reactions No Had a fall/change in ADL's that may No increase risk of falls Signs or symptoms of abuse and/or No neglect since last visit Have you been in the hospital since your No last visit? Has dressing in place as prescribed Yes Has compression in place as prescribed No Has offloadiing in place as prescribed No Experienced any changes in pain level or No management Pain Scale: 0-10 Numeric Is Patient Pain Free? Yes Yes WC - Nurse 1 - General Ulcer Measurement Start: 03/06/23 08:10 Freq: Status: Active Protocol: Activity Type Activity Date Activity User E-sign Co-sign Detail Recorded Client Recorded Date Recorded By Document 03/06/23 08:10 RB Desktop 03/06/23 08:12 RB Document 03/20/23 08:08 KW Desktop 03/20/23 08:15 KW 03/06/23 03/20/23 08:10 08:08 Wound Center Nurse 1 #1 Right lateral LE -Combined with other wound No -Current Size (cm) - Length 0.2 0.3 -Current Size (cm) - Width 0.3 0.6 -Current Size (cm) - Depth 0.3 0.3 -Total Square Cm 0.06 0.18 -Epithelialization Large 67-100% -Tunneling No No -Undermining/Tunneling No No -Circular Undermining No Yes -Exudate Amt Medium None Present -Exudate Type Serosanguineous -Wound Margin Distinct, Flat & Intact Outline Attached -Granulation Amt Medium (34-66%) -Granulation Quality [place] -Slough/Fibrin Yes -Necrosis Amt Medium (34-66%) -Necrotic Tissue Type Adherent Slough -Structure Exposed N/A -Texture ([place]-wound Skin Appearance) Assessed, Assessed Scarring -Moisture ([place]-wound Skin Appearance) Assessed Assessed -Color ([place]-wound Skin Appearance) Assessed Assessed -Temperature ([place]-wound Skin No Abnormality No Abnormality Appearance) (Pt Warm) (Pt Warm) -Tenderness on Palpation ([place]-wound No Skin Appearance) -Ulcer Cleansing Wound Cleanser Rinsed/ Irrigated with Saline -Foul Odor after Cleansing No -Anesthetic Used 5% Lidocaine 5% Lidocaine Gel Gel Lower Limb Edema Present Yes Right Calf (cm) 50.5 50 Right Ankle (cm) 27.5 28 WC - Nurse 2 - General Ulcer CM Notes Start: 03/06/23 08:10 Freq: Status: Active Protocol: Activity Type Activity Date Activity User E-sign Co-sign Detail Recorded Client Recorded Date Recorded By Document 03/06/23 11:16 PL [id number] 03/06/23 11:17 PL Document 03/20/23 08:38 PL Tablet 03/20/23 08:39 PL 03/06/23 03/20/23 11:16 08:38 Wound Center Nurse 2 #1 Right lateral LE -Time 08:21 08:20 -Correct Patient Yes Yes -Correct Side, Site, Position Yes Yes -Correct Procedure Yes Yes -Procedure Performed Yes Yes -Type of Procedure Debridement Debridement -Clinical Debridement Subcutaneous Subcutaneous -Tissue Removed Subcutaneous Subcutaneous -Post Debridement (cm) - Length 0.2 0.3 -Post Debridement (cm) - Width 0.3 0.3 -Post Debridement (cm) - Depth 0.3 0.3 -Total Square (Post) (cm) 0.06 0.09 -Area of Debridement (cm) - Length 0.2 0.3 -Area of Debridement (cm) - Width 0.3 0.3 -Total Square (Area) (cm) 0.06 0.09 -Tunneling No No -Undermining/Tunneling No No -Circular Undermining No No -Wound/Ulcer Outcome Not Healed Not Healed -Ulcer Cleansing Rinsed/ Rinsed/ Irrigated with Irrigated with Saline Saline -Foul Odor after Cleansing No No -Bioengineered Tissue No No -Bleeding Controlled with Pressure Pressure -Treatment Response Procedure Procedure Tolerated Well Tolerated Well -Debridement - Subq, 1st 20sq cm Yes Yes Pain Scale: 0-10 Numeric Is Patient Pain Free? Yes Yes - Nurse 3 - General Ulcer D/C NN Start: 03/06/23 08:10 Freq: Status: Active Protocol: Activity Type Activity Date Activity User E-sign Co-sign Detail Recorded Client Recorded Date Recorded By Document 03/06/23 08:27 KW [employer] 03/06/23 08:28 KW Document 03/20/23 08:29 KW Desktop 03/20/23 08:30 KW 03/06/23 03/20/23 08:27 08:29 Wound Care Center Nurse 3 #1 Right lateral LE -Ulcer Cleansing Rinsed/ Rinsed/ Irrigated with Irrigated with Saline Saline -Primary Dressing Covered/Secured with Other -Other Covering pt brought own dressings Pain Scale: 0-10 Numeric Is Patient Pain Free? Yes Yes WC - Visit Discharge Discharge Condition Stable Stable Ambulatory Status Ambulatory Ambulatory Transportation Private Auto Private Auto Medication Reconcilliation completed & No No provided to patient/care provider Clinical Summary of Care Provided Yes Yes Assessment/Plan Assessment/Plan (1) Non-pressure chronic ulcer of right calf with fat layer exposed: CODE(S): L97.212 - Non-pressure chronic ulcer of right calf with fat layer exposed (2) Chronic venous insufficiency: (3) Laceration of right leg excluding thigh: CODE(S): S81.811A - Laceration without foreign body, right lower leg, initial encounter QUALIFIERS: Encounter type: subsequent encounter Qualified Code(s): S81.811D - Laceration without foreign body, right lower leg, subsequent encounter (4) Surgical wound dehiscence: CODE(S): T81.31XA - Disruption of external operation (surgical) wound, not elsewhere classified, initial encounter QUALIFIERS: Encounter type: subsequent encounter Qualified Code(s): T81.31XD - Disruption of external operation (surgical) wound, not elsewhere classified, subsequent encounter (5) Right leg swelling: CODE(S): M79.89 - Other specified soft tissue disorders (6) Leg edema, right: CODE(S): R60.0 - Localized edema (7) DDD (degenerative disc disease), lumbar: CODE(S): M51.36 - Other intervertebral disc degeneration, lumbar region (8) Ventral incisional hernia without obstruction or gangrene: CODE(S): K43.2 - Incisional hernia without obstruction or gangrene (9) Coronary artery calcification: CODE(S): I25.10 - Atherosclerotic heart disease of deering coronary artery without angina pectoris; I25.84 - Coronary atherosclerosis due to calcified coronary lesion (10) Chronic venous insufficiency: CODE(S): I87.2 - Venous insufficiency (chronic) (peripheral) (11) MALACHI on CPAP: CODE(S): G47.33 - Obstructive sleep apnea (adult) (pediatric); Z99.89 - Dependence on other enabling machines and devices (12) GERD (gastroesophageal reflux disease): CODE(S): K21.9 - Gastro-esophageal reflux disease without esophagitis (13) Pure hypercholesterolemia: CODE(S): E78.00 - Pure hypercholesterolemia, unspecified (14) Essential hypertension: CODE(S): I10 - Essential (primary) hypertension (15) MALACHI (obstructive sleep apnea): CODE(S): G47.33 - Obstructive sleep apnea (adult) (pediatric) (16) Asthma, moderate persistent: CODE(S): J45.40 - Moderate persistent asthma, uncomplicated QUALIFIERS: Asthma complication type: uncomplicated Qualified Code(s): J45.40 - Moderate persistent asthma, uncomplicated (17) Morbid obesity with BMI of 50.0-59.9, adult: CODE(S): E66.01 - Morbid (severe) obesity due to excess calories; Z68.43 - Body mass index [BMI] 50.0-59.9, adult (18) Dyspnea on exertion: CODE(S): R06.09 - Other forms of dyspnea (19) PAC (premature atrial contraction): CODE(S): I49.1 - Atrial premature depolarization (20) Left leg swelling: CODE(S): M79.89 - Other specified soft tissue disorders (21) Leg edema, left: CODE(S): R60.0 - Localized edema (22) Urinary incontinence: CODE(S): R32 - Unspecified urinary incontinence (23) History of bladder repair surgery: CODE(S): Z98.890 - Other specified postprocedural states (24) History of carpal tunnel release of both wrists: CODE(S): Z98.890 - Other specified postprocedural states (25) History of cholecystectomy: CODE(S): Z90.49 - Acquired absence of other specified parts of digestive tract (26) History of tonsillectomy: CODE(S): Z90.89 - Acquired absence of other organs (27) History of partial hysterectomy: CODE(S): Z90.711 - Acquired absence of uterus with remaining cervical stump (28) History of total knee replacement: CODE(S): Z96.659 - Presence of unspecified artificial knee joint (29) History of ventral hernia repair: CODE(S): Z98.890 - Other specified postprocedural states; Z87.19 - Personal history of other diseases of the digestive system (30) History of trigger finger: CODE(S): Z87.39 - Personal history of other diseases of the musculoskeletal system and connective tissue PLAN: Plan This is a 63-year-old morbidly obese female with a traumatic injury to her right viviane-lateral calf. Her recent medical history is as documented above. The wound on the right viviane-medial calf is a dehiscent wound, following 2 attempts to suture closed. There is now a a very small remaining wound, measuring only approximately 3 mm in diameter. The tunneling and undermining appear to have resolved. A lengthy discussion has been undertaken with the patient with regard to conservative treatment measures for control of the swelling, edema, and chronic venous insufficiency in her lower extremities. Leg elevation has been recommended. She has been encouraged to continue sleeping on a flat mattress at night. Leg elevation to heart level has been encouraged even during daytime hours. Prolonged idle sitting has been discouraged. Activity has been encouraged. Weight loss has also been recommended. We are to continue compression to the lower extremities by means of Spandagrips, in light of the patient's allergy to latex. We are to continue the use of Promogran topically, which will be applied by the patient on a daily basis. The patient has been instructed in the appropriate means of application. The patient is to be allowed to shower daily. We have sought insurance preauthorization for the use of negative pressure wound therapy. Two such attempts have been made, and both efforts have been denied by the patient's insurance. Unfortunately, it is felt that negative pressure wound therapy would have been of significant benefit in enhancing the healing of the patient's wound. Denial by the patient's insurance company was perceived as somewhat of a setback and impediment to the patient's potential healing process. However, the use of negative pressure wound therapy at this juncture may be a moot point, as the wound is now small and nearly healed. There is concerned about the degree of beveling of the wound margins, which may be an impediment to healing. Alternatives to the current therapy may be considered in the next several weeks if progressive healing does not continue. The wound margins may need to be beveled surgically, or an alternative product considered, such as Medihoney. We will continue current therapy using Promogran for now. The patient is to return in 2 weeks for reassessment. Total time: 25 minutes
[2023-04-03 07:59] VITALS: BP 122/72; BMI 51.5
--- NOTE | 2023-04-03 09:08 | PCM.WC.HP ---
History of Present Illness Date of Service: 04/03/23 Chief Complaint: Non-healing, dehiscent laceration of the right anterior calf History of Wound: This is a 63-year-old morbidly obese female who was in her normal state of health until December 09, 2022. On that date, she sustained a laceration to the right anterior calf following impact with a car door. She is known to have chronic swelling and edema in her lower extremities, as well as chronic venous insufficiency. Upon sustaining the injury, patient presented to the emergency department at [facility], where suture repair of the laceration was performed. She was also treated with a prescription of Augmentin. Eight days later, her sutures were removed without incident. 2 days following suture removal, the patient re-traumatized the area, causing a dehiscence of the wound, prompting her to seek medical attention in the [facility] Emergency Department. According to the patient, a resident performed a suture closure, and the patient was discharged. However, the patient's traumatic wound has failed to heal. In fact, it appears to have become dehiscent, with evidence of nonviable and necrotic tissue present. The patient has chronic swelling and edema in her lower extremities. She sleeps on a flat mattress at night, and is active. She denies a history of thrombophlebitis. 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 [facility] Medical History Acute conjunctivitis Acute sinusitis Alcohol use Asthma Asthma, moderate persistent Back pain Bruising Cardiology follow-up encounter Chronic venous insufficiency Chronic venous insufficiency Coronary artery calcification COVID-19 CPAP (continuous positive airway pressure) dependence Dyspnea on exertion Easy bruising Edema of leg Essential hypertension Former smoker Gastric reflux GERD (gastroesophageal reflux disease) High cholesterol History of echocardiogram History of edema History of stress test History of trigger finger Hyperlipidemia Hypertension Left leg swelling Leg cramps Leg edema, left Leg edema, right Leg swelling Morbid obesity with BMI of 50.0-59.9, adult Non-pressure chronic ulcer of right calf with fat layer exposed Obesity MALACHI (obstructive sleep apnea) MALACHI on CPAP PAC (premature atrial contraction) Premature atrial contraction Preoperative cardiovascular examination Pure hypercholesterolemia Right leg swelling Shortness of breath on exertion Surgical wound dehiscence Urinary incontinence Urinary tract infection Urine incontinence Ventral hernia Home Medications amlodipine 10 mg tablet 10 mg PO QHS 06/19/16 [History Last Taken Unknown] ascorbic acid (vitamin C) 1,000 mg tablet 1,000 mg PO DAILY 06/19/16 [History Last Taken Unknown] evening primrose oil 500 mg capsule 500 mg PO DAILY 06/19/16 [History Last Taken Unknown] hydrochlorothiazide 25 mg tablet 25 mg PO DAILY 06/19/16 [History Last Taken Unknown] omeprazole 20 mg capsule,delayed release 20 mg PO DAILY 06/19/16 [History Last Taken 08/08/21 06:30] PEP device #1 ea 08/26/18 [Rx Last Taken Unknown] benzonatate 200 mg capsule 200 mg PO TID PRN cough #90 caps 09/03/18 [Rx Last Taken Unknown] vitamin B complex (B Complex-Vitamin B12 tablet) 1 tab PO DAILY 10/15/18 [History Last Taken Unknown] cholecalciferol (vitamin D3) 50 mcg (2,000 unit) capsule 50 mcg PO DAILY 08/26/20 [History Last Taken Unknown] loratadine 10 mg tablet (Claritin) 10 mg PO DAILY 08/26/20 [History Last Taken Unknown] tolterodine 4 mg capsule,extended release 24 hr (Detrol LA) 4 mg PO DAILY 08/26/20 [History Last Taken Unknown] losartan 50 mg tablet 50 mg PO QHS 11/26/20 [History Last Taken Unknown] Acapella #1 ea 12/21/21 [Rx Last Taken Unknown] Peak Flow meter #1 ea 12/21/21 [Rx Last Taken Unknown] zinc sulfate 66 mg tablet 66 mg PO DAILY 12/22/21 [History Last Taken Unknown] naproxen 500 mg tablet 250 mg PO DAILY 05/29/22 [History Last Taken Unknown] phenazopyridine 100 mg tablet (Pyridium) 100 mg PO TID PRN pain 06/21/22 [History Last Taken Unknown] Lactobacillus acidophilus 1 cap PO DAILY 07/27/22 [History Last Taken Unknown] citalopram 20 mg tablet 20 mg PO DAILY 07/27/22 [History Last Taken Unknown] rosuvastatin 10 mg tablet 10 mg PO DAILY 07/27/22 [History Last Taken Unknown] carvedilol 6.25 mg tablet 6.25 mg PO BID #180 tabs 09/21/22 [Rx Last Taken Unknown] albuterol sulfate 90 mcg/actuation aerosol inhaler (ProAir HFA) 2 puff inhalation Q4H PRN shortness of breath or wheezing #8.5 grams 11/07/22 [Rx Last Taken Unknown] sodium chloride 7 % for nebulization 4 ml inhalation BID #240 mL 12/05/22 [Rx Last Taken Unknown] fluticasone fur. 200 mcg-umeclid 62.5 mcg-vilant 25 mcg inhalat.powder (Trelegy Ellipta) 1 inh inhalation DAILY #60 ea 02/08/23 [Rx Last Taken Unknown] fluticasone furoate 200 mcg-vilanterol 25 mcg/dose inhalation powder (Breo Ellipta) 1 inh inhalation DAILY #60 ea 02/08/23 [Rx Last Taken Unknown] prednisone 10 mg tablet 10 mg PO QDAY #30 tabs 02/16/23 [Rx Last Taken Unknown] Allergy/AdvReac Type Severity Reaction Status Date / Time lisinopril Allergy Unknown Cough Verified 02/24/23 20:22 clarithromycin [From Biaxin] Allergy Other Verified 02/24/23 20:22 codeine Allergy Other Verified 02/24/23 20:22 doxycycline Allergy Upset Verified 02/24/23 20:22 Stomach erythromycin base Allergy Other Verified 02/24/23 20:22 latex AdvReac Anaphylaxis Verified 02/24/23 20:22 Family History Father Hypertension CAD (coronary artery disease) History of coronary artery bypass surgery Myocardial infarction, Onset Age: 50 Mother Heart disease Brother Melanoma Surgical History History of bladder repair surgery History of bladder repair surgery History of carpal tunnel release of both wrists History of carpal tunnel surgery History of carpal tunnel surgery History of cholecystectomy History of cholecystectomy History of partial hysterectomy History of partial hysterectomy History of tonsillectomy History of tonsillectomy History of total knee arthroplasty History of total knee replacement History of ventral hernia repair History of ventral hernia repair Status post trigger finger release Social History Smoking Status: Former smoker pack-years: 16 second hand exposure: No alcohol intake: current alcohol intake frequency: a few times a week Alcohol type: wine substance use type: does not use caffeine: No what type of physical activity do you participate in: walking and swimming Vital Signs Vital Signs Vital Signs: 04/03/23 07:59 Blood Pressure 122/72 H Blood Pressure Mean 88 Blood Pressure Source Monitor Blood Pressure Position Semi-Fowlers Blood Pressure Location Left Arm Weight Weight: 300 lb Body Mass Index (BMI) 51.5 Physical Exam Const alert, oriented x3, no apparent distress and well nourished Constitutional Narrative: The patient is morbidly obese. Her BMI is 51.5. General Appearance: cooperative, comfortable, well kempt and well developed Orientation / Consciousness: awake, oriented to person, oriented to place and oriented to time Exam Limitations: no limitations HEENT normocephalic, head/scalp atraumatic and hearing grossly normal bilaterally Head and Scalp: normal to inspection, normocephalic and atraumatic External Ear: external ears normal Eyes PERRL and EOMs intact bilaterally General Eye: normal appearance of both eyes Neck full ROM General: normal visual inspection Resp normal respiratory effort, normal air movement, no retractions and no use of accessory muscles Effort and Inspection: able to speak in complete sentences Extremity no calf tenderness General Extremity: Negative for clubbing or cyanosis Skin Wound Narrative: A traumatic wound is noted on the patient's right anterior calf. This is the result of a laceration sustained after impacting a car door. The laceration was initially sutured, following which sutures were removed 8 days later. The patient re-traumatized the site, prompting dehiscence of her wound, at which time the laceration was re-sutured closed. The wound again dehisced, with a row of approximately 8-10 sutures remaining, which were removed at the patient's initial visit at our facility, as they were providing no benefit to wound closure. A traumatic wound persists. With the initiation of treatment at our facility, the amount of frankly necrotic and nonviable tissue has been eliminated. The patient has demonstrated significant improvement. The preponderance of the wound has completely healed. There is now only a small opening measuring approximately 3 mm in diameter. The tunneling and undermining has largely resolved. The wound is only approximately 2 mm in depth. There is no visible evidence of infection or cellulitis. No drainage is noted. Wound dimensions are documented elsewhere. The wound has diminished in size progressively. Neuro oriented x3, CN's II-XII intact bilaterally, moves all extremities and no focal motor deficits Sensorium / Orientation: awake, alert, oriented to person, oriented to place and oriented to time Psych Appearance: grossly normal and appropriate Attitude: calm Activity / Motor Behavior: appropriate eye contact Speech: normal speech Mood & Affect: euthymic mood Thought Process: normal thought process Thought Content: normal thought content Attention / Concentration: attention grossly intact Debridement Note Debridement Note Wound debrided: Right viviane-lateral calf Laterality: Right Type of Debridement: Excisional debridement Anesthesia Used: 5% Lidocaine Gel Depth: Down to and including healthy tissue and in the subcutaneous layer Percentage of wound debrided: 100 Instrument Used: 3mm curette Tissue Removed: Bioburden Severity: Fat Layer Exposed Amount of bleeding with debridement: Mild Bleeding Controlled with: Compression and gauze Patient tolerated procedure: Patient tolerated procedure well Post-Debridement Measurements and Additional Note: Post-Debridement Measurements/Treatment - Nurse 1 - General Ulcer Assessment Start: 03/06/23 08:10 Freq: Status: Active Protocol: GEREMIAS Activity Type Activity Date Activity User E-sign Co-sign Detail Recorded Client Recorded Date Recorded By Document 03/06/23 08:10 RB Desktop 03/06/23 08:12 RB Document 03/20/23 08:08 KW Desktop 03/20/23 08:15 KW Document 04/03/23 07:59 KW Desktop 04/03/23 08:08 KW 03/06/23 03/20/23 04/03/23 08:10 08:08 07:59 - Today's Visit Information Type of service Follow-up Visit Follow-up Visit (Physician/RADIOTELEPHONE TECHNICAL OPERATOR (Physician/RADIOTELEPHONE TECHNICAL OPERATOR ) ) Arrival Mode Ambulatory Ambulatory Transfer Assistance None Patient Identification Verified (Name & Yes Yes ) Patient Requires Transmission-Based No Precautions Height and Weight Body Mass Index (BMI) 51.5 51.5 51.5 BMI Classification Obese Obese Obese Vital Signs Temperature (97.8 F-99.1 F) 96.5 F L Temperature Source Temporal Pulse Rate (60-100) 82 Pulse Location Monitor Respiratory Rate (12-18) 18 Respiratory rate source Observation Blood Pressure (90/60-120/80) 128/70 H 122/72 H Blood Pressure Mean 89 88 Source Monitor Monitor Position Semi-Fowlers Semi-Fowlers Blood Pressure Location Left Arm Left Arm History Since Last Visit- (Skip if this is Patient's initial visit) Have you changed medications since your No No last visit? Any new allergies or adverse reactions No No Had a fall/change in ADL's that may No No increase risk of falls Signs or symptoms of abuse and/or No No neglect since last visit Have you been in the hospital since your No No last visit? Has dressing in place as prescribed Yes Yes Has compression in place as prescribed No Yes Has offloadiing in place as prescribed No N/A Experienced any changes in pain level or No No management Left Footwear Regular Shoe Right Footwear Regular Shoe Pain Scale: 0-10 Numeric Is Patient Pain Free? Yes Yes Yes WC - Nurse 1 - General Ulcer Measurement Start: 03/06/23 08:10 Freq: Status: Active Protocol: Activity Type Activity Date Activity User E-sign Co-sign Detail Recorded Client Recorded Date Recorded By Document 03/06/23 08:10 RB Desktop 03/06/23 08:12 RB Document 03/20/23 08:08 KW Desktop 03/20/23 08:15 KW Document 04/03/23 07:59 KW Desktop 04/03/23 08:08 KW 03/06/23 03/20/23 04/03/23 08:10 08:08 07:59 Wound Center Nurse 1 #1 Right lateral LE -Combined with other wound No -Current Size (cm) - Length 0.2 0.3 0.3 -Current Size (cm) - Width 0.3 0.6 0.5 -Current Size (cm) - Depth 0.3 0.3 0.2 -Total Square Cm 0.06 0.18 0.15 -Epithelialization Large 67-100% -Tunneling No No -Undermining/Tunneling No No Yes -Undermining/Tunneling Starts (O'clock 9 ) -Undermining/Tunneling Ends (O'clock) 12 -Maximum Distance (cm) 0.1 -Circular Undermining No Yes -Exudate Amt Medium None Present Small -Exudate Type Serosanguineous Serosanguineous -Wound Margin Distinct, Flat & Intact Distinct, Outline Outline Attached Attached -Granulation Amt Medium (34-66%) Large (67-100%) -Granulation Quality [place] Red -Slough/Fibrin Yes -Necrosis Amt Medium (34-66%) -Necrotic Tissue Type Adherent Slough -Structure Exposed N/A -Texture ([place]-wound Skin Appearance) Assessed, Assessed Assessed Scarring -Moisture ([place]-wound Skin Appearance) Assessed Assessed Assessed -Color ([place]-wound Skin Appearance) Assessed Assessed Assessed -Temperature ([place]-wound Skin No Abnormality No Abnormality No Abnormality Appearance) (Pt Warm) (Pt Warm) (Pt Warm) -Tenderness on Palpation ([place]-wound No Skin Appearance) -Ulcer Cleansing Wound Cleanser Rinsed/ Rinsed/ Irrigated with Irrigated with Saline Saline -Foul Odor after Cleansing No No -Anesthetic Used 5% Lidocaine 5% Lidocaine 5% Lidocaine Gel Gel Gel Lower Limb Edema Present Yes Right Calf (cm) 50.5 50 55 Right Ankle (cm) 27.5 28 23.5 WC - Nurse 2 - General Ulcer CM Notes Start: 03/06/23 08:10 Freq: Status: Active Protocol: Activity Type Activity Date Activity User E-sign Co-sign Detail Recorded Client Recorded Date Recorded By Document 03/06/23 11:16 PL [id number] 03/06/23 11:17 PL Document 03/20/23 08:38 PL Tablet 03/20/23 08:39 PL Document 04/03/23 08:54 PL Tablet 04/03/23 08:55 PL 03/06/23 03/20/23 04/03/23 11:16 08:38 08:54 Wound Center Nurse 2 #1 Right lateral LE -Time 08:21 08:20 08:20 -Correct Patient Yes Yes Yes -Correct Side, Site, Position Yes Yes Yes -Correct Procedure Yes Yes Yes -Procedure Performed Yes Yes Yes -Type of Procedure Debridement Debridement Debridement -Clinical Debridement Subcutaneous Subcutaneous Subcutaneous -Tissue Removed Subcutaneous Subcutaneous Subcutaneous -Post Debridement (cm) - Length 0.2 0.3 0.3 -Post Debridement (cm) - Width 0.3 0.3 0.5 -Post Debridement (cm) - Depth 0.3 0.3 0.2 -Total Square (Post) (cm) 0.06 0.09 0.15 -Area of Debridement (cm) - Length 0.2 0.3 0.3 -Area of Debridement (cm) - Width 0.3 0.3 0.5 -Total Square (Area) (cm) 0.06 0.09 0.15 -Tunneling No No No -Undermining/Tunneling No No No -Circular Undermining No No No -Wound/Ulcer Outcome Not Healed Not Healed Not Healed -Ulcer Cleansing Rinsed/ Rinsed/ Rinsed/ Irrigated with Irrigated with Irrigated with Saline Saline Saline -Foul Odor after Cleansing No No No -Bioengineered Tissue No No No -Bleeding Controlled with Pressure Pressure Pressure -Treatment Response Procedure Procedure Procedure Tolerated Well Tolerated Well Tolerated Well -Debridement - Subq, 1st 20sq cm Yes Yes Yes Pain Scale: 0-10 Numeric Is Patient Pain Free? Yes Yes Yes - Nurse 3 - General Ulcer D/C NN Start: 03/06/23 08:10 Freq: Status: Active Protocol: Activity Type Activity Date Activity User E-sign Co-sign Detail Recorded Client Recorded Date Recorded By Document 03/06/23 08:27 KW Desktop 03/06/23 08:28 KW Document 03/20/23 08:29 KW Desktop 03/20/23 08:30 KW Document 04/03/23 08:37 KW Desktop 04/03/23 08:38 KW 03/06/23 03/20/23 04/03/23 08:27 08:29 08:37 Wound Care Center Nurse 3 #1 Right lateral LE -Ulcer Cleansing Rinsed/ Rinsed/ Irrigated with Irrigated with Saline Saline -Other Dressing used pt own drsg -Primary Dressing Covered/Secured with Other -Other Covering pt brought own dressings Pain Scale: 0-10 Numeric Is Patient Pain Free? Yes Yes Yes - Visit Discharge Discharge Condition Stable Stable Stable Ambulatory Status Ambulatory Ambulatory Ambulatory Transportation Private Auto Private Auto Private Auto Medication Reconcilliation completed & No No No provided to patient/care provider Clinical Summary of Care Provided Yes Yes Yes Assessment/Plan Assessment/Plan (1) Non-pressure chronic ulcer of right calf with fat layer exposed: CODE(S): L97.212 - Non-pressure chronic ulcer of right calf with fat layer exposed (2) Chronic venous insufficiency: (3) Laceration of right leg excluding thigh: CODE(S): S81.811A - Laceration without foreign body, right lower leg, initial encounter QUALIFIERS: Encounter type: subsequent encounter Qualified Code(s): S81.811D - Laceration without foreign body, right lower leg, subsequent encounter (4) Surgical wound dehiscence: CODE(S): T81.31XA - Disruption of external operation (surgical) wound, not elsewhere classified, initial encounter QUALIFIERS: Encounter type: subsequent encounter Qualified Code(s): T81.31XD - Disruption of external operation (surgical) wound, not elsewhere classified, subsequent encounter (5) Right leg swelling: CODE(S): M79.89 - Other specified soft tissue disorders (6) Leg edema, right: CODE(S): R60.0 - Localized edema (7) DDD (degenerative disc disease), lumbar: CODE(S): M51.36 - Other intervertebral disc degeneration, lumbar region (8) Ventral incisional hernia without obstruction or gangrene: CODE(S): K43.2 - Incisional hernia without obstruction or gangrene (9) Coronary artery calcification: CODE(S): I25.10 - Atherosclerotic heart disease of [place] coronary artery without angina pectoris; I25.84 - Coronary atherosclerosis due to calcified coronary lesion (10) Chronic venous insufficiency: CODE(S): I87.2 - Venous insufficiency (chronic) (peripheral) (11) MALACHI on CPAP: CODE(S): G47.33 - Obstructive sleep apnea (adult) (pediatric); Z99.89 - Dependence on other enabling machines and devices (12) GERD (gastroesophageal reflux disease): CODE(S): K21.9 - Gastro-esophageal reflux disease without esophagitis (13) Pure hypercholesterolemia: CODE(S): E78.00 - Pure hypercholesterolemia, unspecified (14) Essential hypertension: CODE(S): I10 - Essential (primary) hypertension (15) MALACHI (obstructive sleep apnea): CODE(S): G47.33 - Obstructive sleep apnea (adult) (pediatric) (16) Asthma, moderate persistent: CODE(S): J45.40 - Moderate persistent asthma, uncomplicated QUALIFIERS: Asthma complication type: uncomplicated Qualified Code(s): J45.40 - Moderate persistent asthma, uncomplicated (17) Morbid obesity with BMI of 50.0-59.9, adult: CODE(S): E66.01 - Morbid (severe) obesity due to excess calories; Z68.43 - Body mass index [BMI] 50.0-59.9, adult (18) Dyspnea on exertion: CODE(S): R06.09 - Other forms of dyspnea (19) PAC (premature atrial contraction): CODE(S): I49.1 - Atrial premature depolarization (20) Left leg swelling: CODE(S): M79.89 - Other specified soft tissue disorders (21) Leg edema, left: CODE(S): R60.0 - Localized edema (22) Urinary incontinence: CODE(S): R32 - Unspecified urinary incontinence (23) History of bladder repair surgery: CODE(S): Z98.890 - Other specified postprocedural states (24) History of carpal tunnel release of both wrists: CODE(S): Z98.890 - Other specified postprocedural states (25) History of cholecystectomy: CODE(S): Z90.49 - Acquired absence of other specified parts of digestive tract (26) History of tonsillectomy: CODE(S): Z90.89 - Acquired absence of other organs (27) History of partial hysterectomy: CODE(S): Z90.711 - Acquired absence of uterus with remaining cervical stump (28) History of total knee replacement: CODE(S): Z96.659 - Presence of unspecified artificial knee joint (29) History of ventral hernia repair: CODE(S): Z98.890 - Other specified postprocedural states; Z87.19 - Personal history of other diseases of the digestive system (30) History of trigger finger: CODE(S): Z87.39 - Personal history of other diseases of the musculoskeletal system and connective tissue PLAN: Plan This is a 63-year-old morbidly obese female with a traumatic injury to her right viviane-lateral calf. Her recent medical history is as documented above. The wound on the right viviane-medial calf is a dehiscent wound, following 2 attempts to suture closed. There is now a a very small remaining wound, measuring only approximately 3 mm in diameter. The tunneling and undermining appear to have resolved. A lengthy discussion has been undertaken with the patient with regard to conservative treatment measures for control of the swelling, edema, and chronic venous insufficiency in her lower extremities. Leg elevation has been recommended. She has been encouraged to continue sleeping on a flat mattress at night. Leg elevation to heart level has been encouraged even during daytime hours. Prolonged idle sitting has been discouraged. Activity has been encouraged. Weight loss has also been recommended. We are to continue compression to the lower extremities by means of Spandagrips, in light of the patient's allergy to latex. We are to implement the use of Medihoney, which will be applied by the patient on a daily basis. The patient has been instructed in the appropriate means of application. The patient is to shower daily. We have sought insurance preauthorization for the use of negative pressure wound therapy. Two such attempts have been made, and both efforts have been denied by the patient's insurance. Unfortunately, it is felt that negative pressure wound therapy would have been of significant benefit in enhancing the healing of the patient's wound. Denial by the patient's insurance company was perceived as somewhat of a setback and impediment to the patient's potential healing process. However, the use of negative pressure wound therapy at this juncture may be a moot point, as the wound is now small and nearly healed. There is concerned about the degree of beveling of the wound margins, which may be an impediment to healing. Alternatives to the current therapy may be considered in the next several weeks if progressive healing does not continue. The wound margins may need to be beveled surgically. The patient is to return in 1 week for reassessment. Total time: 24 minutes
== END 2023-04-04 23:59 | disposition home or self-care (01) ==
LOC: WC 08:00
PROVIDERS: PCP Internal Medicine; Referring Provider Physician Assistant; Visit Provider Surgery
DX: L97.212 Non-pressure chronic ulcer of right calf with fat layer exposed (principal); E66.01 Morbid (severe) obesity due to excess calories; Z68.43 Body mass index [BMI] 50.0-59.9, adult; G47.33 Obstructive sleep apnea (adult) (pediatric); R60.0 Localized edema; Z86.16 Personal history of COVID-19; K21.9 Gastro-esophageal reflux disease without esophagitis; Z79.51 Long term (current) use of inhaled steroids; M51.36 Other intervertebral disc degeneration, lumbar region; S81.811A Laceration without foreign body, right lower leg, initial encounter; K43.2 Incisional hernia without obstruction or gangrene; I10 Essential (primary) hypertension; Z90.710 Acquired absence of both cervix and uterus; I87.2 Venous insufficiency (chronic) (peripheral); I49.1 Atrial premature depolarization; I25.10 Atherosclerotic heart disease of native coronary artery without angina pectoris; R32 Unspecified urinary incontinence; J45.40 Moderate persistent asthma, uncomplicated; E78.5 Hyperlipidemia, unspecified; T81.31XA Disruption of external operation (surgical) wound, not elsewhere classified, initial encounter; M79.89 Other specified soft tissue disorders; R06.09 Other forms of dyspnea; Z90.89 Acquired absence of other organs; Z90.49 Acquired absence of other specified parts of digestive tract; Z87.39 Personal history of other diseases of the musculoskeletal system and connective tissue; Z96.659 Presence of unspecified artificial knee joint
CPT/HCPCS: 11042

== ENCOUNTER 2023-04-10 08:29 | Outpatient (RCR) | payer BC, SELFPAY ==
[2023-04-05 00:12] VITALS: BP 122/72; PULSE 82; RESP 18; TEMP 35.8; BMI 51.5
--- NOTE | 2023-04-10 08:37 | PCM.WC.HP ---
History of Present Illness Date of Service: 04/10/23 Chief Complaint: Non-healing, dehiscent laceration of the right anterior calf History of Wound: This is a 63-year-old morbidly obese female who was in her normal state of health until December 09, 2022. On that date, she sustained a laceration to the right anterior calf following impact with a car door. She is known to have chronic swelling and edema in her lower extremities, as well as chronic venous insufficiency. Upon sustaining the injury, patient presented to the emergency department at [facility], where suture repair of the laceration was performed. She was also treated with a prescription of Augmentin. Eight days later, her sutures were removed without incident. 2 days following suture removal, the patient re-traumatized the area, causing a dehiscence of the wound, prompting her to seek medical attention in the [facility] Emergency Department. According to the patient, a resident performed a suture closure, and the patient was discharged. However, the patient's traumatic wound has failed to heal. In fact, it appears to have become dehiscent, with evidence of nonviable and necrotic tissue present. The patient has chronic swelling and edema in her lower extremities. She sleeps on a flat mattress at night, and is active. She denies a history of thrombophlebitis. 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 [facility] Medical History Acute conjunctivitis Acute sinusitis Alcohol use Asthma Asthma, moderate persistent Back pain Bruising Cardiology follow-up encounter Chronic venous insufficiency Chronic venous insufficiency Coronary artery calcification COVID-19 CPAP (continuous positive airway pressure) dependence Dyspnea on exertion Easy bruising Edema of leg Essential hypertension Former smoker Gastric reflux GERD (gastroesophageal reflux disease) High cholesterol History of echocardiogram History of edema History of stress test History of trigger finger Hyperlipidemia Hypertension Left leg swelling Leg cramps Leg edema, left Leg edema, right Leg swelling Morbid obesity with BMI of 50.0-59.9, adult Non-pressure chronic ulcer of right calf with fat layer exposed Obesity MALACHI (obstructive sleep apnea) MALACHI on CPAP PAC (premature atrial contraction) Premature atrial contraction Preoperative cardiovascular examination Pure hypercholesterolemia Right leg swelling Shortness of breath on exertion Surgical wound dehiscence Urinary incontinence Urinary tract infection Urine incontinence Ventral hernia Home Medications amlodipine 10 mg tablet 10 mg PO QHS 06/19/16 [History Last Taken Unknown] ascorbic acid (vitamin C) 1,000 mg tablet 1,000 mg PO DAILY 06/19/16 [History Last Taken Unknown] evening primrose oil 500 mg capsule 500 mg PO DAILY 06/19/16 [History Last Taken Unknown] hydrochlorothiazide 25 mg tablet 25 mg PO DAILY 06/19/16 [History Last Taken Unknown] omeprazole 20 mg capsule,delayed release 20 mg PO DAILY 06/19/16 [History Last Taken 08/08/21 06:30] PEP device #1 ea 08/26/18 [Rx Last Taken Unknown] benzonatate 200 mg capsule 200 mg PO TID PRN cough #90 caps 09/03/18 [Rx Last Taken Unknown] vitamin B complex (B Complex-Vitamin B12 tablet) 1 tab PO DAILY 10/15/18 [History Last Taken Unknown] cholecalciferol (vitamin D3) 50 mcg (2,000 unit) capsule 50 mcg PO DAILY 08/26/20 [History Last Taken Unknown] loratadine 10 mg tablet (Claritin) 10 mg PO DAILY 08/26/20 [History Last Taken Unknown] tolterodine 4 mg capsule,extended release 24 hr (Detrol LA) 4 mg PO DAILY 08/26/20 [History Last Taken Unknown] losartan 50 mg tablet 50 mg PO QHS 11/26/20 [History Last Taken Unknown] Acapella #1 ea 12/21/21 [Rx Last Taken Unknown] Peak Flow meter #1 ea 12/21/21 [Rx Last Taken Unknown] zinc sulfate 66 mg tablet 66 mg PO DAILY 12/22/21 [History Last Taken Unknown] naproxen 500 mg tablet 250 mg PO DAILY 05/29/22 [History Last Taken Unknown] phenazopyridine 100 mg tablet (Pyridium) 100 mg PO TID PRN pain 06/21/22 [History Last Taken Unknown] Lactobacillus acidophilus 1 cap PO DAILY 07/27/22 [History Last Taken Unknown] citalopram 20 mg tablet 20 mg PO DAILY 07/27/22 [History Last Taken Unknown] rosuvastatin 10 mg tablet 10 mg PO DAILY 07/27/22 [History Last Taken Unknown] carvedilol 6.25 mg tablet 6.25 mg PO BID #180 tabs 09/21/22 [Rx Last Taken Unknown] albuterol sulfate 90 mcg/actuation aerosol inhaler (ProAir HFA) 2 puff inhalation Q4H PRN shortness of breath or wheezing #8.5 grams 11/07/22 [Rx Last Taken Unknown] sodium chloride 7 % for nebulization 4 ml inhalation BID #240 mL 12/05/22 [Rx Last Taken Unknown] fluticasone fur. 200 mcg-umeclid 62.5 mcg-vilant 25 mcg inhalat.powder (Trelegy Ellipta) 1 inh inhalation DAILY #60 ea 02/08/23 [Rx Last Taken Unknown] fluticasone furoate 200 mcg-vilanterol 25 mcg/dose inhalation powder (Breo Ellipta) 1 inh inhalation DAILY #60 ea 02/08/23 [Rx Last Taken Unknown] prednisone 10 mg tablet 10 mg PO QDAY #30 tabs 02/16/23 [Rx Last Taken Unknown] Allergy/AdvReac Type Severity Reaction Status Date / Time lisinopril Allergy Unknown Cough Verified 02/24/23 20:22 clarithromycin [From Biaxin] Allergy Other Verified 02/24/23 20:22 codeine Allergy Other Verified 02/24/23 20:22 doxycycline Allergy Upset Verified 02/24/23 20:22 Stomach erythromycin base Allergy Other Verified 02/24/23 20:22 latex AdvReac Anaphylaxis Verified 02/24/23 20:22 Family History Father Hypertension CAD (coronary artery disease) History of coronary artery bypass surgery Myocardial infarction, Onset Age: 50 Mother Heart disease Brother Melanoma Surgical History History of bladder repair surgery History of bladder repair surgery History of carpal tunnel release of both wrists History of carpal tunnel surgery History of carpal tunnel surgery History of cholecystectomy History of cholecystectomy History of partial hysterectomy History of partial hysterectomy History of tonsillectomy History of tonsillectomy History of total knee arthroplasty History of total knee replacement History of ventral hernia repair History of ventral hernia repair Status post trigger finger release Social History Smoking Status: Former smoker pack-years: 16 second hand exposure: No alcohol intake: current alcohol intake frequency: a few times a week Alcohol type: wine substance use type: does not use caffeine: No what type of physical activity do you participate in: walking and swimming Vital Signs Vital Signs Vital Signs: Weight Weight: 300 lb Body Mass Index (BMI) 51.5 Physical Exam Const alert, oriented x3, no apparent distress and well nourished Constitutional Narrative: The patient is morbidly obese. Her BMI is 51.5. General Appearance: cooperative, comfortable, well kempt and well developed Orientation / Consciousness: awake, oriented to person, oriented to place and oriented to time Exam Limitations: no limitations HEENT normocephalic, head/scalp atraumatic and hearing grossly normal bilaterally Head and Scalp: normal to inspection, normocephalic and atraumatic External Ear: external ears normal Eyes PERRL and EOMs intact bilaterally General Eye: normal appearance of both eyes Neck full ROM General: normal visual inspection Resp normal respiratory effort, normal air movement, no retractions and no use of accessory muscles Effort and Inspection: able to speak in complete sentences Extremity no calf tenderness General Extremity: Negative for clubbing or cyanosis Skin Wound Narrative: The traumatic wound on the patient's right pretibial area is now completely healed and epithelialized. There is no sign of infection or cellulitis. There has been no drainage. Moderate swelling and edema persist in the patient's lower extremities bilaterally. Neuro oriented x3, CN's II-XII intact bilaterally, moves all extremities and no focal motor deficits Sensorium / Orientation: awake, alert, oriented to person, oriented to place and oriented to time Psych Appearance: grossly normal and appropriate Attitude: calm Activity / Motor Behavior: appropriate eye contact Speech: normal speech Mood & Affect: euthymic mood Thought Process: normal thought process Thought Content: normal thought content Attention / Concentration: attention grossly intact Debridement Note Debridement Note No debridement was completed: No debridement was completed today Post-Debridement Measurements and Additional Note: Post-Debridement Measurements/Treatment WC - Nurse 2 - General Ulcer CM Notes Start: 04/10/23 08:34 Freq: Status: Active Protocol: Activity Type Activity Date Activity User E-sign Co-sign Detail Recorded Client Recorded Date Recorded By Document 04/10/23 08:35 JESSE [id number] 04/10/23 08:35 PL 04/10/23 08:35 Wound Center Nurse 2 #1 Right lateral LE -Procedure Performed No -Wound/Ulcer Outcome Healed- Epithelialized Pain Scale: 0-10 Numeric Is Patient Pain Free? Yes WC - Nurse 3 - General Ulcer D/C NN Start: 04/10/23 08:34 Freq: Status: Active Protocol: Activity Type Activity Date Activity User E-sign Co-sign Detail Recorded Client Recorded Date Recorded By Document 04/10/23 08:35 KW Desktop 04/10/23 08:36 KW 04/10/23 08:35 Is Patient Pain Free? Yes WC - Visit Discharge Discharge Condition Stable Ambulatory Status Ambulatory Transportation Private Auto Medication Reconcilliation completed & No provided to patient/care provider Clinical Summary of Care Provided Yes Assessment/Plan Assessment/Plan (1) Non-pressure chronic ulcer of right calf with fat layer exposed: CODE(S): L97.212 - Non-pressure chronic ulcer of right calf with fat layer exposed (2) Chronic venous insufficiency: (3) Laceration of right leg excluding thigh: CODE(S): S81.811A - Laceration without foreign body, right lower leg, initial encounter QUALIFIERS: Encounter type: subsequent encounter Qualified Code(s): S81.811D - Laceration without foreign body, right lower leg, subsequent encounter (4) Surgical wound dehiscence: CODE(S): T81.31XA - Disruption of external operation (surgical) wound, not elsewhere classified, initial encounter QUALIFIERS: Encounter type: subsequent encounter Qualified Code(s): T81.31XD - Disruption of external operation (surgical) wound, not elsewhere classified, subsequent encounter (5) Right leg swelling: CODE(S): M79.89 - Other specified soft tissue disorders (6) Leg edema, right: CODE(S): R60.0 - Localized edema (7) DDD (degenerative disc disease), lumbar: CODE(S): M51.36 - Other intervertebral disc degeneration, lumbar region (8) Ventral incisional hernia without obstruction or gangrene: CODE(S): K43.2 - Incisional hernia without obstruction or gangrene (9) Coronary artery calcification: CODE(S): I25.10 - Atherosclerotic heart disease of [place] coronary artery without angina pectoris; I25.84 - Coronary atherosclerosis due to calcified coronary lesion (10) Chronic venous insufficiency: CODE(S): I87.2 - Venous insufficiency (chronic) (peripheral) (11) MALACHI on CPAP: CODE(S): G47.33 - Obstructive sleep apnea (adult) (pediatric); Z99.89 - Dependence on other enabling machines and devices (12) GERD (gastroesophageal reflux disease): CODE(S): K21.9 - Gastro-esophageal reflux disease without esophagitis (13) Pure hypercholesterolemia: CODE(S): E78.00 - Pure hypercholesterolemia, unspecified (14) Essential hypertension: CODE(S): I10 - Essential (primary) hypertension (15) MALACHI (obstructive sleep apnea): CODE(S): G47.33 - Obstructive sleep apnea (adult) (pediatric) (16) Asthma, moderate persistent: CODE(S): J45.40 - Moderate persistent asthma, uncomplicated QUALIFIERS: Asthma complication type: uncomplicated Qualified Code(s): J45.40 - Moderate persistent asthma, uncomplicated (17) Morbid obesity with BMI of 50.0-59.9, adult: CODE(S): E66.01 - Morbid (severe) obesity due to excess calories; Z68.43 - Body mass index [BMI] 50.0-59.9, adult (18) Dyspnea on exertion: CODE(S): R06.09 - Other forms of dyspnea (19) PAC (premature atrial contraction): CODE(S): I49.1 - Atrial premature depolarization (20) Left leg swelling: CODE(S): M79.89 - Other specified soft tissue disorders (21) Leg edema, left: CODE(S): R60.0 - Localized edema (22) Urinary incontinence: CODE(S): R32 - Unspecified urinary incontinence (23) History of bladder repair surgery: CODE(S): Z98.890 - Other specified postprocedural states (24) History of carpal tunnel release of both wrists: CODE(S): Z98.890 - Other specified postprocedural states (25) History of cholecystectomy: CODE(S): Z90.49 - Acquired absence of other specified parts of digestive tract (26) History of tonsillectomy: CODE(S): Z90.89 - Acquired absence of other organs (27) History of partial hysterectomy: CODE(S): Z90.711 - Acquired absence of uterus with remaining cervical stump (28) History of total knee replacement: CODE(S): Z96.659 - Presence of unspecified artificial knee joint (29) History of ventral hernia repair: CODE(S): Z98.890 - Other specified postprocedural states; Z87.19 - Personal history of other diseases of the digestive system (30) History of trigger finger: CODE(S): Z87.39 - Personal history of other diseases of the musculoskeletal system and connective tissue PLAN: Plan This is a 63-year-old morbidly obese female with a traumatic injury to her right viviane-lateral calf. Her recent medical history is as documented above. The wound on the right viviane-medial calf is now completely healed and epithelialized. Therefore, the patient is to be discharged, and will follow-up henceforth on an as-needed basis. She has been advised to continue with current conservative treatment measures relative to the swelling and edema in her lower extremities. These measures are to include leg elevation, avoidance of idle standing and sitting, weight control measures, active lifestyle, and graduated compression stockings of 20 to 30 mmHg compression, worn daily. Total time: 22 minutes
[2023-04-10 08:38] VITALS: BP 136/64; BMI 51.5
== END 2023-04-16 15:37 | disposition home or self-care (01) ==
LOC: WC 08:29
PROVIDERS: PCP Internal Medicine; Referring Provider Physician Assistant; Visit Provider Surgery
DX: L97.212 Non-pressure chronic ulcer of right calf with fat layer exposed (principal); E66.01 Morbid (severe) obesity due to excess calories; Z68.43 Body mass index [BMI] 50.0-59.9, adult; Z79.51 Long term (current) use of inhaled steroids; K21.9 Gastro-esophageal reflux disease without esophagitis; Z90.710 Acquired absence of both cervix and uterus; E78.00 Pure hypercholesterolemia, unspecified; I49.1 Atrial premature depolarization; R32 Unspecified urinary incontinence; S81.811A Laceration without foreign body, right lower leg, initial encounter; I87.2 Venous insufficiency (chronic) (peripheral); K43.2 Incisional hernia without obstruction or gangrene; M51.36 Other intervertebral disc degeneration, lumbar region; I10 Essential (primary) hypertension; R60.0 Localized edema; E78.5 Hyperlipidemia, unspecified; Z86.16 Personal history of COVID-19; G47.33 Obstructive sleep apnea (adult) (pediatric); I25.10 Atherosclerotic heart disease of native coronary artery without angina pectoris; J45.40 Moderate persistent asthma, uncomplicated; M79.89 Other specified soft tissue disorders; T81.31XA Disruption of external operation (surgical) wound, not elsewhere classified, initial encounter; Z90.49 Acquired absence of other specified parts of digestive tract; Z90.89 Acquired absence of other organs; Z96.659 Presence of unspecified artificial knee joint; Z87.39 Personal history of other diseases of the musculoskeletal system and connective tissue
CPT/HCPCS: 99213; G0463

== ENCOUNTER → 2023-10-15 | Outpatient (CLI) | payer BC, SELFPAY ==
[2023-10-15 12:31] LABS: Anion Gap 7 (5-15); BUN 20 mg/dL (7-18); BUN/Creat Ratio 24.7 RATIO (10-20); Calcium,Total 9.5 mg/dL (8.5-10.1); Chloride 102 mmol/L (98-107); Creatinine, Serum 0.81 mg/dL (0.55-1.02); EST Glomerular Filtration Rate 75 mL/min (>60); Est Glom Filt Rate - Afr Amer 91 mL/min (>60); Glucose 107 mg/dL (74-106); Potassium 3.2 mmol/L (3.5-5.1); Sodium Level 138 mmol/L (136-145)
== END | disposition home or self-care (01) ==
PROVIDERS: PCP Internal Medicine; Referring Provider Internal Medicine Cardiovascular Disease; Visit Provider Internal Medicine Cardiovascular Disease
DX: I10 Essential (primary) hypertension (principal)
CPT/HCPCS: 36415; 80048

== ENCOUNTER → 2023-10-24 | Outpatient (CLI) | payer BC, SELFPAY ==
[2023-10-24 15:25] LABS: Anion Gap 6 (5-15); BUN 16 mg/dL (7-18); BUN/Creat Ratio 19.3 RATIO (10-20); Calcium,Total 9.2 mg/dL (8.5-10.1); Chloride 104 mmol/L (98-107); Creatinine, Serum 0.83 mg/dL (0.55-1.02); EST Glomerular Filtration Rate 73 mL/min (>60); Est Glom Filt Rate - Afr Amer 89 mL/min (>60); Glucose 100 mg/dL (74-106); Potassium 3.7 mmol/L (3.5-5.1); Sodium Level 138 mmol/L (136-145)
== END | disposition home or self-care (01) ==
LOC: MTLAB 11:00
PROVIDERS: PCP Internal Medicine; Referring Provider Nurse Practitioner Family; Visit Provider Nurse Practitioner Family
DX: Z51.81 Encounter for therapeutic drug level monitoring (principal); Z79.899 Other long term (current) drug therapy
CPT/HCPCS: 36415; 80048

== ENCOUNTER → 2023-11-21 | Outpatient (CLI) | payer BC, SELFPAY ==
--- NOTE | 2023-11-21 10:45 | RAD_ITS ---
STUDY: X-RAY - RIGHT HAND REASON FOR EXAM: Female, 63 years old. Pain. TECHNIQUE: 3 view(s) of the hand. COMPARISON: November 07, 2017 FINDINGS: Bones: There are juxta articular erosions of the heads of the first and second metatarsals and the base of the second proximal phalanx. Joints: There is mild arthrosis of the radial carpal row, the first carpometacarpal joint and the metacarpal phalangeal and interphalangeal joints. Soft tissues: The soft tissues are unremarkable. Foreign body: None RAD/Hand Min 3 Views IMPRESSION: Osteoarthritic changes as described. Juxta-articular erosive changes as described, unaltered. No acute finding. Electronically Signed: Jamshid Alicea MD at 11:11 EDT ,
== END | disposition home or self-care (01) ==
LOC: MTLAB 10:40 → MTRAD 10:41
PROVIDERS: PCP Internal Medicine
DX: M79.641 Pain in right hand (principal)
CPT/HCPCS: 73130

== ENCOUNTER → 2023-12-06 | Outpatient (CLI) | payer BC, SELFPAY ==
[2023-12-06 18:11] LABS: Erythrocyte Sedimentation Rate 15 mm/hr (0-30)
[2023-12-06 18:44] LABS: Uric Acid 4.5 mg/dL (2.6-6.0)
[2023-12-10 15:08] LABS: Anti-Nuclear Antibody Test Negative (.)
== END | disposition home or self-care (01) ==
LOC: LAB.FUTURE 15:31 → MTLAB 15:33
PROVIDERS: PCP Internal Medicine; Referring Provider Internal Medicine; Visit Provider Internal Medicine
DX: E78.00 Pure hypercholesterolemia, unspecified (principal)
CPT/HCPCS: 36415; 84550; 85652; 86038; 86140

== ENCOUNTER → 2024-02-12 | Outpatient (CLI) | payer BC, SELFPAY ==
[2024-02-12 13:10] LABS: AST(SGOT) 16 U/L (15-37); Alanine Aminotransfer ALT/SGPT 20 U/L (13-56); Albumin, Serum 3.6 g/dL (3.2-5.0); Alkaline Phosphatase 69 U/L (45-117); Bilirubin, Direct 0.14 mg/dL (0.00-0.30); Cholesterol 167 mg/dL (200); Globulin 3.8 g/dL (2.2-4.2); High Density Lipoprotein 73 mg/dL; Protein, Total 7.4 g/dL (6.4-8.2); Triglycerides 81 mg/dL; Very Low Density Lipoprotein 16 mg/dL (5-40)
== END | disposition home or self-care (01) ==
LOC: MTLAB 10:15
PROVIDERS: PCP Internal Medicine; Referring Provider Internal Medicine; Visit Provider Internal Medicine
DX: E78.00 Pure hypercholesterolemia, unspecified (principal)
CPT/HCPCS: 36415; 80061; 80076

== ENCOUNTER → 2024-04-16 | Outpatient (CLI) | payer BC, SELFPAY ==
--- NOTE | 2024-04-16 11:13 | RAD_ITS ---
PROCEDURE: CHEST PA AND LATERAL REASON FOR EXAM: Bronchiectasis. TECHNIQUE: Frontal and lateral views of the chest. COMPARISON: Chest x-ray of 02/24/2023. FINDINGS: The heart size is normal. The mediastinal contour is unremarkable. The lungs are clear. No interval osseous changes noted. RAD/Chest PA and Lateral IMPRESSION: No evidence of acute cardiopulmonary disease. Reading Location: [id number]
== END | disposition home or self-care (01) ==
LOC: MTRAD 11:12
PROVIDERS: PCP Internal Medicine; Referring Provider Internal Medicine; Visit Provider Internal Medicine
DX: J47.9 Bronchiectasis, uncomplicated (principal)
CPT/HCPCS: 71046

== ENCOUNTER → 2024-06-12 | Outpatient (CLI) | payer BC, SELFPAY | END | disposition home or self-care (01) | LOC: LABSPEC 11:09 | PROVIDERS: PCP Internal Medicine; Referring Provider Nurse Practitioner Acute Care; Visit Provider Nurse Practitioner Acute Care | DX: J47.9 Bronchiectasis, uncomplicated (principal) | CPT/HCPCS: 87070; 87205 ==

== ENCOUNTER → 2024-07-07 | Outpatient (CLI) | payer BC, SELFPAY | END | disposition home or self-care (01) | LOC: LAB 13:45 | PROVIDERS: PCP Internal Medicine; Referring Provider Nurse Practitioner Acute Care; Visit Provider Nurse Practitioner Acute Care | DX: J06.9 Acute upper respiratory infection, unspecified (principal) | CPT/HCPCS: 87633 ==

== ENCOUNTER 2024-07-12 16:21 | Inpatient (IN) | payer BC, MEDICARE, SELFPAY ==
[2024-07-12] VITALS (11 sets, daily range): BP systolic 133–170; BP diastolic 59–74; PULSE 72–110; RESP 12–26; TEMP 36.1–37.1; O2SAT 88–98; BMI 50.6
--- NOTE | 2024-07-12 16:39 | EDS_ITS ---
HPI <SHASHANK Blunt - Last Filed: 07/12/24 18:34> History of Present Illness Chief Complaint: Shortness of Breath Narrative Narrative: 64-year-old female with PMH of HTN, HLD, MALACHI on CPAP, asthma, bronchiectasis presents with 1 week of increased cough, sputum and shortness of breath. She states she always has a cough but it has been worse for 1 to 2 weeks. She sees Radha Mackenzie NP in pulmonary and about a week ago was given a Medrol Dosepak. She took 3 days without improvement so they switched her to a 12-day prednisone taper. She is taken prednisone 40 mg x 3 days and 30 mg x 3 days. She uses albuterol and Breo inhalers. Pulmonology thought allergies may be contributing and prescribed Singulair. They also prescribed albuterol for her nebulizer machine (she normally just uses sodium chloride to help clear secretions). She had a negative viral swab by pulmonology. They called in Ceftin as a [id number] prescription and she started taking it with a total of 3 doses so far. Patient states she quit smoking about 35 years ago. PFSH <SHASHANK Blunt - Last Filed: 07/12/24 18:34> FOR[facility]LY [facility], [facility] Medical History Non-pressure chronic ulcer of right calf with fat layer exposed History of trigger finger Urinary incontinence Leg edema, left Leg edema, right Left leg swelling Right leg swelling Surgical wound dehiscence PAC (premature atrial contraction) Dyspnea on exertion Morbid obesity with BMI of 50.0-59.9, adult Chronic venous insufficiency Ventral hernia High cholesterol Alcohol use Bruising Easy bruising Back pain Gastric reflux Shortness of breath on exertion Asthma Former smoker CPAP (continuous positive airway pressure) dependence Leg cramps History of edema Cardiology follow-up encounter History of echocardiogram History of stress test Preoperative cardiovascular examination Coronary artery calcification COVID-19 Premature atrial contraction MALACHI on CPAP GERD (gastroesophageal reflux disease) Pure hypercholesterolemia Essential hypertension Urinary tract infection Acute sinusitis MALACHI (obstructive sleep apnea) Asthma, moderate persistent Urine incontinence Acute conjunctivitis Hyperlipidemia Hypertension Chronic venous insufficiency Obesity Edema of leg Leg swelling Home Medications ?Medication ?Instructions ?Recorded ?Last Taken ?Type amlodipine 10 mg tablet 10 mg PO QHS 06/19/16 History ascorbic acid (vitamin C) 1,000 mg 1,000 mg PO DAILY 0 06/19/16 07/12/24 History tablet evening primrose oil 500 mg capsule 500 mg PO DAILY 07/12/24 History omeprazole 20 mg capsule,delayed 20 mg PO DAILY 07/12/24 History release PEP device #1 ea 08/26/18 Unknown Rx cholecalciferol (vitamin D3) 50 50 mcg PO DAILY 07/12/24 History mcg (2,000 unit) capsule loratadine 10 mg tablet (Claritin) 10 mg PO DAILY 08/0407/11/24 History Acapella #1 ea 12/21/21 Unknown Rx Peak Flow meter #1 ea 12/21/21 Unknown Rx citalopram 20 mg tablet 20 mg PO DAILY 07/27/2207/03 History guaifenesin 1,200 mg tablet, 1,200 mg PO BID 06/07/23 07/12/24 History extended release 12 hr (Mucinex) Wayne Garcia #1 ea 07/24/23 Unknown Rx hydrochlorothiazide 25 mg tablet 25 mg PO BID #180 tab s 10/01/23 07/12/24 Rx losartan 50 mg tablet 50 mg PO BID #180 tabs 09/3007/12/24 Rx albuterol sulfate 90 mcg/actuation 2 puff inhalation Q 4H PRN 11/15/23 07/12/24 Rx aerosol inhaler shortness of breath or wheez ing #8.5 grams fluticasone furoate 200 1 inh inhalation DAILY #60 e a 05/22/24 07/12/24 Rx mcg-vilanterol 25 mcg/dose inhalation powder (Breo Ellipta) oxybutynin chloride 5 mg 5 mg PO QDAY 06/10/24 History tablet,extended release 24 hr rosuvastatin 20 mg tablet 20 mg PO QHS 06/10/24 History sodium chloride 7 % for 4 ml inhalation BID #240 mL 06/10/24 Unknown Rx nebulization Held on 07/12/24. Instructions: PCP HOLD UNTIL DUONEB FINISHED echinacea 125 mg capsule 125 mg PO DAILY Stay healthy 07/07/24 07/11/24 History montelukast 10 mg tablet 10 mg PO QPM #30 tabs 07/11/24 Rx prednisone 10 mg tablet 10 mg PO QDAY 12 days #30 ta bs 07/07/24 07/12/24 Rx cefuroxime axetil 500 mg tablet 500 mg PO BID 07/12/24 07/12/24 History ipratropium 0.5 mg-albuterol 3 mg 3 ml inhalation Q8H PRN SOB &/OR 07/12/24 07/12/24 History (2.5 mg base)/3 mL nebulization WHEEZING soln Allergy/AdvReac Type Severity Reaction Status Date / Time lisinopril Allergy Unknown Cough Verified 07/12/24 16:21 clarithromycin (From Biaxin) Allergy Other Verified 07/12/24 16:21 codeine Allergy Other Verified 07/12/24 16:21 doxycycline Allergy Upset Verified 07/12/24 16:21 Stomach erythromycin base Allergy Other Verified 07/12/24 16:21 latex AdvReac Anaphylaxis Verified 07/12/24 16:21 Family History Father Hypertension CAD (coronary artery disease) Hx of CABG Myocardial infarction, Onset Age: 50 Mother Heart disease Brother Melanoma Hx of CABG Surgical History History of ventral hernia repair History of total knee replacement History of partial hysterectomy History of tonsillectomy History of cholecystectomy History of carpal tunnel release of both wrists History of bladder repair surgery History of ventral hernia repair Status post trigger finger release History of carpal tunnel surgery History of bladder repair surgery History of partial hysterectomy History of carpal tunnel surgery History of cholecystectomy History of total knee arthroplasty History of tonsillectomy Social History Smoking Status: Former smoker pack-years: 16 second hand exposure: No alcohol intake: current alcohol intake frequency: a few times a week Alcohol type: wine substance use type: does not use caffeine: No what type of physical activity do you participate in: walking and swimming ROS <SHASHANK Blunt - Last Filed: 07/12/24 18:34> ROS ED ROS Narrative Constitutional: Negative for fever, chills. CVS: Negative for chest pain. Respiratory: Positive for shortness of breath, cough. GI: Negative for abdominal pain, nausea, vomiting. EXAM <Mindy March PA - Last Filed: 07/12/24 18:34> Physical Exam Narrative Exam Narrative: CONST: Patient sitting in no acute distress. EYES: Normal inspection. NECK: Normal inspection. RESP: Mildly tachypneic around 24 breaths a minute, able to converse in full sentences, mild inspiratory and expiratory lungs sounds. CVS: Regular rate and rhythm, no murmur, no gallop. SKIN: Color normal, no rash, warm, dry, intact. EXTREMITIES: Normal appearance, no pedal edema. NEURO: Alert and answering questions appropriately. PSYCH: Normal affect. Const Vital Signs: 07/12/24 16:22 07/12/24 16:43 07/12/24 16:52 Temperature 97 F L Temperature Source Temporal Pulse Rate 86 72 Respiratory Rate 26 H 17 Respiratory Effort Short of Breath Respiratory Depth Normal Respiratory Pattern Normal Normal Blood Pressure 153/74 H Blood Pressure Mean 100 Pulse Ox 97 Oxygen Delivery Method Room Air Room Air 07/12/24 17:21 07/12/24 17:39 07/12/24 17:43 Temperature 98.8 F Temperature Source Oral Pulse Rate 110 H 81 78 Respiratory Rate 18 17 22 H Respiratory Effort Respiratory Depth Respiratory Pattern Normal Blood Pressure 149/59 H 133/70 H Blood Pressure Mean 89 91 Pulse Ox 88 98 Oxygen Delivery Method Room Air Room Air 07/12/24 18:00 Temperature Temperature Source Pulse Rate 77 Respiratory Rate 12 Respiratory Effort Respiratory Depth Respiratory Pattern Blood Pressure 160/64 H Blood Pressure Mean 96 Pulse Ox 95 Oxygen Delivery Method Room Air <Dr. Reed Mujica DO - Last Filed: 07/12/24 17:48> Physical Exam Const Vital Signs: 07/12/24 16:22 07/12/24 16:43 07/12/24 16:52 Temperature 97 F L Temperature Source Temporal Pulse Rate 86 72 Respiratory Rate 26 H 17 Respiratory Effort Short of Breath Respiratory Depth Normal Respiratory Pattern Normal Normal Blood Pressure 153/74 H Blood Pressure Mean 100 Pulse Ox 97 Oxygen Delivery Method Room Air Room Air 07/12/24 17:21 07/12/24 17:39 07/12/24 17:43 Temperature 98.8 F Temperature Source Oral Pulse Rate 110 H 81 78 Respiratory Rate 18 17 22 H Respiratory Effort Respiratory Depth Respiratory Pattern Normal Blood Pressure 149/59 H 133/70 H Blood Pressure Mean 89 91 Pulse Ox 88 98 Oxygen Delivery Method Room Air Room Air 07/12/24 18:00 Temperature Temperature Source Pulse Rate 77 Respiratory Rate 12 Respiratory Effort Respiratory Depth Respiratory Pattern Blood Pressure 160/64 H Blood Pressure Mean 96 Pulse Ox 95 Oxygen Delivery Method Room Air [facility] <SHASHANK Blunt - Last Filed: 07/12/24 18:34> [facility] Narrative Medical decision making narrative: Differential includes but not limited to asthma exacerbation, pneumonia 64-year-old female with PMH of asthma and bronchiectasis presents with increased cough, wheezing, and dyspnea. She is mildly tachypneic around 26/minute, otherwise normal vital signs. 97% on room air. She has been expiratory wheezing and was ordered DuoNebs. CXR negative. After aerosols her ambulatory pulse ox is 88% and she is significantly tachypneic and symptomatic. She has already failed outpatient treatment with at least 6 days of a prednisone taper, 2 days of antibiotics, and allergy treatments from pulmonology. I added blood work. WBC is 14.1 which is likely elevated from recent steroid use. BMP o verall unremarkable. CXR negative for acute findings. Since she requires admission I ordered a second DuoNeb treatment, IV Solu-Medrol, and IV doxycycline with Zofran since it is caused stomach upset in the past. I discussed the case with the hospitalist for admission. Lab Data Labs: Laboratory Results - last 24 hr 07/12/24 17:42 WBC 14.1 H RBC 4.63 Hgb 13.2 Hct 39.6 MCV 85.5 MCH 28.5 MCHC 33.3 RDW Std Deviation 51.3 H RDW Coeff of Kathryn 16.4 H Plt Count 226 MPV 8.9 Immature Gran % (Auto) 1.100 H Neut % (Auto) 89.2 H Lymph % (Auto) 5.6 L [place] % (Auto) 4.0 Eos % (Auto) 0.0 Baso % (Auto) 0.1 Absolute Neuts (auto) 12.6 H Absolute Lymphs (auto) 0.79 L Nucleated RBC % 0 Sodium 136 Potassium 3.7 Chloride 100 Carbon Dioxide 22.4 Anion Gap 14 BUN 24 H Creatinine 0.88 Estim Creat Clear Calc 85.74 Est GFR (MDRD) Non-Af 72 BUN/Creatinine Ratio 27.0 H Glucose 147 H Calcium 9.3 Radiography Diagnostic Testing: Clinical Impression(s) from Imaging Studies Chest X-Ray 07/12/24 16:50 IMPRESSION: NO ACUTE FINDINGS. Reading Location: [facility] ED attending interpretation of 2 view chest x-ray shows normal heart size, no acute infiltrate. <Dr. Reed Mujica, - Last Filed: 07/12/24 17:48> [facility] Lab Data Labs: Laboratory Results - last 24 hr 07/12/24 17:42 WBC 14.1 H RBC 4.63 Hgb 13.2 Hct 39.6 MCV 85.5 MCH 28.5 MCHC 33.3 RDW Std Deviation 51.3 H RDW Coeff of Kathryn 16.4 H Plt Count 226 MPV 8.9 Immature Gran % (Auto) 1.100 H Neut % (Auto) 89.2 H Lymph % (Auto) 5.6 L [place] % (Auto) 4.0 Eos % (Auto) 0.0 Baso % (Auto) 0.1 Absolute Neuts (auto) 12.6 H Absolute Lymphs (auto) 0.79 L Nucleated RBC % 0 Sodium 136 Potassium 3.7 Chloride 100 Carbon Dioxide 22.4 Anion Gap 14 BUN 24 H Creatinine 0.88 Estim Creat Clear Calc 85.74 Est GFR (MDRD) Non-Af 72 BUN/Creatinine Ratio 27.0 H Glucose 147 H Calcium 9.3 Radiography Diagnostic Testing: Clinical Impression(s) from Imaging Studies Chest X-Ray 07/12/24 16:50 IMPRESSION: NO ACUTE FINDINGS. Reading Location: [facility] Treatment and Re-Evaluation :: Attending note: I have personally performed a face to face assessment of the patient and have reviewed the ALECIA note. I personally made/approved the management plan and take responsibility for the patient management. I performed a substantive portion of the visit including all aspects of the following. My sharma findings include: History of asthma and bronchiectasis remote tobacco presen ts worsening dyspnea and wheeze today. Cough wheezing 8 days ago. [facility] follow-up with her pulmonology team 5 days ago switched to prednisone taper a [id number] antibiotic along with aerosol treatments. Started her antibiotics yesterday after speaking with security operations manager of [employer]. No fevers. Today while taking care of her mom at home who was in hospice had multiple dyspnea or wheezing used her inhaler 4 times. She went home had her spouse bring her here. Patient examined myself after aerosol treatments improved wheezing from memorial designer evaluation. 2 view checked x-ray interpreted by myself shows no acute process. Patient ambulated became dyspneic pulse ox dropped to 88%. IV established for labs, stress dose steroids ordered along with doxycycline. She had a respiratory panel 5 days consistent was negative. Will plan for admission with her hypoxia. Discharge Plan Triage Chief Complaint: Shortness of Breath ED Midlevel Provider: Mindy March ED Provider: Reed Mujica Dx/Rx/DC Orders Clinical Impression: Asthma exacerbation, History of bronchiectasis, Hypoxia, Failure of outpatient treatment Primary Care Provider: Randall Warren
--- NOTE | 2024-07-12 16:50 | RAD_ITS ---
PROCEDURE: CHEST PA AND LATERAL 07/12/2024 REASON FOR EXAM: COUGH TECHNIQUE: Frontal and lateral views of the chest. COMPARISON: 04/16/2024 FINDINGS: Hardware: None Heart: The heart size is normal. Mediastinum: The mediastinal contour is unremarkable. Lungs: Mild bibasilar atelectasis. No focal consolidation. No pneumothorax. No pleural effusion. Bones: The bones are unremarkable. RAD/Chest PA and Lateral IMPRESSION: NO ACUTE FINDINGS. [facility]
[2024-07-12] MEDS: Ipratropium/Albuterol Sulfate 3 ML AMPUL.NEB INHALATION ×4 (16:51→23:05)
[2024-07-12 17:45] LABS: Absolute Lymphocyte Count 0.79 X10^3/uL (0.83-4.51); Absolute Neutrophil Count 12.6 X10^3/uL (2.0-7.7); Basophil# 0.02 X10^3/uL; Basophil% 0.1 % (0-1); Hematocrit 39.6 % (37-47); Hemoglobin 13.2 g/dL (12.0-15.0); Lymphocyte # 0.79 X10^3/ul (0.83-4.51); Lymphocyte % 5.6 % (19-41); Mean Corp Hgb Conc 33.3 g/dL (32-36); Mean Corpuscular Hgb 28.5 pg (27.0-32.0); Mean Corpuscular Volume 85.5 fL (81-99); Mean Platelet Vol. 8.9 fl (6.2-12.0); Monocyte# 0.56 X10^3/uL; NRBC Flagged by Analyzer 0 % (0-5); Neutrophil # 12.57 X10^3/uL (2.7-7.7); Neutrophil % 89.2 % (47-70); Platelet Count 226 K/mm3 (150-450); RBC Distribution Width CV 16.4 % (11.6-14.6); RBC Distribution Width SD 51.3 fl (35.1-43.9); Red Blood Count 4.63 M/mm3 (4.2-5.4); White Blood Count 14.1 K/mm3 (4.4-11.0)
[2024-07-12] MEDS: MethylPREDNISolone 125 MG/2 ML Vial IV (17:59)
[2024-07-12] MEDS: Doxycycline 100 MG in 0.9% Normal Saline (250mL Bag) 250 ML 250 MG IV (17:59)
[2024-07-12] MEDS: Ondansetron 4 MG/2 ML Vial IV (17:59)
[2024-07-12 18:08] LABS: Anion Gap 14 (5-15); BUN 24 mg/dL (4-19); Calcium,Total 9.3 mg/dL (7.6-11.0); Carbon Dioxide 22.4 mmol/L (21.0-32.0); Chloride 100 mmol/L (98-108); Creatinine, Serum 0.88 mg/dL (0.70-1.20); EST Glomerular Filtration Rate 72 (>60); Estimated Creatinine Clearance 85.74 ml/min (50-250); Glucose 147 mg/dL (70-99); Potassium 3.7 mmol/L (3.3-5.1); Sodium Level 136 mmol/L (133-145)
--- NOTE | 2024-07-12 18:36 | PCM.HP.STD ---
HPI - General General Date of Admission: 07/12/24 Date of Service: 07/12/24 Chief Complaint: Cough and SOB HPI Narrative KIZZY NASH, is a 64-year-old female history of MALACHI, hypertension, asthma/bronchiectasis, depression who presented to [facility] ED 07/12/2024 with cough and shortness of breath worsening over 1 to 2 weeks. She saw Radha Mackenzie NP in the pulmonary office a week ago and was given a Medrol Dosepak, after 3 days she was switched to a 12-day prednisone taper and was using her inhalers and a new prescription of albuterol however she has not been improving prompting her to come to the ED for evaluation. Patient afebrile, heart rate 86 with blood pressure 153/74, respiratory rate 26 and pulse ox initially 97% however did drop to 88% on room air. Patient wheezing and tachypneic, given doxycycline, steroids, albuterol nebs. Chest x-ray no acute process. Hospitalist contacted for admission. Patient evaluated at bedside reports history as above with increased shortness of breath and cough over the past 1 to 2 weeks refractory to outpatient Medrol Dosepak, steroid taper, nebulizers, cefdinir prompting her to come to the ED. Does feel somewhat better after multiple breathing treatments, doxycycline, IV Methylpred but reports she is already beginning to feel like she needs another breathing treatment. Patient reports she has had a bit of a headache but attributes this to starting albuterol last week because of her difficulties with breathing. Does report compliance with her percussion vest in the morning and had been using her normal saline nebulizers but was told to hold these while she was using albuterol. Now is on Mucinex and is coughing up some but usually was using her normal saline nebulizers to help get up the majority of her secretions. Is compliant with CPAP. Has not slept well the last couple of nights due to being on steroids. ROS otherwise negative [facility] Medical History Non-pressure chronic ulcer of right calf with fat layer exposed History of trigger finger Urinary incontinence Leg edema, left Leg edema, right Left leg swelling Right leg swelling Surgical wound dehiscence PAC (premature atrial contraction) Dyspnea on exertion Morbid obesity with BMI of 50.0-59.9, adult Chronic venous insufficiency Ventral hernia High cholesterol Alcohol use Bruising Easy bruising Back pain Gastric reflux Shortness of breath on exertion Asthma Former smoker CPAP (continuous positive airway pressure) dependence Leg cramps History of edema Cardiology follow-up encounter History of echocardiogram History of stress test Preoperative cardiovascular examination Coronary artery calcification COVID-19 Premature atrial contraction MALACHI on CPAP GERD (gastroesophageal reflux disease) Pure hypercholesterolemia Essential hypertension Urinary tract infection Acute sinusitis MALACHI (obstructive sleep apnea) Asthma, moderate persistent Urine incontinence Acute conjunctivitis Hyperlipidemia Hypertension Chronic venous insufficiency Obesity Edema of leg Leg swelling Home Medications ?Medication ?Instructions ?Recorded ?Last Taken ?Type amlodipine 10 mg tablet 10 mg PO QHS 06/19/16 07/11/24 History ascorbic acid (vitamin C) 1,000 mg 1,000 mg PO DAILY 06/19/16 07/12/24 History tablet evening primrose oil 500 mg capsule 500 mg PO DAILY 06/19/16 07/12/24 History omeprazole 20 mg capsule,delayed 20 mg PO DAILY 06/19/16 07/12/24 History release PEP device #1 ea 08/26/18 Unknown Rx cholecalciferol (vitamin D3) 50 50 mcg PO DAILY 08/26/20 07/12/24 History mcg (2,000 unit) capsule loratadine 10 mg tablet (Claritin) 10 mg PO DAILY 08/26/20 07/11/24 History Acapella #1 ea 12/21/21 Unknown Rx Peak Flow meter #1 ea 12/21/21 Unknown Rx citalopram 20 mg tablet 20 mg PO DAILY 07/27/22 07/12/24 History guaifenesin 1,200 mg tablet, 1,200 mg PO BID 06/07/23 07/12/24 History extended release 12 hr (Mucinex) Disability Placard #1 ea 07/24/23 Unknown Rx hydrochlorothiazide 25 mg tablet 25 mg PO BID #180 tabs 10/01/23 07/12/24 Rx losartan 50 mg tablet 50 mg PO BID #180 tabs 10/01/23 07/12/24 Rx albuterol sulfate 90 mcg/actuation 2 puff inhalation Q4H PRN 11/15/23 07/12/24 Rx aerosol inhaler shortness of breath or wheezing #8.5 grams fluticasone furoate 200 1 inh inhalation DAILY #60 ea 05/22/24 07/12/24 Rx mcg-vilanterol 25 mcg/dose inhalation powder (Breo Ellipta) oxybutynin chloride 5 mg 5 mg PO QDAY 06/10/24 07/12/24 History tablet,extended release 24 hr rosuvastatin 20 mg tablet 20 mg PO QHS 06/10/24 07/11/24 History sodium chloride 7 % for 4 ml inhalation BID #240 mL 06/10/24 Unknown Rx nebulization Held on 07/12/24. Instructions: PCP HOLD UNTIL DUONEB FINISHED echinacea 125 mg capsule 125 mg PO DAILY Stay healthy 07/07/24 07/11/24 History montelukast 10 mg tablet 10 mg PO QPM #30 tabs 07/07/24 07/11/24 Rx prednisone 10 mg tablet 10 mg PO QDAY 12 days #30 tabs 07/07/24 07/12/24 Rx cefuroxime axetil 500 mg tablet 500 mg PO BID 07/12/24 07/12/24 History ipratropium 0.5 mg-albuterol 3 mg 3 ml inhalation Q8H PRN SOB &/OR 07/12/24 07/12/24 History (2.5 mg base)/3 mL nebulization WHEEZING soln Allergy/AdvReac Type Severity Reaction Status Date / Time lisinopril Allergy Unknown Cough Verified 07/12/24 16:21 clarithromycin (From Biaxin) Allergy Other Verified 07/12/24 16:21 codeine Allergy Other Verified 07/12/24 16:21 doxycycline Allergy Upset Verified 07/12/24 16:21 Stomach erythromycin base Allergy Other Verified 07/12/24 16:21 latex AdvReac Anaphylaxis Verified 07/12/24 16:21 Family History (Reviewed 07/07/24 @ 13:23 by Radha Lord SOCIAL SERVICE AGENCY DIRECTOR, SOCIAL SERVICE AGENCY DIRECTOR-C) Father Hypertension CAD (coronary artery disease) Hx of CABG Myocardial infarction, Onset Age: 50 Mother Heart disease Brother Melanoma Hx of CABG Surgical History (Reviewed 07/07/24 @ 13:23 by Radha Lord SOCIAL SERVICE AGENCY DIRECTOR, SOCIAL SERVICE AGENCY DIRECTOR-C) History of ventral hernia repair History of total knee replacement History of partial hysterectomy History of tonsillectomy History of cholecystectomy History of carpal tunnel release of both wrists History of bladder repair surgery History of ventral hernia repair Status post trigger finger release History of carpal tunnel surgery History of bladder repair surgery History of partial hysterectomy History of carpal tunnel surgery History of cholecystectomy History of total knee arthroplasty History of tonsillectomy Social History Smoking Status: Former smoker pack-years: 16 second hand exposure: No alcohol intake: current alcohol intake frequency: a few times a week Alcohol type: wine substance use type: does not use caffeine: No what type of physical activity do you participate in: walking and swimming ROS ROS Narrative General: Denies fever/chills HENT: Has had a bit of a headache, denies stuffy nose, denies sore throat EYES: Denies changes in vision Resp: Cough productive of sputum and shortness of breath Cardiac: Denies chest pain GI: Denies abdominal pain, denies changes in bowel, denies nausea/vomiting : Denies changes in urination Extremity: Denies swelling MSK: Denies weakness Neuro: Denies any numbness/tingling Heme: Denies any bleeding or bruising Skin: Denies rashes Psychiatric: No complaints voiced Vital Signs Vital Signs Vital Signs: 07/12/24 16:22 07/12/24 16:43 07/12/24 16:52 Temperature 97 F L Temperature Source Temporal Pulse Rate 86 72 Respiratory Rate 26 H 17 Respiratory Effort Short of Breath Respiratory Depth Normal Respiratory Pattern Normal Normal Blood Pressure 153/74 H Blood Pressure Mean 100 Pulse Ox 97 Oxygen Delivery Method Room Air Room Air 07/12/24 17:21 07/12/24 17:39 07/12/24 17:43 Temperature 98.8 F Temperature Source Oral Pulse Rate 110 H 81 78 Respiratory Rate 18 17 22 H Respiratory Effort Respiratory Depth Respiratory Pattern Normal Blood Pressure 149/59 H 133/70 H Blood Pressure Mean 89 91 Pulse Ox 88 98 Oxygen Delivery Method Room Air Room Air 07/12/24 18:00 Temperature Temperature Source Pulse Rate 77 Respiratory Rate 12 Respiratory Effort Respiratory Depth Respiratory Pattern Blood Pressure 160/64 H Blood Pressure Mean 96 Pulse Ox 95 Oxygen Delivery Method Room Air Weight Weight: 133.855 kg Body Mass Index (BMI) 50.6 Physical Exam Narrative General: Alert, oriented, no apparent distress HEENT: Atraumatic, normocephalic Eyes: Anicteric, normal conjunctiva, extraocular movements grossly intact Neck: Supple Respiratory: Slight increased work of breathing with expiratory wheezes Cardiovascular: Regular rate and rhythm GI: Soft, nontender, nondistended Extremities: Nonpitting lower extremity edema Musculoskeletal: Moving all extremities Neuro: No overt focal neurological deficits Skin: No rashes appreciated Psych: Cooperative Results Lab / Micro Data 07/12/24 17:42 07/12/24 17:42 Labs: Laboratory Results - last 24 hr 07/12/24 17:42: WBC 14.1 H, RBC 4.63, Hgb 13.2, Hct 39.6, MCV 85.5, MCH 28.5, MCHC 33.3, RDW Std Deviation 51.3 H, RDW Coeff of Kathryn 16.4 H, Plt Count 226, MPV 8.9, Immature Gran % (Auto) 1.100 H, Neut % (Auto) 89.2 H, Lymph % (Auto) 5.6 L, [place] % (Auto) 4.0, Eos % (Auto) 0.0, Baso % (Auto) 0.1, Absolute Neuts (auto) 12.6 H, Absolute Lymphs (auto) 0.79 L, Nucleated RBC % 0, Sodium 136, Potassium 3.7, Chloride 100, Carbon Dioxide 22.4, Anion Gap 14, BUN 24 H, Creatinine 0.88, Estim Creat Clear Calc 85.74, Est GFR (MDRD) Non-Af 72, BUN/Creatinine Ratio 27.0 H, Glucose 147 H, Calcium 9.3 Imaging Radiology Impression Chest X-Ray 07/12/24 16:50 IMPRESSION: NO ACUTE FINDINGS. Reading [facility] Assessment & Plan Assessment/Plan (1) Asthma exacerbation: PLAN: Plan #Asthma exacerbation/bronchiectasis -Admit to floor, continuous O2 monitoring -Chest x-ray: No acute process -COVID ordered, obtain respiratory panel, sputum culture if able -O2 in place, wean as tolerated -IV methylprednisone -Scheduled DuoNebs -Albuterol prn -Antibiotics: Given doxycycline in the ED and tolerated it even though listed on allergy list, given patient tolerated this we will continue, possibly as it is IV instead of p.o. -Incentive spirometer -Mucinex #MALACHI -Continue home NIPPV, to bring hers in from home #Hypertension - Continue home medications #GERD -Continue PPI #Depression/anxiety -Continue home medications #Morbid obesity -BMI documented as 50.7 kg/m? at time of admission -Complicates treatment, prognosis, outcomes -Recommend weight loss and lifestyle changes #DVT ppx: Lovenox subcu Paige Tapia MD Charges/Coding Visit Charges Inpatient E&M: 15396 Init Hosp L2
[2024-07-12] MEDS: 0.9% Normal Saline (250mL Bag) 250 ML 15 ML IV (20:08)
[2024-07-12] MEDS: Acetaminophen 325 MG Tablet 650 MG PO (21:53)
[2024-07-12] MEDS: amLODIPine 10 MG Tablet PO (22:37)
[2024-07-12] MEDS: Enoxaparin 40 MG/0.4 ML Syringe SC (22:38)
[2024-07-12] MEDS: Montelukast 10 MG Tablet PO (22:38)
[2024-07-12] MEDS: Atorvastatin Calcium 40 MG Tablet PO (22:38)
[2024-07-12] MEDS: MELATONIN 10 MG TABLET PO (22:38)
[2024-07-12] MEDS: Loratadine 10 MG Tablet PO (22:41)
[2024-07-13] VITALS (12 sets, daily range): BP systolic 125–156; BP diastolic 53–78; PULSE 73–88; RESP 16–26; TEMP 36.7–36.9; O2SAT 89–98
[2024-07-13] MEDS: Ipratropium/Albuterol Sulfate 3 ML AMPUL.NEB INHALATION ×5 (03:35→19:35)
[2024-07-13 05:44] LABS: Absolute Lymphocyte Count 0.54 X10^3/uL (0.83-4.51); Absolute Neutrophil Count 8.5 X10^3/uL (2.0-7.7); Basophil# 0.03 X10^3/uL; Basophil% 0.3 % (0-1); Hemoglobin 12.4 g/dL (12.0-15.0); Lymphocyte # 0.54 X10^3/ul (0.83-4.51); Lymphocyte % 5.6 % (19-41); Mean Corp Hgb Conc 33.5 g/dL (32-36); Mean Corpuscular Hgb 28.5 pg (27.0-32.0); Mean Corpuscular Volume 85.1 fL (81-99); Mean Platelet Vol. 9.5 fl (6.2-12.0); Monocyte# 0.25 X10^3/uL; Monocyte% 2.6 % (0-10); NRBC Flagged by Analyzer 0 % (0-5); Neutrophil # 8.54 X10^3/uL (2.7-7.7); Neutrophil % 89.3 % (47-70); POSITIVE DIFFERENTIAL YES; Platelet Count 236 K/mm3 (150-450); RBC Distribution Width CV 16.3 % (11.6-14.6); RBC Distribution Width SD 51.1 fl (35.1-43.9); Red Blood Count 4.35 M/mm3 (4.2-5.4); White Blood Count 9.6 K/mm3 (4.4-11.0)
[2024-07-13 06:08] LABS: Anion Gap 14 (5-15); BUN 20 mg/dL (4-19); BUN/Creat Ratio 26.1 RATIO (10-20); Calcium,Total 8.9 mg/dL (7.6-11.0); Carbon Dioxide 22.3 mmol/L (21.0-32.0); Chloride 99 mmol/L (98-108); Creatinine, Serum 0.77 mg/dL (0.70-1.20); EST Glomerular Filtration Rate 86 (>60); Estimated Creatinine Clearance 94.31 ml/min (50-250); Glucose 181 mg/dL (70-99); Potassium 3.2 mmol/L (3.3-5.1); Sodium Level 135 mmol/L (133-145)
[2024-07-13] MEDS: Methylprednisolone Sod Succ 40 MG/ML VIAL IV ×3 (07:00→20:38)
[2024-07-13] MEDS: hydroCHLOROthiazide 25 MG Tablet PO ×2 (09:12→17:04)
[2024-07-13] MEDS: Doxycycline 100 MG CAPSULE PO ×2 (09:12→20:37)
[2024-07-13] MEDS: guaiFENesin 1,200 MG Tablet 1200 MG PO ×2 (09:12→17:04)
[2024-07-13] MEDS: Tolterodine Tartrate 2 MG CAP.SA PO (09:12)
[2024-07-13] MEDS: Potassium Chloride Oral Tablet 20 MEQ 40 MEQ PO (09:12)
[2024-07-13] MEDS: Losartan Potassium 50 MG Tablet PO ×2 (09:12→17:04)
[2024-07-13] MEDS: Pantoprazole Sodium 20 MG Tablet PO (09:12)
[2024-07-13] MEDS: Citalopram 20 MG Tablet PO (09:12)
[2024-07-13] MEDS: Enoxaparin 40 MG/0.4 ML Syringe SC ×2 (09:12→20:38)
[2024-07-13] MEDS: Ascorbic Acid 500 MG Tablet 1000 MG PO (11:20)
[2024-07-13] MEDS: Acetaminophen 325 MG Tablet 650 MG PO (11:20)
[2024-07-13] MEDS: Cholecalciferol (VIT D3) 25 MCG TABLET (1,000 UNITS) 50 MCG PO (11:20)
[2024-07-13] MEDS: 0.9% Saline Lock 10 ML Syringe IV ×3 (13:31→20:44)
--- NOTE | 2024-07-13 14:06 | PCM.PN.HOSP ---
Reason for Visit Reason for Visit: Shortness of breath/cough Subjective Subjective Patient reports that she still is coughing and having some shortness of breath. She states that it is predominantly exertional. We did an ambulatory pulse ox and while she was stable on room air, her sats did drop to 89% with exertion. She feels like she is congested in her upper airway. We discussed adding hypertonic saline and she states this has worked. Obviously to clear secretions. She already has Acapella and has been compliant with this. She has steroids and aggressive pulmonary toilet. She is currently on doxycycline as she has had ongoing symptoms for about 2 weeks. Objective Data Objective Data Vital Signs: Vital Signs Temp Pulse Resp BP Pulse Ox O2 Del Method 98.4 F 84 20 H 156/78 H 94 Room Air 07/13/24 08:15 07/13/24 09:49 07/13/24 09:49 07/13/24 08:15 07/13/24 08:15 07/13/24 08:18 Oxygen Delivery Method Room Air Weight: 133.855 kg Body Mass Index (BMI) 50.6 Intake & Output: Intake and Output for Last 24 Hours 07/11/24 07/12/24 07/13/24 23:59 23:59 23:59 Intake Total 260 / 260 125.5 / 125.5 Balance 260 / 260 125.5 / 125.5 Lab / Micro Data 07/13/24 05:25 07/13/24 05:25 Labs: Laboratory Results - last 24 hr 07/12/24 17:42: WBC 14.1 H, RBC 4.63, Hgb 13.2, Hct 39.6, MCV 85.5, MCH 28.5, MCHC 33.3, RDW Std Deviation 51.3 H, RDW Coeff of Kathryn 16.4 H, Plt Count 226, MPV 8.9, Immature Gran % (Auto) 1.100 H, Neut % (Auto) 89.2 H, Lymph % (Auto) 5.6 L, Cloud % (Auto) 4.0, Eos % (Auto) 0.0, Baso % (Auto) 0.1, Absolute Neuts (auto) 12.6 H, Absolute Lymphs (auto) 0.79 L, Nucleated RBC % 0, Sodium 136, Potassium 3.7, Chloride 100, Carbon Dioxide 22.4, Anion Gap 14, BUN 24 H, Creatinine 0.88, Estim Creat Clear Calc 85.74, Est GFR (MDRD) Non-Af 72, BUN/Creatinine Ratio 27.0 H, Glucose 147 H, Calcium 9.3 07/13/24 05:25: WBC 9.6, RBC 4.35, Hgb 12.4, Hct 37.0, MCV 85.1, MCH 28.5, MCHC 33.5, RDW Std Deviation 51.1 H, RDW Coeff of Kathryn 16.3 H, Plt Count 236, MPV 9.5, Immature Gran % (Auto) 2.200 H, Neut % (Auto) 89.3 H, Lymph % (Auto) 5.6 L, Cloud % (Auto) 2.6, Eos % (Auto) 0.0, Baso % (Auto) 0.3, Absolute Neuts (auto) 8.5 H, Absolute Lymphs (auto) 0.54 L, Nucleated RBC % 0, Sodium 135, Potassium 3.2 L, Chloride 99, Carbon Dioxide 22.3, Anion Gap 14, BUN 20 H, Creatinine 0.77, Estim Creat Clear Calc 94.31, Est GFR (MDRD) Non-Af 86, BUN/Creatinine Ratio 26.1 H, Glucose 181 H, Calcium 8.9 Micro: Microbiology 07/12/24 19:40 Mucosa - Nasopharyngeal Respiratory Panel (PCR) - Final 07/12/24 19:00 Nasal Secretion SARS-CoV-2 Antigen (Rapid) - Final Radiography Diagnostic Testing: Radiology Impression Chest X-Ray 07/12/24 16:50 IMPRESSION: NO ACUTE FINDINGS. Reading [facility] Physical Exam Const alert, oriented x3, no apparent distress and well nourished; Negative for average body habitus or healthy appearing Constitutional Narrative: Morbidly obese, white female, sitting up in the edge of the bed, appears comfortable, nontoxic, no conversational dyspnea but patient does seem to be dyspneic on exertion but is even mild, does not appear toxic, very pleasant HEENT head/scalp atraumatic and moist oral mucous membranes HEENT Narrative: Mallampati 4, no thrush Resp normal respiratory effort, no retractions, no use of accessory muscles and No clear to auscultation bilaterally Resp Narrative: Coarse breath sounds throughout, scattered end expiratory wheezes noted, mild exertional dyspnea noted but no conversational dyspnea Auscultation: wheezes; Negative for rales or rhonchi Cardio regular rate, regular rhythm, S1 normal heart sound, S2 normal heart sound, no murmurs, no rub, no gallops and no clicks GI normal to inspection, nondistended, normoactive bowel sounds, soft to palpation and non-tender GI Narrative: Protuberant abdomen Extremity no clubbing, cyanosis or edema Neuro oriented x3 and moves all extremities Speech: speech normal Psych affect normal Psych Narrative: Very pleasant, interacts appropriately Assessment & Plan Assessment/Plan (1) Failure of outpatient treatment: (2) Asthma exacerbation: (3) History of bronchiectasis: PLAN: Plan Acute exacerbation of asthma/bronchiectasis - Patient stable on room air at rest but borderline requires oxygen with exertion - Plan is to give another 24 hours of IV steroids, antibiotics, scheduled DuoNebs with as needed albuterol to see if we can improve her exertional saturations and shortness of breath - Will give Lasix 40 mg IV push x 1 dose - Will give hypertonic saline to improve secretion clearance - Continue doxycycline - Continue incentive monomer - Continue Acapella - Respiratory viral panel and COVID-19 are negative - Sputum culture is pending - If does not clinically improve could consider CT of the chest Leukocytosis - Greater than 14 on presentation - Resolved - Cultures are pending - Continue antibiotics Hypokalemia - Potassium is 3.2 - 40 mill equivalents p.o. potassium - Recheck in a.m. next-check and magnesium level Hyperglycemia - Likely steroid-induced - Monitor and if persistently greater than 180 would recommend adding sliding scale MALACHI - Continue BiPAP Essential hypertension/hyperlipidemia - Continue home rosuvastatin - Continue home losartan - Continue home HCTZ - continue home amlodipine Seasonal allergies - Continue home loratadine - Continue home Singulair Urinary incontinence - Continue home oxybutynin GERD - Continue on PPI Anxiety/depression - Continue home citalopram Morbid obesity - BMI is 50.7 - Complicates treatment, prognosis, outcomes - recommend weight loss DVT prophylaxis - subcu Lovenox twice daily CODE STATUS - Full code Charges/Coding Visit Charges Inpatient E&M: 72924 Subs Hosp L2
[2024-07-13] MEDS: Furosemide 40 MG/4 ML Vial IV (14:49)
[2024-07-13] MEDS: SODIUM CHLORIDE FOR INHALATION 4 ML VIAL.NEB INHALATION (19:35)
[2024-07-13] MEDS: Loratadine 10 MG Tablet PO (20:37)
[2024-07-13] MEDS: amLODIPine 10 MG Tablet PO (20:37)
[2024-07-13] MEDS: Atorvastatin Calcium 40 MG Tablet PO (20:38)
[2024-07-13] MEDS: Montelukast 10 MG Tablet PO (20:38)
[2024-07-13] MEDS: MELATONIN 10 MG TABLET PO (21:54)
[2024-07-14 02:45] VITALS: BP 143/67; PULSE 64; RESP 14; TEMP 36.4; O2SAT 94
[2024-07-14] MEDS: Methylprednisolone Sod Succ 40 MG/ML VIAL IV (06:11)
[2024-07-14] MEDS: 0.9% Saline Lock 10 ML Syringe IV (06:11)
[2024-07-14 07:02] LABS: Anion Gap 12 (5-15); BUN 23 mg/dL (4-19); BUN/Creat Ratio 32.5 RATIO (10-20); Calcium,Total 9.9 mg/dL (7.6-11.0); Chloride 97 mmol/L (98-108); Creatinine, Serum 0.71 mg/dL (0.70-1.20); EST Glomerular Filtration Rate 93 (>60); Estimated Creatinine Clearance 94.31 ml/min (50-250); Glucose 132 mg/dL (70-99); Magnesium 2.2 mg/dL (1.5-2.2); Potassium 3.7 mmol/L (3.3-5.1); Sodium Level 137 mmol/L (133-145)
[2024-07-14 07:11] VITALS: PULSE 69; RESP 19; O2SAT 98
[2024-07-14] MEDS: Ipratropium/Albuterol Sulfate 3 ML AMPUL.NEB INHALATION ×2 (07:11→11:17)
[2024-07-14 08:32] VITALS: BP 149/86; PULSE 82; RESP 18; TEMP 36.7; O2SAT 96
[2024-07-14] MEDS: Losartan Potassium 50 MG Tablet PO (10:10)
[2024-07-14] MEDS: Pantoprazole Sodium 20 MG Tablet PO (10:10)
[2024-07-14] MEDS: hydroCHLOROthiazide 25 MG Tablet PO (10:10)
[2024-07-14] MEDS: Tolterodine Tartrate 2 MG CAP.SA PO (10:10)
[2024-07-14] MEDS: FLUTICASONE/VILANTEROL 1 EACH BLST.W.DEV INHALATION (10:10)
[2024-07-14] MEDS: Citalopram 20 MG Tablet PO (10:10)
[2024-07-14] MEDS: Doxycycline 100 MG CAPSULE PO (10:10)
[2024-07-14] MEDS: guaiFENesin 1,200 MG Tablet 1200 MG PO (10:11)
[2024-07-14] MEDS: Acetaminophen 325 MG Tablet 650 MG PO (10:15)
[2024-07-14] MEDS: Ascorbic Acid 500 MG Tablet 1000 MG PO (10:15)
[2024-07-14] MEDS: Cholecalciferol (VIT D3) 25 MCG TABLET (1,000 UNITS) 50 MCG PO (10:23)
[2024-07-14 10:37] VITALS: O2SAT 91; O2SAT 97
--- NOTE | 2024-07-14 10:37 | PCM.DC ---
Discharge Instructions Diet Discharge Diet: No restrictions DC O2, CPAP, BIPAP needs Home O2 Discharge instructions: No Dressing / Incision Discharge Activity: Return to Normal Activity Weight Bearing Status: Full weight bearing Follow Up Care Test Results: Test results from this visit will be discussed in further detail at your follow-up appointment, if applicable. Discharge Plan Admission Admit Date/Time: 07/12/24 18:36 Primary Reason for Your Visit: exacerbation of COPD/bronchiectasis Attending Provider: Geovani Hough Primary Care Provider: Randall Warren Consulting Providers: Paige Tapia; Lili Winkler Instructions Additional Instructions / Restrictions: Talk with your rn social services about taking Zithromax daily for preventative treatment Discharge Orders/Prescriptions Prescriptions: New prednisone 10 mg tablet 10 mg PO UD Qty: 44 0RF Rx Instructions: two twice a day for 5 days, then three daily for 5 days, then two daily for 3 days then one daily for three days then stop azithromycin [Zithromax] 250 mg tablet 250 mg PO UD Qty: 30 0RF Rx Instructions: two once a day for three days, then one daily until gone Continued (DME) PEP device 0 .ROUTE .MEDSUPPLY Qty: 1 0RF Rx Instructions: with training loratadine [Claritin] 10 mg tablet 10 mg PO DAILY cholecalciferol (vitamin D3) 50 mcg (2,000 unit) capsule 50 mcg PO DAILY (DME) Peak Flow meter See Rx Instructions .ROUTE .MEDSUPPLY Qty: 1 0RF Rx Instructions: As directed (DME) Acapella See Rx Instructions .ROUTE .MEDSUPPLY Qty: 1 0RF Rx Instructions: As directed citalopram 20 mg tablet 20 mg PO DAILY Patient Comments: TAKE 1 TABLET BY MOUTH EVERY DAY FOR 90 DAYS guaifenesin [Mucinex] 1,200 mg tablet extended release 12hr 1,200 mg PO BID losartan 50 mg tablet 50 mg PO BID Qty: 180 3RF hydrochlorothiazide 25 mg tablet 25 mg PO BID Qty: 180 3RF oxybutynin chloride 5 mg tablet extended release 24hr 5 mg PO QDAY rosuvastatin 20 mg tablet 20 mg PO QHS sodium chloride 7 % solution for nebulization 4 ml inhalation BID Qty: 240 11RF echinacea 125 mg capsule 125 mg PO DAILY montelukast 10 mg tablet 10 mg PO QPM Qty: 30 3RF ascorbic acid (vitamin C) 1,000 MG tablet 1,000 mg PO DAILY evening primrose oil 500 MG capsule 500 mg PO DAILY amlodipine 10 MG tablet 10 mg PO QHS omeprazole 20 MG capsule 20 mg PO DAILY ipratropium-albuterol 0.5 mg-3 mg(2.5 mg base)/3 mL solution for nebulization 3 ml inhalation Q8H PRN (Reason: SOB &/OR WHEEZING) potassium chloride 10 mEq capsule, extended release 10 meq PO DAILY (DME) Disability Placard See Rx Instructions .Route .MEDSUPPLY Qty: 1 0RF Rx Instructions: expires 07/23/2028 albuterol sulfate 90 mcg/actuation HFA aerosol inhaler 2 puff INHALATION Q4H PRN (Reason: shortness of breath or wheezing) Qty: 8.5 6RF Rx Instructions: administer with spacer fluticasone furoate-vilanterol [Breo Ellipta] 200-25 mcg/dose blister with device 1 inh INHALATION DAILY Qty: 60 11RF Discontinued prednisone 10 mg tablet 10 mg PO QDAY 12 Days Qty: 30 0RF Rx Instructions: take 4 tabs for three days, then 3 tabs for three days, then 2 tabs for three days, then 1 tab for 3 days cefuroxime axetil 500 mg tablet 500 mg PO BID Referrals / Follow Up: Randall Warren MD [Primary Care Provider] - See Referral Note (within 3 weeks) Radha Lord NP, BOILER FITTER-C [Med Staff - Counts Include [facility] Practice Prof] - See Referral Note (within 3 weeks) Disposition Disposition (needs filled in before D/C Order can be placed): Home, Self Care
--- NOTE | 2024-07-14 10:40 | CASEMGMT ---
JER ARREOLA Assessment: Face to Face with pt for initial transition planning/care coordination assessment. JER ARREOLA introduced self and role at [facility], pt voices understanding and consents to assessment. Pt is A&O x4 and answers all questions appropriately at this time. Pt walking about room getting dressed and packing items up on RA. Care providers, pharmacy, and demographics verified/updated. Admitting Dx: asthma exac Strata Score: 2 PCP:Kel[facility] Specialists:Gurdeep pulvandana; Tamiko cardio Preferred Pharmacy: [facility] Insurance: [employer] Prescription Benefit: yes LNOK: Chaparro Ritter, ; Mauricio Amador [email or web address] Living Arrangements: Pt lives with in a single story home with 2 steps to enter. Pt reports she is I in ADL/IADLs and denies concerns at home. Transportation: Pt drives self and denies concerns with transportation. DME:percussion vest, CPAP, nebulizer [facility], denies [facility] stays. Pt states no concerns with going home at time of dc. Pt did not qualify for home oxygen. Pt states no further concerns/needs. CM to follow. Advised pt to ask CM if any further questions/concerns/needs arise, voices understanding. Pt Goal: Home Plan: Home Lida RANDLE CM
--- NOTE | 2024-07-14 10:53 | PCM.DC.SUM ---
Providers Date of Admission: 07/12/24 Date of Discharge: 07/14/24 Primary Care Physician: Dr. Randall Warren MD Reason For Visit: ASTHMA EXACERBATION Diagnosis Discharge Diagnosis (1) Failure of outpatient treatment: Status: Inactive Code(s): Z78.9 - Other specified health status (2) Asthma exacerbation: Status: Inactive Code(s): J45.901 - Unspecified asthma with (acute) exacerbation (3) History of bronchiectasis: Status: Acute Code(s): Z87.09 - Personal history of other diseases of the respiratory system Plan 1. Acute exacerbation of bronchiectasis and asthma #2 hypokalemia #3 essential hypertension Medications at Discharge Home Medications amlodipine 10 mg tablet 10 mg PO QHS 06/19/16 ascorbic acid (vitamin C) 1,000 mg tablet 1,000 mg PO DAILY 06/19/16 evening primrose oil 500 mg capsule 500 mg PO DAILY 06/19/16 omeprazole 20 mg capsule,delayed release 20 mg PO DAILY 06/19/16 PEP device #1 ea 08/26/18 cholecalciferol (vitamin D3) 50 mcg (2,000 unit) capsule 50 mcg PO DAILY 08/26/20 loratadine 10 mg tablet (Claritin) 10 mg PO DAILY 08/26/20 Acapella #1 ea 12/21/21 Peak Flow meter #1 ea 12/21/21 citalopram 20 mg tablet 20 mg PO DAILY 07/27/22 guaifenesin 1,200 mg tablet, extended release 12 hr (Mucinex) 1,200 mg PO BID 06/07/23 Disability Placard #1 ea 07/24/23 hydrochlorothiazide 25 mg tablet 25 mg PO BID #180 tabs 10/01/23 losartan 50 mg tablet 50 mg PO BID #180 tabs 10/01/23 albuterol sulfate 90 mcg/actuation aerosol inhaler 2 puff inhalation Q4H PRN shortness of breath or wheezing #8.5 grams 11/15/23 fluticasone furoate 200 mcg-vilanterol 25 mcg/dose inhalation powder (Breo Ellipta) 1 inh inhalation DAILY #60 ea 05/22/24 oxybutynin chloride 5 mg tablet,extended release 24 hr 5 mg PO QDAY 06/10/24 rosuvastatin 20 mg tablet 20 mg PO QHS 06/10/24 sodium chloride 7 % for nebulization 4 ml inhalation BID #240 mL 06/10/24 echinacea 125 mg capsule 125 mg PO DAILY Stay healthy 07/07/24 montelukast 10 mg tablet 10 mg PO QPM #30 tabs 07/07/24 potassium chloride 10 mEq capsule,extended release 10 meq PO DAILY supplement 07/13/24 azithromycin 250 mg tablet (Zithromax) 250 mg PO UD #30 tabs 07/14/24 prednisone 10 mg tablet 10 mg PO UD #44 tabs 07/14/24 dupilumab 300 mg/2 mL subcutaneous pen injector (Dupixent) 300 mg (2 mL) subcut Q2W #4 mL 07/16/24 dupilumab 300 mg/2 mL subcutaneous pen injector (Dupixent) 600 mg (4 mL) subcut ONCE #4 mL 07/16/24 ipratropium 0.5 mg-albuterol 3 mg (2.5 mg base)/3 mL nebulization soln 3 ml inhalation Q8H PRN SOB &/OR WHEEZING #180 mL 07/16/24 Hospital Course Operations None Procedures None Summary of Care Provided Minutes Spent on Discharge: 30 Hospital Course: This 64-year-old white female was seen in the emergency room at [facility] with complaints of increased cough, sputum production, and shortness of breath x 1 week. Patient has a history of asthma and bronchiectasis. She was given a Medrol Dosepak approximately a week before. This was switched to a 12-day prednisone taper due to the fact she was not improving. Patient uses albuterol and Breo inhalers. Patient had a negative viral nasal swab by pulmonology as an outpatient. An antibiotic was called in and she took 3 doses. Examination revealed the patient's pulse ox to be 97% on room air, chest x-ray was negative, patient had an ambulatory pulse ox in the ER and her pulse ox dropped to 88% patient's labs showed an elevated white blood count which was felt to be secondary to steroid usage, chemistry profile was remarkable for a BUN of 24 glucose of 147. Patient was admitted to [place] [address], placed on IV Solu-Medrol and aerosol treatments were given, she was placed on doxycycline-this was started in the emergency room and continued. Patient improved during her hospitalization, there was no need for oxygen at the time of discharge. Patient was seen and examined on 07/14/2024: On examination she appeared in good health and spirits, she does not appear to be in any distress. Vital signs as documented. Skin warm and dry and without overt rashes. Neck without JVD, thyroid appears normal, trachea is midline, neck is supple. Lungs clear, normal air movement was noted. Heart exam notable for regular rhythm, normal sounds and absence of murmurs, rubs or gallops. Abdomen unremarkable and without evidence of organomegaly, masses, or abdominal aortic enlargement, bowel sounds are present in all 4 quadrants, no abdominal tenderness was noted. Extremities nonedematous, no cyanosis was noted, no clubbing was noted. Neuro: Cranial nerves II through XII are grossly intact, no focal motor deficits were noted, sensation to light touch and pinprick is intact, motor exam 5/5 throughout. Psych: Patient is alert and oriented x3, she does not appear anxious or depressed, she does not appear agitated. Patient was discharged home in stable condition on 07/14/2024 Weight / BMI Weight Weight: 133.855 kg Body Mass Index (BMI) 50.6 ABG / Lab / Microbiology Data 07/13/24 05:25 07/14/24 06:15 Laboratory: Laboratory Results - last 24 hr 07/14/24 06:15: Sodium 137, Potassium 3.7, Chloride 97 L, Carbon Dioxide 28.0, Anion Gap 12, BUN 23 H, Creatinine 0.71, Estim Creat Clear Calc 94.31, Est GFR (MDRD) Non-Af 93, BUN/Creatinine Ratio 32.5 H, Glucose 132 H, Calcium 9.9, Magnesium 2.2 Microbiology: Microbiology 07/12/24 23:00 Sputum, Expectorated/Coughed Gram Stain - Final 07/12/24 23:00 Sputum, Expectorated/Coughed Respiratory Culture - Final Stenotrophomonas maltophilia Haemophilus influenzae 07/12/24 19:40 Mucosa - Nasopharyngeal Respiratory Panel (PCR) - Final 07/12/24 19:00 Nasal Secretion SARS-CoV-2 Antigen (Rapid) - Final D/C Instructions Discharge Diet: No restrictions Weight Bearing Status: Full weight bearing DC O2, CPAP, BIPAP Needs Home O2 Discharge instructions: No Meaningful Use Info Meaningful Use Meaningful Use Diagnoses (Choose all that apply): None applicable Ischemic Stroke Statin Dosing Therapy Reference: STATIN DOSE THERAPY REFERENCE: * Patients > 75 years receive moderate or high dose statin therapy. * Patients 75 years or YOUNGER should receive HIGH intensity statin dose unless contraindicated. You will be required to document reason for non-treatment if statin daily dose does not meet guidelines. HIGH DOSE STATIN THERAPY DAILY Atorvastatin > than or = to 40 mg Rosuvastatin > than or = to 20 mg Amlodipine + Atorvastatin > than or = to 2.5/40 mg Ezetimibe + Simvastatin 10/80 mg Simvastatin 80mg Discharge Plan Admission Admit Date/Time: 07/12/24 18:36 Primary Reason for Your Visit: exacerbation of COPD/bronchiectasis Attending Provider: Geovani Hough Primary Care Provider: Randall Warren Consulting Providers: Paige Tapia; Lili Winkler Instructions Additional Instructions / Restrictions: Talk with your secured entrance monitor about taking Zithromax daily for preventative treatment Discharge Orders/Prescriptions Prescriptions: New prednisone 10 mg tablet 10 mg PO UD Qty: 44 0RF Rx Instructions: two twice a day for 5 days, then three daily for 5 days, then two daily for 3 days then one daily for three days then stop azithromycin [Zithromax] 250 mg tablet 250 mg PO UD Qty: 30 0RF Rx Instructions: two once a day for three days, then one daily until gone Continued (DME) PEP device 0 .ROUTE .MEDSUPPLY Qty: 1 0RF Rx Instructions: with training loratadine [Claritin] 10 mg tablet 10 mg PO DAILY cholecalciferol (vitamin D3) 50 mcg (2,000 unit) capsule 50 mcg PO DAILY (DME) Peak Flow meter See Rx Instructions .ROUTE .MEDSUPPLY Qty: 1 0RF Rx Instructions: As directed (DME) Acapella See Rx Instructions .ROUTE .MEDSUPPLY Qty: 1 0RF Rx Instructions: As directed citalopram 20 mg tablet 20 mg PO DAILY Patient Comments: TAKE 1 TABLET BY MOUTH EVERY DAY FOR 90 DAYS guaifenesin [Mucinex] 1,200 mg tablet extended release 12hr 1,200 mg PO BID losartan 50 mg tablet 50 mg PO BID Qty: 180 3RF hydrochlorothiazide 25 mg tablet 25 mg PO BID Qty: 180 3RF oxybutynin chloride 5 mg tablet extended release 24hr 5 mg PO QDAY rosuvastatin 20 mg tablet 20 mg PO QHS sodium chloride 7 % solution for nebulization 4 ml inhalation BID Qty: 240 11RF echinacea 125 mg capsule 125 mg PO DAILY montelukast 10 mg tablet 10 mg PO QPM Qty: 30 3RF ascorbic acid (vitamin C) 1,000 MG tablet 1,000 mg PO DAILY evening primrose oil 500 MG capsule 500 mg PO DAILY amlodipine 10 MG tablet 10 mg PO QHS omeprazole 20 MG capsule 20 mg PO DAILY potassium chloride 10 mEq capsule, extended release 10 meq PO DAILY (DME) Disability Placard See Rx Instructions .Route .MEDSUPPLY Qty: 1 0RF Rx Instructions: expires 07/23/2028 albuterol sulfate 90 mcg/actuation HFA aerosol inhaler 2 puff INHALATION Q4H PRN (Reason: shortness of breath or wheezing) Qty: 8.5 6RF Rx Instructions: administer with spacer fluticasone furoate-vilanterol [Breo Ellipta] 200-25 mcg/dose blister with device 1 inh INHALATION DAILY Qty: 60 11RF Discontinued prednisone 10 mg tablet 10 mg PO QDAY 12 Days Qty: 30 0RF Rx Instructions: take 4 tabs for three days, then 3 tabs for three days, then 2 tabs for three days, then 1 tab for 3 days cefuroxime axetil 500 mg tablet 500 mg PO BID No Action Dupixent Pen 300 mg/2 mL pen injector 600 mg subcut ONCE Qty: 4 0RF Rx Instructions: as a single dose Dupixent Pen 300 mg/2 mL pen injector 300 mg subcut Q2W Qty: 4 11RF ipratropium-albuterol 0.5 mg-3 mg(2.5 mg base)/3 mL solution for nebulization 3 ml inhalation Q8H PRN (Reason: SOB &/OR WHEEZING) Qty: 180 11RF Referrals / Follow Up: Randall Warren MD [Primary Care Provider] - See Referral Note (within 3 weeks) Radha Lord NP, WEB UI DESIGNER-C [Med Staff - Adv Practice Prof] - See Referral Note (within 3 weeks) Disposition Disposition (needs filled in before D/C Order can be placed): Home, Self Care Charges/Coding Visit Charges Inpatient E&M: 04599 Disch Hosp
[2024-07-14 11:17] VITALS: PULSE 79; RESP 17
[2024-07-14 11:51] VITALS: BP 158/73; PULSE 70; RESP 18; TEMP 36.6; O2SAT 94
--- NOTE | 2024-07-14 12:32 | PHA.DC_ITS ---
Pharmacy [facility] has performed discharge medication reconciliation and counseling for this patient. The patient's discharge medication list was reviewed for discrepancies and discrepancies were resolved. The patient was counseled on the following discharge medications and changes in medications for homegoing were reviewed. The Reason for Use, instructions for use, and potential side effects were reviewed for all new medications. The patient's questions regarding all of their medications were answered. 1. Azithromycin 500 mg PO daily x 3 days then 250 mg PO daily thereafter 2. Prednisone taper The patient was able to verbally demonstrate an understanding of their discharge medications. Medications at Discharge Home Medications amlodipine 10 mg tablet 10 mg PO QHS 06/19/16 ascorbic acid (vitamin C) 1,000 mg tablet 1,000 mg PO DAILY 06/19/16 evening primrose oil 500 mg capsule 500 mg PO DAILY 06/19/16 omeprazole 20 mg capsule,delayed release 20 mg PO DAILY 06/19/16 PEP device #1 ea 08/26/18 cholecalciferol (vitamin D3) 50 mcg (2,000 unit) capsule 50 mcg PO DAILY 08/26/20 loratadine 10 mg tablet (Claritin) 10 mg PO DAILY 08/26/20 Acapella #1 ea 12/21/21 Peak Flow meter #1 ea 12/21/21 citalopram 20 mg tablet 20 mg PO DAILY 07/27/22 guaifenesin 1,200 mg tablet, extended release 12 hr (Mucinex) 1,200 mg PO BID 06/07/23 Disability Placard #1 ea 07/24/23 hydrochlorothiazide 25 mg tablet 25 mg PO BID #180 tabs 10/01/23 losartan 50 mg tablet 50 mg PO BID #180 tabs 10/01/23 albuterol sulfate 90 mcg/actuation aerosol inhaler 2 puff inhalation Q4H PRN shortness of breath or wheezing #8.5 grams 11/15/23 fluticasone furoate 200 mcg-vilanterol 25 mcg/dose inhalation powder (Breo Ellipta) 1 inh inhalation DAILY #60 ea 05/22/24 oxybutynin chloride 5 mg tablet,extended release 24 hr 5 mg PO QDAY 06/10/24 rosuvastatin 20 mg tablet 20 mg PO QHS 06/10/24 sodium chloride 7 % for nebulization 4 ml inhalation BID #240 mL 06/10/24 echinacea 125 mg capsule 125 mg PO DAILY Stay healthy 07/07/24 montelukast 10 mg tablet 10 mg PO QPM #30 tabs 07/07/24 ipratropium 0.5 mg-albuterol 3 mg (2.5 mg base)/3 mL nebulization soln 3 ml inhalation Q8H PRN SOB &/OR WHEEZING 07/12/24 potassium chloride 10 mEq capsule,extended release 10 meq PO DAILY supplement 07/13/24 azithromycin 250 mg tablet (Zithromax) 250 mg PO UD #30 tabs 07/14/24 prednisone 10 mg tablet 10 mg PO UD #44 tabs 07/14/24
== END 2024-07-14 12:44 | disposition home or self-care (01) | DRG 202 ==
LOC: ED 18:21 → MS3 18:28
PROVIDERS: Internal Medicine; Physician Assistant; Admitting Provider Internal Medicine; Emergency Provider Emergency Medicine; PCP Internal Medicine; Referring Provider Internal Medicine; Visit Provider Internal Medicine
DX: J45.901 Unspecified asthma with (acute) exacerbation (principal); Z68.43 Body mass index [BMI] 50.0-59.9, adult; J47.9 Bronchiectasis, uncomplicated; I10 Essential (primary) hypertension; F32.A Depression, unspecified; E66.01 Morbid (severe) obesity due to excess calories; K21.9 Gastro-esophageal reflux disease without esophagitis; I25.10 Atherosclerotic heart disease of native coronary artery without angina pectoris; G47.33 Obstructive sleep apnea (adult) (pediatric); E87.6 Hypokalemia; J30.2 Other seasonal allergic rhinitis; F41.9 Anxiety disorder, unspecified; Z90.710 Acquired absence of both cervix and uterus; Z87.891 Personal history of nicotine dependence; Z86.16 Personal history of COVID-19; Z82.49 Family history of ischemic heart disease and other diseases of the circulatory system; R73.9 Hyperglycemia, unspecified; R32 Unspecified urinary incontinence; Z78.9 Other specified health status; Z87.09 Personal history of other diseases of the respiratory system
CPT/HCPCS: 36415; 71046; 80048; 83735; 85025; 87070; 87077; 87186; 87205; 87633; 87811; 94640; 94668; 99284; A4216; J1940; J2405

== ENCOUNTER → 2024-08-26 | Outpatient (CLI) | payer BC, SELFPAY | END | disposition home or self-care (01) | LOC: PSN 08:01 | PROVIDERS: PCP Internal Medicine; Referring Provider Nurse Practitioner Acute Care; Visit Provider Nurse Practitioner Acute Care | DX: J45.50 Severe persistent asthma, uncomplicated (principal) | CPT/HCPCS: 94060; 94726; 94729 ==

== ENCOUNTER → 2024-10-21 | Outpatient (CLI) | payer BC, SELFPAY ==
--- NOTE | 2024-10-21 15:22 | RAD_ITS ---
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 No acute fracture or dislocation is seen. Mineralization is normal. There is no visible atherosclerosis. 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 Reading Location: [facility]
== END | disposition home or self-care (01) ==
LOC: MTLAB 15:20
PROVIDERS: PCP Internal Medicine
DX: M79.672 Pain in left foot (principal)
CPT/HCPCS: 73630

== ENCOUNTER 2024-11-18 10:09 | Day surgery (SDC) | payer BC, SELFPAY ==
--- NOTE | 2024-11-13 16:21 | PAT.ANE_ITS ---
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 When Was Last Pacemaker Check QUESTION #4 FULL TEXT: You/Your Family Experience fever (hyperthermia) with Anesthesia Last Oral Intake Last Oral intake: Last Oral Intake NPO since Meds taken in AM with sips of water? 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 Female Yes 11/13/24 11:06 HX of Motion Sickness No 11/13/24 11:06 HX of N/V After Surgery No 11/13/24 11:06 Non-Smoker Yes 11/13/24 11:06 Duration of Surgery greater No 11/13/24 11:06 than 60 minutes Number of Risk Factors 2 11/13/24 11:06 PONV Score Moderate Risk 11/13/24 11:06 Height & Weight Height & Weight: Anesthesia: Height & Weight Height 5 ft 4 in 10/15/24 13:15 Respiratory Assessment Respiratory Assessment - physically impaired teacher: Respiratory Tract Infection Hx - physically impaired teacher Hx Respiratory Tract Infection No 11/13/24 11:06 STOP Sleep Apnea STOP Sleep Apnea - physically impaired teacher: STOP Sleep Apnea - physically impaired teacher Hx Hypertension Yes 11/13/24 11:06 Hx Sleep Apnea Yes 11/13/24 11:06 CPAP Yes 11/13/24 11:06 BIPAP No 11/13/24 11:06 Do you snore loudly (louder than talking or can be heard Do you often feel tired/ fatigued/ sleepy during daytime? Has anyone observed you stop breathing during sleep? STOP Results Positive 11/13/24 11:06 QUESTION #5 FULL TEXT : Do you snore loudly (louder than talking or can be heard through closed doors)? 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 Specify any problems Hx of Preganancy in last 3 N/A 11/13/24 11:06 Months Nurse Filling Out Transfusion NBUCHER 11/13/24 11:06 & Questions: Date: 11/13/24 11/13/24 11:06 Time: 11:07 11/13/24 11:06 Patient unable to answer at this time (ie. 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: /Reproductive Hx- physically impaired teacher Hx Now No 11/13/24 11:06 Gestational Age (in weeks): EDC: Hx Hx Para Hx Section SAB No 11/13/24 11:06 [facility] Medical History (Updated 11/13/24 @ 11:13 by Elizabeth Arzola) Depression Chronic cough Sleep apnea Hypertension Failure of outpatient treatment Hypoxia History of bronchiectasis Asthma exacerbation Non-pressure chronic ulcer of right calf with fat layer exposed History of trigger finger Urinary incontinence Leg edema, left Leg edema, right Left leg swelling Right leg swelling Surgical wound dehiscence PAC (premature atrial contraction) Dyspnea on exertion Morbid obesity with BMI of 50.0-59.9, adult Chronic venous insufficiency Ventral hernia High cholesterol Alcohol use Bruising Easy bruising Back pain Gastric reflux Shortness of breath on exertion Asthma Former smoker CPAP (continuous positive airway pressure) dependence Leg cramps History of edema Cardiology follow-up encounter History of echocardiogram History of stress test Preoperative cardiovascular examination Coronary artery calcification COVID-19 Premature atrial contraction MALACHI on CPAP GERD (gastroesophageal reflux disease) Pure hypercholesterolemia Essential hypertension Urinary tract infection Acute sinusitis MALACHI (obstructive sleep apnea) Asthma, moderate persistent Urine incontinence Acute conjunctivitis Hyperlipidemia Hypertension Chronic venous insufficiency Obesity Edema of leg Leg swelling Home Medications ?Medication ?Instructions ?Recorded ?Last Taken ?Type amlodipine 10 mg tablet 10 mg PO QHS 06/19/16 History ascorbic acid (vitamin C) 1,000 mg 1,000 mg PO DAILY 0 06/19/16 07/12/24 History tablet evening primrose oil 500 mg capsule 500 mg PO DAILY 07/12/24 History omeprazole 20 mg capsule,delayed 20 mg PO DAILY 07/12/24 History release PEP device #1 ea 08/26/18 Unknown Rx Acapella #1 ea 12/21/21 Unknown Rx Peak Flow meter #1 ea 12/21/21 Unknown Rx citalopram 20 mg tablet 20 mg PO DAILY 07/27/2207/03 History guaifenesin 1,200 mg tablet, 1,200 mg PO BID 06/07/23 07/12/24 History extended release 12 hr (Mucinex) Disability Placard #1 ea 07/24/23 Unknown Rx losartan 50 mg tablet 50 mg PO BID #180 tabs 09/3007/12/24 Rx fluticasone furoate 200 1 inh inhalation DAILY #60 e a 05/22/24 07/12/24 Rx mcg-vilanterol 25 mcg/dose inhalation powder (Breo Ellipta) oxybutynin chloride 5 mg 10 mg PO QDAY 06/10/2407/12 History tablet,extended release 24 hr rosuvastatin 20 mg tablet 20 mg PO QHS 06/10/24 History ipratropium 0.5 mg-albuterol 3 mg 3 ml inhalation Q8H PRN SOB &/OR 07/16/24 Unknown Rx (2.5 mg base)/3 mL nebulization WHEEZING #180 mL soln hydrochlorothiazide 25 mg tablet 25 mg PO BID #180 tab s 09/23/24 Unknown Rx albuterol 90 mcg/actuation aerosol 90 mcg inhalation P RN PRN 09/24/24 Unknown History inhaler shortness of breath or wheez ing epinephrine 0.3 mg/0.3 mL 0.3 mg IM Q5-15M PRN anaphyl axis 09/24/24 Unknown History injection, auto-injector loratadine 10 mg tablet (Claritin) 10 mg PO QDAY 09/24 Unknown History tizanidine 2 mg capsule 2 mg PO BID PRN muscle spast icity 09/24/24 Unknown History vitamin E mixed 400 unit capsule 400 unit PO DAILY Unknown History ammonium lactate 12 % topical cream 1 applic topical B ID PRN dry skin 10/06/24 Unknown History cholecalciferol (vitamin D3) 10 10 mcg PO QDAY 5 Unknown History mcg (400 unit) capsule fluticasone propionate 50 2 spray intranasal QDAY PRN 10/06/24 Unknown History mcg/actuation nasal allergy symptoms spray,suspension (Flonase Allergy Relief) sodium,potassium,mag sulfates 17.5 See Rx Instructions PO .COMPLEX 10/06/24 Unknown Rx gram-3.13 gram-1.6 gram oral soln #354 mL (Suprep Bowel Prep Kit) montelukast 10 mg tablet 10 mg PO QPM #90 tabs Unknown Rx potassium chloride 10 mEq 10 meq PO DAILY supplement # 90 caps 10/31/24 Unknown Rx capsule,extended release dupilumab 300 mg/2 mL subcutaneous 300 mg subcut .Q2WE EK 11/13/24 Unknown History pen injector (Dupixent) Allergy/AdvReac Type Severity Reaction Status Date / Time lisinopril Allergy Unknown Cough Verified 11/13/24 11:02 clarithromycin (From Biaxin) Allergy Other Verified 11/13/24 11:02 codeine Allergy Other Verified 11/13/24 11:02 erythromycin base Allergy Other Verified 11/13/24 11:02 latex AdvReac Anaphylaxis Verified 11/13/24 11:02 Family History Father Hypertension CAD (coronary artery disease) Hx of CABG Myocardial infarction, Onset Age: 50 Mother Heart disease Brother Melanoma Hx of CABG Surgical History (Updated 11/13/24 @ 11:13 by Elizabeth Arzola) History of esophagogastroduodenoscopy (EGD) History of colonoscopy History of ventral hernia repair History of total knee replacement History of partial hysterectomy History of tonsillectomy History of cholecystectomy History of carpal tunnel release of both wrists History of bladder repair surgery History of ventral hernia repair Status post trigger finger release History of carpal tunnel surgery History of bladder repair surgery History of partial hysterectomy History of carpal tunnel surgery History of cholecystectomy History of total knee arthroplasty History of tonsillectomy Social History Smoking Status: Former smoker pack-years: 16 second hand exposure: No alcohol intake: current alcohol intake frequency: a few times a week Alcohol type: wine substance use type: does not use caffeine: No what type of physical activity do you participate in: walking and swimming Audit: Pertinent Findings Pertinent Findings EKG Perinent findings: 02/24/2023. Sinus rhythm with PACs with aberrant conduction. Stress test pertinent findings: 08/08/2022. No fixed or reversible perfusion defects. Echo (EF%) pertinent findings: 09/08/2020. EF of 65%. RVSP is 29 mmHg. No aortic stenosis noted. Consult pertinent findings: 10/06/2024. Jonathan PATEL-C. 1. Coronary artery disease-patient has a history of documented coronary artery calcifications on chest CT of 06/25/2020. Patient acknowledges occasional chest pain and shortness of breath. Family history of CAD. Obtain cardiac angiography CTA. 2. [id number]-[id number]. Continue medical therapy. 3. Hypokalemia?remote history. 4. MALACHI on CPAP-patient is compliant with CPAP. Pulmonary function results/spirometer pertinent findings: 01/30/2023. Grossly normal pulmonary function test with no significant change compared to 2019. Recommendation Anesthesia Recommendation Anesthesia recommendation: F/U recommended (Did patient ever get her cardiac angiography CTA? If so can we get the results?)
--- NOTE | 2024-11-13 20:27 | PAT.ANE_ITS ---
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 When Was Last Pacemaker Check QUESTION #4 FULL TEXT: You/Your Family Experience fever (hyperthermia) with Anesthesia Last Oral Intake Last Oral intake: Last Oral Intake NPO since Meds taken in AM with sips of water? 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 Has anyone observed you stop breathing during sleep? STOP Results Positive 11/13/24 11:06 QUESTION #5 FULL TEXT : Do you snore loudly (louder than talking or can be heard through closed doors)? 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 Specify any problems Hx of Preganancy in last 3 N/A 11/13/24 11:06 Months Nurse Filling Out Transfusion NBUCHER 11/13/24 11:06 & Questions: Date: 11/13/24 11/13/24 11:06 Time: 11:07 11/13/24 11:06 Patient unable to answer at this time (ie. 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 Hx Now No 11/13/24 11:06 Gestational Age (in weeks): EDC: Hx Hx Para Hx Section SAB No 11/13/24 11:06 [facility] Medical History (Updated 11/13/24 @ 11:13 by Elizabeth Arzola) Depression Chronic cough Sleep apnea Hypertension Failure of outpatient treatment Hypoxia History of bronchiectasis Asthma exacerbation Non-pressure chronic ulcer of right calf with fat layer exposed History of trigger finger Urinary incontinence Leg edema, left Leg edema, right Left leg swelling Right leg swelling Surgical wound dehiscence PAC (premature atrial contraction) Dyspnea on exertion Morbid obesity with BMI of 50.0-59.9, adult Chronic venous insufficiency Ventral hernia High cholesterol Alcohol use Bruising Easy bruising Back pain Gastric reflux Shortness of breath on exertion Asthma Former smoker CPAP (continuous positive airway pressure) dependence Leg cramps History of edema Cardiology follow-up encounter History of echocardiogram History of stress test Preoperative cardiovascular examination Coronary artery calcification COVID-19 Premature atrial contraction MALACHI on CPAP GERD (gastroesophageal reflux disease) Pure hypercholesterolemia Essential hypertension Urinary tract infection Acute sinusitis MALACHI (obstructive sleep apnea) Asthma, moderate persistent Urine incontinence Acute conjunctivitis Hyperlipidemia Hypertension Chronic venous insufficiency Obesity Edema of leg Leg swelling Home Medications ?Medication ?Instructions ?Recorded ?Last Taken ?Type amlodipine 10 mg tablet 10 mg PO QHS 06/19/16 History ascorbic acid (vitamin C) 1,000 mg 1,000 mg PO DAILY 0 06/19/16 07/12/24 History tablet evening primrose oil 500 mg capsule 500 mg PO DAILY 07/12/24 History omeprazole 20 mg capsule,delayed 20 mg PO DAILY 07/12/24 History release PEP device #1 ea 08/26/18 Unknown Rx Acapella #1 ea 12/21/21 Unknown Rx Peak Flow meter #1 ea 12/21/21 Unknown Rx citalopram 20 mg tablet 20 mg PO DAILY 07/27/2207/03 History guaifenesin 1,200 mg tablet, 1,200 mg PO BID 06/07/23 07/12/24 History extended release 12 hr (Mucinex) Disability Placard #1 ea 07/24/23 Unknown Rx losartan 50 mg tablet 50 mg PO BID #180 tabs 09/3007/12/24 Rx fluticasone furoate 200 1 inh inhalation DAILY #60 e a 05/22/24 07/12/24 Rx mcg-vilanterol 25 mcg/dose inhalation powder (Breo Ellipta) oxybutynin chloride 5 mg 10 mg PO QDAY 06/10/2407/12 History tablet,extended release 24 hr rosuvastatin 20 mg tablet 20 mg PO QHS 06/10/24 History ipratropium 0.5 mg-albuterol 3 mg 3 ml inhalation Q8H PRN SOB &/OR 07/16/24 Unknown Rx (2.5 mg base)/3 mL nebulization WHEEZING #180 mL soln hydrochlorothiazide 25 mg tablet 25 mg PO BID #180 tab s 09/23/24 Unknown Rx albuterol 90 mcg/actuation aerosol 90 mcg inhalation P RN PRN 09/24/24 Unknown History inhaler shortness of breath or wheez ing epinephrine 0.3 mg/0.3 mL 0.3 mg IM Q5-15M PRN anaphyl axis 09/24/24 Unknown History injection, auto-injector loratadine 10 mg tablet (Claritin) 10 mg PO QDAY 09/24 Unknown History tizanidine 2 mg capsule 2 mg PO BID PRN muscle spast icity 09/24/24 Unknown History vitamin E mixed 400 unit capsule 400 unit PO DAILY Unknown History ammonium lactate 12 % topical cream 1 applic topical B ID PRN dry skin 10/06/24 Unknown History cholecalciferol (vitamin D3) 10 10 mcg PO QDAY 5 Unknown History mcg (400 unit) capsule fluticasone propionate 50 2 spray intranasal QDAY PRN 10/06/24 Unknown History mcg/actuation nasal allergy symptoms spray,suspension (Flonase Allergy Relief) sodium,potassium,mag sulfates 17.5 See Rx Instructions PO .COMPLEX 10/06/24 Unknown Rx gram-3.13 gram-1.6 gram oral soln #354 mL (Suprep Bowel Prep Kit) montelukast 10 mg tablet 10 mg PO QPM #90 tabs Unknown Rx potassium chloride 10 mEq 10 meq PO DAILY supplement # 90 caps 10/31/24 Unknown Rx capsule,extended release dupilumab 300 mg/2 mL subcutaneous 300 mg subcut .Q2WE EK 11/13/24 Unknown History pen injector (Dupixent) Allergy/AdvReac Type Severity Reaction Status Date / Time lisinopril Allergy Unknown Cough Verified 11/13/24 11:02 clarithromycin (From Biaxin) Allergy Other Verified 11/13/24 11:02 codeine Allergy Other Verified 11/13/24 11:02 erythromycin base Allergy Other Verified 11/13/24 11:02 latex AdvReac Anaphylaxis Verified 11/13/24 11:02 Family History Father Hypertension CAD (coronary artery disease) Hx of CABG Myocardial infarction, Onset Age: 50 Mother Heart disease Brother Melanoma Hx of CABG Surgical History (Updated 11/13/24 @ 11:13 by Elizabeth Arzola) History of esophagogastroduodenoscopy (EGD) History of colonoscopy History of ventral hernia repair History of total knee replacement History of partial hysterectomy History of tonsillectomy History of cholecystectomy History of carpal tunnel release of both wrists History of bladder repair surgery History of ventral hernia repair Status post trigger finger release History of carpal tunnel surgery History of bladder repair surgery History of partial hysterectomy History of carpal tunnel surgery History of cholecystectomy History of total knee arthroplasty History of tonsillectomy Social History Smoking Status: Former smoker pack-years: 16 second hand exposure: No alcohol intake: current alcohol intake frequency: a few times a week Alcohol type: wine substance use type: does not use caffeine: No what type of physical activity do you participate in: walking and swimming Audit: Pertinent Findings HISTORY of Pertinent Findings History of Pertinent Findings: EKG Pertinent Findings EKG Perinent findings 02/24/2023. Sinus rhythm 11/13/24 16:42 with PACs with aberrant conduction. Stress Test Pertinent Findings Stress test pertinent findings 08/08/2022. No fixed or 11/13/24 16:42 reversible perfusion defects . Echo Pertinent Findings Echo (EF%) pertinent findings 09/08/2020. EF of 65%. RVSP 11/13/24 16:24 is 29 mmHg. No aortic stenosis noted. Consult Pertinent Findings Consult pertinent findings 10/06/2024. Jonathan PATEL-[employer]. 11/13/24 16:44 1. Coronary artery disease- patient has a history of documented coronary artery calcifications on chest CT of 06/25/2020. Patient acknowledges occasional chest pain and shortness of breath. Family history of CAD. Obtain cardiac angiography CTA. 2. Hypertension-well- controlled. Continue medical therapy. 3. Hypokalemia?remote history. 4. MALACHI on CPAP-patient is compliant with CPAP. Pulmonary Function Pertinent Findings Pulmonary function results/ 01/30/2023. Grossly normal 11/13/24 16:42 spirometer pertinent findings pulmonary function test with no significant change compared to 2019. Recommendation Anesthesia Recommendation Anesthesia recommendation: F/U recommended (Last cardiac recommendation was for a cardiac angiography CTA. This is scheduled on 11/27/2024. Can we postpone the procedure until after the CTA or have cardiology clear the patient for the procedure prior to CTA.)
--- NOTE | 2024-11-14 14:12 | PAT.ANESEVAL ---
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 When Was Last Pacemaker Check QUESTION #4 FULL TEXT: You/Your Family Experience fever (hyperthermia) with Anesthesia Last Oral Intake Last Oral intake: Last Oral Intake NPO since Meds taken in AM with sips of water? Meds patient instructed to take am of surgery PONV PONV - ebay reseller: PONV - ebay reseller Female Yes 11/13/24 11:06 HX of Motion Sickness No 11/13/24 11:06 HX of N/V After Surgery No 11/13/24 11:06 Non-Smoker Yes 11/13/24 11:06 Duration of Surgery greater No 11/13/24 11:06 than 60 minutes Number of Risk Factors 2 11/13/24 11:06 PONV Score Moderate Risk 11/13/24 11:06 Height & Weight Height & Weight: Anesthesia: Height & Weight Height 5 ft 4 in 10/15/24 13:15 Respiratory Assessment Respiratory Assessment - ebay reseller: Respiratory Tract Infection Hx - ebay reseller Hx Respiratory Tract Infection No 11/13/24 11:06 STOP Sleep Apnea STOP Sleep Apnea - ebay reseller: STOP Sleep Apnea - ebay reseller Hx Hypertension Yes 11/13/24 11:06 Hx Sleep Apnea Yes 11/13/24 11:06 CPAP Yes 11/13/24 11:06 BIPAP No 11/13/24 11:06 Do you snore loudly (louder than talking or can be heard Do you often feel tired/ fatigued/ sleepy during daytime? Has anyone observed you stop breathing during sleep? STOP Results Positive 11/13/24 11:06 QUESTION #5 FULL TEXT : Do you snore loudly (louder than talking or can be heard through closed doors)? 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 Specify any problems Hx of Preganancy in last 3 N/A 11/13/24 11:06 Months Nurse Filling Out Transfusion NBUCHER 11/13/24 11:06 & Questions: Date: 11/13/24 11/13/24 11:06 Time: 11:07 11/13/24 11:06 Patient unable to answer at this time (ie. confused, unrespo /Reproduction History /Reproductive History - ebay reseller: /Reproductive Hx- ebay reseller Hx Now No 11/13/24 11:06 Gestational Age (in weeks): EDC: Hx Hx Para Hx Section SAB No 11/13/24 11:06 [facility] Medical History (Updated 11/13/24 @ 11:13 by Elizabeth Arzola) Depression Chronic cough Sleep apnea Hypertension Failure of outpatient treatment Hypoxia History of bronchiectasis Asthma exacerbation Non-pressure chronic ulcer of right calf with fat layer exposed History of trigger finger Urinary incontinence Leg edema, left Leg edema, right Left leg swelling Right leg swelling Surgical wound dehiscence PAC (premature atrial contraction) Dyspnea on exertion Morbid obesity with BMI of 50.0-59.9, adult Chronic venous insufficiency Ventral hernia High cholesterol Alcohol use Bruising Easy bruising Back pain Gastric reflux Shortness of breath on exertion Asthma Former smoker CPAP (continuous positive airway pressure) dependence Leg cramps History of edema Cardiology follow-up encounter History of echocardiogram History of stress test Preoperative cardiovascular examination Coronary artery calcification COVID-19 Premature atrial contraction MALACHI on CPAP GERD (gastroesophageal reflux disease) Pure hypercholesterolemia Essential hypertension Urinary tract infection Acute sinusitis MALACHI (obstructive sleep apnea) Asthma, moderate persistent Urine incontinence Acute conjunctivitis Hyperlipidemia Hypertension Chronic venous insufficiency Obesity Edema of leg Leg swelling Home Medications ?Medication ?Instructions ?Recorded ?Last Taken ?Type amlodipine 10 mg tablet 10 mg PO QHS 06/19/16 07/11/24 History ascorbic acid (vitamin C) 1,000 mg 1,000 mg PO DAILY 06/19/16 07/12/24 History tablet evening primrose oil 500 mg capsule 500 mg PO DAILY 06/19/16 07/12/24 History omeprazole 20 mg capsule,delayed 20 mg PO DAILY 06/19/16 07/12/24 History release PEP device #1 ea 08/26/18 Unknown Rx Acapella #1 ea 12/21/21 Unknown Rx Peak Flow meter #1 ea 12/21/21 Unknown Rx citalopram 20 mg tablet 20 mg PO DAILY 07/27/22 07/12/24 History guaifenesin 1,200 mg tablet, 1,200 mg PO BID 06/07/23 07/12/24 History extended release 12 hr (Mucinex) Disability Placard #1 ea 07/24/23 Unknown Rx losartan 50 mg tablet 50 mg PO BID #180 tabs 10/01/23 07/12/24 Rx fluticasone furoate 200 1 inh inhalation DAILY #60 ea 05/22/24 07/12/24 Rx mcg-vilanterol 25 mcg/dose inhalation powder (Breo Ellipta) oxybutynin chloride 5 mg 10 mg PO QDAY 06/10/24 07/12/24 History tablet,extended release 24 hr rosuvastatin 20 mg tablet 20 mg PO QHS 06/10/24 07/11/24 History ipratropium 0.5 mg-albuterol 3 mg 3 ml inhalation Q8H PRN SOB &/OR 07/16/24 Unknown Rx (2.5 mg base)/3 mL nebulization WHEEZING #180 mL soln hydrochlorothiazide 25 mg tablet 25 mg PO BID #180 tabs 09/23/24 Unknown Rx albuterol 90 mcg/actuation aerosol 90 mcg inhalation PRN PRN 09/24/24 Unknown History inhaler shortness of breath or wheezing epinephrine 0.3 mg/0.3 mL 0.3 mg IM Q5-15M PRN anaphylaxis 09/24/24 Unknown History injection, auto-injector loratadine 10 mg tablet (Claritin) 10 mg PO QDAY 09/24/24 Unknown History tizanidine 2 mg capsule 2 mg PO BID PRN muscle spasticity 09/24/24 Unknown History vitamin E mixed 400 unit capsule 400 unit PO DAILY 09/24/24 Unknown History ammonium lactate 12 % topical cream 1 applic topical BID PRN dry skin 10/06/24 Unknown History cholecalciferol (vitamin D3) 10 10 mcg PO QDAY 10/06/24 Unknown History mcg (400 unit) capsule fluticasone propionate 50 2 spray intranasal QDAY PRN 10/06/24 Unknown History mcg/actuation nasal allergy symptoms spray,suspension (Flonase Allergy Relief) sodium,potassium,mag sulfates 17.5 See Rx Instructions PO .COMPLEX 10/06/24 Unknown Rx gram-3.13 gram-1.6 gram oral soln #354 mL (Suprep Bowel Prep Kit) montelukast 10 mg tablet 10 mg PO QPM #90 tabs 10/31/24 Unknown Rx potassium chloride 10 mEq 10 meq PO DAILY supplement #90 caps 10/31/24 Unknown Rx capsule,extended release dupilumab 300 mg/2 mL subcutaneous 300 mg subcut .Q2WEEK 11/13/24 Unknown History pen injector (Dupixent) Allergy/AdvReac Type Severity Reaction Status Date / Time lisinopril Allergy Unknown Cough Verified 11/13/24 11:02 clarithromycin (From Biaxin) Allergy Other Verified 11/13/24 11:02 codeine Allergy Other Verified 11/13/24 11:02 erythromycin base Allergy Other Verified 11/13/24 11:02 latex AdvReac Anaphylaxis Verified 11/13/24 11:02 Family History Father Hypertension CAD (coronary artery disease) Hx of CABG Myocardial infarction, Onset Age: 50 Mother Heart disease Brother Melanoma Hx of CABG Surgical History (Updated 11/13/24 @ 11:13 by Elizabeth Arzola) History of esophagogastroduodenoscopy (EGD) History of colonoscopy History of ventral hernia repair History of total knee replacement History of partial hysterectomy History of tonsillectomy History of cholecystectomy History of carpal tunnel release of both wrists History of bladder repair surgery History of ventral hernia repair Status post trigger finger release History of carpal tunnel surgery History of bladder repair surgery History of partial hysterectomy History of carpal tunnel surgery History of cholecystectomy History of total knee arthroplasty History of tonsillectomy Social History Smoking Status: Former smoker pack-years: 16 second hand exposure: No alcohol intake: current alcohol intake frequency: a few times a week Alcohol type: wine substance use type: does not use caffeine: No what type of physical activity do you participate in: walking and swimming Audit: Pertinent Findings HISTORY of Pertinent Findings History of Pertinent Findings: EKG Pertinent Findings EKG Perinent findings 02/24/2023. Sinus rhythm 11/13/24 16:42 with PACs with aberrant conduction. Stress Test Pertinent Findings Stress test pertinent findings 08/08/2022. No fixed or 11/13/24 16:42 reversible perfusion defects . Echo Pertinent Findings Echo (EF%) pertinent findings 09/08/2020. EF of 65%. RVSP 11/13/24 16:24 is 29 mmHg. No aortic stenosis noted. Consult Pertinent Findings Consult pertinent findings 10/06/2024. Jonathan PATEL-Makeda. 11/13/24 16:44 1. Coronary artery disease- patient has a history of documented coronary artery calcifications on chest CT of 06/25/2020. Patient acknowledges occasional chest pain and shortness of breath. Family history of CAD. Obtain cardiac angiography CTA. 2. Hypertension-well- controlled. Continue medical therapy. 3. Hypokalemia?remote history. 4. MALACHI on CPAP-patient is compliant with CPAP. Pulmonary Function Pertinent Findings Pulmonary function results/ 01/30/2023. Grossly normal 11/13/24 16:42 spirometer pertinent findings pulmonary function test with no significant change compared to 2019. Recommendation Anesthesia Recommendation Anesthesia recommendation: OPTIMIZED for anesthesia
[2024-11-18] VITALS (7 sets, daily range): BP systolic 98–155; BP diastolic 41–77; PULSE 64–78; RESP 16–18; TEMP 36.3–37.1; O2SAT 94–99; BMI 50.3
[2024-11-18] MEDS: Lactated Ringers 1,000 ML 15 ML IV (10:41)
--- NOTE | 2024-11-18 11:00 | PCM.PRE.AN2 ---
ASA Classification* ASA Classification ASA Classification: 3 Assessment & Plan Anesthesia* Anesthesia Assessment Anesthesia Assessment: Discussed sedation and/or anesthesia options, risks, benefits, and alternatives with patient/parents/legal guardian/POA. Questions invited. The patient/parents/legal guardian/POA seems to understand and agrees to proceed with anesthesia plan. Reviewed the physical assessment, medical history, allergy history and patient home medications list prior to surgery/procedure/anesthetic and documented any changes. Performed airway and anesthesia risk assessments. Anesthesia Type Anesthesia Type: MAC History Source History Obtained from:: Patient and Chart Anesthesia Focused Assessment* Temperature: 98.7 F Pulse Rate: 78 Blood Pressure: 155/77 Respiratory Rate: 18 Pulse Ox: 94 Oxygen Delivery Method: Room Air Airway Assessment Mouth opens: >3 cm Mallampati Score: I Teeth Condition: Caps/Crowns (Patient has several crowns. They are all tight.) Neck Range of motion (ROM): Full ROM Labs Anesthesia Preop lab: CBC WBC 9.6 K/mm3 (4.4-11.0) 07/13/24 05:25 07/13/24 RBC 4.35 M/mm3 (4.2-5.4) 07/13/24 05:25 07/13/24 Hgb 12.4 g/dL (12.0-15.0) 07/13/24 05:25 07/13/24 Hct 37.0 % (37-47) 07/13/24 05:25 07/13/24 Plt Count 236 K/mm3 (150-450) 07/13/24 05:25 07/13/24 CHEMISTRY Potassium 3.7 mmol/L (3.3-5.1) 07/14/24 06:15 07/14/24 Sodium 137 mmol/L (133-145) 07/14/24 06:15 07/14/24 Magnesium 2.2 mg/dL (1.5-2.2) 07/14/24 06:15 07/14/24 Phosphorus 4.4 mg/dL (2.5-4.9) 11/14/17 07:22 11/14/17 BUN 23 mg/dL (4-19) H 07/14/24 06:15 07/14/24 Creatinine 0.71 mg/dL (0.70-1.20) 07/14/24 06:15 07/14/24 Glucose 132 mg/dL (70-99) H 07/14/24 06:15 07/14/24 TSH 1.49 uIU/mL (0.358-3.74) 05/05/22 14:20 05/05/22 COAG PT 12.2 SECONDS (11.7-14.9) 08/02/21 16:13 08/02/21 Pre-Assessment Diagnosis/Proposed Procedure Planned Operative Procedure(s): CSCOPE Anesthesia History 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 When Was Last Pacemaker Check QUESTION #4 FULL TEXT: You/Your Family Experience fever (hyperthermia) with Anesthesia Last Oral Intake Last Oral intake: Last Oral Intake NPO since 05:30 11/18/24 10:32 Meds taken in AM with sips of Yes 11/18/24 10:32 water? 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 nutrition assistant Female Yes 11/13/24 11:06 HX of Motion Sickness No 11/13/24 11:06 HX of N/V After Surgery No 11/13/24 11:06 Non-Smoker Yes 11/13/24 11:06 Duration of Surgery greater No 11/13/24 11:06 than 60 minutes Number of Risk Factors 2 11/13/24 11:06 PONV Score Moderate Risk 11/13/24 11:06 Height & Weight Height & Weight: Anesthesia: Height & Weight Height 5 ft 4 in 11/18/24 10:32 Weight: 133.1 kg 11/18/24 10:32 Body Mass Index (BMI) 50.3 11/18/24 10:32 Respiratory Assessment Respiratory Assessment - child nutrition assistant: Respiratory Tract Infection Hx - child nutrition assistant Hx Respiratory Tract Infection No 11/13/24 11:06 STOP Sleep Apnea STOP Sleep Apnea - child nutrition assistant: STOP Sleep Apnea - child nutrition assistant Hx Hypertension Yes 11/13/24 11:06 Hx Sleep Apnea Yes 11/13/24 11:06 CPAP Yes 11/13/24 11:06 BIPAP No 11/13/24 11:06 Do you snore loudly (louder than talking or can be heard Do you often feel tired/ fatigued/ sleepy during daytime? Has anyone observed you stop breathing during sleep? STOP Results Positive 11/13/24 11:06 QUESTION #5 FULL TEXT : Do you snore loudly (louder than talking or can be heard through closed doors)? 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 Specify any problems Hx of Preganancy in last 3 N/A 11/13/24 11:06 Months Nurse Filling Out Transfusion NBUCHER 11/13/24 11:06 & Questions: Date: 11/13/24 11/13/24 11:06 Time: 11:07 11/13/24 11:06 Patient unable to answer at this time (ie. confused, unrespo /Reproduction History /Reproductive History - child nutrition assistant: /Reproductive Hx- child nutrition assistant Hx Now No 11/13/24 11:06 Gestational Age (in weeks): EDC: Hx Hx Para Hx Section SAB No 11/13/24 11:06 Active Medications Active Medications: Current Medications Generic Name Dose Route Start Last Admin Trade Name Nicolas PRN Reason Stop Dose Admin Lactated Ringer's 1,000 mls @ 15 mls/hr 11/18/24 10:15 11/18/24 10:41 IV 15 mls/hr .Q48H HIPOLITO Administration PFSH Medical History Depression Chronic cough Sleep apnea Hypertension Failure of outpatient treatment Hypoxia History of bronchiectasis Asthma exacerbation Non-pressure chronic ulcer of right calf with fat layer exposed History of trigger finger Urinary incontinence Leg edema, left Leg edema, right Left leg swelling Right leg swelling Surgical wound dehiscence PAC (premature atrial contraction) Dyspnea on exertion Morbid obesity with BMI of 50.0-59.9, adult Chronic venous insufficiency Ventral hernia High cholesterol Alcohol use Bruising Easy bruising Back pain Gastric reflux Shortness of breath on exertion Asthma Former smoker CPAP (continuous positive airway pressure) dependence Leg cramps History of edema Cardiology follow-up encounter History of echocardiogram History of stress test Preoperative cardiovascular examination Coronary artery calcification COVID-19 Premature atrial contraction MALACHI on CPAP GERD (gastroesophageal reflux disease) Pure hypercholesterolemia Essential hypertension Urinary tract infection Acute sinusitis MALACHI (obstructive sleep apnea) Asthma, moderate persistent Urine incontinence Acute conjunctivitis Hyperlipidemia Hypertension Chronic venous insufficiency Obesity Edema of leg Leg swelling Home Medications ?Medication ?Instructions ?Recorded ?Last Taken ?Type amlodipine 10 mg tablet 10 mg PO QHS 06/19/16 07/11/24 History ascorbic acid (vitamin C) 1,000 mg 1,000 mg PO DAILY 06/19/16 07/12/24 History tablet evening primrose oil 500 mg capsule 500 mg PO DAILY 06/19/16 07/12/24 History omeprazole 20 mg capsule,delayed 20 mg PO DAILY 06/19/16 11/18/24 08:00 History release PEP device #1 ea 08/26/18 Unknown Rx Acapella #1 ea 12/21/21 Unknown Rx Peak Flow meter #1 ea 12/21/21 Unknown Rx citalopram 20 mg tablet 20 mg PO DAILY 07/27/22 11/18/24 08:00 History guaifenesin 1,200 mg tablet, 1,200 mg PO BID 06/07/23 07/12/24 History extended release 12 hr (Mucinex) Disability Placard #1 ea 07/24/23 Unknown Rx losartan 50 mg tablet 50 mg PO BID #180 tabs 10/01/23 11/18/24 08:00 Rx fluticasone furoate 200 1 inh inhalation DAILY #60 ea 05/22/24 07/12/24 Rx mcg-vilanterol 25 mcg/dose inhalation powder (Breo Ellipta) oxybutynin chloride 5 mg 10 mg PO QDAY 06/10/24 07/12/24 History tablet,extended release 24 hr rosuvastatin 20 mg tablet 20 mg PO QHS 06/10/24 07/11/24 History ipratropium 0.5 mg-albuterol 3 mg 3 ml inhalation Q8H PRN SOB &/OR 07/16/24 Unknown Rx (2.5 mg base)/3 mL nebulization WHEEZING #180 mL soln hydrochlorothiazide 25 mg tablet 25 mg PO BID #180 tabs 09/23/24 Unknown Rx albuterol 90 mcg/actuation aerosol 90 mcg inhalation PRN PRN 09/24/24 Unknown History inhaler shortness of breath or wheezing epinephrine 0.3 mg/0.3 mL 0.3 mg IM Q5-15M PRN anaphylaxis 09/24/24 Unknown History injection, auto-injector loratadine 10 mg tablet (Claritin) 10 mg PO QDAY 09/24/24 Unknown History tizanidine 2 mg capsule 2 mg PO BID PRN muscle spasticity 09/24/24 Unknown History vitamin E mixed 400 unit capsule 400 unit PO DAILY 09/24/24 Unknown History ammonium lactate 12 % topical cream 1 applic topical BID PRN dry skin 10/06/24 Unknown History cholecalciferol (vitamin D3) 10 10 mcg PO QDAY 10/06/24 Unknown History mcg (400 unit) capsule fluticasone propionate 50 2 spray intranasal QDAY PRN 10/06/24 Unknown History mcg/actuation nasal allergy symptoms spray,suspension (Flonase Allergy Relief) sodium,potassium,mag sulfates 17.5 See Rx Instructions PO .COMPLEX 10/06/24 Unknown Rx gram-3.13 gram-1.6 gram oral soln #354 mL (Suprep Bowel Prep Kit) montelukast 10 mg tablet 10 mg PO QPM #90 tabs 10/31/24 Unknown Rx potassium chloride 10 mEq 10 meq PO DAILY supplement #90 caps 10/31/24 Unknown Rx capsule,extended release dupilumab 300 mg/2 mL subcutaneous 300 mg subcut .Q2WEEK 11/13/24 11/12/24 History pen injector (Dupixent) Allergy/AdvReac Type Severity Reaction Status Date / Time lisinopril Allergy Unknown Cough Verified 11/18/24 10:30 clarithromycin (From Biaxin) Allergy Other Verified 11/18/24 10:30 codeine Allergy Other Verified 11/18/24 10:30 erythromycin base Allergy Other Verified 11/18/24 10:30 latex AdvReac Anaphylaxis Verified 11/18/24 10:30 Family History Father Hypertension CAD (coronary artery disease) Hx of CABG Myocardial infarction, Onset Age: 50 Mother Heart disease Brother Melanoma Hx of CABG Surgical History History of esophagogastroduodenoscopy (EGD) History of colonoscopy History of ventral hernia repair History of total knee replacement History of partial hysterectomy History of tonsillectomy History of cholecystectomy History of carpal tunnel release of both wrists History of bladder repair surgery History of ventral hernia repair Status post trigger finger release History of carpal tunnel surgery History of bladder repair surgery History of partial hysterectomy History of carpal tunnel surgery History of cholecystectomy History of total knee arthroplasty History of tonsillectomy Social History Smoking Status: Former smoker pack-years: 16 second hand exposure: No alcohol intake: current alcohol intake frequency: a few times a week Alcohol type: wine substance use type: does not use caffeine: No what type of physical activity do you participate in: walking and swimming Review of Systems (Anesthesia) ROS Narrative System reviewed and no additional complaints, except as documented. Physical Exam Resp clear to auscultation bilaterally
--- NOTE | 2024-11-18 11:29 | PCM.HP.STD ---
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 At the end of July, during a trip back from [place], she experienced rectal bleeding, which was not the first occurrence. The bleeding was described as drops of bright red blood in the toilet water. She associated the bleeding with pain from hemorrhoids due to repeated wiping. Since the initial incident, she has noticed bleeding once or twice of lesser significance. There has been no significant abdominal pain and her bowel habits remain unchanged. Previous colonoscopy performed in July 2021 revealed a rectal tubular adenoma. Given the recent bleeding, an earlier repeat colonoscopy was recommended. The patient denies any family history of colon cancer. Her medical history includes a recent hospitalization for bronchiectasis/asthma in July, during which she was started on steroids and antibiotics. She had never been hospitalized for asthma before, and her symptoms have since improved. She manages her bronchiectasis with a saline nebulizer and a vest for mucus clearance. Medications for asthma include Singulair and albuterol nebulizer treatments. Attestation: Documentation on this patient encounter was supported using ambient scribe technology/ voice AI technology. The patient consented to recording for the purpose of documenting the encounter. Provider reviewed content of the generated note prior to signature. [facility] Medical History Depression Chronic cough Sleep apnea Hypertension Failure of outpatient treatment Hypoxia History of bronchiectasis Asthma exacerbation Non-pressure chronic ulcer of right calf with fat layer exposed History of trigger finger Urinary incontinence Leg edema, left Leg edema, right Left leg swelling Right leg swelling Surgical wound dehiscence PAC (premature atrial contraction) Dyspnea on exertion Morbid obesity with BMI of 50.0-59.9, adult Chronic venous insufficiency Ventral hernia High cholesterol Alcohol use Bruising Easy bruising Back pain Gastric reflux Shortness of breath on exertion Asthma Former smoker CPAP (continuous positive airway pressure) dependence Leg cramps History of edema Cardiology follow-up encounter History of echocardiogram History of stress test Preoperative cardiovascular examination Coronary artery calcification COVID-19 Premature atrial contraction MALACHI on CPAP GERD (gastroesophageal reflux disease) Pure hypercholesterolemia Essential hypertension Urinary tract infection Acute sinusitis MALACHI (obstructive sleep apnea) Asthma, moderate persistent Urine incontinence Acute conjunctivitis Hyperlipidemia Hypertension Chronic venous insufficiency Obesity Edema of leg Leg swelling Home Medications ?Medication ?Instructions ?Recorded ?Last Taken ?Type amlodipine 10 mg tablet 10 mg PO QHS 06/19/16 07/11/24 History ascorbic acid (vitamin C) 1,000 mg 1,000 mg PO DAILY 06/19/16 07/12/24 History tablet evening primrose oil 500 mg capsule 500 mg PO DAILY 06/19/16 07/12/24 History omeprazole 20 mg capsule,delayed 20 mg PO DAILY 06/19/16 11/18/24 08:00 History release PEP device #1 ea 08/26/18 Unknown Rx Acapella #1 ea 12/21/21 Unknown Rx Peak Flow meter #1 ea 12/21/21 Unknown Rx citalopram 20 mg tablet 20 mg PO DAILY 07/27/22 11/18/24 08:00 History guaifenesin 1,200 mg tablet, 1,200 mg PO BID 06/07/23 07/12/24 History extended release 12 hr (Mucinex) Disability Placard #1 ea 07/24/23 Unknown Rx losartan 50 mg tablet 50 mg PO BID #180 tabs 10/01/23 11/18/24 08:00 Rx fluticasone furoate 200 1 inh inhalation DAILY #60 ea 05/22/24 07/12/24 Rx mcg-vilanterol 25 mcg/dose inhalation powder (Breo Ellipta) oxybutynin chloride 5 mg 10 mg PO QDAY 06/10/24 07/12/24 History tablet,extended release 24 hr rosuvastatin 20 mg tablet 20 mg PO QHS 06/10/24 07/11/24 History ipratropium 0.5 mg-albuterol 3 mg 3 ml inhalation Q8H PRN SOB &/OR 07/16/24 Unknown Rx (2.5 mg base)/3 mL nebulization WHEEZING #180 mL soln hydrochlorothiazide 25 mg tablet 25 mg PO BID #180 tabs 09/23/24 Unknown Rx albuterol 90 mcg/actuation aerosol 90 mcg inhalation PRN PRN 09/24/24 Unknown History inhaler shortness of breath or wheezing epinephrine 0.3 mg/0.3 mL 0.3 mg IM Q5-15M PRN anaphylaxis 09/24/24 Unknown History injection, auto-injector loratadine 10 mg tablet (Claritin) 10 mg PO QDAY 09/24/24 Unknown History tizanidine 2 mg capsule 2 mg PO BID PRN muscle spasticity 09/24/24 Unknown History vitamin E mixed 400 unit capsule 400 unit PO DAILY 09/24/24 Unknown History ammonium lactate 12 % topical cream 1 applic topical BID PRN dry skin 10/06/24 Unknown History cholecalciferol (vitamin D3) 10 10 mcg PO QDAY 10/06/24 Unknown History mcg (400 unit) capsule fluticasone propionate 50 2 spray intranasal QDAY PRN 10/06/24 Unknown History mcg/actuation nasal allergy symptoms spray,suspension (Flonase Allergy Relief) sodium,potassium,mag sulfates 17.5 See Rx Instructions PO .COMPLEX 10/06/24 Unknown Rx gram-3.13 gram-1.6 gram oral soln #354 mL (Suprep Bowel Prep Kit) montelukast 10 mg tablet 10 mg PO QPM #90 tabs 10/31/24 Unknown Rx potassium chloride 10 mEq 10 meq PO DAILY supplement #90 caps 10/31/24 Unknown Rx capsule,extended release dupilumab 300 mg/2 mL subcutaneous 300 mg subcut .Q2WEEK 11/13/24 11/12/24 History pen injector (Dupixent) Allergy/AdvReac Type Severity Reaction Status Date / Time lisinopril Allergy Unknown Cough Verified 11/18/24 10:30 clarithromycin (From Biaxin) Allergy Other Verified 11/18/24 10:30 codeine Allergy Other Verified 11/18/24 10:30 erythromycin base Allergy Other Verified 11/18/24 10:30 latex AdvReac Anaphylaxis Verified 11/18/24 10:30 Family History Father Hypertension CAD (coronary artery disease) Hx of CABG Myocardial infarction, Onset Age: 50 Mother Heart disease Brother Melanoma Hx of CABG Surgical History History of esophagogastroduodenoscopy (EGD) History of colonoscopy History of ventral hernia repair History of total knee replacement History of partial hysterectomy History of tonsillectomy History of cholecystectomy History of carpal tunnel release of both wrists History of bladder repair surgery History of ventral hernia repair Status post trigger finger release History of carpal tunnel surgery History of bladder repair surgery History of partial hysterectomy History of carpal tunnel surgery History of cholecystectomy History of total knee arthroplasty History of tonsillectomy Social History Smoking Status: Former smoker pack-years: 16 second hand exposure: No alcohol intake: current alcohol intake frequency: a few times a week Alcohol type: wine substance use type: does not use caffeine: No what type of physical activity do you participate in: walking and swimming ROS Constitutional Constitutional: Denies fatigue, fever(s), poor appetite, weight gain or weight loss Gastrointestinal Gastrointestinal: Denies belching, bloating, change in bowel habits, change in stool character, chewing difficulty, coffee ground emesis, constipation, cramping, diarrhea, dyspepsia, dysphagia, early satiety, excessive flatus, fecal incontinence, heartburn, hematemesis, hematochezia, hemorrhoids, loose stools, melena, nausea, odynophagia, rectal bleeding, tenesmus, vomiting or weight changes Vital Signs Vital Signs Vital Signs: 11/18/24 10:32 11/18/24 10:32 11/18/24 11:09 Temperature 98.7 F 98.7 F Temperature Source Temporal Pulse Rate 78 78 Respiratory Rate 18 18 Respiratory Pattern Normal Blood Pressure 155/77 H 155/77 H Blood Pressure Mean 103 Blood Pressure Source Monitor Blood Pressure Position Semi-Fowlers Blood Pressure Location Left Forearm Pulse Ox 94 94 Oxygen Delivery Method Room Air Room Air Weight Weight: 293 lb 6.964 oz Body Mass Index (BMI) 50.3 Physical Exam Const alert, oriented x3, no apparent distress and healthy appearing General Appearance: cooperative GI normal to inspection, nondistended, normoactive bowel sounds, soft to palpation, non-tender and non-distended Percussion: normal to percussion Rectal Exam: deferred Assessment & Plan Assessment/Plan (1) Personal history of colonic polyps: PLAN: Assessment and Plan Assessment and Plan (1) Rectal bleeding: Status: Acute Plan: The plan is to perform a colonoscopy to further investigate the cause of rectal bleeding and assess for recurrent polyps or other potential causes. Dr. Banegas will perform the colonoscopy. I discussed the importance of using a fiber supplement like FibreCon to bulk and form stools, potentially benefiting outcomes concerning hemorrhoids and irritation. (2) Personal history of colonic polyps: Status: Acute Medications: New sodium,potassium,mag sulfates 17.5-3.13-1.6 gram (Suprep Bowel Prep Kit) As directed for split dose bowel prep. Follow instructions provided by office. 354 mL 0RF Plan 64-year-old female with a history of rectal tubular adenoma presenting with rectal bleeding. The patient has a past positive finding of rectal tubular adenoma, removed in July 2021. Given the new onset of rectal bleeding, likely related to hemorrhoids and potential underlying issues, a repeat colonoscopy is recommended. Considering the absence of significant abdominal pain and unchanged bowel habits, the bleeding may be exacerbated due to mechanical irritation. The patient's history of bronchiectasis and recent asthma exacerbation, successfully managed post-hospitalization, is noted. Attestation: Documentation on this patient encounter was supported using ambient scribe technology/ voice AI technology. The patient consented to recording for the purpose of documenting the encounter. Provider reviewed content of the generated note prior to signature. Plan Details Additional Comments: H/O partial hysterectomy and bladder suspension: General history noted but not addressing active issues at this visit. Potential influence on bowel and urinary habits discussed, with potential recommendation for pelvic floor evaluation if bowel leakage persists post-bowel management.
--- NOTE | 2024-11-18 11:30 | COLBX_PTH ---
PATIENT: KIZZY NASH LOC: EN U#:[id number] AGE/SX: 64/F ROOM: RE11/18/[address]: Dr. Papo Banegas DO : 1960 BED: DIS: 11/18/2024 SPEC #: [id number] RECD: 11/18/24 13:39 STATUS: NAZARIO [place]renton #: [id number] WEI: 11/18/24 11:[address]: Papo Banegas DEPT: SURGICAL PATHOLOGY RECD BY: Mauricio Perez ENTERED: 11/18/24 16:10 SP TYPE: COLON BX NATALIA DR: Dr. Randall Warren MD Tissues: A - Ascending colon B - Rectum, NOS Procedures: Surgery Specimen Level IV HEADER OPERATION: Colonoscopy with polypectomy and biopsy PRE-OP DIAGNOSIS: Personal history of colonic polyps TISSUE SUBMITTED: A- Ascending colon polyp, B- Rectal polyp biopsy MICROSCOPIC DIAGNOSIS A. Ascending colon, polyp, biopsy: - Multiple fragments of colonic mucosa suggestive of sessile serrated lesion - see note. Note: Cautery artifact distorts the tissue, limiting the assessment. B. Rectum, polyp, biopsy: - Tubular adenoma. MICROSCOPIC DESCRIPTION Slides are reviewed. GROSS DESCRIPTION A. Received in fixative is one container labeled with the patient's name and designated Ascending colon polyp. The specimen consists of multiple irregular fragments of light coulter soft tissue that in aggregate measure 1 x 0.7 x 0.1 cm. The specimen is totally submitted in one cassette. B. Received in fixative is one container labeled with the patient's name and designated Rectal polyp biopsy. The specimen consists of two irregular fragments of light coulter soft tissue that measure 0.3 and 0.5 cm. The specimen is totally submitted in one cassette. [place] 11/18/2024 CPT:16959u8
--- NOTE | 2024-11-18 12:12 | PCM.POST.ANE ---
Anesthesia: Postop Eval I Current Vital Signs Temperature: 98.6 F Pulse Rate: 67 Blood Pressure: 98/53 Respiratory Rate: 16 Pulse Ox: 98 Oxygen Delivery Method: Room Air Assessment Airway patent: Yes Spontaneous unlabored respirations: Yes Mental status: Awake and Calm nausea: No Vomiting: No Anesthesia Complication: No Fluid Hydration Crystalloid volume administer (ml): 400 Total IV fluid infused: 400 Progress Note Anesthesia document: Postop Eval 1 completed: Yes
--- NOTE | 2024-11-18 12:13 | OP.COLON_ITS ---
Patient Name: Cristina Ritter Procedure Date: 11/18/2024 11:37 AM Date of : 1960 Age: 64 Procedure: Colonoscopy Indications: High risk colon cancer surveillance: Personal history of colonic polyps Providers: Papo Banegas DO Referring MD: Randall Warren Medicines: Monitored Anesthesia Care Patient Profile: This is a 64 year old female. Refer to note in patient chart for documentation of history and physical. Last Colonoscopy: 5 years ago. Complications: No immediate complications. Procedure: Pre-Anesthesia Assessment: - Prior to the procedure, a History and Physical was performed, and patient medications and allergies were reviewed. The patient is competent. The risks and benefits of the procedure and the sedation options and risks were discussed with the patient. All questions were answered and informed consent was obtained. Patient identification and proposed procedure were verified by the physician in the pre-procedure area. Mental Status Examination: alert and oriented. Airway Examination: normal oropharyngeal airway and neck mobility. Respiratory Examination: clear to auscultation. CV Examination: normal. Prophylactic Antibiotics: The patient does not require prophylactic antibiotics. Prior Anticoagulants: The patient has taken no anticoagulant or antiplatelet agents except for NSAID medication. ASA Grade Assessment: II - A patient with mild systemic disease. After reviewing the risks and benefits, the patient was deemed in satisfactory condition to undergo the procedure. The anesthesia plan was to use monitored anesthesia care (MAC). Immediately prior to administration of medications, the patient was re-assessed for adequacy to receive sedatives. The heart rate, respiratory rate, oxygen saturations, blood pressure, adequacy of pulmonary ventilation, and response to care were monitored throughout the procedure. The physical status of the patient was re-assessed after the procedure. After I obtained informed consent, the scope was passed under direct vision. Throughout the procedure, the patient's blood pressure, pulse, and oxygen saturations were monitored continuously. The Colonoscope was introduced through the anus and advanced to the cecum, identified by appendiceal orifice and ileocecal valve. The colonoscopy was performed without difficulty. The patient tolerated the procedure well. The entire colon was examined. Scope In: 11:50:34 AM Scope Withdrawal Time 0 hours 8 minutes 53 seconds Scope Out: 12:05:34 PM Total Procedure Duration Time 0 hours 15 minutes 0 seconds Findings: The perianal and digital rectal examinations were normal. A few small-mouthed diverticula were found in the sigmoid colon. A 5 mm polyp was found in the rectum. The polyp was sessile. The polyp was removed with a jumbo cold forceps. Resection and retrieval were complete. Verification of patient identification for the specimen was done. Estimated blood loss was minimal. A 12 mm polyp was found in the ascending colon. The polyp was sessile. The polyp was removed with a hot snare. Resection and retrieval were complete. Verification of patient identification for the specimen was done. Estimated blood loss was minimal. Impression: - Diverticulosis in the sigmoid colon. - One 5 mm polyp in the rectum, removed with a jumbo cold forceps. Resected and retrieved. - One 12 mm polyp in the ascending colon, removed with a hot snare. Resected and retrieved. Recommendation: - Repeat colonoscopy in 5 years for surveillance. - Continue present medications. Procedure Code(s): --- Professional --- 08625, Colonoscopy, flexible; with removal of tumor(s), polyp(s), or other lesion(s) by snare technique 31281, 59, Colonoscopy, flexible; with biopsy, single or multiple CPT copyright 2021 [employer]. All rights reserved. The codes documented in this report are preliminary and upon geotechnical department manager review may be revised to meet current compliance requirements. Papo Banegas DO 11/18/2024 12:12:34 PM This report has been signed electronically. Number of Addenda: 0 Note Initiated On: 11/18/2024 11:37 AM
--- NOTE | 2024-11-18 12:13 | OP.PROVAT_ITS ---
11/18/2024 Randall Warren Re : Colonoscopy procedure for Cristina Ritter Dear Kelvin This procedure was performed on Monday, November 18, 2024. My impressions and recommendations are as follows: Impressions : - Diverticulosis in the sigmoid colon. - One 5 mm polyp in the rectum, removed with a jumbo cold forceps. Resected and retrieved. - One 12 mm polyp in the ascending colon, removed with a hot snare. Resected and retrieved. Recommendations : - Repeat colonoscopy in 5 years for surveillance. - Continue present medications. My findings are described in the full procedure note, which is enclosed. If I can be of further assistance, please feel free to contact me at . Sincerely, Papo Banegas, 11/18/2024 12:12:34 PM This report has been signed electronically.
--- NOTE | 2024-11-18 15:09 | PCM.POSTANE2 ---
Anesthesia Postop Eval I Sum Postop Eval Completion status Anesthesia document: Postop Eval 1 completed: Yes Anesthesia Postop Eval I Summary Anesthesia Postop Eval I Summary: Anesthesia Postop Eval I: Assessment Summary Airway patent Yes 11/18/24 12:13 [email or web address] Spontaneous unlabored Yes 11/18/24 12:13 [email or web address] respirations Mental status Awake,Calm 11/18/24 12:13 [email or web address] nausea No 11/18/24 12:13 [email or web address] Vomiting No 11/18/24 12:13 [email or web address] Anesthesia Postop Eval I: Fluid Summary Crystalloid volume administer 400 11/18/24 12:13 [email or web address] (ml) Colloids volume administered ( ml) Blood Product volume administered (ml) Total IV fluid infused 400 11/18/24 12:13 [email or web address] Anesthesia Postop Eval I: Summary Notes Anesthesia Complication No 11/18/24 12:13 [email or web address] Anesthesia Complication Comment: Post-operative progress note Anesthesia: Postop Eval II Evaluation Mental status: Awake and Calm Pain Level: 0 nausea: No Vomiting: No Complications Anesthesia Complication: No
== END 2024-11-18 12:53 | disposition home or self-care (01) ==
LOC: EN 10:10 → AC 10:11
PROVIDERS: PCP Internal Medicine; Referring Provider Internal Medicine; Visit Provider Internal Medicine Gastroenterology
PROC: 0DJD8ZZ Inspection of Lower Intestinal Tract, Via Natural or Artificial Opening Endoscopic (ICD-10-PCS; CPT 45378; principal; 2024-11-18 11:25)
DX: Z12.11 Encounter for screening for malignant neoplasm of colon (principal); K62.5 Hemorrhage of anus and rectum; I25.10 Atherosclerotic heart disease of native coronary artery without angina pectoris; D12.8 Benign neoplasm of rectum; E78.00 Pure hypercholesterolemia, unspecified; I10 Essential (primary) hypertension; Z86.0100 Personal history of colon polyps, unspecified; K57.30 Diverticulosis of large intestine without perforation or abscess without bleeding; Z87.891 Personal history of nicotine dependence; K21.9 Gastro-esophageal reflux disease without esophagitis; Z79.899 Other long term (current) drug therapy; D12.2 Benign neoplasm of ascending colon
CPT/HCPCS: 45385; 45380; 88305; J2405

== ENCOUNTER → 2024-11-27 | Outpatient (CLI) | payer BC, SELFPAY ==
--- NOTE | 2024-11-27 12:26 | CT_ITS ---
PROCEDURE: LIMITED CHEST CT CARDIAC ONLY 11/27/2024 REASON FOR EXAM: CP/SOB TECHNIQUE: Procedure Code: [id number] Modality: CT Procedure: LIMITED CHEST CT CARDIAC ONLY CONTRAST: Isovue 370 VOLUME: 87 mL intravenous. One or more dose reduction techniques were used (e.g., Automated exposure control, adjustment of the mA and/or kV according to patient size, use of iterative reconstruction technique). RADIATION DOSE SUMMARY: DLP: 2331.00 mGycm COMPARISON: Chest x-ray 07/12/2024 CT/Limited Chest CT Cardiac Only IMPRESSION: Postcontrast images demonstrate no area of abnormal enhancement. Limited imaging of the lungs demonstrates no acute process. No pleural effusion or pneumothorax is seen in visualized areas. No adenopathy is noted. The visualized upper abdomen demonstrates no significant abnormality. Reading Location: [address]
[2024-11-27 12:49] VITALS: BP 140/64; PULSE 69; RESP 16; TEMP 36.2; O2SAT 97; BMI 51.0
[2024-11-27 12:56] VITALS: BP 140/64; PULSE 69
[2024-11-27] MEDS: Nitroglycerin SL (ED/IMG/CATH) 0.4 MG TABLET SL (12:56)
[2024-11-27 13:05] VITALS: BP 138/68; PULSE 65; RESP 16; O2SAT 94
--- NOTE | 2024-12-08 16:21 | CCTA.WCONT ---
CCTA w/Cont Coronary Arteries Date of Study:: 11/27/24 Chest pain shortness of breath Coronary Calcium Scoring: High-resolution Computed Tomographic imaging of the chest was performed on [11/27/2024], with particular attention paid to the coronary arteries. Intravenous contrast agent was administered per protocol and images reconstructed and displayed. LEFT MAIN CORONARY ARTERY: Arises from the left coronary cusp and bifurcates the left anterior descending artery and left circumflex artery. No significant stenosis noted within this vessel. [] LEFT ANTERIOR DESCENDING CORONARY ARTERY: The left anterior descending artery is a medium size vessel. Premature atherosclerosis is noted in the proximal and mid regions. There is plaque noted with intraluminal obstruction of approximately 40%. [] LEFT CIRCUMFLEX CORONARY ARTERY: Nondominant vessel with significant atherosclerotic plaquing with a mixture of soft and hard plaque present. This is present in the proximal and mid regions. The area of narrowest plaquing is approximately 50%. [] RIGHT CORONARY ARTERY: Dominant right coronary artery with soft and hard plaque present and diffuse mild atherosclerosis present. [] THORACIC AORTA: [] PULMONARY ARTERY: [] LEFT ATRIUM/APPENDAGE: [] MITRAL VALVE: [] AORTIC VALVE: [] LEFT VENTRICLE: [] CORONARY CALCIUM SCORE: Not performed [] Calcium Scoring Interpretation: Different methods to categorize the overall amount of coronary plaque. Overall amount CAC SIS Visual of coronary plaque P1 Mild -100 <2 1-2 vessels with mild amount of plaque P2 Moderate 101-300 3-4 1-2 vessels with moderate amount, 3 vessels with mild amount of plaque P3 Severe 301-999 5-7 3 vessels with moderate amount, 1 vessel with severe amount of plaque P4 Extensive >1000 >8 2-3 vessels with severe amount of plaque Conclusion: CT angiogram demonstrating 3 vessels with moderate amount of plaque and at least moderate amount of obstructive plaque present.
== END | disposition home or self-care (01) ==
LOC: CT 12:25
PROVIDERS: PCP Internal Medicine; Referring Provider Nurse Practitioner Gerontology; Visit Provider Nurse Practitioner Gerontology
DX: R07.9 Chest pain, unspecified (principal); R06.09 Other forms of dyspnea
CPT/HCPCS: 75574; 76380; Q9967

== ENCOUNTER → 2024-12-30 | Outpatient (CLI) | payer BC, SELFPAY ==
--- NOTE | 2024-12-30 15:34 | RAD_ITS ---
PROCEDURE: RAD/Chest PA and Lateral
[2024-12-30 17:54] LABS: Hematocrit 38.8 % (37-47); Hemoglobin 12.6 g/dL (12.0-15.0); Immature Granulocytes Count 0.050 X10^3/uL (0.0-0.0); Mean Corp Hgb Conc 32.5 g/dL (32-36); Mean Corpuscular Volume 85.1 fL (81-99); Mean Platelet Vol. 9.4 fl (6.2-12.0); NRBC Flagged by Analyzer 0 % (0-5); Platelet Count 226 K/mm3 (150-450); RBC Distribution Width CV 15.9 % (11.6-14.6); RBC Distribution Width SD 48.8 fl (35.1-43.9); Red Blood Count 4.56 M/mm3 (4.2-5.4); White Blood Count 8.3 K/mm3 (4.4-11.0)
[2024-12-30 18:13] LABS: Anion Gap 11 (5-15); BUN 16 mg/dL (4-19); BUN/Creat Ratio 22.6 RATIO (10-20); Calcium,Total 9.4 mg/dL (7.6-11.0); Carbon Dioxide 28.4 mmol/L (21.0-32.0); Chloride 99 mmol/L (98-108); Glucose 96 mg/dL (70-99); Potassium 3.2 mmol/L (3.3-5.1)
== END | disposition home or self-care (01) ==
LOC: MTLAB 15:34
PROVIDERS: PCP Internal Medicine; Referring Provider Nurse Practitioner Gerontology; Visit Provider Nurse Practitioner Gerontology
DX: R93.1 Abnormal findings on diagnostic imaging of heart and coronary circulation (principal); I25.10 Atherosclerotic heart disease of native coronary artery without angina pectoris; R53.83 Other fatigue; R06.09 Other forms of dyspnea
CPT/HCPCS: 36415; 71046; 80048; 85025

== ENCOUNTER 2025-01-12 10:42 | Emergency (ER) | payer BC, SELFPAY ==
[2025-01-12] VITALS (10 sets, daily range): BP systolic 114–233; BP diastolic 57–93; PULSE 67–125; RESP 13–28; TEMP 36.1–36.8; O2SAT 91–99
--- NOTE | 2025-01-12 11:12 | EKG12_ITS ---
Test Reason : chest pain sob Blood Pressure : */* mmHG Vent. Rate : 81 BPM Atrial Rate : 81 BPM P-R Int : 170 ms QRS Dur : 96 ms QT Int : 408 ms P-R-T Axes : 25 7 39 degrees QTcB Int : 473 ms Normal sinus rhythm Normal ECG BASELINE ARTIFACT Confirmed by Randall Morrison ([id number]), health editor JOLENE NICOLE ([id number]) on 01/14/2025 10:50:50 AM Referred By: Confirmed By: Randall Morrison
[2025-01-12 11:25] LABS: Hematocrit 39.3 % (37-47); Hemoglobin 12.9 g/dL (12.0-15.0); Immature Granulocytes Count 0.090 X10^3/uL (0.0-0.0); Mean Corp Hgb Conc 32.8 g/dL (32-36); Mean Corpuscular Volume 84.3 fL (81-99); Mean Platelet Vol. 9.1 fl (6.2-12.0); NRBC Flagged by Analyzer 0 % (0-5); Platelet Count 232 K/mm3 (150-450); RBC Distribution Width CV 16.1 % (11.6-14.6); RBC Distribution Width SD 50.1 fl (35.1-43.9); Red Blood Count 4.66 M/mm3 (4.2-5.4); White Blood Count 14.0 K/mm3 (4.4-11.0)
--- NOTE | 2025-01-12 11:35 | RAD_ITS ---
PROCEDURE: CHEST PA AND LATERAL 01/12/2025 REASON FOR EXAM: CHEST PAIN TECHNIQUE: Procedure Code: RADCXR Modality: DX Procedure: CHEST PA AND LATERAL COMPARISON: December 30, 2024. FINDINGS: Hardware: EKG electrodes are seen. Heart: The heart size is normal. Mediastinum: The mediastinal contour is unremarkable. Lungs: Stable mild increased markings at the lung bases slightly more prominent at the left lung base suggestive of linear scarring. Bones: Degenerative changes are identified within the thoracic spine. RAD/Chest PA and Lateral IMPRESSION: NO SIGNIFICANT CHANGE SINCE THE PRIOR EXAM. Findings suggestive of mild bibasilar scarring. Reading Location: [place] [address]
--- NOTE | 2025-01-12 11:42 | EX.ED.DYSGE1 ---
HPI History of Present Illness Chief Complaint: Shortness of Breath Narrative Narrative: Patient is a 64-year-old female with past medical history of hypertension, MALACHI, asthma, PACs, venous insufficiency, hypercholesteremia, GERD who presented to the emergency department the chief complaint of chest pain and not feeling well. States that this morning she was using her vest therapy for her asthma and notes that afterwards she was not feeling well and had a sensation of pressure that is radiating between her shoulder blades. She states that she has just felt off all morning and notes that her family has a significant heart history prompting her to come here for further evaluation management. She states that she had a CAT scan of her chest and showed that she has coronary artery calcification and she is scheduled to have a heart catheterization towards the end of this month. Patient denies any recent travel denies any history of blood clots. [facility] Medical History Depression Chronic cough Sleep apnea Hypertension Failure of outpatient treatment Hypoxia History of bronchiectasis Asthma exacerbation Non-pressure chronic ulcer of right calf with fat layer exposed History of trigger finger Urinary incontinence Leg edema, left Leg edema, right Left leg swelling Right leg swelling Surgical wound dehiscence PAC (premature atrial contraction) Dyspnea on exertion Morbid obesity with BMI of 50.0-59.9, adult Chronic venous insufficiency Ventral hernia High cholesterol Alcohol use Bruising Easy bruising Back pain Gastric reflux Shortness of breath on exertion Asthma Former smoker CPAP (continuous positive airway pressure) dependence Leg cramps History of edema Cardiology follow-up encounter History of echocardiogram History of stress test Preoperative cardiovascular examination Coronary artery calcification COVID-19 Premature atrial contraction MALACHI on CPAP GERD (gastroesophageal reflux disease) Pure hypercholesterolemia Essential hypertension Urinary tract infection Acute sinusitis MALACHI (obstructive sleep apnea) Asthma, moderate persistent Urine incontinence Acute conjunctivitis Hyperlipidemia Hypertension Chronic venous insufficiency Obesity Edema of leg Leg swelling Home Medications Medication Instructions Recorded Last Taken Type amlodipine 10 mg tablet 10 mg PO QHS 06/19/16 01/11/25 History ascorbic acid (vitamin C) 1,000 mg 1,000 mg PO DAILY 06/19/16 01/12/25 History tablet evening primrose oil 500 mg capsule 500 mg PO DAILY 06/19/16 01/12/25 History omeprazole 20 mg capsule,delayed 20 mg PO DAILY 06/19/16 01/12/25 History release PEP device #1 ea 08/26/18 Unknown Rx Acapella #1 ea 12/21/21 Unknown Rx Peak Flow meter #1 ea 12/21/21 Unknown Rx citalopram 20 mg tablet 20 mg PO DAILY 07/27/22 01/12/25 History guaifenesin 1,200 mg tablet, 1,200 mg PO BID 06/07/23 01/12/25 History extended release 12 hr (Mucinex) Disability Placard #1 ea 07/24/23 Unknown Rx fluticasone furoate 200 1 inh inhalation DAILY #60 ea 05/22/24 01/12/25 Rx mcg-vilanterol 25 mcg/dose inhalation powder (Breo Ellipta) ipratropium 0.5 mg-albuterol 3 mg 3 ml inhalation Q8H PRN SOB &/OR 07/16/24 01/12/25 Rx (2.5 mg base)/3 mL nebulization WHEEZING #180 mL soln hydrochlorothiazide 25 mg tablet 25 mg PO BID #180 tabs 09/23/24 01/12/25 Rx albuterol 90 mcg/actuation aerosol 90 mcg inhalation PRN PRN 09/24/24 Unknown History inhaler shortness of breath or wheezing epinephrine 0.3 mg/0.3 mL 0.3 mg IM Q5-15M PRN anaphylaxis 09/24/24 Unknown History injection, auto-injector loratadine 10 mg tablet (Claritin) 10 mg PO QDAY 09/24/24 01/11/25 History vitamin E mixed 400 unit capsule 400 unit PO DAILY 09/24/24 01/11/25 History cholecalciferol (vitamin D3) 10 10 mcg PO QDAY 10/06/24 01/12/25 History mcg (400 unit) capsule fluticasone propionate 50 2 spray intranasal QDAY PRN 10/06/24 01/11/25 History mcg/actuation nasal allergy symptoms spray,suspension (Flonase Allergy Relief) dupilumab 300 mg/2 mL subcutaneous 300 mg subcut .Q2WEEK 11/13/24 01/07/25 History pen injector (Dupixent) aspirin 81 mg tablet 81 mg PO QDAY 12/15/24 01/12/25 History tirzepatide 2.5 mg/0.5 mL 2.5 mg (0.5 mL) subcut QWEEK #2 mL 12/15/24 Unknown Rx subcutaneous pen injector (Jessica) montelukast 10 mg tablet 10 mg PO QPM #90 tabs 12/16/24 01/11/25 Rx sodium chloride 7 % for 4 ml inhalation BID #240 mL 12/16/24 01/12/25 Rx nebulization spacer #1 ea 12/16/24 Unknown Rx losartan 50 mg tablet 50 mg PO BID #180 tabs 12/23/24 01/12/25 Rx acetaminophen 500 mg capsule 1,000 mg PO Q6H PRN fever or pain 01/12/25 01/12/25 History oxybutynin chloride 10 mg 10 mg PO DAILY 01/12/25 01/12/25 History tablet,extended release 24 hr potassium chloride 10 mEq 20 meq (2 x 10 mEq) PO DAILY 01/12/25 01/12/25 Rx capsule,extended release supplement #90 caps rosuvastatin 20 mg tablet 40 mg (2 x 20 mg) PO QHS #90 tabs 01/12/25 01/11/25 Rx Allergy/AdvReac Type Severity Reaction Status Date / Time lisinopril Allergy Unknown Cough Verified 01/12/25 10:43 clarithromycin (From Biaxin) Allergy Other Verified 01/12/25 10:43 codeine Allergy Other Verified 01/12/25 10:43 erythromycin base Allergy Other Verified 01/12/25 10:43 latex AdvReac Anaphylaxis Verified 01/12/25 10:43 Family History Father Hypertension CAD (coronary artery disease) Hx of CABG Myocardial infarction, Onset Age: 50 Mother Heart disease Brother Melanoma Hx of CABG Surgical History History of esophagogastroduodenoscopy (EGD) History of colonoscopy History of ventral hernia repair History of total knee replacement History of partial hysterectomy History of tonsillectomy History of cholecystectomy History of carpal tunnel release of both wrists History of bladder repair surgery History of ventral hernia repair Status post trigger finger release History of carpal tunnel surgery History of bladder repair surgery History of partial hysterectomy History of carpal tunnel surgery History of cholecystectomy History of total knee arthroplasty History of tonsillectomy Social History current occupational status: retired Smoking Status: Former smoker pack-years: 16 second hand exposure: No alcohol intake: current alcohol intake frequency: a few times a week Alcohol type: wine substance use type: does not use caffeine: No what type of physical activity do you participate in: walking and swimming ROS ROS ED ROS Narrative Constitutional: Denies any fevers, chills, headaches Eyes: Denies double vision Cardiovascular: Complains of chest pressure as noted above denies palpitations Respiratory: States that she has a chronic cough this is not worse than normal Abdomen: Denies abdominal pain nausea vomit diarrhea : Denies urinary symptoms Neurological: Denies any numbness, weakness, tingling Musculoskeletal: States that her pain radiates to her back as noted above Skin: Denies any rashes or lesions EXAM Physical Exam Narrative Exam Narrative: General: Patient is lying in bed rest comfortably did not appear to be in acute distress Head: Atraumatic, normocephalic Eyes: PERRL bilaterally, EOMI bilaterally, no conjunctival injection noted Neck: Soft, supple, trachea midline Cardiovascular: Patient is tachycardic with a regular rhythm Respiratory: Clear to auscultation bilaterally no rales rhonchi or wheezes noted Abdomen: Soft, nondistended,no tenderness to palpation Extremities: Radial pulses +2/4 in the bilateral extremities, +5/5 strength noted in the bilateral upper and lower extremities Neurological: Patient follow commands knew that she was at [facility] years 2024 Skin: Warm, dry, intact no rashes or lesions noted Const Vital Signs: 01/12/25 10:42 01/12/25 11:21 01/12/25 11:42 Temperature 96.9 F L Temperature Source Temporal Pulse Rate 125 H 74 Respiratory Rate 28 H 18 Respiratory Effort Respiratory Depth Respiratory Pattern Blood Pressure 233/93 H 126/62 H Blood Pressure Mean 139 83 Pulse Ox 91 97 95 Oxygen Delivery Method Room Air Room Air Room Air 01/12/25 11:59 01/12/25 12:04 01/12/25 13:00 Temperature Temperature Source Pulse Rate 74 73 Respiratory Rate 18 Respiratory Effort Short of Breath Respiratory Depth Normal Respiratory Pattern Tachypnea Blood Pressure 126/62 H 114/64 Blood Pressure Mean 80 Pulse Ox 94 Oxygen Delivery Method Room Air 01/12/25 14:00 01/12/25 15:00 01/12/25 16:00 Temperature Temperature Source Pulse Rate 68 67 71 Respiratory Rate 13 16 15 Respiratory Effort Respiratory Depth Respiratory Pattern Blood Pressure 120/63 117/64 121/57 H Blood Pressure Mean 82 81 78 Pulse Ox 95 94 97 Oxygen Delivery Method Room Air MDM MDM MDM Narrative Medical decision making narrative: Patient is a 64-year-old female who presented to the emergency department with a chief complaint of chest pain and not feeling well overall. On the differential diagnose includes but not limited to ACS, pneumonia, pneumothorax, pulmonary embolism although have low suspicion for this. Once workup is obtained reviewed she will be reevaluated. Patient states that she took aspirin this morning already. Patient be given sublingual nitroglycerin. Patient is a CBC reviewed showed a leukocytosis 14,000, he was 12.9, platelet count was noted be 232. Patient sodium is 139, potassium low at 3.3, creatinine was noted to be 0.72 troponin was noted be 11 delta troponin of 13. Patient's EKG showed sinus rhythm with a rate of 81 bpm this was compared to old EKG and was largely unremarkable. Patient proBNP normal at 80. Patient chest x-ray reviewed by myself by radiology showed no significant change since prior exam findings suggest some mild basilar scarring. Nursing came to me and notified me that she seems very anxious therefore she will be given 1 mg of IV Ativan. Patient was placed on nasal cannula as she fell asleep and became hypoxic she states that she has a sleep apnea machine at home. This hypoxia is likely secondary to her sleep apnea when falling asleep. When I went in to reevaluate the patient she states that she is feeling better however states that she is still having some pain with deep inspiration therefore will add a D-dimer on although she is low risk and have low suspicion for this. D-dimer was elevated however with age adjustment is low risk. Age-Adjusted D-dimer for Venous Thromboembolism (VTE) from [email or web address] on 01/12/2025 All calculations should be rechecked by clinician prior to use RESULT SUMMARY: 0.66 µg/mL Age-adjusted D-dimer cutoff, FEU VTE unlikely Reported D-dimer is less than or equal to cutoff; consider alternative diagnosis INPUTS: Age —> 64 years D-dimer level reported by lab —> 0.65 µg/mL D-dimer unit type —> 0 = FEU (unadjusted cutoff typically ~500 or 0.50) Called and discussed case with on-call pot feeder Dr. Morrison who reviewed everything and believes the patient can go to her scheduled heart cath on the . She was advised to return with worsening symptoms or concerns. She is agreeable this plan all question concerns answered she was discharged home in stable condition. Lab Data Labs: Laboratory Results - last 24 hr 01/12/25 01/12/25 11:07 13:17 WBC 14.0 H RBC 4.66 Hgb 12.9 Hct 39.3 MCV 84.3 MCH 27.7 MCHC 32.8 RDW Std Deviation 50.1 H RDW Coeff of Kathryn 16.1 H Plt Count 232 MPV 9.1 Immature Gran % (Auto) 0.600 Neut % (Auto) 80.9 H Lymph % (Auto) 9.6 L Ward % (Auto) 6.6 Eos % (Auto) 1.9 Baso % (Auto) 0.4 Absolute Neuts (auto) 11.3 H Absolute Lymphs (auto) 1.35 Nucleated RBC % 0 D-Dimer Quant (PE/DVT) 0.65 H* Sodium 139 Potassium 3.3 Chloride 102 Carbon Dioxide 24.3 Anion Gap 13 BUN 16 Creatinine 0.72 Est GFR (MDRD) Non-Af 92 BUN/Creatinine Ratio 22.4 H Glucose 101 H Calcium 9.5 Troponin T High Sens 11 Troponin T Hi Sens 2 Hr 13 NT pro BNP II 80 Radiography Diagnostic Testing: Clinical Impression(s) from Imaging Studies Chest X-Ray 01/12/25 11:35 IMPRESSION: NO SIGNIFICANT CHANGE SINCE THE PRIOR EXAM. Findings suggestive of mild bibasilar scarring. Reading Location: [facility] Discharge Plan Triage Chief Complaint: Shortness of Breath ED Provider: Michael Moore Dx/Rx/DC Orders Clinical Impression: Chest pain, Asthma, moderate persistent, MALACHI (obstructive sleep apnea), Essential hypertension, MALACHI on CPAP Prescriptions: No Action (DME) PEP device 0 .ROUTE .MEDSUPPLY Qty: 1 0RF Rx Instructions: with training (DME) Peak Flow meter See Rx Instructions .ROUTE .MEDSUPPLY Qty: 1 0RF Rx Instructions: As directed (DME) Acapella See Rx Instructions .ROUTE .MEDSUPPLY Qty: 1 0RF Rx Instructions: As directed citalopram 20 mg tablet 20 mg PO DAILY Patient Comments: TAKE 1 TABLET BY MOUTH EVERY DAY FOR 90 DAYS guaifenesin [Mucinex] 1,200 mg tablet extended release 12hr 1,200 mg PO BID sodium chloride 7 % solution for nebulization 4 ml inhalation BID Qty: 240 11RF montelukast 10 mg tablet 10 mg PO QPM Qty: 90 3RF (DME) spacer See Rx Instructions .ROUTE .MEDSUPPLY Qty: 1 0RF Rx Instructions: As directed ipratropium-albuterol 0.5 mg-3 mg(2.5 mg base)/3 mL solution for nebulization 3 ml inhalation Q8H PRN (Reason: SOB &/OR WHEEZING) Qty: 180 11RF loratadine [Claritin] 10 mg tablet 10 mg PO QDAY epinephrine 0.3 mg/0.3 mL auto-injector 0.3 mg IM Q5-15M PRN (Reason: anaphylaxis) Rx Instructions: do not exceed 3 doses per episode albuterol 90 mcg/actuation aerosol 90 mcg inhalation PRN PRN (Reason: shortness of breath or wheezing) vitamin E mixed 400 unit capsule 400 unit PO DAILY fluticasone propionate [Flonase Allergy Relief] 50 mcg/actuation spray,suspension 2 spray intranasal QDAY PRN (Reason: allergy symptoms) Rx Instructions: administer into each nostril cholecalciferol (vitamin D3) 10 mcg (400 unit) capsule 10 mcg PO QDAY aspirin 81 mg tablet 81 mg PO QDAY Mounjaro 2.5 mg/0.5 mL pen injector 2.5 mg subcut QWEEK Qty: 2 4RF Rx Instructions: for 4 weeks ascorbic acid (vitamin C) 1,000 MG tablet 1,000 mg PO DAILY evening primrose oil 500 MG capsule 500 mg PO DAILY amlodipine 10 MG tablet 10 mg PO QHS omeprazole 20 MG capsule 20 mg PO DAILY oxybutynin chloride 10 mg tablet extended release 24hr 10 mg PO DAILY acetaminophen 500 mg capsule 1,000 mg PO Q6H PRN (Reason: fever or pain) Dupixent Pen 300 mg/2 mL pen injector 300 mg SUBCUT .Q2WEEK Patient Comments: [NO ORIGINAL SIG] (DME) Disability Placard See Rx Instructions .Route .MEDSUPPLY Qty: 1 0RF Rx Instructions: expires 07/23/2028 fluticasone furoate-vilanterol [Breo Ellipta] 200-25 mcg/dose blister with device 1 inh INHALATION DAILY Qty: 60 11RF hydrochlorothiazide 25 mg tablet 25 mg PO BID Qty: 180 3RF losartan 50 mg tablet 50 mg PO BID Qty: 180 3RF rosuvastatin 20 mg tablet 40 mg PO QHS Qty: 90 3RF potassium chloride 10 mEq capsule, extended release 20 meq PO DAILY Qty: 90 3RF Primary Care Provider: Randall Warren Referrals: Randall Warren MD [Primary Care Provider, Internal Medicine] Activity Restrictions/Additional Instructions: Follow-up with your doctors in the outpatient setting and your schedule heart catheterization. Your blood work did not show any acute findings here today no evidence of blood clots. Chest x-ray did not show any acute findings. Return with worsening symptoms or any other concerns in the meantime. Print Language: Ukrainian Disposition Disposition: Home, Self Care
[2025-01-12 11:51] LABS: Anion Gap 13 (5-15); BUN 16 mg/dL (4-19); BUN/Creat Ratio 22.4 RATIO (10-20); Calcium,Total 9.5 mg/dL (7.6-11.0); Carbon Dioxide 24.3 mmol/L (21.0-32.0); Chloride 102 mmol/L (98-108); Glucose 101 mg/dL (70-99); Potassium 3.3 mmol/L (3.3-5.1); Pro- Brain NATRIURETIC PEPTIDE 80 pg/mL (<=900); Troponin T High Sensitivity 11 ng/L (<=14)
[2025-01-12] MEDS: Nitroglycerin SL (ED/IMG/CATH) 0.4 MG TABLET SL (11:59)
[2025-01-12 14:14] LABS: Troponin T High Sens 2 HR 13 ng/L (<=14)
[2025-01-12 16:21] LABS: D-Dimer Quantitative (DVT/PE) 0.65 FEU/ug/m (0.27-0.49)
== END 2025-01-12 16:46 | disposition home or self-care (01) ==
PROVIDERS: Emergency Provider Emergency Medicine; PCP Internal Medicine; Visit Provider Emergency Medicine
DX: R07.9 Chest pain, unspecified (principal); G47.33 Obstructive sleep apnea (adult) (pediatric); E78.00 Pure hypercholesterolemia, unspecified; I25.10 Atherosclerotic heart disease of native coronary artery without angina pectoris; I10 Essential (primary) hypertension; R09.02 Hypoxemia; Z90.710 Acquired absence of both cervix and uterus; Z87.891 Personal history of nicotine dependence; J45.40 Moderate persistent asthma, uncomplicated; Z99.89 Dependence on other enabling machines and devices; R06.02 Shortness of breath; R05.9 Cough, unspecified; Z90.49 Acquired absence of other specified parts of digestive tract; Z86.16 Personal history of COVID-19
CPT/HCPCS: 71046; 80048; 83880; 84484; 85025; 85379; 93005; 96374; 96375; 99284; A4216; J2405

== ENCOUNTER 2025-01-26 08:22 | Day surgery (SDC) | payer BC, SELFPAY ==
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
[2025-01-23 10:04] VITALS: BMI 51.2
[2025-01-26 09:15] LABS: Potassium 3.4 mmol/L (3.3-5.1)
--- NOTE | 2025-01-26 12:07 | CL.D_ITS ---
Patient Name: KIZZY NASH Study Date: 01/26/2025 Performing: Josh Fuller MD Ht: 64 inches 162.56 cm : 1960 Wt: 298.99 lbs 135.62 kg Age: 64 Gender: female BSA: 2.32 PROCEDURE(S) PERFORMED [id number])LHC/COR/LV CLINICAL PROFILE AND INDICATIONS Indications: Suspected CAD Heart Failure: None Stress/Imaging Cardiac CTA: Yes Result: 2VDCardiac CTA: 2VDStress/Image Study Performed: No CAD Presentations: No Sxs, no angina. CONCLUSIONS Nonobstructive coronary arteries RECOMMENDATIONS Medical therapy DESCRIPTION OF PROCEDURE The patient arrived to the procedure lab. The risks and benefits of the procedure as well as a full description of our services here and current unavailability of surgical backup were fully explained to the patient and/or their significant other prior to the catheterization. The Timeout was completed, verifying the correct patient and procedure. The patient's procedural site was prepped and draped in the usual fashion. Local anesthetic was given subcutaneously to right radial region with Lidocaine 2%. Using a modified Seldinger technique, arterial access was obtained via the right radial artery, a 6Fr sheath was inserted. Left Coronary Artery selective angiography was performed in multiple views using a 5 Fr. 4.0 Corinth catheter. Right Coronary Artery selective angiography was then performed in multiple views using a 5 Fr. 4.0 [place] catheter. Left Ventriculography was performed in MOON projection using a 5 Fr. Pigtail catheter. LV to AO pullback pressures were then recorded.The arterial sheath was pulled and a TR Band was applied for hemostasis CORONARY ANGIOGRAPHY DOMINANCE: Right Dominant LEFT HEART ASSESSMENT Left Ventricular Ejection Fraction: by LV Gram 60 % Normal LV wall motion Normal Left Ventricular systolic function LEFT MAIN: Mild calcification, Mild luminal irregularities LEFT ANTERIOR DESCENDING ARTERY: Mild luminal irregularities less than 30% CIRCUMFLEX ARTERY: Mild luminal irregularities less than 30% RIGHT CORONARY ARTERY: Mild luminal irregularities less than 30% COMPLICATIONS No Complications PROCEDURE MEDICATIONS Versed 1 mg IV Fentanyl 50 mcg IV Versed 1 mg IV Versed 1 mg IV Oxygen: 2 L/min via nasal cannula Heparin given IA 01/26/2025 11:27:08 Potassium Chloride 40 mEq PO 01/26/2025 09:48:37 Verapamil 2.5mg, Ntg 200mcgs, 2000 units of Heparin given IA 01/26/2025 11:27:08 SUMMARY OF HEMODYNAMIC DATA Time AIR REST ECG 09:01:28 AO 121/69 (92) SA 11:27:35 LV 124/8, 18 11:33:01 LV 109/10, 22 11:33:07 LV 126/21, 24 11:33:54 LV 132/10, 24 11:34:08 LVp 133/15, 23 11:34:12 AOp 131/65 (93) 11:34:17 AIR REST 12:04:47 Signed By Josh Fuller MD On 01/26/2025 12:06:47 Signed By Josh Fuller MD On 01/26/2025 12:06:18 Josh Fuller MD
== END 2025-01-26 13:25 | disposition home or self-care (01) ==
PROVIDERS: PCP Internal Medicine; Referring Provider Internal Medicine Cardiovascular Disease; Visit Provider Internal Medicine Cardiovascular Disease
DX: I25.10 Atherosclerotic heart disease of native coronary artery without angina pectoris (principal); I10 Essential (primary) hypertension; Z87.891 Personal history of nicotine dependence; E78.00 Pure hypercholesterolemia, unspecified; J45.909 Unspecified asthma, uncomplicated; R06.09 Other forms of dyspnea; R93.1 Abnormal findings on diagnostic imaging of heart and coronary circulation; R53.83 Other fatigue; Z79.82 Long term (current) use of aspirin; K21.9 Gastro-esophageal reflux disease without esophagitis
CPT/HCPCS: 36415; 83036; 84132; 93458; 99152; 99153; C1769; C1894